=== PATIENT | female | born 1965 ===

== ENCOUNTER → 2020-08-29 13:42 | Outpatient (BNVA) | payer OTHER, SELFPAY | PROVIDERS: PCP Nurse Practitioner Family; Visit Provider Nurse Practitioner Family | DX: Z76.89 Persons encountering health services in other specified circumstances (principal) ==

== ENCOUNTER 2020-09-19 12:41 | Outpatient (REF) | payer OTHER, SELFPAY ==
--- NOTE | 2020-09-19 12:42 | XR_ITS ---
EXAMINATION: KNEE X-RAY CLINICAL INFORMATION: Right knee pain COMPARISON: Previous x-ray from 2010 TECHNIQUE: Standing AP view of both knees and lateral and sunrise view of the right knee FINDINGS: Right knee: Bone alignment is normal. No fracture or dislocation is seen. Joint spaces are normal. There is no joint effusion. Standing AP view of the left knee is unremarkable. XR/XR knee standing BI IMPRESSION: Unremarkable exam.
--- NOTE | 2020-09-19 12:42 | XR_ITS ---
EXAMINATION: KNEE X-RAY CLINICAL INFORMATION: Right knee pain COMPARISON: Previous x-ray from 2010 TECHNIQUE: Standing AP view of both knees and lateral and sunrise view of the right knee FINDINGS: Right knee: Bone alignment is normal. No fracture or dislocation is seen. Joint spaces are normal. There is no joint effusion. Standing AP view of the left knee is unremarkable. XR/XR knee RT 2V IMPRESSION: Unremarkable exam.
== END 2020-09-19 12:42 | disposition home or self-care (01) ==
LOC: HO.HOSX 12:41
PROVIDERS: Visit Provider Physician Assistant
DX: M25.561 Pain in right knee (principal); M70.51 Other bursitis of knee, right knee
CPT/HCPCS: 73560; 73565

== ENCOUNTER 2020-10-11 09:16 | Outpatient (REF) | payer OTHER, SELFPAY ==
[2020-10-11 11:37] LABS: Alanine Aminotransferase 56 U/L (0-31); Albumin Level 4.4 g/dL (3.5-5.0); Alkaline Phosphatase 139 U/L (39-117); Aspartate Amino Transferase 42 U/L (5-31); Bilirubin Direct 0.2 mg/dL (0.0-0.5); Bilirubin Total 0.5 mg/dL (0.0-1.0); Total Protein 7.5 g/dL (6.5-8.0)
[2020-10-11 11:45] LABS: Anion Gap 15 (12-20); Blood Urea Nitrogen 16 mg/dL (9-16); Calcium 9.5 mg/dL (8.4-10.2); Carbon Dioxide 27 mmol/L (22-29); Chloride 102 mmol/L (96-108); Cholesterol 260 mg/dL; Estimated Glomerular Filt Rate > 60; Glucose Fasting 100 mg/dL (60-99); HDL Cholesterol 71 mg/dL; LDL Cholesterol Calculated 148 mg/dl; Potassium 4.7 mmol/l (3.3-5.1); Sodium 139 mmol/L (135-145); Triglycerides 209 mg/dL
[2020-10-11 11:55] LABS: Vitamin D 25-OH Total 17.8 ng/mL (>30)
== END 2020-10-11 09:17 | disposition home or self-care (01) ==
LOC: HO.HMGCLDS 09:16
PROVIDERS: PCP Nurse Practitioner Family; Visit Provider Nurse Practitioner Family
DX: Z00.00 Encounter for general adult medical examination without abnormal findings (principal); E55.9 Vitamin D deficiency, unspecified
CPT/HCPCS: 80048; 80061; 80076; 82306; 84443

== ENCOUNTER 2020-11-10 07:27 | Day surgery (SDC) | payer OTHER, SELFPAY ==
[2020-11-04 10:49] VITALS: BMI 42.3
--- NOTE | 2020-11-09 08:22 | HO.ANESPROP2 ---
Documented by User: Carmen Tinsley 11/09/20 08:24 HPI - Anesthesia Eval Consult details Narrative: 55yo F for Colonoscopy PMFSH Past Medical History Medical History (Updated 11/10/20 @ 07:49 by Malena Bass) Chronic otitis externa Depression Dyslipidemia Elevated LFTs Hemicrania HTN (hypertension) Impaired fasting glucose Increased BMI Insomnia Menopausal disorder Tenosynovitis of both wrists Family History Family History Father Hx of cirrhosis Mother Hx of diabetes insipidus HX: breast cancer Hx of renal failure Son No problems noted. Daughter No problems noted. 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 Meds Allergies Allergy/AdvReac Type Severity Reaction Status Date / Time No Known Allergies Allergy Verified 10/18/20 08:49 Home Medications Medication Instructions Recorded Confirmed Type acetic acid 2 % ear solution ml OTIC (EARS) 08/09/20 10/18/20 History ciclopirox 0.77 % topical cream 1 applic TOPICAL BID 08/09/20 10/18/20 History clobetasol 0.05 % topical ointment g TOPICAL BID 08/09/20 10/18/20 History escitalopram oxalate 10 mg tablet 10 mg PO DAILY 08/09/20 10/18/20 History estradiol 0.05 mg/24 hr semiweekly 1 patch TOPICAL 2XW 08/09/20 10/18/20 History transdermal patch flu vac qs 2019(4 yr up)CD(PF) ml IM 08/09/20 10/18/20 History lorazepam 0.5 mg tablet 0.5 mg PO DAILY PRN 08/09/20 11/04/20 History propranolol 120 mg capsule,24 120 mg PO DAILY 08/09/20 11/04/20 History hr,extended release varicella-zoster glycoE [id number] IM 08/09/20 10/18/20 History adj(PF) 50 mcg/0.5 mL IM susp, kit Exam Exam Date and Time: November 09, 2020 0822 Height,Weight and Vital Signs: Height 5 ft 6 in Weight 118.841 kg Pertinent Lab Results Pertinent Lab Results: Laboratory Tests 10/11/20 09:22 Sodium 139 Potassium 4.7 Chloride 102 Carbon Dioxide 27 BUN 16 Creatinine 0.73 Assessment and Plan Assessment Anesthesia Assessment: Chart Reviewed Documented by User: Malena Bass 11/10/20 08:46 [facility] Past Medical History Medical History (Updated 11/10/20 @ 07:49 by Malena Bass) Chronic otitis externa Depression Dyslipidemia Elevated LFTs Hemicrania HTN (hypertension) Impaired fasting glucose Increased BMI Insomnia Menopausal disorder Tenosynovitis of both wrists Family History Family History Father Hx of cirrhosis Mother Hx of diabetes insipidus HX: breast cancer Hx of renal failure Son No problems noted. Daughter No problems noted. Family history of problems with anesthesia: No Surgical History Surgical History History of colonoscopy History of hysterectomy History of laparoscopic cholecystectomy History of mammogram History of Problems with Anesthesia: No (Could hear people talking toward end of last colonoscopy. 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 Allergies Allergy/AdvReac Type Severity Reaction Status Date / Time No Known Allergies Allergy Verified 10/18/20 08:49 Home Medications Medication Instructions Recorded Confirmed Type acetic acid 2 % ear solution ml OTIC (EARS) 08/09/20 10/18/20 History ciclopirox 0.77 % topical cream 1 applic TOPICAL BID 08/09/20 10/18/20 History clobetasol 0.05 % topical ointment g TOPICAL BID 08/09/20 10/18/20 History escitalopram oxalate 10 mg tablet 10 mg PO DAILY 08/09/20 10/18/20 History estradiol 0.05 mg/24 hr semiweekly 1 patch TOPICAL 2XW 08/09/20 10/18/20 History transdermal patch flu vac qs 2020(4 yr up)CD(PF) ml IM 08/09/20 10/18/20 History lorazepam 0.5 mg tablet 0.5 mg PO DAILY PRN 08/09/20 11/04/20 History propranolol 120 mg capsule,24 120 mg PO DAILY 08/09/20 11/04/20 History hr,extended release varicella-zoster glycoE [id number] IM 08/09/20 10/18/20 History adj(PF) 50 mcg/0.5 mL IM susp, kit Exam Height,Weight and Vital Signs: Vital Signs Temp Pulse Resp BP Pulse Ox 11/10/20 08:07 96.8 F 87 16 142/88 H 94 Airway Mallampati Class: III TM Dist: >3cm Neck ROM: Full Heart: RRR Lungs: CTAB Assessment and Plan Assessment Anesthesia Assessment: Anesthesia Plan Discussed and Chart Reviewed Final Anesthetic Review NPO: Yes ASA Class: III Final Preanesthetic Review: No Changes in Pt Med Stat, Meds/Allgs Chart Reviewed, Consent Obtained/Reviewed and Anes Risks/Benef Reviewed Patient Risk: Intermediate Procedure Risk: Low Assessment/Block/Sedation in SS: Assess/Block/Sedation-SS Anesthetic Plan Anesthetic Plan: MAC: Disposition: Standard PACU
[2020-11-10 08:07] VITALS: BP 142/88; PULSE 87; RESP 16; TEMP 36; O2SAT 94
[2020-11-10] MEDS: Lactated Ringers 1,000 ML 100 ML IVCONT (08:14)
--- NOTE | 2020-11-10 08:53 | MHC.SHP ---
Pre-Procedural Eval Section B Chief Complaint: screening Details of Present Illness: COLON CANCER SCREENING, HX OF ASTHMA--ALLERGY INDUCED PERSONAL HX OF POLYPS, MOTHER WITH POLYPS NO CLINICAL CHANGES SINCE AUGUST. Relevant Family History (Specify if Yes): Yes Relevant Social History: None Present Medications: see Short Stay Collaborative assessment Medical History: Significant History (ASTHMA, HYPERTENSION, MORBID OBESITY) History of Previous Operations: Relevant previous surgery/procedure and date(s) (HYSTERECTOMY, CHOLECYSTECTOMY) Allergies: Allergies Allergy/AdvReac Type Severity Reaction Status Date / Time No Known Allergies Allergy Verified 10/18/20 08:49 Review of Systems Sugical H&P ROS: Yes, Specify: Constitution (OBESE), Cardiovascular (HTN), Respiratory (ASTHMA), Neurological, Gastrointestinal and Musculoskeletal Exam Surgical H&P Exam: Normal: HEENT, Normal: Heart, Normal: Lungs and Normal: Extremities and Significant Findings: Abdomen (CENTRAL OBESITY) Plan Diagnosis/Plan: Unchanged I have reviewed the history and physical and performed a pertinent physical examination on my patient. No changes have occurred unless specified.YES
--- NOTE | 2020-11-10 09:29 | PM.PROC ---
Brief Operative Note Date of procedure: 11/10/20 Pre-op diagnosis: COLON C ANCER SCREENING, HX OF TUBULAR ADENOMAS Post-op diagnosis: other (COLON POLYPS, DIVERTICULOSIS) Procedure: COLONOSCOPY WITH EXCISIONAL POLYPECTOMY X2 Anesthesia: MAC (DEANGELO BAILEY) Surgeon: Dahlia Rice Estimated blood loss (mL): 5 Pathology: other (ASC. COLON, HEPATIC FLEXURE) Condition: stable Disposition: PACU
[2020-11-10 09:31] VITALS: BP 122/80; PULSE 82; RESP 16; TEMP 37.1; O2SAT 96
[2020-11-10 09:46] VITALS: BP 139/94; PULSE 90; RESP 20; TEMP 36.7; O2SAT 96
--- NOTE | 2020-11-10 10:32 | OP_ITS ---
SURGEON: Dahila Rice MD PREOPERATIVE DIAGNOSIS: positive family history of colonic polyps. POSTOPERATIVE DIAGNOSIS: PROCEDURE PERFORMED: Colonoscopy with excisional polypectomy x2 using the cold biopsy forceps technique. ESTIMATED BLOOD LOSS: Less than 5 mL. COMPLICATIONS: No complications. ANESTHESIA: Monitored. ANESTHESIOLOGIST: Samm Garza CRNA. ASSISTANTS: No assistant librarian. SPECIMENS: Specimens removed; ascending colon, hepatic flexure, 1 diminutive ascending colon, hepatic flexure, 1 to 2 mm polyp. POSTOPERATIVE DIAGNOSES: Colonic polyps, diverticulosis. CONTROL SUPERVISOR: Dr. Rice. CONDITION: Postop, stable. FINDINGS: Digital rectal exam revealed slightly decreased sphincter tone. Video colonoscope was introduced without difficulty. It was navigated into the rectosigmoid and sigmoid. There was some mild residual fecal material, which was easily flushed and suctioned. Scope slowly moved through redundant area with multiple diverticula, opening up in the descending colon with extrinsic abdominal pressure. Once reached the transverse colon, we were able to proceed through hepatic flexure down into the cecum. Appendiceal orifice was seen. Ileocecal valve was well seen. No mucosal abnormalities were appreciated. As we pulled through the ascending colon, was a diminutive polyp, removed excisionally and in the distal portion of the hepatic flexure, there was a 1 to 2 mm polyp that was removed excisionally as well. No additional lesions were seen as we removed the scope. Anorectal verge was clear. PLAN AND CURRENT RECOMMENDATIONS: Repeat asymptomatic screening in this patient will continue to be 5 years. The patient was spoken to postprocedure and informed of this. GRAFT OR IMPLANTS: No grafts or implants. Dahlia Rice MD MEN/MODL / [id number] MTDD
== END 2020-11-10 10:19 | disposition home or self-care (01) ==
PROVIDERS: PCP Nurse Practitioner Family; Visit Provider Internal Medicine Gastroenterology
PROC: 0DJD8ZZ Inspection of Lower Intestinal Tract, Via Natural or Artificial Opening Endoscopic (ICD-10-PCS; CPT 45378; principal; 2020-11-10 08:30)
DX: Z12.11 Encounter for screening for malignant neoplasm of colon (principal); Z83.71 Family history of colonic polyps; D12.2 Benign neoplasm of ascending colon; D12.3 Benign neoplasm of transverse colon; K57.30 Diverticulosis of large intestine without perforation or abscess without bleeding; I10 Essential (primary) hypertension; F32.9 Major depressive disorder, single episode, unspecified; R73.01 Impaired fasting glucose; Z90.49 Acquired absence of other specified parts of digestive tract; Z79.899 Other long term (current) drug therapy
CPT/HCPCS: 45380; 88305; J3010

== ENCOUNTER 2020-11-14 14:47 | Outpatient (REF) | payer OTHER, SELFPAY | END 2020-11-14 14:48 | disposition home or self-care (01) | LOC: HO.LAB 14:47 | PROVIDERS: Visit Provider Nurse Practitioner Family | DX: K13.70 Unspecified lesions of oral mucosa (principal) | CPT/HCPCS: 87255 ==

== ENCOUNTER 2020-11-30 15:27 | Outpatient (REF) | payer OTHER, SELFPAY ==
[2020-11-30 16:00] LABS: MANUAL DIFF FLAG NO
[2020-11-30 16:03] LABS: Basophils Percent Auto 0.4 % (0-2); Eosinophils Absolute Auto 0.2 X10*3/uL (0.0-0.4); Hematocrit 39.7 % (37-47); Hemoglobin 12.6 g/dl (12.0-16.0); Imm Gran Abs Auto 0.04 X10*3/uL (0.00-0.03); Imm Gran Pct Auto 0.4 % (0.0-0.4); Mean Corpuscular HGB Conc 31.7 g/dl (31.0-35.0); Mean Corpuscular Hemoglobin 28.6 pg (27.0-33.0); Mean Platelet Volume 9.3 fL (9.4-12.3); Monocytes Absolute Auto 0.6 X10*3/uL (0.1-1.2); Monocytes Percent Auto 5.7 % (2-11); Neutrophils Absolute Auto 6.9 X10*3/uL (2.0-8.3); Neutrophils Percent Auto 70.5 % (45-73); Platelet Count 325 X10*3/uL (160-400); Red Blood Count 4.41 X10*6/uL (4.20-5.50); Red Cell Distribution Width 12.5 % (11.0-16.0); White Blood Count 9.7 X10*3/uL (4.8-10.8)
[2020-11-30 16:28] LABS: Rheumatoid Factor < 15.0 IU/mL (<15.0)
[2020-11-30 16:32] LABS: C Reactive Protein 0.75 mg/dL (< or = 0.50); Gamma Glutamyl Transpeptidase 124 U/L (7-33); Lactate Dehydrogenase 238 U/L (122-220)
[2020-11-30 16:52] LABS: Ferritin 359 ng/mL (10-250)
[2020-11-30 17:32] LABS: Erythrocyte Sedimentation Rate 25 MM/HR (0-20)
[2020-12-01 08:10] LABS: HBsAGNum1 0.24 S/CO (0.00-0.99); Hepatitis B Surface Antigen Negative (Negative); ~HepC Num1 0.21 S/CO (0.00-0.79); ~Hepatitis C Antibody Nonreactive (Nonreactive)
[2020-12-01 08:58] LABS: HBS Num1 23.13 mIU/mL (0-7.99); HBc Num1 11.11 S/CO (0.00-0.79); ~Hepatitis B Surface Antibody REACTIVE (Nonreactive)
[2020-12-01 10:50] LABS: HBc Num2 10.74 S/CO; HBc Num3 10.54 S/CO; Hepatitis B Core Antibody Reactive (Nonreactive)
[2020-12-01 13:42] LABS: Anti Nuclear Antibody Screen NEGATIVE (NEGATIVE)
[2020-12-02 08:14] LABS: Hepatitis A Antibody IgM 0.36 Index (0-0.79); ~Hepatitis A Antibody IgM Nonreactive (Nonreactive)
[2020-12-02 10:37] LABS: Hepatitis B Core Antibody IgM NON-REACTIVE (NON-REACTIVE)
[2020-12-02 12:36] LABS: Mitochondrial Antibodies NEGATIVE (NEGATIVE)
[2020-12-02 12:57] LABS: Cyclic Citrullinated Peptide <16 UNITS
[2020-12-03 12:42] LABS: Smooth Muscle Antibody <20 U (<20)
== END 2020-11-30 15:28 | disposition home or self-care (01) ==
LOC: HO.LAB 15:27
PROVIDERS: Absent Provider Podiatrist; PCP Nurse Practitioner Family; Visit Provider Nurse Practitioner Family
DX: R79.89 Other specified abnormal findings of blood chemistry (principal); M25.50 Pain in unspecified joint
CPT/HCPCS: 36415; 82550; 82728; 82977; 83615; 85025; 85652; 86038; 86039; 86140; 86200; 86255; 86256; 86431; 86704; 86705; 86706; 86709; 86803; 87340

== ENCOUNTER → 2020-12-08 13:50 | Outpatient (BNVA) | payer OTHER, SELFPAY | PROVIDERS: PCP Nurse Practitioner Family; Visit Provider Nurse Practitioner Family ==

== ENCOUNTER 2020-12-15 07:53 | Outpatient (REF) | payer OTHER, SELFPAY ==
--- NOTE | ~2020-12-15 | US_ITS ---
EXAMINATION: US COMPLETE ABDOMEN WITH LIVER ELASTOGRAPHY CLINICAL INFORMATION: R79.89 - Other specified abnormal findings of blood chemistry COMPARISON: Ultrasound abdomen 01/30/2016, MR abdomen without and with gadolinium contrast 07/13/2011. TECHNIQUE: Real-time imaging of the abdominal viscera. Noninvasive ultrasound liver fibrosis assessment is performed using Marsha ElastPQ point quantification shear wave elastography (pSWE) with a C5-2 MHz transducer. Multiple elastography samples are obtained. FINDINGS: PANCREAS: The visualized pancreas is normal in size and contour and echogenicity. There is no pancreatic ductal distention or retroperitoneal effusion. Portions of the distal body and tail are obscured by bowel gas and not completely imaged. ABDOMINAL AORTA: The proximal, middle, and distal aortic segments are normal in caliber. INFERIOR VENA CAVA: Visualized portions are normal. LIVER: The liver is smooth in contour and within normal size. The parenchyma shows increased echogenicity consistent with hepatic steatosis. There is no intrahepatic ductal dilatation. No focal hepatic parenchymal lesion demonstrated on current exam. Previously, a small subcapsular lesion under 1.5 cm right lobe believed to represent FNH is not visualized. The right lobe measures 18.0 cm in length. The left lobe measures 14.1 cm in length. Portal flow is towards the liver (hepatopetal). Shear wave liver elastography median stiffness is 1.37 m/s (reference: normal median stiffness is 1.3 m/s or less). IQR/median stiffness to assess sampling precision is 0.15 (reference: good quality data set is IQR/median stiffness of 0.15 or less). GALLBLADDER: Prior cholecystectomy. COMMON BILE DUCT: Normal in caliber for postcholecystectomy patient, measuring 0.9 cm. No choledocholithiasis. RIGHT KIDNEY: Normal. No hydronephrosis. No renal calculi or focal parenchymal lesions. The kidney measures 13.2 cm in maximum dimension. LEFT KIDNEY: Normal. No hydronephrosis. No renal calculi or focal parenchymal lesions. The kidney measures 12.0 cm in maximum dimension. SPLEEN: Normal. The spleen measures 12.4 cm in maximum dimension. FREE FLUID: None. US/US abdomen comp w elastography IMPRESSION: 1. Hepatic steatosis. Liver within limits of normal size. Portal flow towards the liver. Small focal nodular hyperplasia right hepatic lobe under 1.5 cm noted on prior imaging, not visualized. 2. Liver elastography: In the absence of other known clinical signs, measurements rule out compensated advanced chronic liver disease. If there are known clinical signs, further testing may be needed for confirmation. 3. Prior cholecystectomy. No ductal dilatation. REFERENCE: Society of Radiologists in Ultrasound Liver Stiffness Thresholds (2020): LIVER STIFFNESS THRESHOLDS: *Liver Stiffness equal or less than 1.3 m/s: High probability of being normal. *Liver Stiffness less than 1.7 m/s: In the absence of other known clinical signs, rules out compensated advanced chronic liver disease. *Liver Stiffness 1.7-2.1 m/s: Suggestive of compensated advanced chronic liver disease but need further test for confirmation. *Liver Stiffness over 2.1 m/s: Rules in compensated advanced chronic liver disease. *Liver Stiffness over 2.4 m/s: Suggestive of clinically significant portal hypertension. QUALITY OF DATA SET: *IQR/Median value equal or less than 0.15 implies a quality data set. *IQR/Median value over 0.15 implies a poor quality data set. SIGNIFICANT CHANGE FROM PRIOR EXAM: Significant change if liver stiffness measurement is 10% or greater from prior exam. OTHER CONSIDERATIONS: The stage of liver fibrosis may be overestimated in the setting of acute hepatitis, liver inflammation, elevated liver function tests, hepatic vascular congestion, obstructive cholestasis, non-fasting state, and infiltrative diseases such as amyloidosis and lymphoma. In some patients with NAFLD, the liver stiffness thresholds for compensated advanced chronic liver disease may be lower. In causes other than viral hepatitis and NAFLD, liver stiffness thresholds are not well established.
== END 2020-12-15 07:54 | disposition home or self-care (01) ==
LOC: HO.US 07:53
PROVIDERS: PCP Nurse Practitioner Family; Visit Provider Internal Medicine Gastroenterology
DX: R79.89 Other specified abnormal findings of blood chemistry (principal)
CPT/HCPCS: 76705; 76981

== ENCOUNTER → 2020-12-28 15:29 | Outpatient (BNVA) | payer OTHER, SELFPAY | PROVIDERS: PCP Nurse Practitioner Family; Visit Provider Nurse Practitioner Family ==

== ENCOUNTER 2021-02-23 10:49 | Outpatient (REF) | payer OTHER, SELFPAY | END 2021-02-23 10:50 | disposition home or self-care (01) | LOC: HO.LNP 10:49 | PROVIDERS: Visit Provider Nurse Practitioner Family | DX: K21.9 Gastro-esophageal reflux disease without esophagitis (principal) | CPT/HCPCS: 87338 ==

== ENCOUNTER 2021-03-10 09:47 | Outpatient (REF) | payer OTHER, SELFPAY ==
--- NOTE | ~2021-03-10 | XR_ITS ---
EXAMINATION: XR KNEE, LEFT CLINICAL INFORMATION: Pain COMPARISON: Prior x-ray September 2020 TECHNIQUE: Lateral and patella sunrise view of the left knee. FINDINGS: Bones and soft tissues are normal. No fracture or joint effusion. Alignment is anatomic. Joint spaces are well maintained. No abnormal soft tissue calcification. XR/XR knee LT 2V IMPRESSION: No significant osseous changes of the left knee.
== END 2021-03-10 09:48 | disposition home or self-care (01) ==
LOC: HO.HOSX 09:47
PROVIDERS: PCP Nurse Practitioner Family; Visit Provider Physician Assistant
DX: M17.0 Bilateral primary osteoarthritis of knee (principal)
CPT/HCPCS: 20610; 73560; J1040

== ENCOUNTER → 2021-03-20 08:32 | Outpatient (BNVA) | payer OTHER, SELFPAY | PROVIDERS: PCP Nurse Practitioner Family; Visit Provider Nurse Practitioner Family ==

== ENCOUNTER → 2021-04-21 09:52 | Outpatient (BNVA) | payer OTHER, SELFPAY | PROVIDERS: Visit Provider Nurse Practitioner Family ==

== ENCOUNTER → 2021-05-26 12:28 | Outpatient (BNVA) | payer OTHER, SELFPAY | PROVIDERS: Visit Provider Nurse Practitioner Family ==

== ENCOUNTER 2021-05-30 14:23 | Outpatient (REF) | payer OTHER, SELFPAY | END 2021-05-30 14:24 | disposition home or self-care (01) | LOC: HO.LNP 14:23 | PROVIDERS: Visit Provider Internal Medicine | DX: J06.9 Acute upper respiratory infection, unspecified (principal); Z20.822 Contact with and (suspected) exposure to COVID-19 | CPT/HCPCS: U0003; U0005 ==

== ENCOUNTER → 2021-07-21 10:56 | Outpatient (BNVA) | payer OTHER, SELFPAY | PROVIDERS: PCP Nurse Practitioner Family; Visit Provider Physician Assistant ==

== ENCOUNTER 2021-10-18 08:32 | Outpatient (REF) | payer OTHER, SELFPAY ==
--- NOTE | ~2021-10-18 | XR_ITS ---
EXAMINATION: XR HAND, LEFT CLINICAL INFORMATION: Left hand pain. COMPARISON: None TECHNIQUE: PA, lateral, and oblique views of the left hand. FINDINGS: There is no evidence of acute fracture or dislocation of the left hand. No destructive bony lesions appreciated. There is mild degenerative spurring about the 1st carpometacarpal joint. There is some mild spurring without significant joint space narrowing involving the 2nd and 5th distal interphalangeal joints. There appears to be a lunate cyst present. XR/XR hand LT min 3V IMPRESSION: Mild degenerative change of the left hand as described.
== END 2021-10-18 08:33 | disposition home or self-care (01) ==
LOC: HO.HOSX 08:32
PROVIDERS: Visit Provider Orthopaedic Surgery
DX: M79.641 Pain in right hand (principal); M79.642 Pain in left hand
CPT/HCPCS: 73130

== ENCOUNTER → 2021-12-07 15:11 | Outpatient (BNVA) | payer OTHER, SELFPAY | PROVIDERS: PCP Nurse Practitioner Family; Visit Provider Physician Assistant ==

== ENCOUNTER 2021-12-13 08:32 | Day surgery (SDC) | payer OTHER, SELFPAY ==
[2021-12-06 13:52] VITALS: BMI 39.9
--- NOTE | 2021-12-12 12:01 | HO.ANESPROP2 ---
Documented by User: Carmen Tinsley NP 12/12/21 12:02 HPI - Anesthesia Eval Consult details Narrative: 56yo F for Left Knee Arthroscopy PCP eval 12/12/21 for new murmur and atypical cp. EKG wnl, Murmur faint. No need to postpone surgery per PCP workload. [facility] Active Problems Active Problems: All Active Problems (Updated 12/12/21 @ 08:56 by HO Singh) Chest discomfort (Acute) Systolic murmur (Acute) Physical exam (Acute) Bilateral hand pain (Acute) Tear of medial meniscus of left knee (Acute) Internal derangement of left knee (Acute) Upper respiratory infection (Acute) Osteoarthritis of knees, bilateral (Acute) Diarrhea (Acute) GERD (gastroesophageal reflux disease) (Acute) Elevated liver enzymes (Acute) Tubular adenoma (Acute) Anxiety (Acute) HTN (hypertension) (Acute) Low O2 saturation (Acute) Allergic rhinitis (Acute) Lesion of mouth (Acute) Increased BMI (Acute) Impaired fasting glucose (Acute) Dyslipidemia (Acute) Tenosynovitis of both wrists (Acute) Elevated LFTs (Acute) Other bursitis of knee, right knee (Acute) Right knee pain (Acute) Screening for colon cancer (Acute) Vitamin D deficiency (Acute) Past Medical History Medical History Chronic otitis externa Depression Diarrhea Dyslipidemia Elevated LFTs Elevated liver enzymes GERD (gastroesophageal reflux disease) Hemicrania HTN (hypertension) Impaired fasting glucose Increased BMI Insomnia Menopausal disorder Tenosynovitis of both wrists Tubular adenoma Family History Family History Father Hx of cirrhosis Mother Hx of diabetes insipidus HX: breast cancer Hx of renal failure Son No problems noted. Daughter No problems noted. Family history of problems with anesthesia: No Surgical History Surgical History History of colonoscopy History of hysterectomy History of laparoscopic cholecystectomy History of mammogram History of Problems with Anesthesia: No (Could hear people talking toward end of last colonoscopy. 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 Allergies Allergy/AdvReac Type Severity Reaction Status Date / Time No Known Allergies Allergy Verified 12/12/21 08:34 Home Medications Medication Instructions Recorded Confirmed Last Taken Type ciclopirox 0.77 % topical cream 1 applic TOPICAL BID 08/09/20 12/12/21 Unknown History clobetasol 0.05 % topical ointment g TOPICAL BID 08/09/20 12/12/21 Unknown History estradiol 0.05 mg/24 hr semiweekly 1 patch TOPICAL 2XW 08/09/20 12/12/21 Unknown History transdermal patch lorazepam 0.5 mg tablet 0.5 mg PO DAILY PRN 08/09/20 12/12/21 Unknown History fluocinolone acetonide oil 0.01 % 4 - 5 drp OTIC (EARS) DAILY 03/10/21 12/12/21 Unknown History ear drops Exam Exam Date and Time: December 12, 2021 1201 Height,Weight and Vital Signs: Height 5 ft 6 in Weight 112.037 kg Assessment and Plan Assessment Anesthesia Assessment: Chart Reviewed Final Anesthetic Review Family History of Problems with Anesthesia: No History of Problems with Anesthesia: No (Could hear people talking toward end of last colonoscopy. Explained that this may happen with MAC anesthesia and not cause for worry) Documented by User: Gabriele Kay MD 12/13/21 18:06 HPI - Anesthesia Eval Consult details Narrative: 56yo F for Left Knee Arthroscopy PCP eval 12/12/21 for new murmur and atypical cp. EKG wnl, Murmur faint. No need to postpone surgery per PCP workload. the atypical chest pain started few years ago , was hospitalised at that time , workup negative [facility] Past Medical History Medical History Chronic otitis externa Depression Diarrhea Dyslipidemia Elevated LFTs Elevated liver enzymes GERD (gastroesophageal reflux disease) Hemicrania HTN (hypertension) Impaired fasting glucose Increased BMI Insomnia Menopausal disorder Tenosynovitis of both wrists Tubular adenoma Family History Family History Father Hx of cirrhosis Mother Hx of diabetes insipidus HX: breast cancer Hx of renal failure Son No problems noted. Daughter No problems noted. 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 Allergies Allergy/AdvReac Type Severity Reaction Status Date / Time No Known Allergies Allergy Verified 12/12/21 08:34 Home Medications Medication Instructions Recorded Confirmed Last Taken Type ciclopirox 0.77 % topical cream 1 applic TOPICAL BID 08/09/20 12/12/21 Unknown History clobetasol 0.05 % topical ointment g TOPICAL BID 08/09/20 12/12/21 Unknown History estradiol 0.05 mg/24 hr semiweekly 1 patch TOPICAL 2XW 08/09/20 12/12/21 Unknown History transdermal patch lorazepam 0.5 mg tablet 0.5 mg PO DAILY PRN 08/09/20 12/12/21 Unknown History fluocinolone acetonide oil 0.01 % 4 - 5 drp OTIC (EARS) DAILY 03/10/21 12/12/21 Unknown History ear drops Exam Airway Mallampati Class: II TM Dist: >3cm Neck ROM: Full Loose/Missing/Broken Teeth: Yes (Caps ) Heart: rrr Lungs: bl breath sounds Assessment and Plan Assessment Anesthesia Assessment: Anesthesia Plan Discussed Final Anesthetic Review NPO: Yes ASA Class: III Final Preanesthetic Review: Meds/Allgs Chart Reviewed, Consent Obtained/Reviewed and Anes Risks/Benef Reviewed Patient Risk: Intermediate Procedure Risk: Intermediate Anesthetic Plan Anesthetic Plan: GA Disposition: Standard PACU
[2021-12-13] VITALS (14 sets, daily range): BP systolic 134–160; BP diastolic 73–102; PULSE 60–73; RESP 16–18; TEMP 36.2–36.4; O2SAT 94–99
--- NOTE | 2021-12-13 08:10 | MHC.SHP ---
Pre-Procedural Eval Section A Date of Service: 12/13/21 The patient is an INPATIENT: No Changes since office visit: Yes Patient answered all questions; No Cold of Flu in the past 2 weeks, No New Medical Problems and No Changes in Medication The History & Physical has been completed within 30 days and I have reviewed it.: Yes Section B Chief Complaint: Medial Meniscus Tear Allergies: Allergies Allergy/AdvReac Type Severity Reaction Status Date / Time No Known Allergies Allergy Verified 12/12/21 08:34 Plan I have reviewed the history and physical and performed a pertinent physical examination on my patient. No changes have occurred unless specified.
[2021-12-13] MEDS: Lactated Ringers 1,000 ML 100 ML IVCONT (08:53)
--- NOTE | 2021-12-13 10:32 | P.OP_ITS ---
Operative Note Operative Note Date of Service: 12/13/21 Narrative: Pre-op diagnosis: left knee mmt Post-op diagnosis: same Procedure: left knee partial medial meniscectomy Surgeon: Ajay Pitts MD Anesthesia: GETA and local Was an Double Ending Machine Operator used for this Procedure?: No Estimated blood loss (mL): 5 Tourniquet time (min): 26 IV fluids (mL): 1,000 Pathology: none sent Condition: stable Disposition: PACU Procedure in detail: Patient was brought to the operating room placed supine on the arthroscopic table and prepped and draped in standard sterile fashion. A time-out was called to identify proper site proper procedure proper surgeon and IV antibiotics per weight were administered. I began by exsanguinating the limb and insufflating tourniquet to 300 mm Hg. Then made a standard anterolateral stab incision. knee was insufflated with water and 30 degree arthroscope was placed. There were no cartilage changesi n the anterior compartment. The suprapatellar pouch the gutters were clean. I descended into the medial compartment where I made my medial portal under direct visualization. There was obvious of complex tear of the body and posterior horn of the medial meniscus. Root was intact and there was grade 1 changes with some scattered grade 2 changes throughout the medial tibial plateau only.. I used a combination of biter shaver and cautery to remove unstable portions of the meniscus. Approximately 40% meniscal volume was removed. Once I was happy with this the ACL was examined and found to be intact and the lateral compartment also was without the need for intervention. I then removed all instrumentation and closed the portals with skin glue. 25 mL of 2% Marcaine with epinephrine was injected into the joint and the surrounding soft tissues. Patient was then placed in sterile dressing extubated brought recovery room stable condition. There were no known complications.
--- NOTE | 2021-12-13 10:32 | PM.OP ---
Brief Operative Note Date of Service: 12/13/21 Pre-op diagnosis: left knee mmt Post-op diagnosis: same Procedure: left knee partial medial meniscectomy Surgeon: Ajay Pitts MD Anesthesia: GETA and local Was an Financial Manager used for this Procedure?: No Estimated blood loss (mL): 5 Tourniquet time (min): 26 IV fluids (mL): 1,000 Pathology: none sent Condition: stable Disposition: PACU
[2021-12-13] MEDS: Acetaminophen 325 MG TABLET 650 MG PO (10:52)
[2021-12-13] MEDS: oxyCODONE HCl Immed Release 5 MG TABLET PO (10:52)
[2021-12-13] MEDS: fentaNYL citrate/PF 100 MCG/2 ML VIAL 25 MCG IVPUSH ×2 (11:22→11:27)
== END 2021-12-13 13:23 | disposition home or self-care (01) ==
LOC: HO.SSS 08:32
PROVIDERS: PCP Nurse Practitioner Family; Visit Provider Orthopaedic Surgery
PROC: (CPT 29870; principal; 2021-12-13 09:40)
DX: S83.232A Complex tear of medial meniscus, current injury, left knee, initial encounter (principal); X58.XXXA Exposure to other specified factors, initial encounter; Y93.9 Activity, unspecified; Y92.9 Unspecified place or not applicable; Y99.8 Other external cause status; R01.1 Cardiac murmur, unspecified; I10 Essential (primary) hypertension; E78.5 Hyperlipidemia, unspecified; R73.01 Impaired fasting glucose; K21.9 Gastro-esophageal reflux disease without esophagitis; F32.9 Major depressive disorder, single episode, unspecified; Z79.899 Other long term (current) drug therapy; Z90.49 Acquired absence of other specified parts of digestive tract
CPT/HCPCS: 29881; J0171; J0690; J1100; J2405; J3010

== ENCOUNTER → 2021-12-28 15:41 | Outpatient (BNVA) | payer OTHER, SELFPAY | PROVIDERS: PCP Nurse Practitioner Family; Visit Provider Physician Assistant | DX: Z13.89 Encounter for screening for other disorder (principal) ==

== ENCOUNTER → 2022-02-06 09:29 | Outpatient (REF) | payer OTHER, SELFPAY ==
--- NOTE | 2022-02-06 09:32 | CA_ITS ---
Transthoracic Echocardiogram Patient (Last, First, Middle): Kinza Lynch L Gender: Female Date of : 1965 Age: 57 Procedure Date: 02/06/2022 Procedure Type: Transthoracic Echocardiogram Location: OP Height: 167.64 cm Weight: 112.04 kg BSA: 2.19 m2 Heart Rate: bpm BP: 130 / 90 mmHg Ram Car Operator: CP/TO Referring MD: Wilfred Castle [facility] Symptoms: R01.1 - Cardiac murmur, unspecified Study Quality: Fair ECG Rhythm: Sinus Conclusions: - The left ventricular systolic function is normal. The calculated ejection fraction is 68% by biplane method. - No obvious valvular pathology seen on this study. Findings Left Ventricle Normal left ventricular cavity size. There is mildly increased left ventricular wall thickness. The left ventricular systolic function is normal. The calculated ejection fraction is 68% by biplane method. There is no evidence of regional wall motion abnormalities. Diastolic function is normal for age. Right Ventricle Normal right ventricular cavity size and systolic function. Atria Both atria are normal in size. Aortic Valve The aortic valve was not well visualized. There is no aortic valve stenosis. There is no aortic valve regurgitation. Mitral Valve The mitral valve appears normal. There is trace mitral valve regurgitation. There is no mitral valve stenosis. Pulmonic Valve The pulmonic valve was not well visualized. Tricuspid Valve Normal tricuspid valve structure. There is no tricuspid valve regurgitation. Tricuspid regurgitation envelope is inadequate for calculation of right ventricular systolic pressure. Great Vessels The aortic annulus, sinuses of valsalva, and asc aorta are normal in size. Venous The inferior vena cava is normal in size and collapses greater than 50% with inspiration. Pericardium/Pleural There is no evidence of pericardial effusion. Prior Study Comparison No significant change compared to prior study dated: 11/24/2013. Recommendations, Care & Conclusions No obvious valvular pathology seen on this study. Measurements 2D Linear Measurements IVSd: 1.10 0.6-0.9/0.6-1.0 cm LVIDd: 5.16 3.9-5.3/4.2-5.9 cm LVIDd Index: 2.36 2.4-3.2/2.2-3.1 cm/m2 LVIDs: 3.23 2.0-3.6 cm LVPWd: 1.04 0.7-1.1 cm LA Diam: 3.80 2.7-3.8/3.0-4.0 cm LAIDs Index: 1.74 1.5-2.3 cm/m2 LV Mass: 261.69 67-162/88-224 g LV Mass Index: 119.50 43-95/49-115 g/m2 LVOT Diam: 2.20 3.0+(-)1.3 cm 2D Systolic Function EF 4C: 66.20 >55% EF 2C: 68.00 >55% EF BiP: 67.80 >55% Mitral Valve MV Pk E: 1.11 MV PK A: 0.99 MV Decel Time: 169.00 E/A: 1.10 E'Lateral: 7.51 E'Medial: 8.38 E/E' Med: 13.20 E/E' Lat: 14.80 PHT: 50.00 MVA PHT: 4.40 Decel Fleming: 6.57 Aortic Valve AoV Pk Thierry: 1.24 AoV Mn Thierry: 0.88 AoV VTI: 0.33 AoV Pk Grad: 6.00 Aov Mn Grad: 3.00 DANIEL Cont.VTI: 2.94 LVOT LVOT Pk Thierry: 0.95 LVOT Mn Thierry: 0.67 LVOT VTI: 0.26 LVOT Pk Grad: 4.00 LVOT Mn Grad: 2.00 LVOT Diam: 2.20 LVOT Area: 3.80 Diastolic Function MV Pk E: 1.11 MV Pk A: 0.99 E/A: 1.10 E'Medial: 8.38 E/E' Med: 13.20 E' Laterial: 7.51 E/E' Lat: 14.80 Right Ventricle TAPSE (mm): 21.90 TVS' Thierry: 14.40 Tricuspid Valve RA Press: 3.00 Great Vessels Aorta Sinus of Valsalva: 3.31 2.0-3.[address] Ridge: 2.93 1.7-3.4 cm Ao Asc: 3.50 2.1-3.4 cm Ao Arch: 3.10 Updated in Other Vendor System with Status of Final Shantanu Hurt MD electronically signed on 02/06/2022 4:26:49 PM with status of Final
== END ==
LOC: HO.CARD 09:29
PROVIDERS: PCP Nurse Practitioner Family; Visit Provider Nurse Practitioner Family
DX: R01.1 Cardiac murmur, unspecified (principal)
CPT/HCPCS: 93306

== ENCOUNTER 2022-02-22 10:43 | Outpatient (REF) | payer OTHER, SELFPAY ==
--- NOTE | ~2022-02-22 | XR_ITS ---
EXAMINATION: XR KNEE STANDING, BILATERAL XR KNEE, LEFT CLINICAL INFORMATION: Left knee pain. COMPARISON: Lateral and patellar views of the left knee of 03/10/2021 and standing AP view of bilateral knees of 09/19/2020. TECHNIQUE: Standing AP view of the bilateral knees. Lateral and patellar views of the left knee. FINDINGS: Ernw-ha-fduhtuta narrowing of the medial and lateral patellar joint spaces is noted bilaterally, without significant subarticular sclerosis or cystic changes. Minimal medial subluxation of medial femoral condyle is over the medial tibial plateau is similar to that seen on the previous x-rays of 09/19/2020 with mild valgus angulation. Osseous mineralization is normal. Mild narrowing of the knee lateral patellofemoral joint space is noted. No evidence of left suprapatellar joint effusion. No acute osseous abnormality. No soft tissue calcifications. XR/XR knee LT 2V IMPRESSION: No significant interval change is noted in the appearance of the bilateral knees compared to previous x-rays of 2020 and 2019. No acute osseous abnormality. Mild degenerative changes in the knees.
--- NOTE | ~2022-02-22 | XR_ITS ---
EXAMINATION: XR KNEE STANDING, BILATERAL XR KNEE, LEFT CLINICAL INFORMATION: Left knee pain. COMPARISON: Lateral and patellar views of the left knee of 03/10/2021 and standing AP view of bilateral knees of 09/19/2020. TECHNIQUE: Standing AP view of the bilateral knees. Lateral and patellar views of the left knee. FINDINGS: Mejx-gu-cldpwdvu narrowing of the medial and lateral patellar joint spaces is noted bilaterally, without significant subarticular sclerosis or cystic changes. Minimal medial subluxation of medial femoral condyle is over the medial tibial plateau is similar to that seen on the previous x-rays of 09/19/2020 with mild valgus angulation. Osseous mineralization is normal. Mild narrowing of the knee lateral patellofemoral joint space is noted. No evidence of left suprapatellar joint effusion. No acute osseous abnormality. No soft tissue calcifications. XR/XR knee standing BI IMPRESSION: No significant interval change is noted in the appearance of the bilateral knees compared to previous x-rays of 2020 and 2019. No acute osseous abnormality. Mild degenerative changes in the knees.
== END 2022-02-22 10:44 | disposition home or self-care (01) ==
LOC: HO.HOSX 10:43
PROVIDERS: Visit Provider Physician Assistant
DX: S83.242D Other tear of medial meniscus, current injury, left knee, subsequent encounter (principal)
CPT/HCPCS: 73560; 73565

== ENCOUNTER 2022-03-05 07:23 | Outpatient (REF) | payer OTHER, SELFPAY ==
--- NOTE | ~2022-03-05 | MR_ITS ---
EXAMINATION: MR KNEE WITHOUT CONTRAST, RIGHT CLINICAL INFORMATION: Anterior and medial right knee pain. Intermittent swelling. Osteoarthritis. COMPARISON: Right knee radiographs dated 02/22/2022 and 09/19/2020. TECHNIQUE: MRI of the knee without contrast was performed using routine sequences on a high-field scanner. FINDINGS: MENISCI: Medial Meniscus: Oblique tibial articular surface tear through the middle third of the meniscal body extending into the medial aspect of the posterior horn. Tiny, inferomedially displaced meniscal flap. Degenerative intrasubstance signal within the posterior horn. Lateral Meniscus: Intact. LIGAMENTS: Cruciate: Intact. Collateral: Intact. EXTENSOR MECHANISM: Intact. ARTICULAR CARTILAGE/BONE: Patellofemoral Compartment: Normal. Medial Compartment: Mild articular cartilage thinning and signal heterogeneity with tiny marginal osteophytes. Lateral Compartment: Normal. JOINT FLUID AND BURSAE: Small joint effusion. MR/MR knee RT wo con IMPRESSION: 1. Oblique tibial articular surface tear through the medial meniscal body extending to the medial aspect of the posterior horn. Tiny inferior meniscal flap. 2. Minimal medial compartment arthrosis. Small joint effusion.
== END 2022-03-05 07:24 | disposition home or self-care (01) ==
LOC: HO.MRI 07:23
PROVIDERS: Visit Provider Physician Assistant
DX: M17.11 Unilateral primary osteoarthritis, right knee (principal)
CPT/HCPCS: 73721

== ENCOUNTER → 2022-03-15 14:22 | Outpatient (BNVA) | payer OTHER, SELFPAY | PROVIDERS: Visit Provider Orthopaedic Surgery | DX: Z13.89 Encounter for screening for other disorder (principal) ==

== ENCOUNTER 2022-04-05 07:48 | Outpatient (RCR) | payer OTHER, SELFPAY ==
--- NOTE | 2022-04-11 13:16 | MHC.PT.EP ---
[facility] [place] Office [place] Office [place] Office [address] Shahida Cárdenas [address] [phone] F: [phone] F: [phone] F: [phone] F: [phone] Physical Therapy Plan of Care Date of Evaluation: Date of Surgery: 12/15/21 Diagnosis: L knee medial meniscus, R knee bursitis. Assessment: Pt is a 57 y/o female referred to PT for L knee medial meniscus and R knee bursitis resulting in decreased tolerance and ability to perform ambulatory and standing tasks for duration as well as negotiating stairs and curbs as well as performing HH chores secondary to decreased B hip and B knee strength, decreased L knee ROM as well as decreased LE posture, TTP of L medial knee and pain. Pt is deemed an appropriate candidate to receive skilled PT in order to address her physical limitations to improve her functional ability. Frequency and Duration: The patient will be seen 1 x / wk x 5 wks. Pt request HEP focused program. Short Term Goals: Initiate HEP Helper Maintenance Cleaning Goals: I with HEP. Improve B knee extension MMT by at least 1/2 MMT grade. Pt will report able to walk 2 blocks with at least moderate difficulty; initial: extreme difficulty or unable. Pt will be able to tolerate standing > 1 hour with at most moderate difficulty; initial: extreme difficulty or unable.. Treatment Plan: Modalities to reduce pain, spasms and effusion. Manual therapy to restore motion and function. Therapeutic exercise to improve strength and flexibility. Neuromuscular re-education for posture and balance. Therapeutic activities to return to functional activities of daily living. Electronically signed by: Armando Chao PT. Please sign and return to therapist. Thank you for your referral.
--- NOTE | 2022-05-04 16:05 | MHC.PT.DC ---
[facility] [place] Office [place] Office [place] Office [address] Shahida Cárdenas 140 [facility] [phone] F: [phone] F: [phone] F: [phone] F: [phone] Physical Therapy Discharge Report Diagnosis: L knee medial meniscus, R knee bursitis. Date of Surgery: 12/15/21 Date of Evaluation: 04/05/22 Date of Discharge: 05/04/22 Treatments to Date: 1 Cancellations to Date: No Shows to Date: Discharge Status: Patient Elected to Stop Discharge Summary: Pt did not f/u with therapy after initial evaluation. Electronically signed by: Armando Chao PT. Please sign and return to therapist. Thank you for your referral.
== END 2022-05-04 16:06 | disposition home or self-care (01) ==
LOC: HO.PTCHIC 07:48
PROVIDERS: PCP Nurse Practitioner Family; Visit Provider Orthopaedic Surgery
DX: M23.92 Unspecified internal derangement of left knee (principal); M70.51 Other bursitis of knee, right knee; S83.242A Other tear of medial meniscus, current injury, left knee, initial encounter; Z98.890 Other specified postprocedural states
CPT/HCPCS: 97110; 97161

== ENCOUNTER 2022-10-02 13:07 | Outpatient (REF) | payer OTHER, SELFPAY ==
[2022-10-02 16:34] LABS: Blood Urea Nitrogen 12 mg/dL (9-16); Estimated Glomerular Filt Rate > 60; Lipase 34 U/L (8-78); TSH reflex Free T4 1.15 uIU/mL (0.32-4.0)
[2022-10-02 17:07] LABS: Folate 7.3 ng/mL (> or = 4.0); Vitamin B12 1822 pg/mL (200-900)
[2022-10-08 14:59] LABS: Vitamin D 25-OH, D2 <4 ng/mL; Vitamin D 25-OH, D3 21 ng/mL; Vitamin D 25-OH, Total 21 ng/mL (30-100)
== END 2022-10-02 13:08 | disposition home or self-care (01) ==
LOC: HO.LAB 13:07
PROVIDERS: PCP Nurse Practitioner Family; Visit Provider Nurse Practitioner Family
DX: R10.11 Right upper quadrant pain (principal); R10.32 Left lower quadrant pain; K59.00 Constipation, unspecified; R19.7 Diarrhea, unspecified; E55.9 Vitamin D deficiency, unspecified
CPT/HCPCS: 36415; 82306; 82565; 82607; 82746; 83690; 84443; 84520

== ENCOUNTER 2022-10-03 11:12 | Outpatient (REF) | payer OTHER, SELFPAY ==
[2022-10-12 17:37] LABS: Pancreatic Elastase-1 >500 mcg/g
== END 2022-10-03 11:13 | disposition home or self-care (01) ==
LOC: HO.LNP 11:12
PROVIDERS: Visit Provider Nurse Practitioner Family
DX: R10.9 Unspecified abdominal pain (principal); K21.9 Gastro-esophageal reflux disease without esophagitis
CPT/HCPCS: 82656; 87338

== ENCOUNTER 2022-10-03 13:08 | Outpatient (REF) | payer OTHER, SELFPAY ==
--- NOTE | ~2022-10-03 | CT_ITS ---
EXAMINATION: CT ABDOMEN AND PELVIS WITH CONTRAST CLINICAL INFORMATION: Unspecified abdominal pain. COMPARISON: None TECHNIQUE: Multidetector volumetric images were obtained from the superior aspect of the liver through the pubic symphysis following administration 85 mL of Omnipaque 350 intravenous contrast. Sagittal and coronal reformatted images were obtained on the technologist's workstation. Oral contrast: No This CT examination was performed using dose optimization techniques as appropriate, variously including the following: *Automated exposure control *Adjustment of mA and/or kV according to patient size (this includes techniques or standardized protocols for targeted exams where dose is matched to indication/reason for exam; i.e. extremities or head) *Use of iterative reconstruction technique DLP: 756 mGy-cm FINDINGS: LUNG BASES: Minimal atelectatic changes seen in lingula and in bilateral lung bases. Heart size is normal. There is a small hiatal hernia.. LIVER, GALLBLADDER, AND BILIARY TREE: The liver is normal in size, shape, and attenuation. No focal hepatic lesion or biliary ductal dilatation is present. The gallbladder has been surgically removed. PANCREAS: Unremarkable. SPLEEN: Unremarkable. ADRENAL GLANDS: Unremarkable. KIDNEYS AND URETERS: The kidneys are normal in size, shape, and attenuation. No hydronephrosis, hydroureter, or calculi seen. No perinephric stranding. BLADDER: Unremarkable. GASTROINTESTINAL TRACT: There is scattered oral contrast, diverticuli and stool seen throughout the colon and small bowel loops without any bowel distention. Diverticula most prominent in the sigmoid region with mild fat stranding suggestive of early diverticulitis. There is no perforation, free air or free fluid. Appendix is normal caliber. No inflammatory process, free air or free fluid seen. ABDOMINAL WALL: No significant hernia is appreciated. LYMPH NODES: Normal. VASCULAR: Unremarkable. PELVIC VISCERA: Unremarkable. OSSEOUS STRUCTURES: There is degenerative disc changes with vacuum disc phenomena and endplate sclerosis L3-L4 disc levels. There is mild spondylosis L2-L3, L3-L4 and L4-L5 disc level. No aggressive lytic or sclerotic process seen. Mild degenerative disc changes L5-S1 disc level with mild left facet joint arthropathy noted. CT/CT abdomen pelvis w IV con IMPRESSION: 1. Colonic diverticulosis with sigmoid diverticulitis. No perforation, free air or free fluid seen. 2. Mild constipation. Fleischner guidelines were followed.
[2022-10-03] MEDS: Barium Sulfate Oral (Vanilla) 450 ML ORAL.SUSP 900 ML PO (15:44)
[2022-10-03] MEDS: iohexoL 350 MG/ML 100 ML INFUS..BTL IV (15:45)
== END 2022-10-03 13:09 | disposition home or self-care (01) ==
LOC: HO.CT 13:08
PROVIDERS: PCP Nurse Practitioner Family; Visit Provider Nurse Practitioner Family
DX: R10.32 Left lower quadrant pain (principal)
CPT/HCPCS: 74177; Q9967

== ENCOUNTER 2023-01-30 09:46 | Outpatient (REF) | payer OTHER, SELFPAY ==
--- NOTE | ~2023-01-30 | XR_ITS ---
EXAMINATION: XR WRIST, LEFT XR HAND, LEFT CLINICAL INFORMATION: Other enthesopathies, not elsewhere classified COMPARISON: Previous x-ray October 2021 TECHNIQUE: 3 views of the left hand and wrist FINDINGS: No fracture or dislocation. There is osteopenia. There is a stable-appearing cyst in the lunate. There is arthritis at the first SNF joint with joint space narrowing and osteophyte formation. There is mild joint space narrowing and osteophyte formation at the DIP joints. Soft tissues are unremarkable. XR/XR hand wrist LT IMPRESSION: Osteoarthritis at the first SNF joint and DIP joints. Cyst in the lunate. Osteopenia.
== END 2023-01-30 09:47 | disposition home or self-care (01) ==
LOC: HO.HMGCX 09:46
PROVIDERS: PCP Nurse Practitioner Family; Visit Provider Physician Assistant
DX: M77.8 Other enthesopathies, not elsewhere classified (principal)
CPT/HCPCS: 73110; 73130

== ENCOUNTER 2023-02-05 06:41 | Outpatient (REF) | payer OTHER, SELFPAY ==
[2023-02-05 06:51] LABS: MANUAL DIFF FLAG NO
[2023-02-05 07:41] LABS: Basophils Absolute Auto 0.1 X10*3/uL (0.0-0.2); Basophils Percent Auto 0.6 % (0-2); Eosinophils Absolute Auto 0.4 X10*3/uL (0.0-0.4); Eosinophils Percent Auto 4.7 % (0-4); Hematocrit 38.7 % (37.0-47.0); Hemoglobin 12.5 g/dl (12.0-16.0); Imm Gran Abs Auto 0.03 X10*3/uL (0.00-0.03); Imm Gran Pct Auto 0.4 % (0.0-0.4); Lymphocytes Absolute Auto 2.3 X10*3/uL (1.2-4.9); Lymphocytes Percent Auto 29.1 % (20-40); Mean Corpuscular HGB Conc 32.3 g/dl (31.0-35.0); Mean Corpuscular Hemoglobin 28.7 pg (27.0-33.0); Mean Platelet Volume 9.9 fL (9.4-12.3); Monocytes Absolute Auto 0.6 X10*3/uL (0.1-1.2); Monocytes Percent Auto 7.3 % (2-11); Neutrophils Absolute Auto 4.5 x10*3/uL (2.0-8.3); Neutrophils Percent Auto 57.9 % (45-73); Platelet Count 293 X10*3/uL (160-400); Red Blood Count 4.35 X10*6/uL (4.20-5.50); Red Cell Distribution Width 12.7 % (11.0-16.0); White Blood Count 7.8 X10*3/uL (4.8-10.8)
[2023-02-05 08:08] LABS: Alanine Aminotransferase 23 U/L (0-31); Albumin Level 4.2 g/dL (3.5-5.0); Alkaline Phosphatase 172 U/L (39-117); Anion Gap 15 (12-20); Aspartate Amino Transferase 20 U/L (5-31); Bilirubin Total 0.4 mg/dL (0.0-1.0); Blood Urea Nitrogen 15 mg/dL (9-16); Calcium 9.4 mg/dL (8.4-10.2); Carbon Dioxide 28 mmol/L (22-29); Chloride 104 mmol/L (96-108); Cholesterol 225 mg/dL; Estimated Glomerular Filt Rate > 60; Glucose Fasting 104 mg/dL (60-99); HDL Cholesterol 77 mg/dL; LDL Cholesterol Calculated 115 mg/dl; Potassium 4.8 mmol/L (3.3-5.1); Sodium 142 mmol/L (135-145); Total Protein 7.1 g/dL (6.5-8.0); Triglycerides 167 mg/dL
[2023-02-05 08:27] LABS: TSH reflex Free T4 4.48 uIU/mL (0.32-4.0); Vitamin D 25-OH Total 24.3 ng/mL (>30)
[2023-02-05 08:34] LABS: Appearance Urine Clear; Color Urine Yellow; Glucose Urine UA Negative (Negative); Leukocyte Esterase Urine Negative (Negative); Nitrite Urine Negative (Negative); PH 5.5 (5.0-9.0); Urine Blood Negative (Negative); Urine Ketones Negative (Negative); Urine Protein Negative (Neg-Trace)
[2023-02-05 09:41] LABS: Free T4 (Free Thyroxine) 0.81 ng/dL (0.71-1.85)
== END 2023-02-05 06:42 | disposition home or self-care (01) ==
LOC: HO.LAB 06:41
PROVIDERS: PCP Nurse Practitioner Family; Visit Provider Nurse Practitioner Family
DX: Z00.00 Encounter for general adult medical examination without abnormal findings (principal); Z78.0 Asymptomatic menopausal state; R53.83 Other fatigue; E55.9 Vitamin D deficiency, unspecified; E78.5 Hyperlipidemia, unspecified; R94.6 Abnormal results of thyroid function studies; I10 Essential (primary) hypertension
CPT/HCPCS: 36415; 80053; 80061; 81003; 82306; 84439; 84443; 85025

== ENCOUNTER → 2023-02-12 16:26 | Outpatient (BNVA) | payer OTHER, SELFPAY | PROVIDERS: PCP Nurse Practitioner Family; Visit Provider Nurse Practitioner Family | DX: Z13.89 Encounter for screening for other disorder (principal) ==

== ENCOUNTER → 2023-02-13 14:40 | Outpatient (BNVA) | payer OTHER, SELFPAY | PROVIDERS: PCP Nurse Practitioner Family; Visit Provider Orthopaedic Surgery | DX: M18.12 Unilateral primary osteoarthritis of first carpometacarpal joint, left hand (principal); M65.4 Radial styloid tenosynovitis [de Quervain] | CPT/HCPCS: 20600; J1100 ==

== ENCOUNTER → 2023-04-02 12:36 | Outpatient (BNVA) | payer OTHER, SELFPAY | PROVIDERS: PCP Nurse Practitioner Family; Visit Provider Orthopaedic Surgery ==

== ENCOUNTER 2023-05-01 14:44 | Outpatient (AMB) | payer OTHER, SELFPAY ==
[2023-05-01 14:48] VITALS: BMI 42.4
--- NOTE | 2023-05-01 14:48 | A.OFFVIS_ITS ---
Intake Vital Signs 05/01/23 14:48 Height 5 ft 6 in Weight 263 lb BMI 42.4 Intake Visit Reasons: Pre L Dequervains Release 05/06/23 AR Intake Note: Kinza 58 yr old female presents today for her pre op visit for her left Dequervain release surgery schedule for 05/06/23. Allergies No Known Allergies Allergy (Verified 05/01/23 14:57) HPI Pre L Dequervains Release 05/06/23 AR HPI Details Kinza is a 58 year old right hand dominant woman who returns to discuss her left De Quervain's. She complains of left radial wrist pain with pain extending from her thumb to the radial aspect of her wrist. The pain is worse with pinching and gripping activities She feels like the pain involves use of the thumb and the index finger. She also complains of her hand feeling inflamed when weeding in the garden, and when she is working on her computer.? PFS Medical History Chronic otitis externa Depression Diarrhea Dyslipidemia Elevated LFTs Elevated liver enzymes GERD (gastroesophageal reflux disease) Hemicrania HTN (hypertension) Impaired fasting glucose Increased BMI Insomnia Menopausal disorder Tenosynovitis of both wrists Tubular adenoma Surgical History History of colonoscopy History of hysterectomy History of laparoscopic cholecystectomy History of mammogram Family History Father Hx of cirrhosis Mental health disorder Mother Hx of diabetes insipidus HX: breast cancer Hx of renal failure Mental health disorder Son No problems noted. Daughter No problems noted. 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 Most tender over the 1st dorsal compartment Positive Onofre test on the left Pain with resisted index finger extension Mild tenderness over the extensor tendon to the index finger as it passes over the dorsal aspect of the wrist. She notes pain extending from her index finger dorsally into her forearm No pain with resisted extension of the middle ring or small fingers. No tenderness over the A1 timothy No locking or catching Not particularly tender over the basal joint of the thumb. Negative CMC grind. Psych Appearance: grossly normal Affect: normal affect Attitude: cooperative Assessment & Plan Assessment & Plan (1) De Quervain's tenosynovitis, left: Code(s): M65.4 - Radial styloid tenosynovitis [de Quervain] (2) Arthritis of carpometacarpal (CMC) joint of left thumb: Code(s): M18.12 - Unilateral primary osteoarthritis of first carpometacarpal joint, left hand Plan Assessment & Plan: 1. Left De Quervain's tenosynovitis, S/P injection Date of Injection: 02/13/23 Positive Onofre test I educated her about this condition She may also have some more mild tendinitis involving the index finger, but this appears to be quite a bit less symptomatic than the tendinitis involving use of the thumb. I discussed treatment options I recommend surgery, and she is in agreement The risks and benefits of operative treatment were discussed with the patient and the patient wishes to proceed with surgery. These risks include, but are not limited to risk of damage to blood vessels, nerves, tendons, infection, recurrence, incomplete relief of preoperative symptoms, persistent pain, possible need for further surgery and the risks associated with regional blocks and anesthesia. The plan is to take the patient to the operating room sometime on 05/06/23 for the following procedures: 1. Left 1st dorsal compartment release, under general She does not want to have this performed under local All of the preoperative paperwork including the consent was filled out today. All the patient's questions were answered. She denies Diabetes, blood thinners, asthma, heart, lung, kidney issues 2. Left basal joint osteoarthritis Seen on radiographs but currently asymptomatic Scribed for Antonieta Cano MD by Ramon Triplett, medical laboratory technicians, on 05/01/23 at 2:55 PM, EST. Coding Level of Care Code Est Pt Level 4 (41147) Diagnoses De Quervain's tenosynovitis, left M65.4 Arthritis of carpometacarpal (CMC) joint of left thumb M18.12
== END 2023-05-01 15:36 | disposition home or self-care (01) ==
PROVIDERS: PCP Nurse Practitioner Family; Visit Provider Orthopaedic Surgery
DX: M65.4 Radial styloid tenosynovitis [de Quervain] (principal); M18.12 Unilateral primary osteoarthritis of first carpometacarpal joint, left hand
CPT/HCPCS: 99214

== ENCOUNTER → 2023-05-01 14:44 | Outpatient (BNVA) | payer OTHER, SELFPAY | PROVIDERS: PCP Nurse Practitioner Family; Visit Provider Orthopaedic Surgery ==

== ENCOUNTER → 2023-05-06 06:10 | Day surgery (SDC) | payer OTHER, SELFPAY ==
[2023-05-02 10:47] VITALS: BMI 42.4
--- NOTE | 2023-05-03 10:47 | HO.ANESPROP2 ---
HPI - Anesthesia Eval Consult details Narrative: 58yo F for 1st Dorsal Compartment Release PMFSH Active Problems Active Problems: All Active Problems (Updated 02/13/23 @ 15:16 by Ramon Triplett) Arthritis of carpometacarpal (CMC) joint of left thumb (Acute) De Quervain's tenosynovitis, left (Acute) Morbid obesity (Acute) Right hand pain (Acute) Elevated TSH (Acute) Elevated alkaline phosphatase level (Acute) Tendonitis of wrist, left (Acute) Insomnia (Acute) Physical exam (Acute) Status post left knee surgery (Acute) Pes anserinus bursitis of right knee (Acute) Osteoarthritis of left knee (Acute) Postmenopausal (Acute) Chest discomfort (Acute) Systolic murmur (Acute) Physical exam (Acute) Bilateral hand pain (Acute) Tear of medial meniscus of left knee (Acute) Internal derangement of left knee (Acute) Upper respiratory infection (Acute) Osteoarthritis of knees, bilateral (Acute) Diarrhea (Acute) GERD (gastroesophageal reflux disease) (Acute) Elevated liver enzymes (Acute) Tubular adenoma (Acute) Anxiety (Acute) HTN (hypertension) (Acute) Low O2 saturation (Acute) Allergic rhinitis (Acute) Lesion of mouth (Acute) Increased BMI (Acute) Impaired fasting glucose (Acute) Dyslipidemia (Acute) Tenosynovitis of both wrists (Acute) Elevated LFTs (Acute) Other bursitis of knee, right knee (Acute) Right knee pain (Acute) Screening for colon cancer (Acute) Vitamin D deficiency (Acute) Past Medical History Medical History Chronic otitis externa Depression Diarrhea Dyslipidemia Elevated LFTs Elevated liver enzymes GERD (gastroesophageal reflux disease) Hemicrania HTN (hypertension) Impaired fasting glucose Increased BMI Insomnia Menopausal disorder Tenosynovitis of both wrists Tubular adenoma Family History Family History Father Hx of cirrhosis Mental health disorder Mother Hx of diabetes insipidus HX: breast cancer Hx of renal failure Mental health disorder Son No problems noted. Daughter No problems noted. Sister Substance use disorder Mental health disorder Family history of problems with anesthesia: No Surgical History Surgical History History of colonoscopy History of hysterectomy History of laparoscopic cholecystectomy History of mammogram History of Problems with Anesthesia: No (Could hear people talking toward end of last colonoscopy. Explained that this may happen with MAC anesthesia and not cause for worry) Social History Social History Household Members: Spouse Housing: House Are you a primary healthcare specialist to a significant other at home: No Do you presently have visiting nurse or other home services: No Alcohol intake: current Alcohol intake frequency: a few times a week Alcohol type: wine Patient Tobacco Use Status: Never used Tobacco Use of substances other than those prescribed or required for medical reasons: No Are you DNR?: No Advance Directives: No Advance Directives Information Provided: Yes Advance Directives on File: No Current occupational status: employed 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/[employer] Meds Allergies Allergy/AdvReac Type Severity Reaction Status Date / Time No Known Allergies Allergy Verified 05/01/23 14:57 Home Medications Medication Instructions Recorded Confirmed Last Taken Type ciclopirox 0.77 % topical cream 1 applic topical BID 08/09/20 05/06/23 Unknown History clobetasol 0.05 % topical ointment g topical BID 08/09/20 02/06/23 Unknown History estradiol 0.05 mg/24 hr semiweekly 1 patch topical 2XW 08/09/20 05/06/23 Unknown History transdermal patch fexofenadine-pseudoephedrine ER 1 tab PO DAILY 02/12/23 05/06/23 Unknown History 180 mg-240 mg tablet,ext.release 24 hr (Diamond-D 24 Hour) sodium chloride 0.65 % nasal spray 1 spray intranasal congestion 02/12/23 Unknown History aerosol (Deep Sea Nasal) Exam Exam Date and Time: May 03, 2023 1047 Height,Weight and Vital Signs: Height 5 ft 6 in Weight 119.295 kg Pertinent Lab Results Pertinent Lab Results: Laboratory Tests 02/05/23 02/05/23 06:48 06:48 WBC 7.8 Hgb 12.5 Hct 38.7 Plt Count 293 Sodium 142 Potassium 4.8 Chloride 104 Carbon Dioxide 28 BUN 15 Creatinine 0.74 Narrative Narrative: ECHO 2021 Conclusions: - The left ventricular systolic function is normal.? The ? calculated ejection fraction is 68% by biplane method. ? - No obvious valvular pathology seen on this study.? ?? Assessment and Plan Assessment Anesthesia Assessment: Chart Reviewed Final Anesthetic Review Family History of Problems with Anesthesia: No History of Problems with Anesthesia: No (Could hear people talking toward end of last colonoscopy. Explained that this may happen with MAC anesthesia and not cause for worry)
[2023-05-06] VITALS (12 sets, daily range): BP systolic 123–153; BP diastolic 80–93; PULSE 65–78; RESP 16; TEMP 36.1–36.4; O2SAT 91–100
[2023-05-06] MEDS: Lactated Ringers 1,000 ML 100 ML IVCONT (06:50)
--- NOTE | 2023-05-06 07:35 | HO.ANESPROP2 ---
FORMERLY [facility], [facility] Active Problems Active Problems: All Active Problems (Updated 02/13/23 @ 15:16 by Ramon Triplett) Arthritis of carpometacarpal (CMC) joint of left thumb (Acute) De Quervain's tenosynovitis, left (Acute) Morbid obesity (Acute) Right hand pain (Acute) Elevated TSH (Acute) Elevated alkaline phosphatase level (Acute) Tendonitis of wrist, left (Acute) Insomnia (Acute) Physical exam (Acute) Status post left knee surgery (Acute) Pes anserinus bursitis of right knee (Acute) Osteoarthritis of left knee (Acute) Postmenopausal (Acute) Chest discomfort (Acute) Systolic murmur (Acute) Physical exam (Acute) Bilateral hand pain (Acute) Tear of medial meniscus of left knee (Acute) Internal derangement of left knee (Acute) Upper respiratory infection (Acute) Osteoarthritis of knees, bilateral (Acute) Diarrhea (Acute) GERD (gastroesophageal reflux disease) (Acute) Elevated liver enzymes (Acute) Tubular adenoma (Acute) Anxiety (Acute) HTN (hypertension) (Acute) Low O2 saturation (Acute) Allergic rhinitis (Acute) Lesion of mouth (Acute) Increased BMI (Acute) Impaired fasting glucose (Acute) Dyslipidemia (Acute) Tenosynovitis of both wrists (Acute) Elevated LFTs (Acute) Other bursitis of knee, right knee (Acute) Right knee pain (Acute) Screening for colon cancer (Acute) Vitamin D deficiency (Acute) Past Medical History Medical History Chronic otitis externa Depression Diarrhea Dyslipidemia Elevated LFTs Elevated liver enzymes GERD (gastroesophageal reflux disease) Hemicrania HTN (hypertension) Impaired fasting glucose Increased BMI Insomnia Menopausal disorder Tenosynovitis of both wrists Tubular adenoma Functional capacity: independent ambulation Family History Family History Father Hx of cirrhosis Mental health disorder Mother Hx of diabetes insipidus HX: breast cancer Hx of renal failure Mental health disorder Son No problems noted. Daughter No problems noted. Sister Substance use disorder Mental health disorder Family history of problems with anesthesia: No Surgical History Surgical History History of colonoscopy History of hysterectomy History of laparoscopic cholecystectomy History of mammogram History of Problems with Anesthesia: No (Could hear people talking toward end of last colonoscopy. Explained that this may happen with MAC anesthesia and not cause for worry) Social History Social History Household Members: Spouse Housing: House Are you a primary behavioral health care coordinator to a significant other at home: No Do you presently have visiting nurse or other home services: No Alcohol intake: current Alcohol intake frequency: a few times a week Alcohol type: wine Patient Tobacco Use Status: Never used Tobacco Use of substances other than those prescribed or required for medical reasons: No Are you DNR?: No Advance Directives: No Advance Directives Information Provided: Yes Advance Directives on File: No Current occupational status: employed 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 Allergies Allergy/AdvReac Type Severity Reaction Status Date / Time No Known Allergies Allergy Verified 05/01/23 14:57 Active Medications: Current Medications Lactated Ringer's (Lr) 1,000 mls @ 100 mls/hr IVCONT .Q10H ARTUR Last Admin: 05/06/23 06:50 Dose: 100 mls/hr Home Medications Medication Instructions Recorded Confirmed Last Taken Type ciclopirox 0.77 % topical cream 1 applic topical BID 08/09/20 05/06/23 Unknown History clobetasol 0.05 % topical ointment g topical BID 08/09/20 02/06/23 Unknown History estradiol 0.05 mg/24 hr semiweekly 1 patch topical 2XW 08/09/20 05/06/23 Unknown History transdermal patch fexofenadine-pseudoephedrine ER 1 tab PO DAILY 02/12/23 05/06/23 Unknown History 180 mg-240 mg tablet,ext.release 24 hr (Diamond-D 24 Hour) sodium chloride 0.65 % nasal spray 1 spray intranasal congestion 02/12/23 Unknown History aerosol (Deep Sea Nasal) Exam Exam Date and Time: May 06, 2023 0735 Height,Weight and Vital Signs: Height 5 ft 6 in Weight 119.295 kg Last Vital Signs Temp 97.6 F 05/06/23 06:49 Pulse 73 05/06/23 06:49 Resp 16 05/06/23 06:49 BP 123/80 05/06/23 06:49 Pulse Ox 97 05/06/23 06:49 O2 Del Method Room Air 05/06/23 06:49 Airway Mallampati Class: III TM Dist: >3cm Neck ROM: Full Heart: RRR Lungs: CTA Assessment and Plan Assessment Anesthesia Assessment: Anesthesia Plan Discussed Final Anesthetic Review Family History of Problems with Anesthesia: No History of Problems with Anesthesia: No (Could hear people talking toward end of last colonoscopy. Explained that this may happen with MAC anesthesia and not cause for worry) NPO: Yes ASA Class: III Final Preanesthetic Review: Meds/Allgs Chart Reviewed, Consent Obtained/Reviewed and Anes Risks/Benef Reviewed Patient Risk: Intermediate Procedure Risk: Low Anesthetic Plan Anesthetic Plan: GA Disposition: Standard PACU
--- NOTE | 2023-05-06 07:55 | MHC.SHP ---
Pre-Procedural Eval Section A Date of Service: 05/06/23 The patient is an INPATIENT: No Changes since office visit: No Cold of Flu in the past 2 weeks, No New Medical Problems, No Changes in Medication and No Patient answered all questions The History & Physical has been completed within 30 days and I have reviewed it.: Yes Section B Chief Complaint: left de Quervain tenosynovitis Allergies: Allergies Allergy/AdvReac Type Severity Reaction Status Date / Time No Known Allergies Allergy Verified 05/01/23 14:57 Plan I have reviewed the history and physical and performed a pertinent physical examination on my patient. No changes have occurred unless specified. Time Spent With Patient Time: Total time managing care of this patient today ____ minutes.
--- NOTE | 2023-05-06 07:56 | W.PM.OPN ---
Operative Note Operative Note Date of Service: 05/06/23 Narrative: Operative Note Narrative: Preop diagnosis: 1. Left de Quervain tenosynovitis Postop diagnosis: Same Procedure: 1. Left 1st dorsal compartment release 2. Left APB tenosynovectomy Surgeon: Antonieta Cano MD Anesthesia: General Anesthesia Findings: thickened 1st dorsal compartment, hypertrophic tenosynovium about the APL tendon, EPB and a separate compartment Implants: none Tourniquet time: 15 minutes EBL: 5.0 ml Specimen: left APB tenosynovium for histopathology Drains: None Complications: None Disposition: Brought to the recovery room in stable condition Plan: Follow-up in 10-14 days for wound check, suture removal and check pathology Indications: The patient is a a 58 year old woman with left de Quervain tenosynovitis that has been unresponsive to non operative management . The risks and benefits of operative treatment, including but not limited to risk of damage to blood vessels, nerves, tendons, infection, recurrence, persistent pain or numbness, incomplete resolution of preoperative symptoms, or need for further surgery were discussed with the patient and they wished to proceed with surgery. Procedure: Once consent was obtained patient was brought back to the operating suite and placed in the operating table in a supine position. . Perioperative antibiotics and anesthesia was administered by the anesthesia team. A tourniquet was applied to the proximal aspect of the left upper extremity and the limb was prepped and draped in a standard surgical fashion. The limb was elevated exsanguinated with Esmarch bandage and the tourniquet inflated to 250 mm of mercury for a total tourniquet time of 15 minutes. A 1.5 cm longitudinal incision was made centered over the 1st dorsal compartment as it passed over the radial styloid of the left wrist.? The incision was made through the skin to the subcutaneous tissues using a #15 blade.? Careful dissection was made down to the level of the 1st dorsal compartment using tenotomy scissors, with care being taken to protect the nearby branches of the superficial radial nerve.? Once the 1st dorsal compartment was exposed, A longitudinal incision was made in the 1st dorsal compartment 1st using a #15 blade, then using tenotomy scissors under direct visualization.? The 1st dorsal compartment was noted to be thickened.? she was also found to have abundant hypertrophic tenosynovium about the AP L tendon. I then performed a tenosynovectomy excising the hypertrophic tenosynovium from about the APL tendon using tenotomy scissors under direct visualization. This was then removed from the patient and placed on the back table to be sent for histopathology. The tendon itself appeared to be in good condition. The EPB tendon was then noted to be in its own compartment. I then released the EPB tendon longitudinally using tenotomy scissors. Following our release, we saw smooth gliding abductor pollicis longus and extensor pollicis brevis tendons.? ? At this point the tourniquet was deflated and hemostasis obtained with a brief period of local pressure. The wound was copiously irrigated with normal saline. The subcutaneous layer was closed with 4-0 Vicryl suture, and the skin edges were reapproximated with 5-0 nylon suture. The wound was infiltrated with some 1% lidocaine with epinephrine for postop pain control and a sterile dressing was applied. The patient appears to have tolerated the procedure well and with no complications. All digits were well vascularized conclusion of the case.
[2023-05-06] MEDS: ondansetron HCL 4 MG/2 ML VIAL IVPUSH (09:42)
[2023-05-06] MEDS: Acetaminophen 1,000 MG/100 ML PIGGYBACK 400 MG IV (10:05)
--- NOTE | 2023-05-06 11:12 | HO.POSTANES ---
Post Anesthesia Evaluation Post Anesthesia Evaluation Date of Service: 05/06/23 Vital Signs: Vital Signs Temp Pulse Resp BP Pulse Ox O2 Del Method 05/06/23 10:45 97.2 F 05/06/23 10:42 75 16 136/85 100 05/06/23 10:27 65 16 132/80 97 Room Air 05/06/23 10:02 68 16 153/93 H 98 Room Air 05/06/23 09:47 71 16 139/87 98 Room Air 05/06/23 09:32 67 16 139/91 H 97 Room Air 05/06/23 09:17 74 16 139/91 H 92 Room Air 05/06/23 09:02 71 16 131/83 94 Room Air 05/06/23 08:57 70 16 145/85 H 94 05/06/23 08:52 71 16 151/92 H 93 Room Air 05/06/23 08:47 97 F 78 16 144/84 H 91 L Room Air 05/06/23 06:49 97.6 F 73 16 123/80 97 Room Air Anesthesia: General LMA Mental Status: Awake Pain Control: Satisfactory Nausea/Vomiting: None Hydration: Adequate Anesthesia-Related Issues: No Anes. Related Issues
== END | disposition home or self-care (01) ==
PROVIDERS: PCP Nurse Practitioner Family; Visit Provider Orthopaedic Surgery
PROC: (CPT 25116; principal; 2023-05-06 07:30)
DX: M65.4 Radial styloid tenosynovitis [de Quervain] (principal); M67.28 Synovial hypertrophy, not elsewhere classified, other site; M18.12 Unilateral primary osteoarthritis of first carpometacarpal joint, left hand; I10 Essential (primary) hypertension
CPT/HCPCS: 25116; 25000; 88304; J0131; J1100; J1885; J2250; J2405; J2550; J3010

== ENCOUNTER → 2023-05-06 06:10 | Outpatient (BNV) | payer OTHER, SELFPAY | PROVIDERS: PCP Nurse Practitioner Family; Visit Provider Orthopaedic Surgery | DX: M65.4 Radial styloid tenosynovitis [de Quervain] (principal) | CPT/HCPCS: 25000 ==

== ENCOUNTER 2023-05-20 09:23 | Outpatient (AMB) | payer OTHER, SELFPAY ==
--- NOTE | 2023-05-20 09:27 | MHC.OFFVIS ---
Intake Intake Visit Reasons: PO L Dequervains Release 05/06/23 AR Intake Note: Kinza 58 yr old female presents today for her P/O visit for her Left dequervain rlease from 05/06/[address] Cano. States she has throbbing and swelling by her incision. States she accidentally put force on her hand a week ago, felt pain but it has improved since. Denies numbness or tingling. Allergies No Known Allergies Allergy (Verified 05/20/23 09:32) HPI PO L Dequervains Release 05/06/23 AR HPI Details 58-year-old female who returns to the office today for post-op left Dequervains release, 05/06/[address] Cano. She states she has throbbing pain and swelling at her incision area. She also reports of accidentally putting force on her hand about a week ago and experienced pain which is currently improved. She denies any numbness or tingling. She has no other concerns today and is doing well overall. [facility] Medical History Chronic otitis externa Depression Diarrhea Dyslipidemia Elevated LFTs Elevated liver enzymes GERD (gastroesophageal reflux disease) Hemicrania HTN (hypertension) Impaired fasting glucose Increased BMI Insomnia Menopausal disorder Tenosynovitis of both wrists Tubular adenoma Surgical History History of colonoscopy History of hysterectomy History of laparoscopic cholecystectomy History of mammogram Family History Father Hx of cirrhosis Mental health disorder Mother Hx of diabetes insipidus HX: breast cancer Hx of renal failure Mental health disorder Son No problems noted. Daughter No problems noted. 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 No erythema or drainage. Mild swelling. NVI. Results Reviewed Results Reviewed: Pathology: Left hand, tenosynovium, excision:? Tenosynovium with fibrosis, neovascularization, synovial hyperplasia, focal minimal chronic inflammation, and fibrin deposition, compatible with tendinopathy. Assessment & Plan Assessment & Plan (1) De Quervain's tenosynovitis, left: Code(s): M65.4 - Radial styloid tenosynovitis [de Quervain] (2) Arthritis of carpometacarpal (CMC) joint of left thumb: Code(s): M18.12 - Unilateral primary osteoarthritis of first carpometacarpal joint, left hand Plan Sutures removed today, steri strips applied. She will grad increase activities as tolerated. I did explain that over the next 4 weeks, I would expect potentially full resolutions of her symptoms and she should avoid any type of submerging underwater of the incision for the next week. She can return to work on June 06 without restrictions and contact the office if symptoms arise. Patient Instructions: Scribed for Agustín Carl PA-C, by Tanner Saldaña medical biller, on 05/20/2023 at 9:30 AM EST. I, Agustín Carl PA-C, have personally reviewed and agree with the information entered by the scribe. Coding Level of Care Code Global (37638) Diagnoses De Quervain's tenosynovitis, left M65.4 Arthritis of carpometacarpal (CMC) joint of left thumb M18.12
== END 2023-05-20 09:44 | disposition home or self-care (01) ==
PROVIDERS: PCP Nurse Practitioner Family; Visit Provider Physician Assistant
DX: M65.4 Radial styloid tenosynovitis [de Quervain] (principal); M18.12 Unilateral primary osteoarthritis of first carpometacarpal joint, left hand
CPT/HCPCS: 99024

== ENCOUNTER → 2023-05-20 09:23 | Outpatient (BNVA) | payer OTHER, SELFPAY | PROVIDERS: PCP Nurse Practitioner Family; Visit Provider Physician Assistant ==

== ENCOUNTER 2023-06-14 11:04 | Outpatient (REF) | payer OTHER, SELFPAY ==
[2023-06-14 12:30] LABS: Erythrocyte Sedimentation Rate 25 MM/HR (0-20)
[2023-06-14 12:31] LABS: C Reactive Protein 0.31 mg/dL (< or = 0.50)
[2023-06-14 12:47] LABS: TSH reflex Free T4 1.33 uIU/mL (0.32-4.0)
[2023-06-14 12:49] LABS: Gamma Glutamyl Transpeptidase 80 U/L (7-33)
[2023-06-19 02:14] LABS: Thyroid Peroxidase Antibodies 1 IU/mL (<9)
[2023-06-23 06:12] LABS: Alk.Phos Iso. Macrohepatic 0 % (<=0); Alk.Phos Isoenzymes Bone 33 % (28-66); Alk.Phos Isoenzymes Intest 21 % (1-24); Alk.Phos Isoenzymes Liver 46 % (25-69); Alk.Phos Isoenzymes Placental 0 % (<=0); Alk.Phos Isoenzymes Total 116 U/L (37-153)
== END 2023-06-14 11:05 | disposition home or self-care (01) ==
LOC: HO.LAB 11:04
PROVIDERS: Nurse Practitioner Family; PCP Nurse Practitioner Family; Visit Provider Nurse Practitioner Family
DX: R74.8 Abnormal levels of other serum enzymes (principal); R79.89 Other specified abnormal findings of blood chemistry; K21.9 Gastro-esophageal reflux disease without esophagitis; R19.7 Diarrhea, unspecified; K58.9 Irritable bowel syndrome, unspecified
CPT/HCPCS: 36415; 82977; 84080; 84443; 85652; 86140; 86376

== ENCOUNTER 2023-06-19 07:58 | Outpatient (AMB) | payer OTHER, SELFPAY ==
[2023-06-19 08:03] VITALS: BP 122/87; PULSE 80; BMI 39.4
--- NOTE | 2023-06-19 08:03 | MHC.OFFVIS ---
Intake Vital Signs 06/19/23 08:03 Height 5 ft 6 in Weight 244 lb 4.355 oz BMI 39.4 BP 122/87 Blood Pressure Location Lt brachial Position Sitting Pulse 80 Intake Visit Reasons: Follow up 4 months Intake Note: Kinza presents in office as a est.patient for a 4month f/u for GERD/Diarrhea. 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 Also patient does not have a gallbladder her symptoms started after her surgery. Continue dicyclomine. Patient was made aware that she should be careful taking it as this can back her up. CT scan showed that she has some mild constipation. Patient can continue MiraLax and also Colace to help her move her bowels. GERD (gastroesophageal reflux disease) Continue omeprazole. Discussed with patient avoiding dietary triggers and late night snacking. Staying upright for minimum 3 hours after meals discussed with patient. Plan Will order CRP and ESR. Patient will be sent for medical weight management. Her symptoms of diarrhea and abdominal bloating could get worst with semaglutide, discussed with patient Lifestyle changes, healthier diet, avoiding carbs eating more protein and vegetables. If CRP and ESR elevated patient can be sent to rheumatology to be further evaluated. Patient had colonoscopy on likely IBD, however if CRP is elevated we will send her for IBD study. Patient diagnosed with osteopenia could benefit from treatment, however due to some of the side effects like GI symptoms patient should most likely looking to getting an injection. Orders Orders C Reactive Protein Today K58.9 Erythrocyte Sedimentation Rate Today K21.9, R19.7 Referrals Medical Weight Management Referral R63.8 TODAY'S VISIT Patient is here today for follow-up. Patient has seen weight management and was started on Ozempic and now is on Wegovy. Patient states that she lost 26 lb. Patient continues to have occasional postprandial loose stools depending on what she eats. Patient states that she is not eating as much as she used to. Feels like she does not empties her bowels lately. Patient denies dyspepsia, dysphagia or odynophagia. Denies melena, hematochezia, unintentional weight loss or ribbon like stools. Patient reports that she has been walking and trying to exercise, however due to her foot pain patient was unable to do much exercise. [facility] Medical History Chronic otitis externa Depression Diarrhea Dyslipidemia Elevated LFTs Elevated liver enzymes GERD (gastroesophageal reflux disease) Hemicrania HTN (hypertension) Impaired fasting glucose Increased BMI Insomnia Menopausal disorder Tenosynovitis of both wrists Tubular adenoma Surgical History History of colonoscopy History of hysterectomy History of laparoscopic cholecystectomy History of mammogram Family History Father Hx of cirrhosis Mental health disorder Mother Hx of diabetes insipidus HX: breast cancer Hx of renal failure Mental health disorder Son No problems noted. Daughter No problems noted. Sister Substance use disorder Mental health disorder Social History Household Members: Spouse Housing: House Are you a primary clinical care leader to a significant other at home: No Do you presently have visiting nurse or other home services: No Alcohol intake: current Alcohol intake frequency: a few times a week Alcohol type: wine Patient Tobacco Use Status: Never used Tobacco Current occupational status: employed 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/[employer] Review of Systems Const Denies weight gain and Denies weight loss ENT Reports no additional complaints, Denies dysphagia and Denies odynophagia Card Reports no additional complaints Resp Reports no additional complaints GI Denies abdominal pain, Denies belching, Denies melena, Reports bloating, Reports constipation, Denies dysphagia, Denies excessive flatus, Denies dyspepsia, Reports heartburn (Occasional), Denies diarrhea, Reports loose stools (Occasional), Denies nausea, Denies odynophagia and Denies vomiting Reports no additional complaints Musc Reports no additional complaints Neuro Reports no additional complaints Psych Reports no additional complaints Endo Reports no additional complaints Physical Exam Vital Signs: Last Vital Signs Pulse 80 06/19/23 08:03 BP 122/87 06/19/23 08:03 BMI result Body Mass Index 39.4 Const General: healthy appearing, no acute distress and well developed Nutritional Appearance: obese Orientation/consciousness: patient oriented x3 HEENT Head: Yes normal to inspection, Yes normocephalic and Yes atraumatic Face and sinus: Yes normal facial exam Mouth: Normal oral and palatal mucosa present Throat: Yes posterior oropharynx normal, Yes tonsils normal and Yes uvula midline Eyes General: appearance normal, both eyes and all related structures Neck Neck: Yes normal visual inspection, Yes full ROM and Yes trachea midline Thyroid: Thyroid normal Resp Effort & Inspection: normal respiratory effort, able to speak in complete sentences, no tracheal deviation and symmetric chest movement Auscultation: clear to auscultation bilaterally Cardio Rate: regular rate Heart sounds: S1 normal heart sound present and S2 normal heart sound present GI Inspection: Yes normal to inspection, No distended and Yes obesity Palpation (GI): Soft to palpation, not firm, nontender and No hepatosplenomegaly present Auscultation: normal bowel sounds General: Yes no CVA tenderness Back/Spine/Pelvis Back: no CVA tenderness Skin General skin exam: elasticity normal, turgor normal and dry skin Neuro General: patient oriented x3 Psych Appearance: grossly normal Mental Status: mental status grossly normal Speech and movement: Normal speech and movement present Assessment & Plan Assessment & Plan (1) GERD (gastroesophageal reflux disease): Code(s): K21.9 - Gastro-esophageal reflux disease without esophagitis Qualifiers: Esophagitis presence: without esophagitis Qualified Code(s): K21.9 - Gastro-esophageal reflux disease without esophagitis Plan: Continue omeprazole. Patient was encouraged to avoid dietary triggers and late night snacking. Staying upright for minimum 3 hours after meals discussed with patient. (2) Elevated LFTs: Code(s): R79.89 - Other specified abnormal findings of blood chemistry Plan: Will repeat liver enzymes today. Patient will continue to lose weight and exercise (3) IBS (irritable bowel syndrome): Code(s): K58.9 - Irritable bowel syndrome without diarrhea Qualifiers: Irritable bowel syndrome type: with both diarrhea and constipation Qualified Code(s): K58.2 - Mixed irritable bowel syndrome Plan: Continue avoiding dietary triggers. Low FODMAP diet encouraged. Patient reports that she is more constipated now will start her Senokot. I will see her in 6 months to re-evaluate. Patient is agreeable to this plan and verbalizes understanding of instructions. She was given the opportunity to ask questions and all questions answered. Thank you for allowing me to participate in her care Orders: Orders Lipase Today R10.9 - Unspecified abdominal pain Liver Panel Today R10.9 - Unspecified abdominal pain Medications: New sennosides (Natural Senna Laxative) 17.2 mg (2 x 8.6 mg) PO BEDTIME 60 tabs 3RF constipation K59.00 - Constipation, unspecified Coding Level of Care Code Est Pt Level 4 (95796) Diagnoses GERD (gastroesophageal reflux disease) K21.9 Esophagitis presence: without esophagitis Elevated LFTs R79.89 IBS (irritable bowel syndrome) K58.2 Irritable bowel syndrome type: with both diarrhea and constipation Time Spent (min) 35 Comment 20 minutes spent with patient and additional 15 minutes spent reviewing her records
== END 2023-06-19 08:33 | disposition home or self-care (01) ==
PROVIDERS: PCP Nurse Practitioner Family; Visit Provider Nurse Practitioner Family
DX: K21.9 Gastro-esophageal reflux disease without esophagitis (principal); R79.89 Other specified abnormal findings of blood chemistry; K58.2 Mixed irritable bowel syndrome
CPT/HCPCS: 99214

== ENCOUNTER → 2023-06-19 07:58 | Outpatient (BNVA) | payer OTHER, SELFPAY | PROVIDERS: PCP Nurse Practitioner Family; Visit Provider Nurse Practitioner Family ==

== ENCOUNTER 2023-07-29 17:01 | Outpatient (REF) | payer OTHER, SELFPAY ==
[2023-07-29 18:13] LABS: C Reactive Protein 0.48 mg/dL (< or = 0.50); Rheumatoid Factor < 13.0 IU/mL (<15.0)
[2023-07-29 18:22] LABS: Erythrocyte Sedimentation Rate 21 MM/HR (0-20)
[2023-07-31 22:24] LABS: Lyme Abs Screen <0.90 index
[2023-08-01 14:44] LABS: Anti Nuclear Antibody Screen NEGATIVE (NEGATIVE)
== END 2023-07-29 17:02 | disposition home or self-care (01) ==
LOC: HO.LAB 17:01
PROVIDERS: PCP Nurse Practitioner Family; Visit Provider Podiatrist
DX: M25.571 Pain in right ankle and joints of right foot (principal)
CPT/HCPCS: 36415; 85652; 86038; 86140; 86431; 86617; 86618

== ENCOUNTER 2023-10-08 12:22 | Outpatient (AMB) | payer OTHER, SELFPAY ==
[2023-10-08 14:46] VITALS: BP 126/76; PULSE 78; TEMP 36.4; O2SAT 97
--- NOTE | 2023-10-08 14:46 | AM.OFFWIN_ITS ---
Intake Vital Signs 10/08/23 14:46 Height 5 ft 6 in BP 126/76 Blood Pressure Location Rt brachial Position Sitting Pulse 78 Pulse Source Pulse Oximeter Temp 97.6 F Temp Source Temporal Artery Scan Pulse Oximetry (%) 97 Oxygen Delivery Method Room Air Intake Visit Reasons: EP dry cough tight chest sinus [id number] Intake Note: pt is here for c.o dry cough, headache 4x weeks Patient Tobacco Use Status: Never used Tobacco Allergies No Known Allergies Allergy (Verified 10/08/23 15:16) Medication List - Last Reconciled 10/08/23 by Kleber Espitia MD albuterol sulfate 90 mcg/actuation 1 - 2 puffs inhalation Q4-6H PRN 30 days cholecalciferol (vitamin D3) 50 mcg PO DAILY 90 days ciclopirox 0.77% 1 appl topical BID clobetasol 0.05% grams topical BID dicyclomine 10 mg PO QID docusate sodium 200 mg (2 x 100 mg) PO BEDTIME escitalopram oxalate 10 mg PO DAILY 90 days fexofenadine-pseudoephedrine 180-240 mg ER (Diamond-D 24 Hour) 1 tab PO DAILY ibuprofen 800 mg PO Q8H PRN lorazepam 0.5 mg PO DAILY PRN losartan 25 mg PO DAILY 30 days omeprazole 20 mg PO BID polyethylene glycol 3350 (Miralax) 17 grams PO DAILY propranolol ER 120 mg PO DAILY 90 days rosuvastatin 20 mg PO DAILY 90 days semaglutide (weight loss) (Wegovy) 0.25 mg (0.5 mL) subcut QWEEK 30 days sennosides (Natural Senna Laxative) 17.2 mg (2 x 8.6 mg) PO BEDTIME sodium chloride 0.65% (Deep Sea Nasal) 1 spray intranasal zolpidem 5 mg PO BEDTIME PRN 30 days Do you need a note to return to daycare/school/sports/work: Yes HPI EP dry cough tight chest sinus [id number] HPI Details 58-year-old female presents to the [facility] for a sick visit. Patient is complaining of cough, productive sputum and wheezing for the past 2 weeks. Last week she was put on antibiotics and prednisone. Continues to have wheezing and a productive cough. She in a started noticing some blood in the sputum. No loss of weight. No fevers or chills. No nausea or vomiting. PFSH Medical History Chronic otitis externa Depression Diarrhea Dyslipidemia Elevated LFTs Elevated liver enzymes GERD (gastroesophageal reflux disease) Hemicrania HTN (hypertension) Impaired fasting glucose Increased BMI Insomnia Menopausal disorder Tenosynovitis of both wrists Tubular adenoma Surgical History History of colonoscopy History of hysterectomy History of laparoscopic cholecystectomy History of mammogram Family History Father Hx of cirrhosis Mental health disorder Mother Hx of diabetes insipidus HX: breast cancer Hx of renal failure Mental health disorder Son No problems noted. Daughter No problems noted. 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 Exam Vital Signs: Last Vital Signs Temp 97.6 F 10/08/23 14:46 Pulse 78 10/08/23 14:46 BP 126/76 10/08/23 14:46 Pulse Ox 97 10/08/23 14:46 Oxygen Delivery Method Room Air 10/08/23 14:46 Const General: cooperative and healthy appearing Nutritional Appearance: well nourished Orientation/consciousness: patient oriented x3 Limitations: no limitations HEENT Head: Yes normal to inspection Eyes General: appearance normal, both eyes and all related structures Neck Neck: Yes normal visual inspection Chest Chest palpation & inspection: normal palpation of entire chest wall Resp Effort & Inspection: normal respiratory effort Neuro General: patient oriented x3 Assessment & Plan Assessment & Plan (1) Acute bronchitis: Code(s): J20.9 - Acute bronchitis, unspecified Plan Antibiotic called in. Prednisone and albuterol called in. Chest x-ray reviewed by me. Possibility of an infiltrate on the right side. Orders: Orders XR chest 2V Today R05.9 - Cough, unspecified Medications: New olopatadine 0.2% (Pataday Once Daily Relief) 1 drp ophthalmic (eye) BEDTIME 2.5 mL 0RF fluocinolone acetonide oil 0.01% 5 drps otic (ear) left BID 7 days 20 mL 0RF azithromycin take 500 mg today (day 1), then 250 mg for 4 days (days 2-5) PO 6 tabs 0RF Coding Level of Care Code Est Pt Level 4 (41285) Diagnoses Acute bronchitis J20.9
== END 2023-10-08 15:46 | disposition home or self-care (01) ==
PROVIDERS: PCP Nurse Practitioner Family; Visit Provider Internal Medicine
DX: J20.9 Acute bronchitis, unspecified (principal)
CPT/HCPCS: 99214

== ENCOUNTER 2023-10-08 15:15 | Outpatient (REF) | payer OTHER, SELFPAY ==
--- NOTE | ~2023-10-08 | XR_ITS ---
EXAMINATION: XR CHEST CLINICAL INFORMATION: Cough. COMPARISON: Chest 10/10/2013 TECHNIQUE: 2 views of the chest were obtained. FINDINGS: The lungs are well-expanded with platelike atelectasis right midlung and left lower lobe. Rest of the lungs are clear. The heart size and pulmonary vascularity is normal. No gross bony abnormality seen. XR/XR chest 2V IMPRESSION: Platelike atelectasis right midlung and left lower lobe.
== END 2023-10-08 15:16 | disposition home or self-care (01) ==
LOC: HO.HMGCX 15:15
PROVIDERS: PCP Nurse Practitioner Family; Visit Provider Internal Medicine
DX: R05.9 Cough, unspecified (principal)
CPT/HCPCS: 71046

== ENCOUNTER 2023-10-17 20:02 | Emergency (ER) | payer OTHER, SELFPAY ==
[2023-10-17 20:17] VITALS: BP 148/87; PULSE 84; RESP 18; TEMP 36.2; O2SAT 96; BMI 37.0
--- NOTE | 2023-10-17 20:21 | ED.GENADULT ---
HPI - General Adult General Chief complaint: Upper Respiratory Symptoms Stated complaint: Cough/palpatations and SOB/dx w/pneumonia History of Present Illness HPI narrative: LEft without complete of treatment. Related Data Home Medications Medication Instructions Recorded Confirmed ciclopirox 0.77 % topical cream 1 applic topical BID 08/09/20 05/06/23 clobetasol 0.05 % topical ointment g topical BID 08/09/20 02/06/23 fexofenadine-pseudoephedrine ER 1 tab PO DAILY 02/12/23 05/06/23 180 mg-240 mg tablet,ext.release 24 hr (Diamond-D 24 Hour) sodium chloride 0.65 % nasal spray 1 spray intranasal congestion 02/12/23 aerosol (Deep Sea Nasal) Previous Rx's Medication Instructions Recorded albuterol sulfate 90 mcg/actuation 1 - 2 puff inhalation Q4-6H PRN 08/09/20 aerosol inhaler dyspnea 30 days #8.5 grams losartan 25 mg tablet 25 mg PO DAILY 30 days #30 tabs 12/12/21 dicyclomine 10 mg capsule 10 mg PO QID #120 caps 10/02/22 polyethylene glycol 3350 17 17 g PO DAILY #510 grams 10/02/22 gram/dose oral powder (Miralax) docusate sodium 100 mg capsule 200 mg (2 x 100 mg) PO BEDTIME 10/03/22 #180 caps escitalopram oxalate 10 mg tablet 10 mg PO DAILY 90 days #90 tabs 11/18/22 semaglutide (weight loss) 0.25 0.25 mg (0.5 mL) subcut QWEEK 30 12/19/22 mg/0.5 mL subcutaneous pen days #2.5 mL injector (Wegovy) ibuprofen 800 mg tablet 800 mg PO Q8H PRN for pain #90 tabs 01/09/23 lorazepam 0.5 mg tablet 0.5 mg PO DAILY PRN anxiety #30 01/26/23 tabs cholecalciferol (vitamin D3) 50 50 mcg PO DAILY 90 days #90 caps 02/06/23 mcg (2,000 unit) capsule omeprazole 20 mg capsule,delayed 20 mg PO BID #60 caps 04/17/23 release rosuvastatin 20 mg tablet 20 mg PO DAILY 90 days #90 tabs 06/19/23 sennosides 8.6 mg tablet (Natural 17.2 mg (2 x 8.6 mg) PO BEDTIME 06/19/23 Senna Laxative) constipation #60 tabs propranolol 120 mg capsule,24 120 mg PO DAILY 90 days #90 caps 09/28/23 hr,extended release azithromycin 250 mg tablet See Rx Instructions PO .COMPLEX #6 10/08/23 tabs fluocinolone acetonide oil 0.01 % 5 drp otic (ear) left BID 7 days 10/08/23 ear drops #20 mL olopatadine 0.2 % eye drops 1 drp ophthalmic (eye) BEDTIME 10/08/23 (Pataday Once Daily Relief) #2.5 mL prednisone 20 mg tablet 60 mg (3 x 20 mg) PO DAILY #9 tabs 10/08/23 zolpidem 5 mg tablet 5 mg PO BEDTIME PRN sleep 30 days 10/09/23 #30 tabs Allergies Allergy/AdvReac Type Severity Reaction Status Date / Time No Known Allergies Allergy Verified 10/08/23 15:16 [facility] Past Medical History Onset Date is defined in the Problem List Problems that require an onset date and time if occurred within 24 hrs of arrival to the ED Aortic Dissection and Rupture; Neurologic impairment; Cardiopulmonary Arrest; Endotracheal Intubation; Insertion or Replacement of Mechanical Circulatory Assist Device Medical History Chronic otitis externa Depression Diarrhea Dyslipidemia Elevated LFTs Elevated liver enzymes GERD (gastroesophageal reflux disease) Hemicrania HTN (hypertension) Impaired fasting glucose Increased BMI Insomnia Menopausal disorder Tenosynovitis of both wrists Tubular adenoma Surgical History History of colonoscopy History of hysterectomy History of laparoscopic cholecystectomy History of mammogram Family History Family History Father Hx of cirrhosis Mental health disorder Mother Hx of diabetes insipidus HX: breast cancer Hx of renal failure Mental health disorder Son No problems noted. Daughter No problems noted. 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 Patient states was given antibiotics for diagnosis pneumonia and finished antibiotic course but still has coughing with chest pain. Repeat EKG and labs ordered. Repeat x-ray ordered. SARs ordered Medical Decision Making Lab Data 10/17/23 20:42 10/17/23 20:42 Labs: Lab Results 10/17/23 Range/Units 20:42 WBC 8.8 (4.8-10.8) X10*3/uL RBC 4.38 (4.20-5.50) X10*6/uL Hgb 12.7 (12.0-16.0) g/dl Hct 38.0 (37.0-47.0) % MCV 86.8 (80.0-98.0) fL MCH 29.0 (27.0-33.0) pg MCHC 33.4 (31.0-35.0) g/dl RDW 12.3 (11.0-16.0) % Plt Count 325 (160-400) X10*3/uL MPV 9.3 L (9.4-12.3) fL Immature Gran % (Auto) 0.3 (0.0-0.4) % Neut % (Auto) 62.7 (45-73) % Lymph % (Auto) 26.4 (20-40) % [place] % (Auto) 6.7 (2-11) % Eos % (Auto) 3.2 (0-4) % Baso % (Auto) 0.7 (0-2) % Lymph # (Auto) 2.3 (1.2-4.9) X10*3/uL [place] # (Auto) 0.6 (0.1-1.2) X10*3/uL Eos # (Auto) 0.3 (0.0-0.4) X10*3/uL Baso # (Auto) 0.1 (0.0-0.2) X10*3/uL Abs Immat Gran (auto) 0.03 (0.00-0.03) X10*3/uL Absolute Neuts (auto) 5.5 (2.0-8.3) x10*3/uL Absolute Nucleated RBC 0.000 (0.0-0.012) X10*3/uL Nucleated RBC % (auto) 0.0 (0.0-0.2) /100WBC PT 9.7 L (11.1-13.3) SEC INR 0.8 L (0.9-1.1) APTT 29.9 (26.0-36.4) SEC Sodium 141 (135-145) mmol/L Potassium 3.4 D (3.3-5.1) mmol/L Chloride 104 (96-108) mmol/L Carbon Dioxide 27 (22-29) mmol/L Anion Gap 13 (12-20) BUN 11 (9-16) mg/dL Creatinine 0.68 (0.5-1.4) mg/dL Estim Creat Clear Calc 107.1 Estimated GFR > 60 Random Glucose 98 (60-115) mg/dL Calcium 9.6 (8.4-10.2) mg/dL Total Bilirubin 0.5 (0.0-1.0) mg/dL AST 21 (5-31) U/L ALT 25 (0-31) U/L Alkaline Phosphatase 129 H (39-117) U/L Troponin I High Sens < 2.7 (<3.5-17.0) ng/L B-Natriuretic Peptide < 10 (<100) pg/mL Total Protein 7.2 (6.5-8.0) g/dL Albumin 4.1 (3.5-5.0) g/dL Influenza Type A (PCR) NEGATIVE (Negative) Influenza Type B (PCR) NEGATIVE (Negative) RSV RNA Qual (PCR) NEGATIVE (Negative) SARS-CoV-2 RNA (RT-PCR) NEGATIVE (Negative) Discharge Plan Discharge Clinical Impression: Upper respiratory infection Patient Disposition: Left W/O Completing Treatment Prescriptions: No Action escitalopram oxalate 10 mg tablet 10 mg PO DAILY 90 Days Qty: 90 1RF ibuprofen 800 mg tablet 800 mg PO Q8H PRN (Reason: for pain) Qty: 90 3RF lorazepam 0.5 mg tablet 0.5 mg PO DAILY PRN (Reason: anxiety) Qty: 30 0RF omeprazole 20 mg capsule,delayed release(DR/EC) 20 mg PO BID Qty: 60 6RF rosuvastatin 20 mg tablet 20 mg PO DAILY 90 Days Qty: 90 1RF propranolol 120 mg capsule,extended release 24 hr 120 mg PO DAILY 90 Days Qty: 90 1RF zolpidem 5 mg tablet 5 mg PO BEDTIME PRN (Reason: sleep) 30 Days Qty: 30 1RF ciclopirox 0.77 % cream 1 applic topical BID clobetasol 0.05 % ointment topical BID albuterol sulfate 90 mcg/actuation HFA aerosol inhaler 1 - 2 puff inhalation Q4-6H PRN (Reason: dyspnea) 30 Days Qty: 8.5 2RF losartan 25 mg tablet 25 mg PO DAILY 30 Days Qty: 30 3RF Wegovy 0.25 mg/0.5 mL pen injector 0.25 mg subcut QWEEK 30 Days Qty: 2.5 0RF Rx Instructions: administer weeks 1 through 4 of therapy cholecalciferol (vitamin D3) 50 mcg (2,000 unit) capsule 50 mcg PO DAILY 90 Days Qty: 90 0RF olopatadine [Pataday Once Daily Relief] 0.2 % drops 1 drp ophthalmic (eye) BEDTIME Qty: 2.5 0RF fluocinolone acetonide oil 0.01 % drops 5 drp otic (ear) left BID 7 Days Qty: 20 0RF azithromycin 250 mg tablet See Rx Instructions PO .COMPLEX Qty: 6 0RF Rx Instructions: take 500 mg today (day 1), then 250 mg for 4 days (days 2-5) PO prednisone 20 mg tablet 60 mg PO DAILY Qty: 9 0RF polyethylene glycol 3350 [Miralax] 17 gram/dose powder 17 g PO DAILY Qty: 510 2RF dicyclomine 10 mg capsule 10 mg PO QID Qty: 120 3RF docusate sodium 100 mg capsule 200 mg PO BEDTIME Qty: 180 3RF Deep Sea Nasal 0.65 % aerosol,spray 1 spray intranasal fexofenadine-pseudoephedrine [Diamond-D 24 Hour] 180-240 mg tablet extended release 24 hr 1 tab PO DAILY sennosides [Natural Senna Laxative] 8.6 mg tablet 17.2 mg PO BEDTIME Qty: 60 3RF Discharge Date/Time: 10/18/23 02:56
--- NOTE | 2023-10-17 20:42 | MHC.EDTECH ---
EKG taken per order and signed by provider,labs and Sars/Flu/Rsv obtained and sent to lab.
[2023-10-17 21:04] LABS: Alanine Aminotransferase 25 U/L (0-31); Albumin Level 4.1 g/dL (3.5-5.0); Alkaline Phosphatase 129 U/L (39-117); Anion Gap 13 (12-20); Aspartate Amino Transferase 21 U/L (5-31); Bilirubin Total 0.5 mg/dL (0.0-1.0); Blood Urea Nitrogen 11 mg/dL (9-16); Calcium 9.6 mg/dL (8.4-10.2); Carbon Dioxide 27 mmol/L (22-29); Chloride 104 mmol/L (96-108); Creatinine Clr Calc Pharmacy 107.1; Estimated Glomerular Filt Rate > 60; Glucose Random 98 mg/dL (60-115); Potassium 3.4 mmol/L (3.3-5.1); Sodium 141 mmol/L (135-145); Total Protein 7.2 g/dL (6.5-8.0)
== END 2023-10-18 02:56 | disposition left against medical advice (07) ==
PROVIDERS: Physician Assistant; Emergency Provider Emergency Medicine; PCP Nurse Practitioner Family
DX: J06.9 Acute upper respiratory infection, unspecified (principal); R07.9 Chest pain, unspecified; Z20.822 Contact with and (suspected) exposure to COVID-19; Z20.828 Contact with and (suspected) exposure to other viral communicable diseases; I10 Essential (primary) hypertension; E78.5 Hyperlipidemia, unspecified; Z79.899 Other long term (current) drug therapy; Z79.02 Long term (current) use of antithrombotics/antiplatelets
CPT/HCPCS: 0241U; 36415; 71046; 80053; 83880; 84484; 85025; 85610; 85730; 93005; 99283

== ENCOUNTER → 2023-10-17 20:20 | Outpatient (BNV) | payer OTHER, SELFPAY | PROVIDERS: Emergency Provider Emergency Medicine; PCP Nurse Practitioner Family; Visit Provider Internal Medicine Cardiovascular Disease | DX: R00.2 Palpitations (principal) | CPT/HCPCS: 93010 ==

== ENCOUNTER 2023-10-30 16:24 | Outpatient (REF) | payer OTHER, SELFPAY ==
--- NOTE | ~2023-10-30 | XR_ITS ---
EXAMINATION: XR CHEST CLINICAL INFORMATION: Pneumonia, unspecified organism COMPARISON: Chest 10/17/2023, 10/08/2023 TECHNIQUE: 2 views of the chest were obtained. FINDINGS: The lungs are well expanded. Again noted is platelike atelectasis in the right midlung field. Curvilinear streaky opacity in the left lung base are again noted, consistent with atelectasis. No focal consolidation or pneumothorax. Trachea is midline. The cardiomediastinal silhouette is within normal limits. There are no pleural effusions. There are mild degenerative changes in the thoracic spine. Surgical clips in the right upper quadrant are consistent with prior cholecystectomy. XR/XR chest 2V IMPRESSION: No acute cardiopulmonary disease.
== END 2023-10-30 16:25 | disposition home or self-care (01) ==
LOC: HO.LAB 16:24
PROVIDERS: Absent Provider Internal Medicine; PCP Nurse Practitioner Family; Visit Provider Nurse Practitioner Family
DX: J18.9 Pneumonia, unspecified organism (principal)
CPT/HCPCS: 71046

== ENCOUNTER 2023-12-16 07:24 | Outpatient (REF) | payer OTHER, SELFPAY ==
[2023-12-16 07:44] LABS: MANUAL DIFF FLAG NO
[2023-12-16 08:08] LABS: Basophils Percent Auto 0.7 % (0-2); Eosinophils Absolute Auto 0.2 X10*3/uL (0.0-0.4); Eosinophils Percent Auto 2.6 % (0-4); Hematocrit 37.6 % (37.0-47.0); Hemoglobin 12.5 g/dl (12.0-16.0); Imm Gran Abs Auto 0.01 X10*3/uL (0.00-0.03); Imm Gran Pct Auto 0.2 % (0.0-0.4); Lymphocytes Absolute Auto 1.8 X10*3/uL (1.2-4.9); Mean Corpuscular HGB Conc 33.2 g/dl (31.0-35.0); Mean Corpuscular Hemoglobin 29.3 pg (27.0-33.0); Mean Corpuscular Volume 88.1 fL (80.0-98.0); Mean Platelet Volume 9.2 fL (9.4-12.3); Monocytes Absolute Auto 0.5 X10*3/uL (0.1-1.2); Monocytes Percent Auto 8.6 % (2-11); Neutrophils Absolute Auto 3.6 x10*3/uL (2.0-8.3); Neutrophils Percent Auto 58.9 % (45-73); Platelet Count 321 X10*3/uL (160-400); Red Blood Count 4.27 X10*6/uL (4.20-5.50); Red Cell Distribution Width 12.6 % (11.0-16.0); White Blood Count 6.1 X10*3/uL (4.8-10.8)
[2023-12-16 08:48] LABS: Alanine Aminotransferase 23 U/L (0-31); Albumin Level 4.1 g/dL (3.5-5.0); Alkaline Phosphatase 164 U/L (39-117); Anion Gap 11 (12-20); Aspartate Amino Transferase 17 U/L (5-31); Bilirubin Total 0.4 mg/dL (0.0-1.0); Blood Urea Nitrogen 21 mg/dL (9-16); Calcium 9.3 mg/dL (8.4-10.2); Carbon Dioxide 29 mmol/L (22-29); Chloride 106 mmol/L (96-108); Cholesterol 173 mg/dL (<200); Estimated Glomerular Filt Rate > 60; Glucose Fasting 104 mg/dL (60-99); HDL Cholesterol 60 mg/dL (>40); LDL Cholesterol Calculated 83 mg/dL (<100); Potassium 3.5 mmol/L (3.3-5.1); Sodium 142 mmol/L (135-145); Total Protein 7.1 g/dL (6.5-8.0); Triglycerides 152 mg/dL (<150)
[2023-12-16 09:02] LABS: TSH reflex Free T4 1.85 uIU/mL (0.32-4.0); Vitamin D 25-OH Total 44.7 ng/mL (>30)
[2023-12-16 09:35] LABS: Appearance Urine Cloudy; Color Urine Dark Yellow; Glucose Urine UA Negative (Negative); Leukocyte Esterase Urine Negative (Negative); Nitrite Urine Negative (Negative); PH 5.5 (5.0-9.0); Specific Gravity - Urine >= 1.030 (1.005-1.025); Urine Blood Negative (Negative); Urine Ketones Trace mg/dL (Negative); Urine Protein Trace mg/dL (Neg-Trace)
[2023-12-17 17:23] LABS: Thyroid Peroxidase Antibodies 1 IU/mL (<9)
== END 2023-12-16 07:25 | disposition home or self-care (01) ==
LOC: HO.LAB 07:24
PROVIDERS: Absent Provider Internal Medicine; PCP Nurse Practitioner Family; Visit Provider Nurse Practitioner Family
DX: Z00.00 Encounter for general adult medical examination without abnormal findings (principal); E78.5 Hyperlipidemia, unspecified; R79.89 Other specified abnormal findings of blood chemistry; Z78.0 Asymptomatic menopausal state
CPT/HCPCS: 36415; 80053; 80061; 81003; 82306; 84443; 85025; 86376

== ENCOUNTER 2023-12-18 07:57 | Outpatient (AMB) | payer OTHER, SELFPAY ==
--- NOTE | 2023-12-18 08:10 | A.OFFVIS_ITS ---
Intake Vital Signs 12/18/23 08:12 Height 5 ft 6 in Weight 233 lb 11.04 oz BMI 37.7 BP 137/95 H Blood Pressure Location Lt brachial Position Sitting Pulse 75 Intake Visit Reasons: 6 month follow up Intake Note: Kinza presents in the office as a 6 month follow up. CC: She states that she is not having any concerns today just here for results to her blood work. [employer] Required: No Allergies No Known Allergies Allergy (Verified 12/18/23 08:12) HPI 6 month follow up HPI Details LAST VISIT: GERD (gastroesophageal reflux disease) Continue omeprazole. Patient was encouraged to avoid dietary triggers and late night snacking. Staying upright for minimum 3 hours after meals discussed with patient. Elevated LFTs Will repeat liver enzymes today. Patient will continue to lose weight and exercise IBS (irritable bowel syndrome) Continue avoiding dietary triggers. Low FODMAP diet encouraged. Patient reports that she is more constipated now will start her Senokot. I will see her in 6 months to re-evaluate. Patient is agreeable to this plan and verbalizes understanding of instructions. She was given the opportunity to ask questions and all questions answered. ? Thank you for allowing me to participate in her care Plan Orders Orders Lipase Today R10.9 - Unspecified abdominal pain Liver Panel Today R10.9 - Unspecified abdominal pain Medications New sennosides (Natural Senna Laxative) 17.2 mg (2 x 8.6 mg) PO BEDTIME 60 tabs 3RF constipation K59.00 - Constipation, unspecified TODAY'S VISIT Patient is here today for follow-up and to discuss lab results. Patient's liver enzymes were. Mildly elevated triglycerides. Patient reports that she has been doing well she continues to lose weight. Patient denies any dyspepsia, dysphagia or odynophagia. Patient denies any melena, hematochezia, unintentional weight loss or ribbon like stools. Patient reports that she has been doing well. She continues to feel well. [facility] Medical History Diarrhea GERD (gastroesophageal reflux disease) Elevated liver enzymes Tubular adenoma Increased BMI Impaired fasting glucose Tenosynovitis of both wrists Elevated LFTs Insomnia Depression Chronic otitis externa Menopausal disorder Dyslipidemia HTN (hypertension) Hemicrania Surgical History History of mammogram History of colonoscopy History of hysterectomy History of laparoscopic cholecystectomy Family History Father Hx of cirrhosis Mental health disorder Mother Hx of diabetes insipidus HX: breast cancer Hx of renal failure Mental health disorder Son No problems noted. Daughter No problems noted. 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 Review of Systems Const Denies weight gain and Denies weight loss ENT Reports no additional complaints, Denies dysphagia and Denies odynophagia Card Reports no additional complaints Resp Reports no additional complaints GI Denies abdominal pain, Denies belching, Denies melena, Denies bloating, Denies change in bowel habits, Denies dysphagia, Denies excessive flatus, Denies dyspepsia, Denies heartburn, Denies diarrhea, Denies loose stools, Denies nausea, Denies odynophagia and Denies vomiting Musc Reports no additional complaints Neuro Reports no additional complaints Psych Reports no additional complaints Endo Reports no additional complaints Physical Exam Vital Signs: Last Vital Signs Pulse 75 12/18/23 08:12 BP 137/95 H 12/18/23 08:12 BMI result Body Mass Index 37.7 Const General: healthy appearing, no acute distress and well developed Nutritional Appearance: obese Orientation/consciousness: patient oriented x3 Resp Effort & Inspection: normal respiratory effort, able to speak in complete sentences, no tracheal deviation and symmetric chest movement Auscultation: clear to auscultation bilaterally Cardio Rate: regular rate GI Inspection: Yes normal to inspection, No distended and Yes obesity Palpation (GI): Soft to palpation, not firm, nontender and No hepatosplenomegaly present Auscultation: normal bowel sounds General: Yes no CVA tenderness Back/Spine/Pelvis Back: no CVA tenderness Skin General skin exam: elasticity normal, turgor normal and dry skin Neuro General: patient oriented x3 Psych Appearance: grossly normal Mental Status: mental status grossly normal Assessment & Plan Assessment & Plan (1) GERD (gastroesophageal reflux disease): Code(s): K21.9 - Gastro-esophageal reflux disease without esophagitis Qualifiers: Esophagitis presence: without esophagitis Qualified Code(s): K21.9 - Gastro-esophageal reflux disease without esophagitis (2) Elevated liver enzymes: Code(s): R74.8 - Abnormal levels of other serum enzymes (3) IBS (irritable bowel syndrome): Code(s): K58.9 - Irritable bowel syndrome without diarrhea Qualifiers: Irritable bowel syndrome type: without diarrhea Qualified Code(s): K58.9 - Irritable bowel syndrome without diarrhea Plan Patient will go for abdominal ultrasound of the liver with liver elastography. Will repeat liver enzymes. Continue omeprazole. Patient was encouraged to avoid dietary triggers in late night snacking. Staying upright for minimum 3 hours after meals discussed with patient. Continue low FODMAP diet. Patient will return to the office in 6 months, sooner on as needed basis patient is agreeable to this plan and verbalizes understanding of instructions. She was given the opportunity to ask questions and all questions answered. Thank you for allowing me to participate in her care Orders: Orders US abdomen ortiz w elastography Today R74.01 - Elevation of levels of liver transaminase levels Liver Panel 4 Months R74.01 - Elevation of levels of liver transaminase levels Coding Level of Care Code Est Pt Level 3 (08438) Diagnoses Gastroesophageal reflux disease without esophagitis K21.9 Esophagitis presence: without esophagitis Elevated liver enzymes R74.8 Irritable bowel syndrome without diarrhea K58.9 Irritable bowel syndrome type: without diarrhea Time Spent (min) 25 Comment 15 minutes spent with patient and additional 10 minutes spent reviewing her records
[2023-12-18 08:12] VITALS: BP 137/95; PULSE 75; BMI 37.7
== END 2023-12-18 08:34 | disposition home or self-care (01) ==
PROVIDERS: PCP Nurse Practitioner Family; Visit Provider Nurse Practitioner Family
DX: K21.9 Gastro-esophageal reflux disease without esophagitis (principal); R74.8 Abnormal levels of other serum enzymes; K58.9 Irritable bowel syndrome, unspecified
CPT/HCPCS: 99213

== ENCOUNTER → 2023-12-18 07:57 | Outpatient (BNVA) | payer OTHER, SELFPAY | PROVIDERS: PCP Nurse Practitioner Family; Visit Provider Nurse Practitioner Family ==

== ENCOUNTER 2023-12-25 16:16 | Outpatient (AMB) | payer OTHER, SELFPAY ==
--- NOTE | 2023-12-25 16:26 | A.OFFPC_ITS ---
Vital Signs 12/25/23 16:27 Height 5 ft 6 in Weight 228 lb 6 oz BMI 36.9 BP 138/82 Blood Pressure Location Lt brachial Position Sitting Intake Visit Reasons: Annual Allergies No Known Allergies Allergy (Verified 12/25/23 16:27) Medication List - Last Reconciled 12/25/23 by Wilfred Castle [facility]- albuterol sulfate 90 mcg/actuation 1 - 2 puffs inhalation Q4-6H PRN 30 days ascorbate calcium (vitamin C) 1 g PO Q6H cholecalciferol (vitamin D3) 50 mcg PO DAILY 90 days ciclopirox 0.77% 1 appl topical BID clobetasol 0.05% grams topical BID docusate sodium 200 mg (2 x 100 mg) PO BEDTIME escitalopram oxalate 10 mg PO DAILY fexofenadine-pseudoephedrine 180-240 mg ER (Diamond-D 24 Hour) 1 tab PO DAILY fluocinolone acetonide oil 0.01% 5 drps otic (ear) left BID 7 days ibuprofen 800 mg PO Q8H PRN lorazepam 0.5 mg PO DAILY PRN losartan 25 mg PO DAILY mecobalamin (vitamin B12) 1,000 mcg PO DAILY meloxicam 7.5 mg PO BID olopatadine 0.2% (Pataday Once Daily Relief) 1 drp ophthalmic (eye) BEDTIME omeprazole 20 mg PO BID ondansetron 4 mg PO DAILY polyethylene glycol 3350 (Miralax) 17 grams PO DAILY propranolol ER 120 mg PO DAILY 90 days rosuvastatin 20 mg PO DAILY 90 days semaglutide (weight loss) (Wegovy) mg subcut sennosides (Natural Senna Laxative) 17.2 mg (2 x 8.6 mg) PO BEDTIME sodium chloride 0.65% (Deep Sea Nasal) 1 spray intranasal ubidecarenone-omega 3-vit E 25-150-200 mg-mg-unit (Co G-85-Boapqgb E-Fish Oil) 1 cap PO DAILY zolpidem 5 mg PO BEDTIME PRN 30 days Tobacco use date assessed: 12/25/23 HPI Annual HPI Details pt is here for a PE. 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 bone density ordered. labs performed recently, alk phos up. Pt is already seeing GI and a alk phos break down has been ordered. [facility] Medical History Diarrhea GERD (gastroesophageal reflux disease) Elevated liver enzymes Tubular adenoma Increased BMI Impaired fasting glucose Tenosynovitis of both wrists Elevated LFTs Insomnia Depression Chronic otitis externa Menopausal disorder Dyslipidemia HTN (hypertension) Hemicrania Surgical History History of mammogram History of colonoscopy History of hysterectomy History of laparoscopic cholecystectomy Family History Father Hx of cirrhosis Mental health disorder Mother Hx of diabetes insipidus HX: breast cancer Hx of renal failure Mental health disorder Son No problems noted. Daughter No problems noted. 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 1. Little interest or pleasure in doing things: several days 2. Feeling down, depressed, or hopeless: more than half the days 3. Trouble falling or staying asleep, or sleeping too much: nearly every day 4. Feeling tired or having little energy: more than half the days 5. Poor appetite or overeating: nearly every day 6. Feeling bad about yourself - or that you are a failure or have let yourself or your family down: nearly every day 7. Trouble concentrating on things, such as reading the newspaper or watching television: more than half the days 8. Moving or speaking so slowly that other people could have noticed. Or the opposite - being so fidgety or restless that you have been moving around a lot more than usual: more than half the days 9. Thoughts that you would be better off or of hurting yourself in some way: not at all Total score: 18 Depression Screening Interpretation: Positive (medication, will have our team contact the pt, escitalopram started, pt denies any si or hi) Depression Screening Follow-up: Existing condition Depression Screening Done: Yes 18237 - PHQ-9 Billing: Yes Source: Developed by Drs. Panda Fuller, Tessa Bowman, Mu Fairbanks and colleagues, with an educational unruly from [employer]. Thrive Questionnaire Date Thrive assessed: 12/25/23 I am a: Patient What is your living situation today?: I have a steady place to live Within the past 12 months, did the food you bought not last and you didn't have the money to get more?: Never true Within the past 12 months, did you worry whether your food would run out before you got money to buy more?: Never true Do you have trouble paying for medicines?: No Do you have trouble getting transportation to medical appointments?: No Do you have trouble paying your heating and electricity bill?: No Do you have trouble taking care of your child, family member or friend?: No Do you have trouble with day-to-day activities such as bathing, preparing meals, shopping, managing finances, etc.?: No Are you currently unemployed and looking for a job?: No Are you interested in more education?: No Please select the resources that you would like help with: None Currently or been in a relationship where the following occur: no concerns reported THRIVE Score: 0 AUDIT C Alcohol Use Questionnaire (AUDIT-C) 1. How often do you have a drink containing alcohol?: 2-3 times a week 2. How many drinks containing alcohol do you have on a typical day when you are drinking?: 1 or 2 3. How often do you have six or more drinks on one occasion?: Never Total Score: 3 Score Reviewed/Action Taken: Yes CONNOR-7 AMB Questionnaire CONNOR-7 Date CONNOR - 7 assessed: 12/25/23 Feeling nervous, anxious, or on edge: 2 = More than half the days Not being able to stop or control worryin = Nearly every day Worrying too much about different things: 3 = Nearly every day Trouble relaxin = Nearly every day Being so restless that it is hard to sit still: 1 = Several days Becoming easily annoyed or irritable: 3 = Nearly every day Feeling afraid as if something awful might happen: 3 = Nearly every day Total CONNOR-7 score (0-4 normal; 5-9 mild; 10-14 moderate; 15-21 severe): 18 Source: Developed by Drs. Panda Fuller, Tessa Bowman, Mu Fairbanks and colleagues, with an educational unruly from [employer]. CONNOR-7 Assessment Billing CONNOR-7 Assessment Tool: CONNOR-7 Assessment 95556 Review of Systems Const Denies chills and Denies fever(s) Eyes Denies blurry vision ENT Denies vertigo, Denies dizziness and Denies sore throat Card Denies chest pain at rest, Denies chest pain with activity, Denies diaphoresis, Denies dyspnea and Denies dyspnea on exertion Resp Denies cough, Denies dyspnea, Denies dyspnea on exertion and Denies wheezing GI Denies abdominal pain, Denies melena, Denies hematochezia, Denies constipation, Denies diarrhea and Denies loose stools Denies hematuria Musc Denies numbness and Denies tingling Skin/Breast Denies lesions Neuro Denies vertigo, Denies dizziness, Denies numbness and Denies tingling Psych Denies anxiety, Denies depression, Denies homicidal ideation, Denies suicidal ideation and Denies other (substance abuse) Aller/Immun Denies wheezing Physical exam (Primary Care) Vital Signs: Last Vital Signs BP 138/82 12/25/23 16:27 BMI result Body Mass Index 36.9 Tobacco/Smoking Status: Tobacco use Status Tobacco use date assessed 12/25/23 12/25/23 16:32 Patient Tobacco Use Status Never used Tobacco 12/25/23 16:32 PHQ-9: PHQ-9 Score PHQ-9: Total score 18 12/25/23 17:00 Depression Screening Interpretation: Positive (medication, will have our BH team contact the pt, escitalopram started, pt denies any si or hi) Depression Screening Follow-up: Existing condition Thrive Assessment: Date of Thrive Assessment Date Thrive assessed 12/25/23 12/25/23 16:38 Currently or been in a relationship where the following occur: no concerns reported Const General: cooperative Nutritional Appearance: well nourished and obese Orientation/consciousness: patient oriented x3 HENMT Head: Yes normal to inspection, Yes normocephalic and Yes atraumatic Ears: TM normal on the right and TM normal on the left Eyes General: appearance normal, both eyes and all related structures Alignment and Position: alignment normal and position normal Neck Neck: Yes normal visual inspection and Yes no lymphadenopathy Resp Effort & Inspection: normal respiratory effort Auscultation: clear to auscultation bilaterally Cardio Rate: regular rate Rhythm: regular rhythm Heart sounds: S1 normal heart sound present, S2 normal heart sound present and no murmurs GI Palpation (GI): Soft to palpation and nontender Auscultation: normal bowel sounds Skin Rashes: no rashes Neuro General: patient oriented x3, moves all extremities, no focal motor deficits and deep tendon reflexes 2+ bilaterally Romberg Test: Negative Extrem Right lower extremity: no edema Left lower extremity: no edema Psych Affect: normal affect Attitude: cooperative Thought process: Normal thought process present Assessment and Plan Assessment & Plan (1) Vitamin D deficiency: Code(s): E55.9 - Vitamin D deficiency, unspecified Plan: WNL, bone density ordered (2) Postmenopausal: Code(s): Z78.0 - Asymptomatic menopausal state Plan: bone density ordered (3) Physical exam: Code(s): Z00.00 - Encounter for general adult medical examination without abnormal findings Orders: Orders XR DEXA axial skeleton Today E55.9 - Vitamin D deficiency, unspecified, Z78.0 - Asymptomatic menopausal state Medications: New escitalopram oxalate 10 mg PO DAILY 90 tabs 1RF prednisone 50 mg PO DAILY 6 tabs 0RF 6 days azithromycin For 250 mg dose pack: take 500 mg today (day 1), then 250 mg for 4 days (days 2-5) PO 6 tabs 0RF Coding Level of Care Code Est Pt Prev Care 40-64y(91427) Diagnoses Vitamin D deficiency E55.9 Postmenopausal Z78.0 Physical exam Z00.00 Additional Codes CONNOR-7 Assessment Billing - CONNOR-7 Assessment Tool: CONNOR-7 Assessment [id number] ([id number])
[2023-12-25 16:27] VITALS: BP 138/82; BMI 36.9
== END 2023-12-25 17:19 | disposition home or self-care (01) ==
PROVIDERS: Visit Provider Nurse Practitioner Family
DX: E55.9 Vitamin D deficiency, unspecified (principal); Z78.0 Asymptomatic menopausal state; Z00.00 Encounter for general adult medical examination without abnormal findings
CPT/HCPCS: 99396

== ENCOUNTER 2024-01-10 10:08 | Outpatient (AMB) | payer OTHER, SELFPAY ==
--- NOTE | 2024-01-10 10:12 | A.OFFVIS_ITS ---
Intake Vital Signs 01/10/24 10:15 Height 5 ft 6 in Weight 223 lb BMI 36.0 BP 113/74 Blood Pressure Location Lt brachial Position Sitting Pulse 81 Intake Visit Reasons: has a white spot on her belly Intake Note: Patient follow up for white spot on her belly. Patient cc: hard white spot on her belly, acid reflex with burning sensation, and between diarrhea and constipation. Die Trouble Shooter Required: No Accompanied by: Self / Same As Patient Allergies No Known Allergies Allergy (Verified 01/10/24 10:12) HPI has a white spot on her belly HPI Details LAST VISIT GERD (gastroesophageal reflux disease) Elevated liver enzymes IBS (irritable bowel syndrome) Plan Patient will go for abdominal ultrasound of the liver with liver elastography. Will repeat liver enzymes. Continue omeprazole. Patient was encouraged to avoid dietary triggers in late night snacking. Staying upright for minimum 3 hours after meals discussed with patient. Continue low FODMAP diet. Patient will return to the office in 6 months, sooner on as needed basis patient is agreeable to this plan and verbalizes understanding of instructions. She was given the opportunity to ask questions and all questions answered. ? Thank you for allowing me to participate in her care Orders Orders US abdomen ortiz w elastography Today R74.01 Liver Panel 4 Months R74.01 TODAY'S VISIT: Patient is here today for requested visit. Patient reports that she has white random spots on her abdomen that she noticed few weeks ago. Patient states that she went to see her PCP and was given steroid cream. Patient reports that she has similar however larger spot on her right breast that has white skin hard, glossy with no pain, itch. Patient does report that she has been going through menopause and frequently sweats in this area. Patient denies any abdominal pain or discomfort. Denies any other issues. States that she started going to the gym and is starting to lose weight. Patient states that she is also feeling better and is trying to eat healthier. [facility] Medical History Diarrhea GERD (gastroesophageal reflux disease) Elevated liver enzymes Tubular adenoma Increased BMI Impaired fasting glucose Tenosynovitis of both wrists Elevated LFTs Insomnia Depression Chronic otitis externa Menopausal disorder Dyslipidemia HTN (hypertension) Hemicrania Surgical History History of mammogram History of colonoscopy History of hysterectomy History of laparoscopic cholecystectomy Family History Father Hx of cirrhosis Mental health disorder Mother Hx of diabetes insipidus HX: breast cancer Hx of renal failure Mental health disorder Son No problems noted. Daughter No problems noted. 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 Review of Systems Const Details: White patchy skin Denies weight gain and Denies weight loss ENT Reports no additional complaints, Denies dysphagia and Denies odynophagia Card Reports no additional complaints Resp Reports no additional complaints GI Denies abdominal pain, Denies belching, Denies melena, Denies bloating, Denies change in bowel habits, Denies dysphagia, Denies excessive flatus, Denies dyspepsia, Denies heartburn, Denies diarrhea, Denies loose stools, Denies nausea, Denies odynophagia and Denies vomiting Reports no additional complaints Musc Reports no additional complaints Neuro Reports no additional complaints Psych Reports no additional complaints Endo Reports no additional complaints Physical Exam Vital Signs: Last Vital Signs Pulse 81 01/10/24 10:15 BP 113/74 01/10/24 10:15 BMI result Body Mass Index 36.0 Const General: healthy appearing and no acute distress Nutritional Appearance: obese Orientation/consciousness: patient oriented x3 Chest Other: Large hyperpigmentation to right breast Resp Effort & Inspection: normal respiratory effort, able to speak in complete sentences, no tracheal deviation and symmetric chest movement Auscultation: clear to auscultation bilaterally Cardio Rate: regular rate GI Inspection: Yes normal to inspection, No distended and Yes obesity Palpation (GI): Soft to palpation, not firm, nontender and No hepatosplenomegaly present Auscultation: normal bowel sounds General: Yes no CVA tenderness Back/Spine/Pelvis Back: no CVA tenderness Skin Other: White, patchy, glossy area of skin right breast and across her abdomen below umbilicus General skin exam: elasticity normal and turgor normal Neuro General: patient oriented x3 Psych Appearance: grossly normal Mental Status: mental status grossly normal Assessment & Plan Assessment & Plan (1) GERD (gastroesophageal reflux disease): Code(s): K21.9 - Gastro-esophageal reflux disease without esophagitis Qualifiers: Esophagitis presence: without esophagitis Qualified Code(s): K21.9 - Gastro-esophageal reflux disease without esophagitis (2) Elevated liver enzymes: Code(s): R74.8 - Abnormal levels of other serum enzymes (3) Skin disorder: Code(s): L98.9 - Disorder of the skin and subcutaneous tissue, unspecified Plan Patient is asking for dermatology referral. Patient does report to be sweating frequently at night time. Cortisone has not helped her we will try nystatin cream to see if this will make a difference. Patient denies any GI concerning symptoms. Reports that she has been eating better and exercising more. Patient has appointment with me set up already. She will call the office if she will have any GI concerning symptoms. She is agreeable to this plan and verbalizes understanding of instructions. She was given the opportunity to ask questions and all questions answered. Thank you for allowing me to participate in her care Orders: Referrals Dermatology Referral L80 - Vitiligo Medications: New nystatin 1 appl topical BID 15 grams 0RF Refilled docusate sodium 200 mg (2 x 100 mg) PO BEDTIME 180 caps 3RF K59.00 - Constipation, unspecified Coding Level of Care Code Est Pt Level 3 (73317) Diagnoses Gastroesophageal reflux disease without esophagitis K21.9 Esophagitis presence: without esophagitis Elevated liver enzymes R74.8 Skin disorder L98.9 Time Spent (min) 25 Comment 15 minutes spent with patient and additional 10 minutes spent reviewing her records
[2024-01-10 10:15] VITALS: BP 113/74; PULSE 81; BMI 36.0
== END 2024-01-10 11:26 | disposition home or self-care (01) ==
PROVIDERS: PCP Nurse Practitioner Family; Visit Provider Nurse Practitioner Family
DX: K21.9 Gastro-esophageal reflux disease without esophagitis (principal); R74.8 Abnormal levels of other serum enzymes; L98.9 Disorder of the skin and subcutaneous tissue, unspecified
CPT/HCPCS: 99213

== ENCOUNTER → 2024-01-10 10:08 | Outpatient (BNVA) | payer OTHER, SELFPAY | PROVIDERS: PCP Nurse Practitioner Family; Visit Provider Nurse Practitioner Family ==

== ENCOUNTER 2024-01-14 07:41 | Outpatient (REF) | payer OTHER, SELFPAY ==
--- NOTE | ~2024-01-14 | MM_ITS ---
EXAMINATION: BONE DENSITOMETRY CLINICAL INDICATION: Vitamin D deficiency. COMPARISON: Baseline BD dated 03/10/2013. TECHNIQUE: Using a W[employer]ango DXA System (software version: 13.1) manufactured by [employer], dual-energy x-ray absorptiometry was performed of the lumbar spine and left hip. The images are of good technical quality. Summary results are attached. FINDINGS: LEFT FEMUR, NECK: Current: BMD 1.093 g/cm2, Z-score 0.9, T-score 0.4, normal. Baseline: BMD 1.223 g/cm2. LEFT FEMUR, TOTAL: Current: BMD 1.228 g/cm2, Z-score 1.9, T-score 1.7, normal, 4.6% decrease from baseline (<5% change is not significant). Baseline: BMD 1.287 g/cm2. AP SPINE L1-L2 (excluding L3 and L4): The data of L1-L4 has been changed to exclude the L3 and L4 vertebral bodies, because degenerative sclerosis at these levels may cause overestimation of lumbar spine density. Current: BMD 1.388 g/cm2, Z-score 2.0, T-score 1.9, normal, 2.5% decrease from baseline (<5% change is not significant). Baseline: BMD 1.423 g/cm2. IDENTIFIED RISK FACTORS: Early menopause, hysterectomy, left oophorectomy, secondary osteoporosis. HISTORY OF FRACTURE: None listed. MEDICATIONS: Calcium, vitamin D. MM/XR DEXA axial skeleton IMPRESSION: 1. DIAGNOSIS: Normal bone density based on the lowest T-score value of 0.4 in the femoral neck applying World Health Organization criteria. 2. 10-YEAR FRACTURE RISK PREDICTION, FRAX: According to the guidelines, FRAX calculation should only be performed on patients in the osteopenia bone density category. Therefore, FRAX was not performed on this patient. 3. Treatment Recommendations: NOF guidelines recommend consideration for treatment in postmenopausal women and men age 50 and older presenting with the following: -A hip or vertebral (clinical or morphometric) fracture. -T-score less than or equal to -2.5 at the femoral neck or spine after appropriate evaluation to exclude secondary causes. -Low bone mass at the hip or spine and a 10-year fracture probability by FRAX of greater than or equal to 3% for hip fracture or greater than or equal to 20% for major osteoporotic fracture based on the [place] adapted WHO algorithm. 4. Other Recommendations: All treatment decisions require clinical judgment and consideration of individual patient factors, including patient preferences, comorbidities, previous drug use, risk factors not captured in the FRAX model (e.g. frailty, falls, vitamin D deficiency, increased bone turnover, interval significant decline in bone density) and possible under or overestimation of fracture risk by FRAX. FUTURE SCAN RECOMMENDATION: People with diagnosed cases of osteoporosis or at high risk for fracture should have regular bone mineral density tests. For patients eligible for Medicare, routine testing is allowed once every 2 years. The testing frequency can be increased to one year for patients who have rapidly progressing disease, those who are receiving or discontinuing medical therapy to restore bone mass, or have additional risk factors.
--- NOTE | ~2024-01-14 | US_ITS ---
EXAMINATION: US ABDOMEN LIMITED WITH LIVER ELASTOGRAPHY CLINICAL INFORMATION: Elevated liver transaminase levels. COMPARISON: CT abdomen and pelvis dated 10/03/2022; abdominal ultrasound dated 12/15/2020. TECHNIQUE: Real-time imaging of the abdominal viscera. Noninvasive ultrasound liver fibrosis assessment is performed using Marsha ElastPQ point quantification shear wave elastography (2D-SWE) with a C5-2 MHz transducer. Multiple elastography samples are obtained. FINDINGS: PANCREAS: Normal. The visualized pancreatic head and body are normal in appearance. The remainder of the pancreas is obscured from visualization by the overlying bowel gas. LIVER: The liver demonstrates normal size, contour and increased echogenicity. No focal lesion or intrahepatic biliary duct dilatation. The right lobe measures 16.1 cm in length. The left lobe measures 11.6 cm in length. Portal flow is towards the liver (hepatopetal). Shear wave liver elastography median stiffness is 1.42 m/s (reference: normal median stiffness is 1.3 m/s or less). IQR/median stiffness to assess sampling precision is 0.15 (reference: good quality data set is IQR/median stiffness of 0.15 or less). GALLBLADDER: Surgically absent. COMMON BILE DUCT: Normal in caliber measuring 0.6 cm in diameter. RIGHT KIDNEY: Normal. No hydronephrosis. No renal calculi or focal parenchymal lesions. The kidney measures 12.2 cm in maximum dimension. FREE FLUID: None. US/US abdomen ortiz w elastography IMPRESSION: 1. There is generalized increase in hepatic echotexture, consistent with fatty infiltration or hepatocellular disease. Please correlate clinically. No focal hepatic mass or intrahepatic biliary dilatation is seen. 2. Liver elastography: In the absence of other known clinical signs, measurements rule out compensated advanced chronic liver disease. If there are known clinical signs, further testing may be needed for confirmation. 3. The gallbladder is surgically absent. REFERENCE: Society of Radiologists in Ultrasound Liver Stiffness Thresholds (2020): LIVER STIFFNESS THRESHOLDS: *Liver Stiffness equal or less than 1.3 m/s: High probability of being normal. *Liver Stiffness less than 1.7 m/s: In the absence of other known clinical signs, rules out compensated advanced chronic liver disease. *Liver Stiffness 1.7-2.1 m/s: Suggestive of compensated advanced chronic liver disease but need further test for confirmation. *Liver Stiffness over 2.1 m/s: Rules in compensated advanced chronic liver disease. *Liver Stiffness over 2.4 m/s: Suggestive of clinically significant portal hypertension. QUALITY OF DATA SET: *IQR/Median value equal or less than 0.15 implies a quality data set. *IQR/Median value over 0.15 implies a poor quality data set. SIGNIFICANT CHANGE FROM PRIOR EXAM: Significant change if liver stiffness measurement is 10% or greater from prior exam. OTHER CONSIDERATIONS: The stage of liver fibrosis may be overestimated in the setting of acute hepatitis, liver inflammation, elevated liver function tests, hepatic vascular congestion, obstructive cholestasis, non-fasting state, and infiltrative diseases such as amyloidosis and lymphoma. In some patients with NAFLD, the liver stiffness thresholds for compensated advanced chronic liver disease may be lower. In causes other than viral hepatitis and NAFLD, liver stiffness thresholds are not well established.
[2024-01-14 09:47] LABS: Alanine Aminotransferase 24 U/L (0-31); Albumin Level 4.1 g/dL (3.5-5.0); Alkaline Phosphatase 144 U/L (39-117); Aspartate Amino Transferase 21 U/L (5-31); Bilirubin Direct 0.2 mg/dL (0.0-0.5); Bilirubin Total 0.4 mg/dL (0.0-1.0); Lipase 47 U/L (8-78); Total Protein 7.1 g/dL (6.5-8.0)
[2024-01-14 11:42] LABS: Gamma Glutamyl Transpeptidase 52 U/L (7-33)
[2024-01-18 05:53] LABS: Alk.Phos Iso. Macrohepatic 0 % (<=0); Alk.Phos Isoenzymes Bone 34 % (28-66); Alk.Phos Isoenzymes Intest 35 % (1-24); Alk.Phos Isoenzymes Liver 31 % (25-69); Alk.Phos Isoenzymes Placental 0 % (<=0); Alk.Phos Isoenzymes Total 125 U/L (37-153)
== END 2024-01-14 07:42 | disposition home or self-care (01) ==
LOC: HO.US 07:41
PROVIDERS: Absent Provider Nurse Practitioner Family; PCP Nurse Practitioner Family; Visit Provider Nurse Practitioner Family
DX: Z13.820 Encounter for screening for osteoporosis (principal); R10.9 Unspecified abdominal pain; R74.01 Elevation of levels of liver transaminase levels; R74.8 Abnormal levels of other serum enzymes; E55.9 Vitamin D deficiency, unspecified; Z78.0 Asymptomatic menopausal state
CPT/HCPCS: 36415; 76705; 76981; 77080; 80076; 82977; 83690; 84080

== ENCOUNTER 2024-02-05 13:09 | Outpatient (AMB) | payer OTHER, SELFPAY ==
--- NOTE | 2024-02-05 13:16 | A.OFFVIS_ITS ---
Vital Signs 02/05/24 13:18 Height 5 ft 6 in Weight 227 lb 15.327 oz BMI 36.8 BP 116/79 Blood Pressure Location Lt brachial Position Sitting Pulse 84 Intake Visit Reasons: Abdominal bloating Intake Note: Patient here to discuss abd US results. Patient c/o: reports nystatin cr for rash between breasts did not help but had derm appt in May. ABD US: 01-14-2024. Estimator Project Manager Required: No Accompanied by: Self / Same As Patient Allergies No Known Allergies Allergy (Verified 02/05/24 13:22) HPI HPI Abdominal bloating: Details: LAST VISIT: GERD (gastroesophageal reflux disease) Elevated liver enzymes Skin disorder Plan Patient is asking for dermatology referral. Patient does report to be sweating frequently at night time. Cortisone has not helped her we will try nystatin cream to see if this will make a difference. Patient denies any GI concerning symptoms. Reports that she has been eating better and exercising more. Patient has appointment with me set up already. She will call the office if she will have any GI concerning symptoms. She is agreeable to this plan and verbalizes understanding of instructions. She was given the opportunity to ask questions and all questions answered. ? Thank you for allowing me to participate in her care Orders Referrals Dermatology Referral L80 Medications New nystatin 1 appl topical BID 15 grams 0RF Refilled docusate sodium 200 mg (2 x 100 mg) PO BEDTIME 180 caps 3RF K59.00 TODAY'S VISIT Patient is here today for follow-up and to discuss ultrasound results. Patient reports that she has been feeling well. She continues to exercise and is eating better and she no longer has abdominal pain or bloating. She is moving her bowels better now. Continues to take Colace at bedtime. Increase echogenicity of her liver. Patient has improvement in liver function, however continues to have increased alk phosphate. Intestinal alk phosphate increased otherwise normal. [facility] Medical History Diarrhea GERD (gastroesophageal reflux disease) Elevated liver enzymes Tubular adenoma Increased BMI Impaired fasting glucose Tenosynovitis of both wrists Elevated LFTs Insomnia Depression Chronic otitis externa Menopausal disorder Dyslipidemia HTN (hypertension) Hemicrania Surgical History History of mammogram History of colonoscopy History of hysterectomy History of laparoscopic cholecystectomy Family History Father Hx of cirrhosis Mental health disorder Mother Hx of diabetes insipidus HX: breast cancer Hx of renal failure Mental health disorder Son No problems noted. Daughter No problems noted. 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 Review of Systems Const Denies weight gain and Denies weight loss ENT Reports no additional complaints, Denies dysphagia and Denies odynophagia Card Reports no additional complaints Resp Reports no additional complaints GI Denies abdominal pain, Denies belching, Denies melena, Denies bloating, Denies change in bowel habits, Denies dysphagia, Denies excessive flatus, Denies dyspepsia, Denies heartburn, Denies diarrhea, Denies loose stools, Denies nausea, Denies odynophagia and Denies vomiting Musc Reports no additional complaints Neuro Reports no additional complaints Psych Reports no additional complaints Endo Reports no additional complaints Physical Exam Vital Signs: Last Vital Signs Pulse 84 02/05/24 13:18 BP 116/79 02/05/24 13:18 BMI result Body Mass Index 36.8 Const General: healthy appearing and no acute distress Nutritional Appearance: obese Orientation/consciousness: patient oriented x3 Chest Other: Large hyperpigmentation to right breast Resp Effort & Inspection: normal respiratory effort, able to speak in complete sentences, no tracheal deviation and symmetric chest movement Auscultation: clear to auscultation bilaterally Cardio Rate: regular rate GI Inspection: Yes normal to inspection, No distended and Yes obesity Palpation (GI): Soft to palpation, not firm, nontender and No hepatosplenomegaly present Auscultation: normal bowel sounds General: Yes no CVA tenderness Back/Spine/Pelvis Back: no CVA tenderness Skin Other: White, patchy, glossy area of skin right breast and across her abdomen below umbilicus General skin exam: elasticity normal and turgor normal Neuro General: patient oriented x3 Psych Appearance: grossly normal Mental Status: mental status grossly normal Results Reviewed Results Reviewed: ULTRASOUND WITH LIVER ELASTOGRAPHY FINDINGS: PANCREAS: Normal. The visualized pancreatic head and body are normal in appearance. The remainder of the pancreas is obscured from visualization by the overlying bowel gas. LIVER: The liver demonstrates normal size, contour and increased echogenicity. No focal lesion or intrahepatic biliary duct dilatation. The right lobe measures 16.1 cm in length. The left lobe measures 11.6 cm in length. Portal flow is towards the liver (hepatopetal). Shear wave liver elastography median stiffness is 1.42 m/s (reference: normal median stiffness is 1.3 m/s or less). IQR/median stiffness to assess sampling precision is 0.15 (reference: good quality data set is IQR/median stiffness of 0.15 or less). GALLBLADDER: Surgically absent. COMMON BILE DUCT: Normal in caliber measuring 0.6 cm in diameter. RIGHT KIDNEY: Normal. No hydronephrosis. No renal calculi or focal parenchymal lesions. The kidney measures 12.2 cm in maximum dimension. FREE FLUID: None. US/US abdomen ortiz w elastography IMPRESSION: 1. There is generalized increase in hepatic echotexture, consistent with fatty infiltration or hepatocellular disease. Please correlate clinically. No focal hepatic mass or intrahepatic biliary dilatation is seen. 2. Liver elastography: In the absence of other known clinical signs, measurements rule out compensated advanced chronic liver disease. If there are known clinical signs, further testing may be needed for confirmation. 3. The gallbladder is surgically absent. Assessment & Plan Assessment & Plan (1) GERD (gastroesophageal reflux disease): Code(s): K21.9 - Gastro-esophageal reflux disease without esophagitis Category: Medical Qualifiers: Esophagitis presence: without esophagitis Qualified Code(s): K21.9 - Gastro-esophageal reflux disease without esophagitis (2) Elevated liver enzymes: Code(s): R74.8 - Abnormal levels of other serum enzymes Category: Medical (3) Skin disorder: Code(s): L98.9 - Disorder of the skin and subcutaneous tissue, unspecified Plan Continue weight loss. Continue with exercise. May take omeprazole twice a day, however if patient does not need to take it in the afternoon she can stop it. Intestinal alk phosphate elevated, patient is asymptomatic. Reports to be feeling well. Elevation could be elevated after eating fatty meal, gastrointestinal or and irritability, low vitamin-D levels. As patient will change her diet were hoping for the level to go down We will see patient in 6 months, sooner on as needed basis. She is agreeable to this plan and verbalizes understanding of instructions. She was given the opportunity to ask questions and all questions answered. Thank you for allowing me to participate in her care Medications: Refilled omeprazole 20 mg PO BID 180 caps 2RF K21.9 - Gastro-esophageal reflux disease without esophagitis Coding Level of Care Code Est Pt Level 3 (11434) Diagnoses Gastroesophageal reflux disease without esophagitis K21.9 Esophagitis presence: without esophagitis Elevated liver enzymes R74.8 Skin disorder L98.9 Time Spent (min) 25 Comment 15 minutes spent with patient and additional 10 minutes spent reviewing her records
[2024-02-05 13:18] VITALS: BP 116/79; PULSE 84; BMI 36.8
== END 2024-02-05 13:48 | disposition home or self-care (01) ==
PROVIDERS: PCP Nurse Practitioner Family; Visit Provider Nurse Practitioner Family
DX: K21.9 Gastro-esophageal reflux disease without esophagitis (principal); R74.8 Abnormal levels of other serum enzymes; L98.9 Disorder of the skin and subcutaneous tissue, unspecified
CPT/HCPCS: 99213

== ENCOUNTER → 2024-02-05 13:09 | Outpatient (BNVA) | payer OTHER, SELFPAY | PROVIDERS: PCP Nurse Practitioner Family; Visit Provider Nurse Practitioner Family ==

== ENCOUNTER 2024-03-17 08:51 | Outpatient (AMB) | payer OTHER, SELFPAY ==
--- NOTE | 2024-03-17 08:54 | MHC.OFFVIS ---
Vital Signs 03/17/24 09:13 Height 5 ft 6 in Weight 227 lb BMI 36.6 Intake Visit Reasons: New problem Right thumb and wrist pain Intake Note: Kinza 59 yr old female presents today for a new problem visit for her right thumb and wrist pain. States pain is located at her CMC that radiates into the radial aspect of wrist and started about 3 months ago. States pain worsens with lifting items. She has tried resting, ibuprofen, and icing in the past with some relief. Denies numbness or tingling. Denies injury. States her symptoms are similar to her left hand prior to her dequervain release. Hx of L Dequervains Release 05/06/23 [place] Allergies No Known Allergies Allergy (Verified 03/17/24 09:13) HPI HPI New problem Right thumb and wrist pain: Details: Kinza is a 59 year old right hand dominant woman who returns with a new complaint of right thumb & wrist pain. She complains of right radial-sided wrist pain & thumb pain, worse with pinching & gripping activities. This has been present for ~3 months now. She has a Hx of a left 1st dorsal compartment release & APB tenosynovectomy, DOS: 05/06/23, and left basal joint OA. She says she has been more active with weight training at the gym, ad she is worried this has triggered her pain. She denies any numbness or tingling. She says she has been working with a personal service workers, and has lost ~55lbs in the last year. [facility] Medical History Diarrhea GERD (gastroesophageal reflux disease) Elevated liver enzymes Tubular adenoma Increased BMI Impaired fasting glucose Tenosynovitis of both wrists Elevated LFTs Insomnia Depression Chronic otitis externa Menopausal disorder Dyslipidemia HTN (hypertension) Hemicrania Surgical History History of mammogram History of colonoscopy History of hysterectomy History of laparoscopic cholecystectomy Family History Father Hx of cirrhosis Mental health disorder Mother Hx of diabetes insipidus HX: breast cancer Hx of renal failure Mental health disorder Son No problems noted. Daughter No problems noted. 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 Review of Systems Const All systems reviewed & are unremarkable except as noted in HPI and below Physical Exam Vital Signs: BMI result Body Mass Index 36.6 Const General: no acute distress and alert Orientation/consciousness: patient oriented x3 Neuro General: patient oriented x3 Extrem Other: Evaluation of Right Upper Extremity: The patient is alert, oriented, and in no acute distress Neuro: Median, Ulnar, Radial nerves motor and sensory intact and sensation is normal to the tips of all digits Vascular: Cap refill brisk ROM: She can make a fist and extend all her digits No locking or catching No tenderness over the a1 timothy No MCP or DIP joint tenderness Most Tender over the basal joint + Shoulder sign + CMC grind Mild tenderness over the 1st dorsal compartment Negative Onofre test on the right Negative Onofre test on the left Radiographs: 3 views of the right hand were taken and viewed by me today in clinic. They show no fractures or dislocations. There is some basal joint arthritis with joint space narrowing, subchondral sclerosis and osteophyte formation.. Psych Appearance: grossly normal Affect: normal affect Attitude: cooperative Assessment & Plan Assessment & Plan (1) Osteoarthritis of carpometacarpal joint of right thumb: Code(s): M18.11 - Unilateral primary osteoarthritis of first carpometacarpal joint, right hand Category: Medical (2) Arthritis of carpometacarpal (CMC) joint of left thumb: Code(s): M18.12 - Unilateral primary osteoarthritis of first carpometacarpal joint, left hand Category: Medical Plan Assessment & Plan: 1 Right Basal joint osteoarthritis This is her primary complaint today I educated her about this condition This was likely exacerbated by her work with her personal service workers I discussed operative and non-operative treatment options The patient declined an injection today, as she has a big presentation tomorrow. I discussed activity modification, they should limit or avoid any heavy or repetitive pinching or gripping activities She was fitted for a comfort cool brace to wear with daily activity She will follow up in 3-4 weeks to see hw she is doing, we may consider an injection at that appointment. 2. Left De Quervain's tenosynovitis, S/P release & APB tenosynovectomy DOS: 05/06/23 Resolved 3. Left basal joint osteoarthritis Seen on radiographs but currently asymptomatic Scribed for Antonieta Cano MD by Ramon Triplett, manager medical, on 03/17/24 at 9:30 AM, EST. Orders: Orders XR hand RT min 3V Today M79.641 - Pain in right hand Scribe Plan - Not visible on output: Scribed for Antonieta Cano MD by Ramon Triplett, manager medical, on [ ] at [ ], EST. Coding Level of Care Code Est Pt Level 3 (98059) Diagnoses Osteoarthritis of carpometacarpal joint of right thumb M18.11 Arthritis of carpometacarpal (CMC) joint of left thumb M18.12
[2024-03-17 09:13] VITALS: BMI 36.6
== END 2024-03-17 10:32 | disposition home or self-care (01) ==
PROVIDERS: PCP Nurse Practitioner Family; Visit Provider Orthopaedic Surgery
DX: M18.0 Bilateral primary osteoarthritis of first carpometacarpal joints (principal)
CPT/HCPCS: 99213

== ENCOUNTER 2024-03-17 10:09 | Outpatient (REF) | payer OTHER, SELFPAY ==
--- NOTE | ~2024-03-17 | XR_ITS ---
EXAMINATION: XR HAND, RIGHT CLINICAL INFORMATION: Pain in right hand, attention thumb. COMPARISON: None available. TECHNIQUE: PA, lateral, and oblique views of the right hand. FINDINGS: Radiopaque marker placed by technologist to indicate the area of concern as indicated by the patient along the shafts of the first metacarpal. Moderate degenerative changes in the first carpometacarpal and metacarpophalangeal joints. Amorphous soft tissue calcification along the dorsal aspect of the wrist. Degenerative changes in multiple IP joints most advanced in the third and fourth DIP joints with hypertrophic change and joint space narrowing. XR/XR hand RT min 3V IMPRESSION: 1. Moderate degenerative changes in the first carpometacarpal and metacarpophalangeal joints. 2. Amorphous soft tissue calcification along the dorsal aspect of the wrist. 3. Degenerative changes and multiple IP joints most advanced in the third and fourth DIP joints with hypertrophic change and joint space. 4. Recommend follow-up imaging in 10-14 days if fracture is suspected.
== END 2024-03-17 10:10 | disposition home or self-care (01) ==
LOC: HO.HOSX 10:09
PROVIDERS: Visit Provider Orthopaedic Surgery
DX: M18.11 Unilateral primary osteoarthritis of first carpometacarpal joint, right hand (principal); M18.12 Unilateral primary osteoarthritis of first carpometacarpal joint, left hand
CPT/HCPCS: 73130

== ENCOUNTER 2024-06-22 06:20 | Outpatient (REF) | payer OTHER, SELFPAY ==
[2024-06-22 06:34] LABS: MANUAL DIFF FLAG NO
[2024-06-22 07:51] LABS: Basophils Percent Auto 0.4 % (0-2); Eosinophils Absolute Auto 0.2 X10*3/uL (0.0-0.4); Hematocrit 38.6 % (37.0-47.0); Hemoglobin 12.7 g/dl (12.0-16.0); Imm Gran Abs Auto 0.01 X10*3/uL (0.00-0.03); Imm Gran Pct Auto 0.1 % (0.0-0.4); Lymphocytes Absolute Auto 1.9 X10*3/uL (1.2-4.9); Lymphocytes Percent Auto 25.3 % (20-40); Mean Corpuscular HGB Conc 32.9 g/dl (31.0-35.0); Mean Corpuscular Volume 88.1 fL (80.0-98.0); Mean Platelet Volume 9.6 fL (9.4-12.3); Monocytes Absolute Auto 0.5 X10*3/uL (0.1-1.2); Monocytes Percent Auto 6.5 % (2-11); Neutrophils Absolute Auto 4.9 x10*3/uL (2.0-8.3); Neutrophils Percent Auto 65.7 % (45-73); Platelet Count 336 X10*3/uL (160-400); Red Blood Count 4.38 X10*6/uL (4.20-5.50); Red Cell Distribution Width 12.2 % (11.0-16.0); White Blood Count 7.4 X10*3/uL (4.8-10.8)
[2024-06-22 08:22] LABS: Alanine Aminotransferase 32 U/L (0-31); Albumin Level 4.3 g/dL (3.5-5.0); Alkaline Phosphatase 148 U/L (39-117); Aspartate Amino Transferase 27 U/L (5-31); Bilirubin Direct 0.2 mg/dL (0.0-0.5); Bilirubin Total 0.6 mg/dL (0.0-1.0); Total Protein 7.4 g/dL (6.5-8.0)
[2024-06-22 08:28] LABS: Alanine Aminotransferase 33 U/L (0-31); Aspartate Amino Transferase 27 U/L (5-31); C Reactive Protein < 0.10 mg/dL (< or = 0.50); Estimated Glomerular Filt Rate > 60
[2024-06-22 08:38] LABS: Erythrocyte Sedimentation Rate 9 MM/HR (0-20)
[2024-06-22 08:44] LABS: Uric Acid 3.8 mg/dL (2.4-5.7)
[2024-06-23 14:28] LABS: Complement C3 146 mg/dL (83-193)
== END 2024-06-22 06:21 | disposition home or self-care (01) ==
LOC: HO.LAB 06:20
PROVIDERS: Internal Medicine Rheumatology; Absent Provider Nurse Practitioner Family; PCP Nurse Practitioner Family; Visit Provider Nurse Practitioner Family
DX: R74.01 Elevation of levels of liver transaminase levels (principal); M19.90 Unspecified osteoarthritis, unspecified site; M72.2 Plantar fascial fibromatosis; M79.673 Pain in unspecified foot
CPT/HCPCS: 36415; 80076; 82550; 82565; 84450; 84460; 84550; 85025; 85652; 86140; 86160

== ENCOUNTER 2024-06-23 08:24 | Outpatient (AMB) | payer OTHER, SELFPAY ==
[2024-06-23 08:31] VITALS: BP 120/74; PULSE 60; O2SAT 95; BMI 35.0
--- NOTE | 2024-06-23 08:31 | A.OFFPC_ITS ---
Vital Signs 06/23/24 08:31 Height 5 ft 6 in Weight 217 lb BMI 35.0 BP 120/74 Blood Pressure Location Rt brachial Position Sitting Pulse 60 Pulse Source Pulse Oximeter Pulse Oximetry (%) 95 Intake Visit Reasons: 6 month follow up Intake Note: pt is here for 6 month follow up Organic Preparation Analyst Required: No Allergies No Known Allergies Allergy (Verified 06/23/24 09:04) Medication List - Last Reconciled 06/23/24 by Wilfred Castle, PUMPER HEAD- albuterol sulfate 90 mcg/actuation 1 - 2 puffs inhalation Q4-6H PRN 30 days ascorbate calcium (vitamin C) 1 g PO Q6H azithromycin For 250 mg dose pack: take 500 mg today (day 1), then 250 mg for 4 days (days 2-5) PO cholecalciferol (vitamin D3) 50 mcg PO DAILY 90 days ciclopirox 0.77% 1 appl topical BID clobetasol 0.05% grams topical BID docusate sodium 200 mg (2 x 100 mg) PO BEDTIME fexofenadine-pseudoephedrine 180-240 mg ER (Diamond-D 24 Hour) 1 tab PO DAILY fluocinolone acetonide oil 0.01% 5 drps otic (ear) left BID 7 days ibuprofen (IBU) 800 mg PO Q8H PRN lorazepam 0.5 mg PO DAILY PRN losartan 25 mg PO DAILY mecobalamin (vitamin B12) 1,000 mcg PO DAILY meloxicam 7.5 mg PO BID naltrexone-bupropion 8-90 mg (Contrave) 2 tabs PO BID nystatin 1 appl topical BID olopatadine 0.2% (Pataday Once Daily Relief) 1 drp ophthalmic (eye) BEDTIME omeprazole 20 mg PO BID polyethylene glycol 3350 (Miralax) 17 grams PO DAILY prednisone 40 mg (2 x 20 mg) PO DAILY 5 days propranolol ER 120 mg PO DAILY 90 days rosuvastatin 20 mg PO DAILY 90 days semaglutide (weight loss) (Wegovy) mg subcut sennosides (Natural Senna Laxative) 17.2 mg (2 x 8.6 mg) PO BEDTIME sodium chloride 0.65% (Deep Sea Nasal) 1 spray intranasal DAILY ubidecarenone-omega 3-vit E 25-150-200 mg-mg-unit (Co [id number] E-Fish Oil) 1 cap PO DAILY zolpidem 5 mg PO BEDTIME PRN 30 days Tobacco use date assessed: 12/25/23 Dental Screening Dental Screen Date: 06/23/24 Did you have a dental visit in the last 12 months?: Yes Did you have a dental problem in the last 6 months where you did not have access to dental care?: No Was dental information given to patient?: Patient has dentist HPI 6 month follow up HPI Details Pt is complaining of full ears . The cetirizine 20mg bid does help. Pt is also requesting prednisone for a airplane flight in the near future, will send. Will also send zpak. Denies fever, chills, and dizziness. [facility] Medical History Diarrhea GERD (gastroesophageal reflux disease) Elevated liver enzymes Tubular adenoma Increased BMI Impaired fasting glucose Tenosynovitis of both wrists Elevated LFTs Insomnia Depression Chronic otitis externa Menopausal disorder Dyslipidemia HTN (hypertension) Hemicrania Surgical History History of mammogram History of colonoscopy History of hysterectomy History of laparoscopic cholecystectomy Family History Father Hx of cirrhosis Mental health disorder Mother Hx of diabetes insipidus HX: breast cancer Hx of renal failure Mental health disorder Son No problems noted. Daughter No problems noted. 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 Cognitive needs: No Hearing needs: No Vision needs: No Questionnaire Thrive Questionnaire Date Thrive assessed: 06/23/24 I am a: Patient What is your living situation today?: I choose not to answer this question Within the past 12 months, did the food you bought not last and you didn't have the money to get more?: I choose not to answer this question Within the past 12 months, did you worry whether your food would run out before you got money to buy more?: I choose not to answer this question Do you have trouble paying for medicines?: I choose not to answer this question Do you have trouble getting transportation to medical appointments?: I choose not to answer this question Do you have trouble paying your heating and electricity bill?: I choose not to answer this question Do you have trouble taking care of your child, family member or friend?: I choose not to answer this question Do you have trouble with day-to-day activities such as bathing, preparing meals, shopping, managing finances, etc.?: I choose not to answer this question Are you currently unemployed and looking for a job?: I choose not to answer this question Are you interested in more education?: I choose not to answer this question Please select the resources that you would like help with: None Currently or been in a relationship where the following occur: I choose not to answer THRIVE Score: 0 AUDIT C Alcohol Use Questionnaire (AUDIT-C) 1. How often do you have a drink containing alcohol?: 2-4 times a month 2. How many drinks containing alcohol do you have on a typical day when you are drinking?: 1 or 2 3. How often do you have six or more drinks on one occasion?: Never Total Score: 2 Score Reviewed/Action Taken: Yes CONNOR-7 AMB Questionnaire CONNOR-7 Date CONNOR - 7 assessed: 06/23/24 Feeling nervous, anxious, or on edge: 0 = Not at all Not being able to stop or control worryin = Several days Worrying too much about different things: 0 = Not at all Trouble relaxin = Several days Being so restless that it is hard to sit still: 0 = Not at all Becoming easily annoyed or irritable: 0 = Not at all Feeling afraid as if something awful might happen: 0 = Not at all Total CONNOR-7 score (0-4 normal; 5-9 mild; 10-14 moderate; 15-21 severe): 2 Source: Developed by Drs. Panda Fuller, Tessa Bowman, Mu Fairbanks and colleagues, with an educational unruly from [employer]. CONNOR-7 Assessment Billing CONNOR-7 Assessment Tool: CONNOR-7 Assessment 91026 Review of Systems Const Reports as per HPI Physical exam (Primary Care) Vital Signs: Last Vital Signs Pulse 60 06/23/24 08:31 BP 120/74 06/23/24 08:31 Pulse Ox 95 06/23/24 08:31 BMI result Body Mass Index 35.0 Tobacco/Smoking Status: Tobacco use Status Tobacco use date assessed 12/25/23 06/23/24 08:32 Patient Tobacco Use Status Never used Tobacco 06/23/24 08:32 Thrive Assessment: Date of Thrive Assessment Date Thrive assessed 06/23/24 06/23/24 08:37 Currently or been in a relationship where the following occur: I choose not to answer Const General: cooperative Nutritional Appearance: obese Orientation/consciousness: patient oriented x3 HENMT Ears: TM's normal bilaterally Neck Neck: Yes no lymphadenopathy Resp Effort & Inspection: normal respiratory effort Auscultation: clear to auscultation bilaterally Cardio Rate: regular rate Rhythm: regular rhythm Heart sounds: S1 normal heart sound present and S2 normal heart sound present Neuro General: patient oriented x3 Psych Appearance: grossly normal Mental Status: mental status grossly normal Speech and movement: Normal speech and movement present Affect: normal affect Attitude: cooperative Thought process: Normal thought process present Thought content: Normal thought content present Insight: Good insight present (Psych) Judgement: Good judgement present (Psych) Assessment and Plan Assessment & Plan (1) Vitamin D deficiency: Code(s): E55.9 - Vitamin D deficiency, unspecified (2) Allergies: Code(s): T78.40XA - Allergy, unspecified, initial encounter Plan: cont meds, prednisone sent to help unblock Eustachian tubes (3) Ear fullness: Code(s): H93.8X9 - Other specified disorders of ear, unspecified ear Plan The patient agreed to the use of a certified medical asst for this encounter. Scribed for HO Saleh by Milvia Willson certified medical asst, on 06/23/2024 at 08:55 EST. Orders: Orders Comprehensive [place]. Panel Fast Today Z00.00 - Encounter for general adult medical examination without abnormal findings UA CC w/rflx Micro + Cult Today Z00.00 - Encounter for general adult medical examination without abnormal findings Lipid Panel Today Z00.00 - Encounter for general adult medical examination without abnormal findings Vitamin D 25-OH Total Today E55.9 - Vitamin D deficiency, unspecified Complete Blood Count Auto Diff Today Z00.00 - Encounter for general adult medical examination without abnormal findings TSH reflex Free T4 Today Z00.00 - Encounter for general adult medical examination without abnormal findings Medications: New prednisone 40 mg (2 x 20 mg) PO DAILY 5 days 10 tabs 0RF azithromycin For 250 mg dose pack: take 500 mg today (day 1), then 250 mg for 4 days (days 2-5) PO 6 tabs 0RF Changed From sodium chloride 0.65% (Deep Sea Nasal) 1 spray intranasal congestion To sodium chloride 0.65% (Deep Sea Nasal) 1 spray intranasal DAILY 44 mL 0RF congestion Refilled olopatadine 0.2% (Pataday Once Daily Relief) 1 drp ophthalmic (eye) BEDTIME 2.5 mL 0RF Discontinued escitalopram oxalate Discontinued Reason: Doctor's Order 10 mg PO DAILY 90 tabs 1RF Coding Level of Care Code Est Pt Level 3 (96179) Diagnoses Vitamin D deficiency E55.9 Allergies T78.40XA Ear fullness H93.8X9 Additional Codes CONNOR-7 Assessment Billing - CONNOR-7 Assessment Tool: CONNOR-7 Assessment 50440 ([id number])
== END 2024-06-23 10:52 | disposition home or self-care (01) ==
PROVIDERS: PCP Nurse Practitioner Family; Visit Provider Nurse Practitioner Family
DX: E55.9 Vitamin D deficiency, unspecified (principal); T78.40XA Allergy, unspecified, initial encounter; H93.8X3 Other specified disorders of ear, bilateral
CPT/HCPCS: 99213

== ENCOUNTER 2024-08-05 13:57 | Outpatient (AMB) | payer OTHER, SELFPAY ==
[2024-08-05 14:02] VITALS: BP 114/76; PULSE 76; O2SAT 96; BMI 34.2
--- NOTE | 2024-08-05 14:02 | MHC.OFFVIS ---
Vital Signs 08/05/24 14:02 Height 5 ft 6 in Weight 212 lb 1.355 oz BMI 34.2 BP 114/76 Blood Pressure Location Rt brachial Position Sitting Pulse 76 Pulse Source Pulse Oximeter Pulse Oximetry (%) 96 Oxygen Delivery Method Room Air Intake Visit Reasons: 6 month follow up Intake Note: Relevant Flags or Indicators ? Requires Administrator Social Welfare? N Kinza presents in office today for a scheduled 6 mos FUV. CC; Since last visit; labs ordered ? done. Rx ordered ? yes, omeprazole. Diagnostics/images ordered ? none. Relevant GI Sx as reported per pt? Abdominal Pain o?? Lower B/L No other sx reported at this time. ? Hx of any recent surgeries; None Administrator Social Welfare Required: No Allergies No Known Allergies Allergy (Verified 08/05/24 14:02) HPI HPI 6 month follow up: Details: LAST VISIT: GERD (gastroesophageal reflux disease) Elevated liver enzymes Skin disorder Plan Continue weight loss. Continue with exercise. May take omeprazole twice a day, however if patient does not need to take it in the afternoon she can stop it. Intestinal alk phosphate elevated, patient is asymptomatic. Reports to be feeling well. Elevation could be elevated after eating fatty meals, gastrointestinal irritability. As patient will change her diet were hoping for the level to go down We will see patient in 6 months, sooner on as needed basis. She is agreeable to this plan and verbalizes understanding of instructions. She was given the opportunity to ask questions and all questions answered. ? Thank you for allowing me to participate in her care Medications Refilled omeprazole 20 mg PO BID 180 caps 2RF K21.9 TODAY'S VISIT: Patient is here today for follow-up. Patient reports that she has been doing well since last visit. Patient lost another 12 lb. She is going through regimen where she is exercising and dieting. She continues to take omeprazole twice a day and her symptoms of acid reflux are suppressed for the most part. Patient is trying to avoid eating late at night. Patient has new concern is feet burning after standing or walking for prolonged period of time. Patient currently is not taking any medications. Was tried in the past with some medications that help that nerve pain go away. Patient denies melena, hematochezia, unintentional weight loss or ribbon like stools. Denies dyspepsia, dysphagia or odynophagia. Patient denies any nausea or vomiting. Reports to have good appetite. Denies any abdominal pain or discomfort. Patient was going under a lot of stress, family friend was killed and crash accident couple months ago and patient was going through a tough time. [facility] Medical History Osteoarthritis Diarrhea GERD (gastroesophageal reflux disease) Elevated liver enzymes Tubular adenoma Increased BMI Impaired fasting glucose Tenosynovitis of both wrists Elevated LFTs Insomnia Depression Chronic otitis externa Menopausal disorder Dyslipidemia HTN (hypertension) Hemicrania Surgical History History of mammogram History of colonoscopy History of hysterectomy History of laparoscopic cholecystectomy Family History Father Hx of cirrhosis Mental health disorder Mother Hx of diabetes insipidus HX: breast cancer Hx of renal failure Mental health disorder Son No problems noted. Daughter No problems noted. 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/[employer] Cognitive needs: No Hearing needs: No Vision needs: No Physical Exam Vital Signs: Last Vital Signs Pulse 76 08/05/24 14:02 BP 114/76 08/05/24 14:02 Pulse Ox 96 08/05/24 14:02 Oxygen Delivery Method Room Air 08/05/24 14:02 BMI result Body Mass Index 34.2 Assessment & Plan Assessment & Plan (1) GERD (gastroesophageal reflux disease): Code(s): K21.9 - Gastro-esophageal reflux disease without esophagitis Category: Medical Qualifiers: Esophagitis presence: without esophagitis Qualified Code(s): K21.9 - Gastro-esophageal reflux disease without esophagitis (2) Elevated liver enzymes: Code(s): R74.8 - Abnormal levels of other serum enzymes Category: Medical (3) Skin disorder: Code(s): L98.9 - Disorder of the skin and subcutaneous tissue, unspecified Plan Continue omeprazole, avoid dietary triggers and late night snacking. Staying upright for minimum 3 hours after meals discussed with patient. Continue current bowel regimen. Increase fluid intake and activity to promote better bowel motility. Continue with exercise. Patient will follow-up in the office in 1 year, sooner on as needed basis. Patient will be due for colonoscopy in 2025. Patient will call our office if she will have any GI concerning symptoms. She is agreeable to this plan and verbalizes understanding of instructions. She was given the opportunity to ask questions and all questions answered. Thank you for allowing me to participate in her care Medications: Discontinued sennosides Discontinued Reason: Patient no longer taking 17.2 mg (2 x 8.6 mg) PO BEDTIME 60 tabs 3RF constipation K59.00 - Constipation, unspecified Coding Level of Care Code Est Pt Level 3 (65301) Diagnoses Gastroesophageal reflux disease without esophagitis K21.9 Esophagitis presence: without esophagitis Elevated liver enzymes R74.8 Skin disorder L98.9 Time Spent (min) 25 Comment 15 minutes spent with patient and additional 10 minutes spent reviewing her records
== END 2024-08-05 14:56 | disposition home or self-care (01) ==
PROVIDERS: PCP Nurse Practitioner Family; Visit Provider Nurse Practitioner Family
DX: K21.9 Gastro-esophageal reflux disease without esophagitis (principal); R74.8 Abnormal levels of other serum enzymes; L98.9 Disorder of the skin and subcutaneous tissue, unspecified
CPT/HCPCS: 99213

== ENCOUNTER → 2024-08-05 13:57 | Outpatient (BNVA) | payer OTHER, SELFPAY | PROVIDERS: PCP Nurse Practitioner Family; Visit Provider Nurse Practitioner Family ==

== ENCOUNTER 2025-01-20 10:43 | Outpatient (AMB) | payer OTHER, SELFPAY ==
[2025-01-20 10:45] VITALS: BP 118/76; PULSE 74; O2SAT 98; BMI 36.8
--- NOTE | 2025-01-20 10:45 | A.OFFPC_ITS ---
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 Required: No Allergies No Known Allergies Allergy (Verified 01/20/25 11:08) Medication List - Last Reconciled 01/20/25 by Wilfred Castle, BUG TRIMMER- albuterol sulfate 90 mcg/actuation 1 - 2 puffs inhalation Q4-6H PRN 30 days ascorbate calcium (vitamin C) 1 g PO Q6H cholecalciferol (vitamin D3) 50 mcg PO DAILY 90 days ciclopirox 0.77% 1 appl topical BID clobetasol 0.05% grams topical BID docusate sodium 200 mg (2 x 100 mg) PO BEDTIME fexofenadine-pseudoephedrine 180-240 mg ER (Diamond-D 24 Hour) 1 tab PO DAILY fluocinolone acetonide oil 0.01% 5 drps otic (ear) left BID 7 days gabapentin 300 mg PO TID ibuprofen (IBU) 800 mg PO Q8H PRN lorazepam 0.5 mg PO DAILY PRN mecobalamin (vitamin B12) 1,000 mcg PO DAILY multivitamin 1 tab PO DAILY naltrexone-bupropion 8-90 mg (Contrave) 2 tabs PO BID nystatin 1 appl topical BID olopatadine 0.2% (Pataday Once Daily Relief) 1 drp ophthalmic (eye) BEDTIME omeprazole 20 mg PO BID propranolol ER 120 mg PO DAILY 90 days rosuvastatin 20 mg PO DAILY 90 days semaglutide (weight loss) (Wegovy) mg subcut sodium chloride 0.65% (Deep Sea Nasal) 1 spray intranasal DAILY ubidecarenone-omega 3-vit E 25-150-200 mg-mg-unit (Co A-54-Xsajljv E-Fish Oil) 1 cap PO DAILY zolpidem 5 mg PO BEDTIME PRN 30 days Tobacco use date assessed: 01/20/25 Dental Screening Dental Screen Date: 01/20/25 Did you have a dental visit in the last 12 months?: Yes Did you have a dental problem in the last 6 months where you did not have access to dental care?: No Was dental information given to patient?: Patient has dentist HPI PE HPI Details History of Present Illness The patient is a 59-year-old female presenting for a physical examination and reports intermittent chest tightness. She attributes the episodes of chest tightness to stress from her occupation, noting it does not radiate to the jaw or upper extremities. The onset and duration beyond intermittent were not specified. Notably, the patient denies experiencing shortness of breath, abdominal pain, blood in stool, changes in bowel movements, or urinary symptoms. Health Maintenance - Colon screening is up to date. - Patient has a regular ramp manager an d grinding mill operator for ongoing care. - REINFORCER appointment scheduled for the [facility] er. -mammogram is up to date Social History - The patient has a high-stress job. Review of Systems - Cardiac: Reports chest tightness. - Respiratory: Denies shortness of breat h. - Gastrointestinal: Denies abdominal pepe n, blood in stool, constipation, and diarrhea. - Urinary: Denies urinary symptoms. - Psychological: Denies suicidal ideatio n and homicidal ideation. Physical Exam General: Cooperative, healthy appearing, comfortable, no acute distress and well developed, obese Orientation: Patient oriented x3 Limitations: No limitations Head: Normal to inspection Ears: Hearing grossly normal bilaterally Nose: Normal external nose present Face and sinus: Normal facial exam Eyes: Appearance normal, both eyes and all related structures Neck: Normal visual inspection and Yes full ROM Respiratory: Normal respiratory effort and able to speak in complete sentences. Clear to auscultation bilaterally Cardiovascular: Regular rate and rhythm. Normal S1 and S2 GI: Normal to inspection. Soft to palpation and nontender Skin: scattered macular/papular lesions to face. no changing pigmentation/irregular borders Neuro: Patient oriented x3 Extremities: Normal to inspection Results Plan I will perform an electrocardiogram EKG) and a stress test to assess the patient's cardiac health, given reported intermittent chest tightness potentially linked with stress. Laboratory evaluations are ordered to provide comprehensive insight into her health status. I have advised the patient on stress management strategies which may aid in alleviating symptoms. A follow-up will be arranged to monitor progress and adjust the management plan based on diagnostic outcomes. Discussion Notes I discussed with the patient the possibility of her chest tightness being related to stress, but recommended an EKG and stress test to exclude any cardiovascular causes. I explained the benefits of identifying any underlying cardiac condition early and the role of lifestyle modifications in managing stress. The patient agreed to the proposed diagnostic tests and understands the importance of the follow-up for reviewing results and potential adjustments in the management plan. Patient Instructions - Undergo the scheduled EKG and stress t est. - Attend the follow-up appointment for manas willis of test results. - Consider implementing stress-reduction techniques to help manage symptoms. - Contact the clinic if symptoms worsen or new symptoms arise. [facility] Medical History Osteoarthritis Diarrhea GERD (gastroesophageal reflux disease) Elevated liver enzymes Tubular adenoma Increased BMI Impaired fasting glucose Tenosynovitis of both wrists Elevated LFTs Insomnia Depression Chronic otitis externa Menopausal disorder Dyslipidemia HTN (hypertension) Hemicrania Surgical History History of mammogram History of colonoscopy History of hysterectomy History of laparoscopic cholecystectomy Family History Father Hx of cirrhosis Mental health disorder Mother Hx of diabetes insipidus HX: breast cancer Hx of renal failure Mental health disorder Son No problems noted. Daughter No problems noted. 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 1. Little interest or pleasure in doing things: not at all 2. Feeling down, depressed, or hopeless: not at all 3. Trouble falling or staying asleep, or sleeping too much: nearly every day 4. Feeling tired or having little energy: several days 5. Poor appetite or overeating: not at all 6. Feeling bad about yourself - or that you are a failure or have let yourself or your family down: not at all 7. Trouble concentrating on things, such as reading the newspaper or watching television: not at all 8. Moving or speaking so slowly that other people could have noticed. Or the opposite - being so fidgety or restless that you have been moving around a lot more than usual: not at all 9. Thoughts that you would be better off or of hurting yourself in some way: not at all Total score: 4 Depression Screening Interpretation: Negative Depression Screening Done: Yes 88004 - PHQ-9 Billing: Yes Source: Developed by Drs. Panda Fuller, Tessa Bowman, Mu Fairbanks and colleagues, with an educational unruly from [employer]. Thrive Questionnaire Date Thrive assessed: 01/20/25 I am a: Patient What is your living situation today?: I choose not to answer this question Within the past 12 months, did the food you bought not last and you didn't have the money to get more?: I choose not to answer this question Within the past 12 months, did you worry whether your food would run out before you got money to buy more?: I choose not to answer this question Do you have trouble paying for medicines?: I choose not to answer this question Do you have trouble getting transportation to medical appointments?: I choose not to answer this question Do you have trouble paying your heating and electricity bill?: I choose not to answer this question Do you have trouble taking care of your child, family member or friend?: I choose not to answer this question Do you have trouble with day-to-day activities such as bathing, preparing meals, shopping, managing finances, etc.?: I choose not to answer this question Are you currently unemployed and looking for a job?: I choose not to answer this question Are you interested in more education?: I choose not to answer this question Please select the resources that you would like help with: None Currently or been in a relationship where the following occur: I choose not to answer THRIVE Score: 0 AUDIT C Alcohol Use Questionnaire (AUDIT-C) 1. How often do you have a drink containing alcohol?: 2-4 times a month 2. How many drinks containing alcohol do you have on a typical day when you are drinking?: 1 or 2 3. How often do you have six or more drinks on one occasion?: Never Total Score: 2 Score Reviewed/Action Taken: Yes CONNOR-7 AMB Questionnaire CONNOR-7 Date CONNOR - 7 assessed: 01/20/25 Feeling nervous, anxious, or on edge: 1 = Several days Not being able to stop or control worryin = Several days Worrying too much about different things: 1 = Several days Trouble relaxin = Several days Being so restless that it is hard to sit still: 0 = Not at all Becoming easily annoyed or irritable: 0 = Not at all Feeling afraid as if something awful might happen: 0 = Not at all Total CONNOR-7 score (0-4 normal; 5-9 mild; 10-14 moderate; 15-21 severe): 4 Source: Developed by Drs. Panda Fuller, Tessa Bowman, Mu Fairbanks and colleagues, with an educational unruly from [employer]. CONNOR-7 Assessment Billing CONNOR-7 Assessment Tool: CONNOR-7 Assessment 99510 Physical exam (Primary Care) Vital Signs: Last Vital Signs Pulse 74 01/20/25 10:45 BP 118/76 01/20/25 10:45 Pulse Ox 98 01/20/25 10:45 BMI result Body Mass Index 36.8 Tobacco/Smoking Status: Tobacco use Status Tobacco use date assessed 01/20/25 01/20/25 10:51 Patient Tobacco Use Status Never used Tobacco 01/20/25 10:51 PHQ-9: PHQ-9 Score PHQ-9: Total score 4 01/20/25 10:51 Depression Screening Interpretation: Negative Thrive Assessment: Date of Thrive Assessment Date Thrive assessed 01/20/25 01/20/25 10:51 Currently or been in a relationship where the following occur: I choose not to answer Coding Level of Care Code Est Pt Prev Care 40-64y(14950) Diagnoses Chest tightness R07.89 Physical exam Z00.00 Vitamin D deficiency E55.9 B12 deficiency E53.8 Additional Codes CONNOR-7 Assessment Billing - CONNOR-7 Assessment Tool: CONNOR-7 Assessment 85120 ([id number]) PHQ-9 - 36189 - PHQ-9 Billing: Yes ([id number]) Assessment & Plan Assessment & Plan (1) Chest tightness: Code(s): R07.89 - Other chest pain Category: Medical (2) Physical exam: Code(s): Z00.00 - Encounter for general adult medical examination without abnormal findings Category: Medical (3) Vitamin D deficiency: Code(s): E55.9 - Vitamin D deficiency, unspecified Category: Medical (4) B12 deficiency: Code(s): E53.8 - Deficiency of other specified B group vitamins Category: Medical Plan . Orders: Orders CA stress test Today R07.89 - Other chest pain NM cardiolite stress test Today R07.89 - Other chest pain Complete Blood Count Auto Diff Today Z00.00 - Encounter for general adult medical examination without abnormal findings UA CC w/rflx Micro + Cult Today Z00.00 - Encounter for general adult medical examination without abnormal findings Vitamin B12 and Folate Today E53.8 - Deficiency of other specified B group vitamins Comprehensive [place]. Panel Fast Today Z00.00 - Encounter for general adult medical examination without abnormal findings TSH reflex Free T4 Today Z00.00 - Encounter for general adult medical examination without abnormal findings Lipid Panel Today Z00.00 - Encounter for general adult medical examination without abnormal findings Vitamin D 25-OH Total Today E55.9 - Vitamin D deficiency, unspecified AMB EKG-In Office Today R07.89 - Other chest pain
--- OUTSIDE RECORDS SUMMARY | 2025-01-20 12:24 | XMS_ITS | Patient Health Record ---
Author Organization [facility] Address [address] [place] [address] Care Team Providers Care Tool And Die Technician Name Role Phone IGNACIOLIZABETH SPENCER Unavailable [phone] DUONGDIONICIO SOTELO Unavailable [phone] ALLERGIES No Known Allergies REASON FOR REFERRAL Reason Dr pham- AT HOME sleep study Diagnosis 1 Snoring (R06.83) Diagnosis 2 Daytime somnolence ( R40.0) Referral Organization [facility] Referring Provider First Name LIZABETH Referring Provider Last Name PALLAVI Referring Provider Speciality Internal M edicine Referred Provider Young Pham Referred Provider Specialty Sleep Medici ne General Notes PATRICKZAIRE 0 12/18/2024 11:18:59 AM >Information sent to dr pham , [address] [place] [address], [address] [address], 6 mi from Patient's Address, [phone], [phone] Referral Priority Routine MEDICATIONS Medication SIG (Take, Route, Frequency, Duration) Notes Start Date End Date Status Losartan Potassium 25 MG 1 tablet Orally Once a day for 30 day(s) 03/20/2023 Active Zepbound 2.5 MG/0.5ML 2.5 mg weekly Subc utaneous Weekly for 30 days Active Albuterol Sulfate HFA 108 (90 Base) MCG/ACT 1 puff as needed Inhalation every 4 hrs 03/20/2023 Active Docusate Sodium 100 MG 1 capsule as need ed Orally Once a day for 30 day(s) 03/20/2023 Active Contrave 8-90 MG Week 1, take 1 table t in the morning Week 2 take 1 tablet in the morning, 1 tablet in the evening Week 3 take 2 tablets in the morning, 1 tablet in the evening Week 4 onward 2 tablets in the morning, 2 tablets in the evening Orally twice a day for 30 days Active LORazepam 0.5 MG Oral for 30 A ctive Dicyclomine HCl 10 MG TAKE ONE CAPSULE B Y MOUTH FOUR TIMES A DAY Oral for 30 Active Contrave 8-90 MG Take 1 tablet by luz th daily for 7 days then 1 twice a day for 7 days, then 2 in the am and 1 in the pm for 7 days then take 2 twice daily thereafter. Active Escitalopram Oxalate 10 MG TAKE ONE TABL ET BY MOUTH ONCE DAILY Oral for 90 Active Rosuvastatin Calcium 20 MG TAKE ONE TABL ET BY MOUTH EVERY DAY Oral for 90 Active D3 Super Strength 50 MCG (1999) TAKE ONE CAPSULE BY MOUTH EVERY DAY Oral for 90 Active Wegovy 2.4 MG/0.75ML 2.4mg Subcutaneous weekly for 28 days Active Ondansetron 4 MG 1 tablet on the tong ue and allow to dissolve prn nausea Orally Once a day for 30 days Active Ciclopirox 0.77 % 1 application Website Programmer ally Once a day 03/20/2023 Active Zolpidem Tartrate 5 MG Oral for 30 Active Propranolol HCl ER 120 MG TAKE 1 CAPSULE BY MOUTH DAILY. Oral for 90 Active SOCIAL HISTORY Tobacco Use: Social History Observation Description Date Details (start date - stop date) Never Smoker NA - NA Sex Assigned At : Social History Observation Description Sex Assigned At Unknown Tobacco Use/Smoking Question Answer Notes Are you a nonsmoker Alcohol Screen (Audit-C) Question Answer Notes Did you have a drink contain ing alcohol in the past year? Yes How often did you have a dri nk containing alcohol in the past year? 2 to 3 times a week (3 points) Points 3 Interpretation Positive PROBLEMS Problem Type ICD Code Onset Dates Problem Status W/U Status Risk SNOMED Code Notes Problem Other obesity due to excess calories (E66.09) Active confirmed 113969964 Problem Primary insomnia (F51.01) Active confirmed 2609435 Problem Essential (primary) hypertension (I10) Active confirmed 17818791 Problem Encounter for genera l adult medical examination without abnormal findings (Z00.00) Active confirmed 724810909 Problem Acquired hyperlipoproteinemia (E78.5) Active confirmed 3754400 Problem BMI 40.0-44.9, adult (Z68.41) Active confirmed 158147108 Problem Body mass index [BMI ] 38.0-38.9, adult (Z68.38) Active confirmed 861272717 Problem Body mass index [BMI ] 39.0-39.9, adult (Z68.39) Active confirmed 150212115 Problem BMI 35.0-35.9,adult (Z68.35) Active confirmed 185261410 Problem BMI 36.0-36.9,adult (Z68.36) Active confirmed 670512782 Problem Morbid obesity due t o excess calories (E66.01) Active confirmed 119170896 Problem Daytime somnolence (R40.0) Active confirmed 348383781691 Problem Depression with anxi ety (F41.8) Active confirmed 536619433 VITAL SIGNS Heart Rate 74 /min 12/18/2024 Blood pressure diastolic 84 mm Hg 12/18/2024 Oximetry 99 % 12/18/2024 Height 65 in 12/18/2024 Blood pressure systolic 120 mm Hg 12/18/2024 Weight 219 lbs 12/18/2024 BMI 36.44 kg/m2 12/18/2024 Encounters Encounter Location Date Provider Diagnosis [place] [address] [address] 08/06/2024 LIZABETH OLIVO BMI 36.0-36.9,adult Z68.36 ; Other obesity due to excess calories E66.09 ; Dietary counseling and surveillance Z71.3 ; Acquired hyperlipoproteinemia E78.5 ; Depression with anxiety F41.8 ; Primary insomnia F51.01 and Essential (primary) hypertension I10 [place] [address] 11/16/2024 LIZABETH OLIVO BMI 35.0-35.9,adult Z68.35 ; Other obesity due to excess calories E66.09 ; Dietary counseling and surveillance Z71.3 ; Acquired hyperlipoproteinemia E78.5 ; Depression with anxiety F41.8 ; Primary insomnia F51.01 and Essential (primary) hypertension I10 [place] [address] [address] 03/30/2024 LIZABETH OLIVO Body mass index [BMI ] 38.0-38.9, adult Z68.38 ; Other obesity due to excess calories E66.09 ; Dietary counseling and surveillance Z71.3 ; Acquired hyperlipoproteinemia E78.5 ; Depression with anxiety F41.8 ; Primary insomnia F51.01 and Essential (primary) hypertension I10 [facility] [address] [address] 06/08/2024 LIZABETH BUCIOT BMI 36.0-36.9,adult Z68.36 ; Other obesity due to excess calories E66.09 ; Dietary counseling and surveillance Z71.3 ; Acquired hyperlipoproteinemia E78.5 ; Depression with anxiety F41.8 ; Primary insomnia F51.01 and Essential (primary) hypertension I10 [facility] [address] [address] 09/14/2024 LIZABETH PIERREHOT BMI 35.0-35.9,adult Z68.35 ; Other obesity due to excess calories E66.09 ; Dietary counseling and surveillance Z71.3 ; Acquired hyperlipoproteinemia E78.5 ; Depression with anxiety F41.8 ; Primary insomnia F51.01 and Essential (primary) hypertension I10 [facility] [address] [address] 12/18/2024 LIZABETH PIERREHOT BMI 36.0-36.9,adult Z68.36 ; Other obesity due to excess calories E66.09 ; Dietary counseling and surveillance Z71.3 ; Acquired hyperlipoproteinemia E78.5 ; Depression with anxiety F41.8 ; Primary insomnia F51.01 ; Essential (primary) hypertension I10 ; Snoring R06.83 and Daytime somnolence R40.0 [facility] [address] [address] 02/17/2024 [facility] [address] 04/08/2024 [facility] [address] [place] [address] 06/11/2024 [facility] [address] [place] [address] 06/11/2024 [facility] [address] [address] 06/12/2024 LIZABETH OLIVO [facility] 234 299 [facility] [address] [place] [address] 09/14/2024 DIONICIO DUONG [facility] [address] [facility] [address] [place] [address] 09/21/2024 LIZABETH OLIVO [facility] 299 [facility] [address] [place] [address] 10/26/2024 LIZABETH OLIVO [facility] 299 [facility] 119 [place] [address] 10/28/2024 LIZABETH OLIVO ASSESSMENTS Encounter Date Diagnosis Assessment Notes Treatment Notes Treatment Clinical Notes Section Notes 03/30/2024 Other obesity due to excess calories (ICD-10 - E66.09) Werght MGt 03/30/2024 cont wegovy 2.4mg max dosing add on contrave Total time spent today was 30 minutes of which greater than 50% was spent on coordinating and counseling Patient has been found to be obese with a BMI of (38). Patient has class (1) obesity. We are a board certified obesity and weight management practice Patient has trialed behavioral modification, dietary restrictions and exercise for a minimum of 6 months The most recent [place] [employer] of clinical endocrinologists and [place] [employer]in[employer] guidelines recommend patients who [...] mentioned above and not solely appetite suppression. We have discussed the mechanism of GLP-1's/GIP, dual incretins, appetitite suppressants I think this would be fantastic option for her given her metabolic workup and body composition We have discussed the risks and benefits and side effects including/and not limited to Sarcopenia, intestinal obstruction, constipation, nausea, lethargy, headache Discussed importance of protein consumption for muscle maintenance as well as strength and resistance training ,probiotics, B12 complex biotin , iron and other nutrients, To help avoid telogen effluvium We have discussed the lifelong requirement of nutritional supplementation And adherence to an exercise regimen as well as importance of follow-up We did discuss the neurohormonal changes that are occurring with these medications and Need for long-term Continued usage The patient understands and agrees There is no history of medullary thyroid cancer or multiple endocrine neoplasia There is also no history of cardiovascular disease, hypertension, palpitations, or arrhythmias In the setting of potential stimulant/amphetam ine use such as phentermine We have also discussed risks and benefits, and the use of compounded medications to help offset the national shortages as well as financial implications vs trade name drugs Patient was reassured and welcomed to the practice. We discussed that we stress a hollistic medical approach with emphasis on lifestyle modification. Patient was informed that a healthy lifestyle with exercise and good eating habits can help reduce his risk of medical complications. He is explained that obesity increases his risk of diabetes, cardiovascular disease, or organ damage. We spent a lot of time discussing the relationship between food, exercise, sleep, mental health and obesity. Patient was counseled on the importance EATING local, organic food when possible. Patient was educated on clean 15 and dirty dozen. I provided information about reading books called The Food Rules by Walter Parkinson and Eat Fat Get Lean by Dr Fab Shipley. Self education is important in the journey for weight management. Patient was offered diagnostic testing. We want to measure visceral adiposity, advanced body composition, adverse lipids, fatty acid balance, risk for heart disease and atherosclerosis, markers of inflammation and genetic susceptibility. Patient was counseled on weight management and was advised to lose weight using A. Meal Replacement Products We discussed the lifelong requirement of nutritional supplementation and adherence to an exercise regimen as well as importance of dietary follow-up Patient was educated on the replacement products called optifast. This is a good way of taking fixed amount of calories. It has been shown in studies to be ineffective weight management tool. We also recommend maintaining adequate protein intake and muscle composition, 1.5mg/kg This however has to be coupled with lifestyle intervention as well as laboratory data and EKG monitoring. It is impossible to know how a person will tolerate complete meal replacement. The side effects of meal replacement and weight loss could include syncopal attacks, dizziness, gallstones, potential cholecystectomy, possible heart attack and even . The benefits of meal replacement would be potential weight loss but no guarantees can be made. Meal replacement products are not covered by insurance. Once the patient has bought these products we cannot return them B. Lifestyle management which includes several strategies as below 1. Eat a low carbohydrate good fat good protein diet. Eliminate refined carbohydrates from the diet. Continue blood sugar and sugared beverages. Eat local organic when possible. Cook your own meals. Read food labels. None about healthy snacks. Portion control and food with low glycemic index 2. Exercise regularly. Try to get at least 6000 steps a day. Use a predominant to track activity level. Consider using apps like tu.nr, [employer], lose it, stick as needed for self-monitoring and weight management. Consider group exercises. Consider hiring a personal chef. Regular exercise is manjarrez to sustainable health and prevents as a buffer against weight regain 3. Sleep is most important for healing. Tried to sleep at least 8 hours a night. A good quality sleep needs a sleep ritual with ideal room temperature of around 68. It might help to take a shower and have no electronics in the room and sleep in a very dark room without artificial light. Start her sleep routine and get up early in the morning and go to bed on time 4. Make a social connection. Surround yourself with positive people with positive energy. Connect with friends and family. 5. Get into the habit of meditating and mindfulness while doing everything. 6. Go outside and connect with nature. C. Prescription medications Patient was educated on the use of prescription medications for medical weight loss. This is a growing list and includes phentermine, Topamax,Qsymia, contrave, belviq and saxenda. All prescription medications could have side effects including but not limited to kidney stones, seizure disorder cardiac arrhythmias heart attack pancreatitis etc. etc.. Patient was encouraged to read the prescription insert and have coaching with their pharmacist and make an informed decision about taking medication and know that these medications are being prescribed with good intentions and we do not know how a patient would react to her medication. Sudden medications are FDA approved for weight loss and there is also off label use depending on patient's inability to afford medications in an attempt to lose weight D. Behavioral counseling was done to establish a relationship between food and an mood. Patient was provided information about local counseling and psychiatry and Dr Marin at [facility]. We would like to cover regular topics and build on low glycemic eating exercise mindful eating, using yoga and meditation along with deep breathing and connecting with friends and family. E. MASS PAT reviewed, Patient's current medications were reviewed and opinion was given on medication that can cause weight gain and can be substituted F. Patient was assessed for risk with obesity including and not limiting to atherosclerosis heart disease stroke kidney disease, restrictive lung disease, irritable bowel syndrome and overall mortality. Risk of developing prediabetes diabetes and metabolic syndrome was discussed G. Therapeutic plan: We have decided to make therapeutic plan which would include choosing wisely on calories restricting portion getting active, tracking weight, getting good quality sleep and working on time management H. Patient will follow up in (4) weeks for weight management Of note, some information is being carried forward from prior records for informational purposes only and is being cited so that efficiency, safety and quality of the patient's care is not compromised This note was prepared using voice recognition software and direct typing Please excuse inadvertent communication center coordinator or typing errors, or uncorrected word substitutions Although every attempt has been made by the provider to proofread this document, occasional misspellings and typographical errors may still be present Due to the previous pandemic, and the use of personal protective equipment (PPE) This may decrease voice recognition accuracy Inadvertent communication center coordinator errors may occur 03/30/2024 Body mass index [BMI ] 38.0-38.9, adult (ICD-10 - Z68.38) Werght MGt 03/30/2024 cont wegovy 2.4mg max dosing add on contrave Total time spent today was 30 minutes of which greater than 50% was spent on coordinating and counseling Patient has been found to be obese with a BMI of (38). Patient has class (1) obesity. We are a board certified obesity and weight management practice Patient has trialed behavioral modification, dietary restrictions and exercise for a minimum of 6 months The most recent [place] [employer] of clinical endocrinologists and [place] [employer]in[employer] guidelines recommend patients who [...] mentioned above and not solely appetite suppression. We have discussed the mechanism of GLP-1's/GIP, dual incretins, appetitite suppressants I think this would be fantastic option for her given her metabolic workup and body composition We have discussed the risks and benefits and side effects including/and not limited to Sarcopenia, intestinal obstruction, constipation, nausea, lethargy, headache Discussed importance of protein consumption for muscle maintenance as well as strength and resistance training ,probiotics, B12 complex biotin , iron and other nutrients, To help avoid telogen effluvium We have discussed the lifelong requirement of nutritional supplementation And adherence to an exercise regimen as well as importance of follow-up We did discuss the neurohormonal changes that are occurring with these medications and Need for long-term Continued usage The patient understands and agrees There is no history of medullary thyroid cancer or multiple endocrine neoplasia There is also no history of cardiovascular disease, hypertension, palpitations, or arrhythmias In the setting of potential stimulant/amphetam ine use such as phentermine We have also discussed risks and benefits, and the use of compounded medications to help offset the national shortages as well as financial implications vs trade name drugs Patient was reassured and welcomed to the practice. We discussed that we stress a hollistic medical approach with emphasis on lifestyle modification. Patient was informed that a healthy lifestyle with exercise and good eating habits can help reduce his risk of medical complications. He is explained that obesity increases his risk of diabetes, cardiovascular disease, or organ damage. We spent a lot of time discussing the relationship between food, exercise, sleep, mental health and obesity. Patient was counseled on the importance EATING local, organic food when possible. Patient was educated on clean 15 and dirty dozen. I provided information about reading books called The Food Rules by Walter Parkinson and Eat Fat Get Lean by Dr Fab Shipley. Self education is important in the journey for weight management. Patient was offered diagnostic testing. We want to measure visceral adiposity, advanced body composition, adverse lipids, fatty acid balance, risk for heart disease and atherosclerosis, markers of inflammation and genetic susceptibility. Patient was counseled on weight management and was advised to lose weight using A. Meal Replacement Products We discussed the lifelong requirement of nutritional supplementation and adherence to an exercise regimen as well as importance of dietary follow-up Patient was educated on the replacement products called optifast. This is a good way of taking fixed amount of calories. It has been shown in studies to be ineffective weight management tool. We also recommend maintaining adequate protein intake and muscle composition, 1.5mg/kg This however has to be coupled with lifestyle intervention as well as laboratory data and EKG monitoring. It is impossible to know how a person will tolerate complete meal replacement. The side effects of meal replacement and weight loss could include syncopal attacks, dizziness, gallstones, potential cholecystectomy, possible heart attack and even . The benefits of meal replacement would be potential weight loss but no guarantees can be made. Meal replacement products are not covered by insurance. Once the patient has bought these products we cannot return them B. Lifestyle management which includes several strategies as below 1. Eat a low carbohydrate good fat good protein diet. Eliminate refined carbohydrates from the diet. Continue blood sugar and sugared beverages. Eat local organic when possible. Cook your own meals. Read food labels. None about healthy snacks. Portion control and food with low glycemic index 2. Exercise regularly. Try to get at least 6000 steps a day. Use a predominant to track activity level. Consider using apps like tu[employer]nr, [employer], lose it, stick as needed for self-monitoring and weight management. Consider group exercises. Consider hiring a personal chef. Regular exercise is manjarrez to sustainable health and prevents as a buffer against weight regain 3. Sleep is most important for healing. Tried to sleep at least 8 hours a night. A good quality sleep needs a sleep ritual with ideal room temperature of around 68. It might help to take a shower and have no electronics in the room and sleep in a very dark room without artificial light. Start her sleep routine and get up early in the morning and go to bed on time 4. Make a social connection. Surround yourself with positive people with positive energy. Connect with friends and family. 5. Get into the habit of meditating and mindfulness while doing everything. 6. Go outside and connect with nature. C. Prescription medications Patient was educated on the use of prescription medications for medical weight loss. This is a growing list and includes phentermine, Topamax,Qsymia, contrave, belviq and saxenda. All prescription medications could have side effects including but not limited to kidney stones, seizure disorder cardiac arrhythmias heart attack pancreatitis etc. etc.. Patient was encouraged to read the prescription insert and have coaching with their pharmacist and make an informed decision about taking medication and know that these medications are being prescribed with good intentions and we do not know how a patient would react to her medication. Sudden medications are FDA approved for weight loss and there is also off label use depending on patient's inability to afford medications in an attempt to lose weight D. Behavioral counseling was done to establish a relationship between food and an mood. Patient was provided information about local counseling and psychiatry and Dr Marin at [facility]. We would like to cover regular topics and build on low glycemic eating exercise mindful eating, using yoga and meditation along with deep breathing and connecting with friends and family. E. MASS PAT reviewed, Patient's current medications were reviewed and opinion was given on medication that can cause weight gain and can be substituted F. Patient was assessed for risk with obesity including and not limiting to atherosclerosis heart disease stroke kidney disease, restrictive lung disease, irritable bowel syndrome and overall mortality. Risk of developing prediabetes diabetes and metabolic syndrome was discussed G. Therapeutic plan: We have decided to make therapeutic plan which would include choosing wisely on calories restricting portion getting active, tracking weight, getting good quality sleep and working on time management H. Patient will follow up in (4) weeks for weight management Of note, some information is being carried forward from prior records for informational purposes only and is being cited so that efficiency, safety and quality of the patient's care is not compromised This note was prepared using voice recognition software and direct typing Please excuse inadvertent communication center coordinator or typing errors, or uncorrected word substitutions Although every attempt has been made by the provider to proofread this document, occasional misspellings and typographical errors may still be present Due to the previous pandemic, and the use of personal protective equipment (PPE) This may decrease voice recognition accuracy Inadvertent communication center coordinator errors may occur 06/08/2024 BMI 36.0-36.9,adult (ICD-10 - Z68.36) #Weight Management 06/08/2024 Otherwise well and thriving cont wegovy 2.4mg max dosing cont contrave Follow-up on labs from [place] Total time spent today was 30 minutes of which greater than 50% was spent on coordinating and counseling Patient has been found to be obese with a BMI of (36). Patient has class (2) obesity. We are a board certified obesity and weight management practice Patient has trialed behavioral modification, dietary restrictions and exercise for a minimum of 6 months The most recent [place] [employer]ocrin[employer] and [place] [employer] guidelines recommend patients who [...] mentioned above and not solely appetite suppression. We have discussed the mechanism of GLP-1's/GIP, dual incretins, appetitite suppressants I think this would be fantastic option for her given her metabolic workup and body composition We have discussed the risks and benefits and side effects including/and not limited to Sarcopenia, intestinal obstruction, constipation, nausea, lethargy, headache Discussed importance of protein consumption for muscle maintenance as well as strength and resistance training ,probiotics, B12 complex biotin , iron and other nutrients, To help avoid telogen effluvium We have discussed the lifelong requirement of nutritional supplementation And adherence to an exercise regimen as well as importance of follow-up We did discuss the neurohormonal changes that are occurring with these medications and Need for long-term Continued usage The patient understands and agrees There is no history of medullary thyroid cancer or multiple endocrine neoplasia There is also no history of cardiovascular disease, hypertension, palpitations, or arrhythmias In the setting of potential stimulant/amphetam ine use such as phentermine We have also discussed risks and benefits, and the use of compounded medications to help offset the national shortages as well as financial implications vs trade name drugs Patient was reassured and welcomed to the practice. We discussed that we stress a hollistic medical approach with emphasis on lifestyle modification. Patient was informed that a healthy lifestyle with exercise and good eating habits can help reduce his risk of medical complications. He is explained that obesity increases his risk of diabetes, cardiovascular disease, or organ damage. We spent a lot of time discussing the relationship between food, exercise, sleep, mental health and obesity. Patient was counseled on the importance EATING local, organic food when possible. Patient was educated on clean 15 and dirty dozen. I provided information about reading books called The Food Rules by Walter Parkinson and Eat Fat Get Lean by Dr Fab Shipley. Self education is important in the journey for weight management. Patient was offered diagnostic testing. We want to measure visceral adiposity, advanced body composition, adverse lipids, fatty acid balance, risk for heart disease and atherosclerosis, markers of inflammation and genetic susceptibility. Patient was counseled on weight management and was advised to lose weight using A. Meal Replacement Products We discussed the lifelong requirement of nutritional supplementation and adherence to an exercise regimen as well as importance of dietary follow-up Patient was educated on the replacement products called optifast. This is a good way of taking fixed amount of calories. It has been shown in studies to be ineffective weight management tool. We also recommend maintaining adequate protein intake and muscle composition, 1.5mg/kg This however has to be coupled with lifestyle intervention as well as laboratory data and EKG monitoring. It is impossible to know how a person will tolerate complete meal replacement. The side effects of meal replacement and weight loss could include syncopal attacks, dizziness, gallstones, potential cholecystectomy, possible heart attack and even . The benefits of meal replacement would be potential weight loss but no guarantees can be made. Meal replacement products are not covered by insurance. Once the patient has bought these products we cannot return them B. Lifestyle management which includes several strategies as below 1. Eat a low carbohydrate good fat good protein diet. Eliminate refined carbohydrates from the diet. Continue blood sugar and sugared beverages. Eat local organic when possible. Cook your own meals. Read food labels. None about healthy snacks. Portion control and food with low glycemic index 2. Exercise regularly. Try to get at least 6000 steps a day. Use a predominant to track activity level. Consider using apps like [employer], myfitnesspal, lose it, stick as needed for self-monitoring and weight management. Consider group exercises. Consider hiring a personal chef. Regular exercise is manjarrez to sustainable health and prevents as a buffer against weight regain 3. Sleep is most important for healing. Tried to sleep at least 8 hours a night. A good quality sleep needs a sleep ritual with ideal room temperature of around 68. It might help to take a shower and have no electronics in the room and sleep in a very dark room without artificial light. Start her sleep routine and get up early in the morning and go to bed on time 4. Make a social connection. Surround yourself with positive people with positive energy. Connect with friends and family. 5. Get into the habit of meditating and mindfulness while doing everything. 6. Go outside and connect with nature. C. Prescription medications Patient was educated on the use of prescription medications for medical weight loss. This is a growing list and includes phentermine, Topamax,Qsymia, contrave, belviq and saxenda. All prescription medications could have side effects including but not limited to kidney stones, seizure disorder cardiac arrhythmias heart attack pancreatitis etc. etc.. Patient was encouraged to read the prescription insert and have coaching with their pharmacist and make an informed decision about taking medication and know that these medications are being prescribed with good intentions and we do not know how a patient would react to her medication. Sudden medications are FDA approved for weight loss and there is also off label use depending on patient's inability to afford medications in an attempt to lose weight D. Behavioral counseling was done to establish a relationship between food and an mood. Patient was provided information about local counseling and psychiatry and Dr Marin at [facility]. We would like to cover regular topics and build on low glycemic eating exercise mindful eating, using yoga and meditation along with deep breathing and connecting with friends and family. E. MASS PAT reviewed, Patient's current medications were reviewed and opinion was given on medication that can cause weight gain and can be substituted F. Patient was assessed for risk with obesity including and not limiting to atherosclerosis heart disease stroke kidney disease, restrictive lung disease, irritable bowel syndrome and overall mortality. Risk of developing prediabetes diabetes and metabolic syndrome was discussed G. Therapeutic plan: We have decided to make therapeutic plan which would include choosing wisely on calories restricting portion getting active, tracking weight, getting good quality sleep and working on time management H. Patient will follow up in (4) weeks for weight management Of note, some information is being carried forward from prior records for informational purposes only and is being cited so that efficiency, safety and quality of the patient's care is not compromised This note was prepared using voice recognition software and direct typing Please excuse inadvertent communication center coordinator or typing errors, or uncorrected word substitutions Although every attempt has been made by the provider to proofread this document, occasional misspellings and typographical errors may still be present Due to the previous pandemic, and the use of personal protective equipment (PPE) This may decrease voice recognition accuracy Inadvertent communication center coordinator errors may occur 08/06/2024 BMI 36.0-36.9,adult (ICD-10 - Z68.36) #Weight Management 08/06/2024 Otherwise well and thriving cont wegovy 2.4mg max dosing cont contrave Follow-up on labs from [place] Total time spent today was 30 minutes of which greater than 50% was spent on coordinating and counseling Patient has been found to be obese with a BMI of (36). Patient has class (2) obesity. We are a board certified obesity and weight management practice Patient has trialed behavioral modification, dietary restrictions and exercise for a minimum of 6 months The most recent [place] [employer]ocrinologists and [place] [employer] guidelines recommend patients who [...] software and direct typing Please excuse inadvertent communication center coordinator or typing errors, or uncorrected word substitutions Although every attempt has been made by the provider to proofread this document, occasional misspellings and typographical errors may still be present Due to the previous pandemic, and the use of personal protective equipment (PPE) This may decrease voice recognition accuracy Inadvertent communication center coordinator errors may occur 09/14/2024 BMI 35.0-35.9,adult (ICD-10 - Z68.35) #Weight Management 09/14/2024 Patient expresses interest in transitioning to Zepbound We will facilitate this Labs reviewed Total time spent today was 30 minutes of which greater than 50% was spent on coordinating and counseling Patient has been found to be obese with a BMI of (35). Patient has class (2) obesity. We are a board certified obesity and weight management practice Patient has trialed behavioral modification, dietary restrictions and exercise for a minimum of 6 months The most recent [place] [employer]in[employer] and [place] [employer] guidelines recommend patients who [...] software and direct typing Please excuse inadvertent communication center coordinator or typing errors, or uncorrected word substitutions Although every attempt has been made by the provider to proofread this document, occasional misspellings and typographical errors may still be present Due to the previous pandemic, and the use of personal protective equipment (PPE) This may decrease voice recognition accuracy Inadvertent communication center coordinator errors may occur 11/16/2024 BMI 35.0-35.9,adult (ICD-10 - Z68.35) #Weight [...] software and direct typing Please excuse inadvertent communication center coordinator or typing errors, or uncorrected word substitutions Although every attempt has been made by the provider to proofread this document, occasional misspellings and typographical errors may still be present Due to the previous pandemic, and the use of personal protective equipment (PPE) This may decrease voice recognition accuracy Inadvertent communication center coordinator errors may occur 12/18/2024 BMI 36.0-36.9,adult (ICD-10 - Z68.36) #Weight Management 12/18/2024 Patient expresses interest in transitioning to Zepbound sleep study cont wegovy 2.4mg Total time spent today was 30 minutes of which greater than 50% was spent on coordinating and counseling Patient has been found to be obese with a BMI of (36). Patient has class (2) obesity. Of note, some information is being carried forward from prior records for informational purposes only and is being cited so that efficiency, safety and quality of the patient's care is not compromised This note was prepared using voice recognition software and direct typing Please excuse inadvertent communication center coordinator or typing errors, or uncorrected word substitutions Although every attempt has been made by the provider to proofread this document, occasional misspellings and typographical errors may still be present Due to the previous pandemic, and the use of personal protective equipment (PPE) This may decrease voice recognition accuracy Inadvertent communication center coordinator errors may occur 12/18/2024 Dietary counseling a nd surveillance (ICD-10 - Z71.3) #Weight Management 12/18/2024 Patient expresses interest in transitioning to Zepbound sleep study cont wegovy 2.4mg Total time spent today was 30 minutes of which greater than 50% was spent on coordinating and counseling Patient has been found to be obese with a BMI of (36). Patient has class (2) obesity. Of note, some information is being carried forward from prior records for informational purposes only and is being cited so that efficiency, safety and quality of the patient's care is not compromised This note was prepared using voice recognition software and direct typing Please excuse inadvertent communication center coordinator or typing errors, or uncorrected word substitutions Although every attempt has been made by the provider to proofread this document, occasional misspellings and typographical errors may still be present Due to the previous pandemic, and the use of personal protective equipment (PPE) This may decrease voice recognition accuracy Inadvertent communication center coordinator errors may occur 09/14/2024 Dietary counseling a nd surveillance (ICD-10 - Z71.3) #Weight Management 09/14/2024 Patient expresses interest in transitioning to Zepbound We will facilitate this Labs reviewed Total time spent today was 30 minutes of which greater than 50% was spent on coordinating and counseling Patient has been found to be obese with a BMI of (35). Patient has class (2) obesity. We are a board certified obesity and weight management practice Patient has trialed behavioral modification, dietary restrictions and exercise for a minimum of 6 months The most recent [place] [employer]ocrin[employer] and [place] [employer] guidelines recommend patients who [...] software and direct typing Please excuse inadvertent communication center coordinator or typing errors, or uncorrected word substitutions Although every attempt has been made by the provider to proofread this document, occasional misspellings and typographical errors may still be present Due to the previous pandemic, and the use of personal protective equipment (PPE) This may decrease voice recognition accuracy Inadvertent communication center coordinator errors may occur 09/14/2024 Other obesity due to excess calories (ICD-10 - E66.09) #Weight Management 09/14/2024 Patient expresses interest in transitioning to Zepbound We will facilitate this Labs reviewed Total time spent today was 30 minutes of which greater than 50% was spent on coordinating and counseling Patient has been found to be obese with a BMI of (35). Patient has class (2) obesity. We are a board certified obesity and weight management practice Patient has trialed behavioral modification, dietary restrictions and exercise for a minimum of 6 months The most recent [place] [employer]ocrinologists and [place] [employer] guidelines recommend patients who [...] software and direct typing Please excuse inadvertent communication center coordinator or typing errors, or uncorrected word substitutions Although every attempt has been made by the provider to proofread this document, occasional misspellings and typographical errors may still be present Due to the previous pandemic, and the use of personal protective equipment (PPE) This may decrease voice recognition accuracy Inadvertent communication center coordinator errors may occur 11/16/2024 Other obesity due [...] software and direct typing Please excuse inadvertent communication center coordinator or typing errors, or uncorrected word substitutions Although every attempt has been made by the provider to proofread this document, occasional misspellings and typographical errors may still be present Due to the previous pandemic, and the use of personal protective equipment (PPE) This may decrease voice recognition accuracy Inadvertent communication center coordinator errors may occur 12/18/2024 Other obesity due to excess calories (ICD-10 - E66.09) #Weight Management 12/18/2024 Patient expresses interest in transitioning to Zepbound sleep study cont wegovy 2.4mg Total time spent today was 30 minutes of which greater than 50% was spent on coordinating and counseling Patient has been found to be obese with a BMI of (36). Patient has class (2) obesity. Of note, some information is being carried forward from prior records for informational purposes only and is being cited so that efficiency, safety and quality of the patient's care is not compromised This note was prepared using voice recognition software and direct typing Please excuse inadvertent communication center coordinator or typing errors, or uncorrected word substitutions Although every attempt has been made by the provider to proofread this document, occasional misspellings and typographical errors may still be present Due to the previous pandemic, and the use of personal protective equipment (PPE) This may decrease voice recognition accuracy Inadvertent communication center coordinator errors may occur 06/08/2024 Dietary counseling a nd surveillance (ICD-10 - Z71.3) #Weight Management 06/08/2024 Otherwise well and thriving cont wegovy 2.4mg max dosing cont contrave Follow-up on labs from [place] Total time spent today was 30 minutes of which greater than 50% was spent on coordinating and counseling Patient has been found to be obese with a BMI of (36). Patient has class (2) obesity. We are a board certified obesity and weight management practice Patient has trialed behavioral modification, dietary restrictions and exercise for a minimum of 6 months The most recent [place] [employer]ocrinologists and [place] [employer] guidelines recommend patients who [...] mentioned above and not solely appetite suppression. We have discussed the mechanism of GLP-1's/GIP, dual incretins, appetitite suppressants I think this would be fantastic option for her given her metabolic workup and body composition We have discussed the risks and benefits and side effects including/and not limited to Sarcopenia, intestinal obstruction, constipation, nausea, lethargy, headache Discussed importance of protein consumption for muscle maintenance as well as strength and resistance training ,probiotics, B12 complex biotin , iron and other nutrients, To help avoid telogen effluvium We have discussed the lifelong requirement of nutritional supplementation And adherence to an exercise regimen as well as importance of follow-up We did discuss the neurohormonal changes that are occurring with these medications and Need for long-term Continued usage The patient understands and agrees There is no history of medullary thyroid cancer or multiple endocrine neoplasia There is also no history of cardiovascular disease, hypertension, palpitations, or arrhythmias In the setting of potential stimulant/amphetam ine use such as phentermine We have also discussed risks and benefits, and the use of compounded medications to help offset the national shortages as well as financial implications vs trade name drugs Patient was reassured and welcomed to the practice. We discussed that we stress a hollistic medical approach with emphasis on lifestyle modification. Patient was informed that a healthy lifestyle with exercise and good eating habits can help reduce his risk of medical complications. He is explained that obesity increases his risk of diabetes, cardiovascular disease, or organ damage. We spent a lot of time discussing the relationship between food, exercise, sleep, mental health and obesity. Patient was counseled on the importance EATING local, organic food when possible. Patient was educated on clean 15 and dirty dozen. I provided information about reading books called The Food Rules by Walter Parkinson and Eat Fat Get Lean by Dr Fab Shipley. Self education is important in the journey for weight management. Patient was offered diagnostic testing. We want to measure visceral adiposity, advanced body composition, adverse lipids, fatty acid balance, risk for heart disease and atherosclerosis, markers of inflammation and genetic susceptibility. Patient was counseled on weight management and was advised to lose weight using A. Meal Replacement Products We discussed the lifelong requirement of nutritional supplementation and adherence to an exercise regimen as well as importance of dietary follow-up Patient was educated on the replacement products called optifast. This is a good way of taking fixed amount of calories. It has been shown in studies to be ineffective weight management tool. We also recommend maintaining adequate protein intake and muscle composition, 1.5mg/kg This however has to be coupled with lifestyle intervention as well as laboratory data and EKG monitoring. It is impossible to know how a person will tolerate complete meal replacement. The side effects of meal replacement and weight loss could include syncopal attacks, dizziness, gallstones, potential cholecystectomy, possible heart attack and even . The benefits of meal replacement would be potential weight loss but no guarantees can be made. Meal replacement products are not covered by insurance. Once the patient has bought these products we cannot return them B. Lifestyle management which includes several strategies as below 1. Eat a low carbohydrate good fat good protein diet. Eliminate refined carbohydrates from the diet. Continue blood sugar and sugared beverages. Eat local organic when possible. Cook your own meals. Read food labels. None about healthy snacks. Portion control and food with low glycemic index 2. Exercise regularly. Try to get at least 6000 steps a day. Use a predominant to track activity level. Consider using apps like tu[employer]nr, myfitKnodapal, lose it, stick as needed for self-monitoring and weight management. Consider group exercises. Consider hiring a personal chef. Regular exercise is manjarrez to sustainable health and prevents as a buffer against weight regain 3. Sleep is most important for healing. Tried to sleep at least 8 hours a night. A good quality sleep needs a sleep ritual with ideal room temperature of around 68. It might help to take a shower and have no electronics in the room and sleep in a very dark room without artificial light. Start her sleep routine and get up early in the morning and go to bed on time 4. Make a social connection. Surround yourself with positive people with positive energy. Connect with friends and family. 5. Get into the habit of meditating and mindfulness while doing everything. 6. Go outside and connect with nature. C. Prescription medications Patient was educated on the use of prescription medications for medical weight loss. This is a growing list and includes phentermine, Topamax,Qsymia, contrave, belviq and saxenda. All prescription medications could have side effects including but not limited to kidney stones, seizure disorder cardiac arrhythmias heart attack pancreatitis etc. etc.. Patient was encouraged to read the prescription insert and have coaching with their pharmacist and make an informed decision about taking medication and know that these medications are being prescribed with good intentions and we do not know how a patient would react to her medication. Sudden medications are FDA approved for weight loss and there is also off label use depending on patient's inability to afford medications in an attempt to lose weight D. Behavioral counseling was done to establish a relationship between food and an mood. Patient was provided information about local counseling and psychiatry and Dr Marin at [facility]. We would like to cover regular topics and build on low glycemic eating exercise mindful eating, using yoga and meditation along with deep breathing and connecting with friends and family. E. MASS PAT reviewed, Patient's current medications were reviewed and opinion was given on medication that can cause weight gain and can be substituted F. Patient was assessed for risk with obesity including and not limiting to atherosclerosis heart disease stroke kidney disease, restrictive lung disease, irritable bowel syndrome and overall mortality. Risk of developing prediabetes diabetes and metabolic syndrome was discussed G. Therapeutic plan: We have decided to make therapeutic plan which would include choosing wisely on calories restricting portion getting active, tracking weight, getting good quality sleep and working on time management H. Patient will follow up in (4) weeks for weight management Of note, some information is being carried forward from prior records for informational purposes only and is being cited so that efficiency, safety and quality of the patient's care is not compromised This note was prepared using voice recognition software and direct typing Please excuse inadvertent communication center coordinator or typing errors, or uncorrected word substitutions Although every attempt has been made by the provider to proofread this document, occasional misspellings and typographical errors may still be present Due to the previous pandemic, and the use of personal protective equipment (PPE) This may decrease voice recognition accuracy Inadvertent communication center coordinator errors may occur 08/06/2024 Other obesity due to excess calories (ICD-10 - E66.09) #Weight Management 08/06/2024 Otherwise well and thriving cont wegovy 2.4mg max dosing cont contrave Follow-up on labs from [place] Total time spent today was 30 minutes of which greater than 50% was spent on coordinating and counseling Patient has been found to be obese with a BMI of (36). Patient has class (2) obesity. We are a board certified obesity and weight management practice Patient has trialed behavioral modification, dietary restrictions and exercise for a minimum of 6 months The most recent [place] [employer]ocrin[employer] and [place] [employer] guidelines recommend patients who [...] software and direct typing Please excuse inadvertent communication center coordinator or typing errors, or uncorrected word substitutions Although every attempt has been made by the provider to proofread this document, occasional misspellings and typographical errors may still be present Due to the previous pandemic, and the use of personal protective equipment (PPE) This may decrease voice recognition accuracy Inadvertent communication center coordinator errors may occur 06/08/2024 Other obesity due to excess calories (ICD-10 - E66.09) #Weight Management 06/08/2024 Otherwise well and thriving cont wegovy 2.4mg max dosing cont contrave Follow-up on labs from [place] Total time spent today was 30 minutes of which greater than 50% was spent on coordinating and counseling Patient has been found to be obese with a BMI of (36). Patient has class (2) obesity. We are a board certified obesity and weight management practice Patient has trialed behavioral modification, dietary restrictions and exercise for a minimum of 6 months The most recent [place] [employer]ocrin[employer] and [place] [employer] guidelines recommend patients who [...] mentioned above and not solely appetite suppression. We have discussed the mechanism of GLP-1's/GIP, dual incretins, appetitite suppressants I think this would be fantastic option for her given her metabolic workup and body composition We have discussed the risks and benefits and side effects including/and not limited to Sarcopenia, intestinal obstruction, constipation, nausea, lethargy, headache Discussed importance of protein consumption for muscle maintenance as well as strength and resistance training ,probiotics, B12 complex biotin , iron and other nutrients, To help avoid telogen effluvium We have discussed the lifelong requirement of nutritional supplementation And adherence to an exercise regimen as well as importance of follow-up We did discuss the neurohormonal changes that are occurring with these medications and Need for long-term Continued usage The patient understands and agrees There is no history of medullary thyroid cancer or multiple endocrine neoplasia There is also no history of cardiovascular disease, hypertension, palpitations, or arrhythmias In the setting of potential stimulant/amphetam ine use such as phentermine We have also discussed risks and benefits, and the use of compounded medications to help offset the national shortages as well as financial implications vs trade name drugs Patient was reassured and welcomed to the practice. We discussed that we stress a hollistic medical approach with emphasis on lifestyle modification. Patient was informed that a healthy lifestyle with exercise and good eating habits can help reduce his risk of medical complications. He is explained that obesity increases his risk of diabetes, cardiovascular disease, or organ damage. We spent a lot of time discussing the relationship between food, exercise, sleep, mental health and obesity. Patient was counseled on the importance EATING local, organic food when possible. Patient was educated on clean 15 and dirty dozen. I provided information about reading books called The Food Rules by Walter Parkinson and Eat Fat Get Lean by Dr Fab Shipley. Self education is important in the journey for weight management. Patient was offered diagnostic testing. We want to measure visceral adiposity, advanced body composition, adverse lipids, fatty acid balance, risk for heart disease and atherosclerosis, markers of inflammation and genetic susceptibility. Patient was counseled on weight management and was advised to lose weight using A. Meal Replacement Products We discussed the lifelong requirement of nutritional supplementation and adherence to an exercise regimen as well as importance of dietary follow-up Patient was educated on the replacement products called optifast. This is a good way of taking fixed amount of calories. It has been shown in studies to be ineffective weight management tool. We also recommend maintaining adequate protein intake and muscle composition, 1.5mg/kg This however has to be coupled with lifestyle intervention as well as laboratory data and EKG monitoring. It is impossible to know how a person will tolerate complete meal replacement. The side effects of meal replacement and weight loss could include syncopal attacks, dizziness, gallstones, potential cholecystectomy, possible heart attack and even . The benefits of meal replacement would be potential weight loss but no guarantees can be made. Meal replacement products are not covered by insurance. Once the patient has bought these products we cannot return them B. Lifestyle management which includes several strategies as below 1. Eat a low carbohydrate good fat good protein diet. Eliminate refined carbohydrates from the diet. Continue blood sugar and sugared beverages. Eat local organic when possible. Cook your own meals. Read food labels. None about healthy snacks. Portion control and food with low glycemic index 2. Exercise regularly. Try to get at least 6000 steps a day. Use a predominant to track activity level. Consider using apps like tu.nr, myfitKnodapal, lose it, stick as needed for self-monitoring and weight management. Consider group exercises. Consider hiring a personal chef. Regular exercise is manjarrez to sustainable health and prevents as a buffer against weight regain 3. Sleep is most important for healing. Tried to sleep at least 8 hours a night. A good quality sleep needs a sleep ritual with ideal room temperature of around 68. It might help to take a shower and have no electronics in the room and sleep in a very dark room without artificial light. Start her sleep routine and get up early in the morning and go to bed on time 4. Make a social connection. Surround yourself with positive people with positive energy. Connect with friends and family. 5. Get into the habit of meditating and mindfulness while doing everything. 6. Go outside and connect with nature. C. Prescription medications Patient was educated on the use of prescription medications for medical weight loss. This is a growing list and includes phentermine, Topamax,Qsymia, contrave, belviq and saxenda. All prescription medications could have side effects including but not limited to kidney stones, seizure disorder cardiac arrhythmias heart attack pancreatitis etc. etc.. Patient was encouraged to read the prescription insert and have coaching with their pharmacist and make an informed decision about taking medication and know that these medications are being prescribed with good intentions and we do not know how a patient would react to her medication. Sudden medications are FDA approved for weight loss and there is also off label use depending on patient's inability to afford medications in an attempt to lose weight D. Behavioral counseling was done to establish a relationship between food and an mood. Patient was provided information about local counseling and psychiatry and Dr Marin at [facility]. We would like to cover regular topics and build on low glycemic eating exercise mindful eating, using yoga and meditation along with deep breathing and connecting with friends and family. E. MASS PAT reviewed, Patient's current medications were reviewed and opinion was given on medication that can cause weight gain and can be substituted F. Patient was assessed for risk with obesity including and not limiting to atherosclerosis heart disease stroke kidney disease, restrictive lung disease, irritable bowel syndrome and overall mortality. Risk of developing prediabetes diabetes and metabolic syndrome was discussed G. Therapeutic plan: We have decided to make therapeutic plan which would include choosing wisely on calories restricting portion getting active, tracking weight, getting good quality sleep and working on time management H. Patient will follow up in (4) weeks for weight management Of note, some information is being carried forward from prior records for informational purposes only and is being cited so that efficiency, safety and quality of the patient's care is not compromised This note was prepared using voice recognition software and direct typing Please excuse inadvertent communication center coordinator or typing errors, or uncorrected word substitutions Although every attempt has been made by the provider to proofread this document, occasional misspellings and typographical errors may still be present Due to the previous pandemic, and the use of personal protective equipment (PPE) This may decrease voice recognition accuracy Inadvertent communication center coordinator errors may occur 03/30/2024 Dietary counseling a nd surveillance (ICD-10 - Z71.3) Rejit MGt 03/30/2024 cont wegovy 2.4mg max dosing add on contrave Total time spent today was 30 minutes of which greater than 50% was spent on coordinating and counseling Patient has been found to be obese with a BMI of (38). Patient has class (1) obesity. We are a board certified obesity and weight management practice Patient has trialed behavioral modification, dietary restrictions and exercise for a minimum of 6 months The most recent [place] [employer] endocrinologists and [place] [employer] guidelines recommend patients who [...] mentioned above and not solely appetite suppression. We have discussed the mechanism of GLP-1's/GIP, dual incretins, appetitite suppressants I think this would be fantastic option for her given her metabolic workup and body composition We have discussed the risks and benefits and side effects including/and not limited to Sarcopenia, intestinal obstruction, constipation, nausea, lethargy, headache Discussed importance of protein consumption for muscle maintenance as well as strength and resistance training ,probiotics, B12 complex biotin , iron and other nutrients, To help avoid telogen effluvium We have discussed the lifelong requirement of nutritional supplementation And adherence to an exercise regimen as well as importance of follow-up We did discuss the neurohormonal changes that are occurring with these medications and Need for long-term Continued usage The patient understands and agrees There is no history of medullary thyroid cancer or multiple endocrine neoplasia There is also no history of cardiovascular disease, hypertension, palpitations, or arrhythmias In the setting of potential stimulant/amphetam ine use such as phentermine We have also discussed risks and benefits, and the use of compounded medications to help offset the national shortages as well as financial implications vs trade name drugs Patient was reassured and welcomed to the practice. We discussed that we stress a hollistic medical approach with emphasis on lifestyle modification. Patient was informed that a healthy lifestyle with exercise and good eating habits can help reduce his risk of medical complications. He is explained that obesity increases his risk of diabetes, cardiovascular disease, or organ damage. We spent a lot of time discussing the relationship between food, exercise, sleep, mental health and obesity. Patient was counseled on the importance EATING local, organic food when possible. Patient was educated on clean 15 and dirty dozen. I provided information about reading books called The Food Rules by Walter Parkinson and Eat Fat Get Lean by Dr Fab Shipley. Self education is important in the journey for weight management. Patient was offered diagnostic testing. We want to measure visceral adiposity, advanced body composition, adverse lipids, fatty acid balance, risk for heart disease and atherosclerosis, markers of inflammation and genetic susceptibility. Patient was counseled on weight management and was advised to lose weight using A. Meal Replacement Products We discussed the lifelong requirement of nutritional supplementation and adherence to an exercise regimen as well as importance of dietary follow-up Patient was educated on the replacement products called optifast. This is a good way of taking fixed amount of calories. It has been shown in studies to be ineffective weight management tool. We also recommend maintaining adequate protein intake and muscle composition, 1.5mg/kg This however has to be coupled with lifestyle intervention as well as laboratory data and EKG monitoring. It is impossible to know how a person will tolerate complete meal replacement. The side effects of meal replacement and weight loss could include syncopal attacks, dizziness, gallstones, potential cholecystectomy, possible heart attack and even . The benefits of meal replacement would be potential weight loss but no guarantees can be made. Meal replacement products are not covered by insurance. Once the patient has bought these products we cannot return them B. Lifestyle management which includes several strategies as below 1. Eat a low carbohydrate good fat good protein diet. Eliminate refined carbohydrates from the diet. Continue blood sugar and sugared beverages. Eat local organic when possible. Cook your own meals. Read food labels. None about healthy snacks. Portion control and food with low glycemic index 2. Exercise regularly. Try to get at least 6000 steps a day. Use a predominant to track activity level. Consider using apps like tu.nr, [employer], lose it, stick as needed for self-monitoring and weight management. Consider group exercises. Consider hiring a personal chef. Regular exercise is manjarrez to sustainable health and prevents as a buffer against weight regain 3. Sleep is most important for healing. Tried to sleep at least 8 hours a night. A good quality sleep needs a sleep ritual with ideal room temperature of around 68. It might help to take a shower and have no electronics in the room and sleep in a very dark room without artificial light. Start her sleep routine and get up early in the morning and go to bed on time 4. Make a social connection. Surround yourself with positive people with positive energy. Connect with friends and family. 5. Get into the habit of meditating and mindfulness while doing everything. 6. Go outside and connect with nature. C. Prescription medications Patient was educated on the use of prescription medications for medical weight loss. This is a growing list and includes phentermine, Topamax,Qsymia, contrave, belviq and saxenda. All prescription medications could have side effects including but not limited to kidney stones, seizure disorder cardiac arrhythmias heart attack pancreatitis etc. etc.. Patient was encouraged to read the prescription insert and have coaching with their pharmacist and make an informed decision about taking medication and know that these medications are being prescribed with good intentions and we do not know how a patient would react to her medication. Sudden medications are FDA approved for weight loss and there is also off label use depending on patient's inability to afford medications in an attempt to lose weight D. Behavioral counseling was done to establish a relationship between food and an mood. Patient was provided information about local counseling and psychiatry and Dr Marin at [facility]. We would like to cover regular topics and build on low glycemic eating exercise mindful eating, using yoga and meditation along with deep breathing and connecting with friends and family. E. MASS PAT reviewed, Patient's current medications were reviewed and opinion was given on medication that can cause weight gain and can be substituted F. Patient was assessed for risk with obesity including and not limiting to atherosclerosis heart disease stroke kidney disease, restrictive lung disease, irritable bowel syndrome and overall mortality. Risk of developing prediabetes diabetes and metabolic syndrome was discussed G. Therapeutic plan: We have decided to make therapeutic plan which would include choosing wisely on calories restricting portion getting active, tracking weight, getting good quality sleep and working on time management H. Patient will follow up in (4) weeks for weight management Of note, some information is being carried forward from prior records for informational purposes only and is being cited so that efficiency, safety and quality of the patient's care is not compromised This note was prepared using voice recognition software and direct typing Please excuse inadvertent communication center coordinator or typing errors, or uncorrected word substitutions Although every attempt has been made by the provider to proofread this document, occasional misspellings and typographical errors may still be present Due to the previous pandemic, and the use of personal protective equipment (PPE) This may decrease voice recognition accuracy Inadvertent communication center coordinator errors may occur 03/30/2024 Acquired hyperlipoproteinemia (ICD-10 - E78.5) Werght MGt 03/30/2024 cont christelvy 2.4mg max dosing add on contrave Total time spent today was 30 minutes of which greater than 50% was spent on coordinating and counseling Patient has been found to be obese with a BMI of (38). Patient has class (1) obesity. We are a board certified obesity and weight management practice Patient has trialed behavioral modification, dietary restrictions and exercise for a minimum of 6 months The most recent [place] [employer] endocrinologists and [place] [employer] guidelines recommend patients who [...] mentioned above and not solely appetite suppression. We have discussed the mechanism of GLP-1's/GIP, dual incretins, appetitite suppressants I think this would be fantastic option for her given her metabolic workup and body composition We have discussed the risks and benefits and side effects including/and not limited to Sarcopenia, intestinal obstruction, constipation, nausea, lethargy, headache Discussed importance of protein consumption for muscle maintenance as well as strength and resistance training ,probiotics, B12 complex biotin , iron and other nutrients, To help avoid telogen effluvium We have discussed the lifelong requirement of nutritional supplementation And adherence to an exercise regimen as well as importance of follow-up We did discuss the neurohormonal changes that are occurring with these medications and Need for long-term Continued usage The patient understands and agrees There is no history of medullary thyroid cancer or multiple endocrine neoplasia There is also no history of cardiovascular disease, hypertension, palpitations, or arrhythmias In the setting of potential stimulant/amphetam ine use such as phentermine We have also discussed risks and benefits, and the use of compounded medications to help offset the national shortages as well as financial implications vs trade name drugs Patient was reassured and welcomed to the practice. We discussed that we stress a hollistic medical approach with emphasis on lifestyle modification. Patient was informed that a healthy lifestyle with exercise and good eating habits can help reduce his risk of medical complications. He is explained that obesity increases his risk of diabetes, cardiovascular disease, or organ damage. We spent a lot of time discussing the relationship between food, exercise, sleep, mental health and obesity. Patient was counseled on the importance EATING local, organic food when possible. Patient was educated on clean 15 and dirty dozen. I provided information about reading books called The Food Rules by Walter Parkinson and Eat Fat Get Lean by Dr Fab Shipley. Self education is important in the journey for weight management. Patient was offered diagnostic testing. We want to measure visceral adiposity, advanced body composition, adverse lipids, fatty acid balance, risk for heart disease and atherosclerosis, markers of inflammation and genetic susceptibility. Patient was counseled on weight management and was advised to lose weight using A. Meal Replacement Products We discussed the lifelong requirement of nutritional supplementation and adherence to an exercise regimen as well as importance of dietary follow-up Patient was educated on the replacement products called optifast. This is a good way of taking fixed amount of calories. It has been shown in studies to be ineffective weight management tool. We also recommend maintaining adequate protein intake and muscle composition, 1.5mg/kg This however has to be coupled with lifestyle intervention as well as laboratory data and EKG monitoring. It is impossible to know how a person will tolerate complete meal replacement. The side effects of meal replacement and weight loss could include syncopal attacks, dizziness, gallstones, potential cholecystectomy, possible heart attack and even . The benefits of meal replacement would be potential weight loss but no guarantees can be made. Meal replacement products are not covered by insurance. Once the patient has bought these products we cannot return them B. Lifestyle management which includes several strategies as below 1. Eat a low carbohydrate good fat good protein diet. Eliminate refined carbohydrates from the diet. Continue blood sugar and sugared beverages. Eat local organic when possible. Cook your own meals. Read food labels. None about healthy snacks. Portion control and food with low glycemic index 2. Exercise regularly. Try to get at least 6000 steps a day. Use a predominant to track activity level. Consider using apps like [employer] m[employer] exceVeveoise, [employer] E-commercepal, lose it, stick as needed for self-monitoring and weight management. Consider group exercises. Consider hiring a personal chef. Regular exercise is manjarrez to sustainable health and prevents as a buffer against weight regain 3. Sleep is most important for healing. Tried to sleep at least 8 hours a night. A good quality sleep needs a sleep ritual with ideal room temperature of around 68. It might help to take a shower and have no electronics in the room and sleep in a very dark room without artificial light. Start her sleep routine and get up early in the morning and go to bed on time 4. Make a social connection. Surround yourself with positive people with positive energy. Connect with friends and family. 5. Get into the habit of meditating and mindfulness while doing everything. 6. Go outside and connect with nature. C. Prescription medications Patient was educated on the use of prescription medications for medical weight loss. This is a growing list and includes phentermine, Topamax,Qsymia, contrave, belviq and saxenda. All prescription medications could have side effects including but not limited to kidney stones, seizure disorder cardiac arrhythmias heart attack pancreatitis etc. etc.. Patient was encouraged to read the prescription insert and have coaching with their pharmacist and make an informed decision about taking medication and know that these medications are being prescribed with good intentions and we do not know how a patient would react to her medication. Sudden medications are FDA approved for weight loss and there is also off label use depending on patient's inability to afford medications in an attempt to lose weight D. Behavioral counseling was done to establish a relationship between food and an mood. Patient was provided information about local counseling and psychiatry and Dr Marin at [facility]. We would like to cover regular topics and build on low glycemic eating exercise mindful eating, using yoga and meditation along with deep breathing and connecting with friends and family. E. MASS PAT reviewed, Patient's current medications were reviewed and opinion was given on medication that can cause weight gain and can be substituted F. Patient was assessed for risk with obesity including and not limiting to atherosclerosis heart disease stroke kidney disease, restrictive lung disease, irritable bowel syndrome and overall mortality. Risk of developing prediabetes diabetes and metabolic syndrome was discussed G. Therapeutic plan: We have decided to make therapeutic plan which would include choosing wisely on calories restricting portion getting active, tracking weight, getting good quality sleep and working on time management H. Patient will follow up in (4) weeks for weight management Of note, some information is being carried forward from prior records for informational purposes only and is being cited so that efficiency, safety and quality of the patient's care is not compromised This note was prepared using voice recognition software and direct typing Please excuse inadvertent communication center coordinator or typing errors, or uncorrected word substitutions Although every attempt has been made by the provider to proofread this document, occasional misspellings and typographical errors may still be present Due to the previous pandemic, and the use of personal protective equipment (PPE) This may decrease voice recognition accuracy Inadvertent communication center coordinator errors may occur 08/06/2024 Dietary counseling a nd surveillance (ICD-10 - Z71.3) #Weight Management 08/06/2024 Otherwise well and thriving cont wegovy 2.4mg max dosing cont contrave Follow-up on labs from [place] Total time spent today was 30 minutes of which greater than 50% was spent on coordinating and counseling Patient has been found to be obese with a BMI of (36). Patient has class (2) obesity. We are a board certified obesity and weight management practice Patient has trialed behavioral modification, dietary restrictions and exercise for a minimum of 6 months The most recent [place] [employer]ocrin[employer] and [place] [employer] guidelines recommend patients who [...] software and direct typing Please excuse inadvertent communication center coordinator or typing errors, or uncorrected word substitutions Although every attempt has been made by the provider to proofread this document, occasional misspellings and typographical errors may still be present Due to the previous pandemic, and the use of personal protective equipment (PPE) This may decrease voice recognition accuracy Inadvertent communication center coordinator errors may occur 06/08/2024 Acquired hyperlipoproteinemia (ICD-10 - E78.5) #Weight Management 06/08/2024 Otherwise well and thriving cont wegovy 2.4mg max dosing cont contrave Follow-up on labs from [place] Total time spent today was 30 minutes of which greater than 50% was spent on coordinating and counseling Patient has been found to be obese with a BMI of (36). Patient has class (2) obesity. We are a board certified obesity and weight management practice Patient has trialed behavioral modification, dietary restrictions and exercise for a minimum of 6 months The most recent [place] [employer]ocrin[employer] and [place] [employer] guidelines recommend patients who [...] mentioned above and not solely appetite suppression. We have discussed the mechanism of GLP-1's/GIP, dual incretins, appetitite suppressants I think this would be fantastic option for her given her metabolic workup and body composition We have discussed the risks and benefits and side effects including/and not limited to Sarcopenia, intestinal obstruction, constipation, nausea, lethargy, headache Discussed importance of protein consumption for muscle maintenance as well as strength and resistance training ,probiotics, B12 complex biotin , iron and other nutrients, To help avoid telogen effluvium We have discussed the lifelong requirement of nutritional supplementation And adherence to an exercise regimen as well as importance of follow-up We did discuss the neurohormonal changes that are occurring with these medications and Need for long-term Continued usage The patient understands and agrees There is no history of medullary thyroid cancer or multiple endocrine neoplasia There is also no history of cardiovascular disease, hypertension, palpitations, or arrhythmias In the setting of potential stimulant/amphetam ine use such as phentermine We have also discussed risks and benefits, and the use of compounded medications to help offset the national shortages as well as financial implications vs trade name drugs Patient was reassured and welcomed to the practice. We discussed that we stress a hollistic medical approach with emphasis on lifestyle modification. Patient was informed that a healthy lifestyle with exercise and good eating habits can help reduce his risk of medical complications. He is explained that obesity increases his risk of diabetes, cardiovascular disease, or organ damage. We spent a lot of time discussing the relationship between food, exercise, sleep, mental health and obesity. Patient was counseled on the importance EATING local, organic food when possible. Patient was educated on clean 15 and dirty dozen. I provided information about reading books called The Food Rules by Walter Parkinson and Eat Fat Get Lean by Dr Fab Shipley. Self education is important in the journey for weight management. Patient was offered diagnostic testing. We want to measure visceral adiposity, advanced body composition, adverse lipids, fatty acid balance, risk for heart disease and atherosclerosis, markers of inflammation and genetic susceptibility. Patient was counseled on weight management and was advised to lose weight using A. Meal Replacement Products We discussed the lifelong requirement of nutritional supplementation and adherence to an exercise regimen as well as importance of dietary follow-up Patient was educated on the replacement products called optifast. This is a good way of taking fixed amount of calories. It has been shown in studies to be ineffective weight management tool. We also recommend maintaining adequate protein intake and muscle composition, 1.5mg/kg This however has to be coupled with lifestyle intervention as well as laboratory data and EKG monitoring. It is impossible to know how a person will tolerate complete meal replacement. The side effects of meal replacement and weight loss could include syncopal attacks, dizziness, gallstones, potential cholecystectomy, possible heart attack and even . The benefits of meal replacement would be potential weight loss but no guarantees can be made. Meal replacement products are not covered by insurance. Once the patient has bought these products we cannot return them B. Lifestyle management which includes several strategies as below 1. Eat a low carbohydrate good fat good protein diet. Eliminate refined carbohydrates from the diet. Continue blood sugar and sugared beverages. Eat local organic when possible. Cook your own meals. Read food labels. None about healthy snacks. Portion control and food with low glycemic index 2. Exercise regularly. Try to get at least 6000 steps a day. Use a predominant to track activity level. Consider using apps like tu.nr, myfitnesspal, lose it, stick as needed for self-monitoring and weight management. Consider group exercises. Consider hiring a personal chef. Regular exercise is manjarrez to sustainable health and prevents as a buffer against weight regain 3. Sleep is most important for healing. Tried to sleep at least 8 hours a night. A good quality sleep needs a sleep ritual with ideal room temperature of around 68. It might help to take a shower and have no electronics in the room and sleep in a very dark room without artificial light. Start her sleep routine and get up early in the morning and go to bed on time 4. Make a social connection. Surround yourself with positive people with positive energy. Connect with friends and family. 5. Get into the habit of meditating and mindfulness while doing everything. 6. Go outside and connect with nature. C. Prescription medications Patient was educated on the use of prescription medications for medical weight loss. This is a growing list and includes phentermine, Topamax,Qsymia, contrave, belviq and saxenda. All prescription medications could have side effects including but not limited to kidney stones, seizure disorder cardiac arrhythmias heart attack pancreatitis etc. etc.. Patient was encouraged to read the prescription insert and have coaching with their pharmacist and make an informed decision about taking medication and know that these medications are being prescribed with good intentions and we do not know how a patient would react to her medication. Sudden medications are FDA approved for weight loss and there is also off label use depending on patient's inability to afford medications in an attempt to lose weight D. Behavioral counseling was done to establish a relationship between food and an mood. Patient was provided information about local counseling and psychiatry and Dr Marin at [facility]. We would like to cover regular topics and build on low glycemic eating exercise mindful eating, using yoga and meditation along with deep breathing and connecting with friends and family. E. MASS PAT reviewed, Patient's current medications were reviewed and opinion was given on medication that can cause weight gain and can be substituted F. Patient was assessed for risk with obesity including and not limiting to atherosclerosis heart disease stroke kidney disease, restrictive lung disease, irritable bowel syndrome and overall mortality. Risk of developing prediabetes diabetes and metabolic syndrome was discussed G. Therapeutic plan: We have decided to make therapeutic plan which would include choosing wisely on calories restricting portion getting active, tracking weight, getting good quality sleep and working on time management H. Patient will follow up in (4) weeks for weight management Of note, some information is being carried forward from prior records for informational purposes only and is being cited so that efficiency, safety and quality of the patient's care is not compromised This note was prepared using voice recognition software and direct typing Please excuse inadvertent communication center coordinator or typing errors, or uncorrected word substitutions Although every attempt has been made by the provider to proofread this document, occasional misspellings and typographical errors may still be present Due to the previous pandemic, and the use of personal protective equipment (PPE) This may decrease voice recognition accuracy Inadvertent communication center coordinator errors may occur 11/16/2024 Dietary counseling a [...] software and direct typing Please excuse inadvertent communication center coordinator or typing errors, or uncorrected word substitutions Although every attempt has been made by the provider to proofread this document, occasional misspellings and typographical errors may still be present Due to the previous pandemic, and the use of personal protective equipment (PPE) This may decrease voice recognition accuracy Inadvertent communication center coordinator errors may occur 09/14/2024 Acquired hyperlipoproteinemia (ICD-10 - E78.5) #Weight Management 09/14/2024 Patient expresses interest in transitioning to Zepbound We will facilitate this Labs reviewed Total time spent today was 30 minutes of which greater than 50% was spent on coordinating and counseling Patient has been found to be obese with a BMI of (35). Patient has class (2) obesity. We are a board certified obesity and weight management practice Patient has trialed behavioral modification, dietary restrictions and exercise for a minimum of 6 months The most recent [place] [employer]ocrinologists and [place] [employer] guidelines recommend patients who [...] software and direct typing Please excuse inadvertent communication center coordinator or typing errors, or uncorrected word substitutions Although every attempt has been made by the provider to proofread this document, occasional misspellings and typographical errors may still be present Due to the previous pandemic, and the use of personal protective equipment (PPE) This may decrease voice recognition accuracy Inadvertent communication center coordinator errors may occur 12/18/2024 Acquired hyperlipoproteinemia (ICD-10 - E78.5) #Weight Management 12/18/2024 Patient expresses interest in transitioning to Zepbound sleep study cont wegovy 2.4mg Total time spent today was 30 minutes of which greater than 50% was spent on coordinating and counseling Patient has been found to be obese with a BMI of (36). Patient has class (2) obesity. Of note, some information is being carried forward from prior records for informational purposes only and is being cited so that efficiency, safety and quality of the patient's care is not compromised This note was prepared using voice recognition software and direct typing Please excuse inadvertent communication center coordinator or typing errors, or uncorrected word substitutions Although every attempt has been made by the provider to proofread this document, occasional misspellings and typographical errors may still be present Due to the previous pandemic, and the use of personal protective equipment (PPE) This may decrease voice recognition accuracy Inadvertent communication center coordinator errors may occur 12/18/2024 Depression with anxiety (ICD-10 - F41.8) #Weight Management 12/18/2024 Patient expresses interest in transitioning to Zepbound sleep study cont wegovy 2.4mg Total time spent today was 30 minutes of which greater than 50% was spent on coordinating and counseling Patient has been found to be obese with a BMI of (36). Patient has class (2) obesity. Of note, some information is being carried forward from prior records for informational purposes only and is being cited so that efficiency, safety and quality of the patient's care is not compromised This note was prepared using voice recognition software and direct typing Please excuse inadvertent communication center coordinator or typing errors, or uncorrected word substitutions Although every attempt has been made by the provider to proofread this document, occasional misspellings and typographical errors may still be present Due to the previous pandemic, and the use of personal protective equipment (PPE) This may decrease voice recognition accuracy Inadvertent communication center coordinator errors may occur 09/14/2024 Depression with anxiety (ICD-10 - F41.8) #Weight Management 09/14/2024 Patient expresses interest in transitioning to Zepbound We will facilitate this Labs reviewed Total time spent today was 30 minutes of which greater than 50% was spent on coordinating and counseling Patient has been found to be obese with a BMI of (35). Patient has class (2) obesity. We are a board certified obesity and weight management practice Patient has trialed behavioral modification, dietary restrictions and exercise for a minimum of 6 months The most recent [place] [employer]ocrinologists and [place] [employer] guidelines recommend patients who [...] software and direct typing Please excuse inadvertent communication center coordinator or typing errors, or uncorrected word substitutions Although every attempt has been made by the provider to proofread this document, occasional misspellings and typographical errors may still be present Due to the previous pandemic, and the use of personal protective equipment (PPE) This may decrease voice recognition accuracy Inadvertent communication center coordinator errors may occur 11/16/2024 Acquired hyperlipoproteinemia (ICD-10 [...] software and direct typing Please excuse inadvertent communication center coordinator or typing errors, or uncorrected word substitutions Although every attempt has been made by the provider to proofread this document, occasional misspellings and typographical errors may still be present Due to the previous pandemic, and the use of personal protective equipment (PPE) This may decrease voice recognition accuracy Inadvertent communication center coordinator errors may occur 06/08/2024 Depression with anxiety (ICD-10 - F41.8) #Weight Management 06/08/2024 Otherwise well and thriving cont wegovy 2.4mg max dosing cont contrave Follow-up on labs from [place] Total time spent today was 30 minutes of which greater than 50% was spent on coordinating and counseling Patient has been found to be obese with a BMI of (36). Patient has class (2) obesity. We are a board certified obesity and weight management practice Patient has trialed behavioral modification, dietary restrictions and exercise for a minimum of 6 months The most recent [place] [employer]ocrinologists and [place] [employer] guidelines recommend patients who [...] mentioned above and not solely appetite suppression. We have discussed the mechanism of GLP-1's/GIP, dual incretins, appetitite suppressants I think this would be fantastic option for her given her metabolic workup and body composition We have discussed the risks and benefits and side effects including/and not limited to Sarcopenia, intestinal obstruction, constipation, nausea, lethargy, headache Discussed importance of protein consumption for muscle maintenance as well as strength and resistance training ,probiotics, B12 complex biotin , iron and other nutrients, To help avoid telogen effluvium We have discussed the lifelong requirement of nutritional supplementation And adherence to an exercise regimen as well as importance of follow-up We did discuss the neurohormonal changes that are occurring with these medications and Need for long-term Continued usage The patient understands and agrees There is no history of medullary thyroid cancer or multiple endocrine neoplasia There is also no history of cardiovascular disease, hypertension, palpitations, or arrhythmias In the setting of potential stimulant/amphetam ine use such as phentermine We have also discussed risks and benefits, and the use of compounded medications to help offset the national shortages as well as financial implications vs trade name drugs Patient was reassured and welcomed to the practice. We discussed that we stress a hollistic medical approach with emphasis on lifestyle modification. Patient was informed that a healthy lifestyle with exercise and good eating habits can help reduce his risk of medical complications. He is explained that obesity increases his risk of diabetes, cardiovascular disease, or organ damage. We spent a lot of time discussing the relationship between food, exercise, sleep, mental health and obesity. Patient was counseled on the importance EATING local, organic food when possible. Patient was educated on clean 15 and dirty dozen. I provided information about reading books called The Food Rules by Walter Parkinson and Eat Fat Get Lean by Dr Fab Shipley. Self education is important in the journey for weight management. Patient was offered diagnostic testing. We want to measure visceral adiposity, advanced body composition, adverse lipids, fatty acid balance, risk for heart disease and atherosclerosis, markers of inflammation and genetic susceptibility. Patient was counseled on weight management and was advised to lose weight using A. Meal Replacement Products We discussed the lifelong requirement of nutritional supplementation and adherence to an exercise regimen as well as importance of dietary follow-up Patient was educated on the replacement products called optifast. This is a good way of taking fixed amount of calories. It has been shown in studies to be ineffective weight management tool. We also recommend maintaining adequate protein intake and muscle composition, 1.5mg/kg This however has to be coupled with lifestyle intervention as well as laboratory data and EKG monitoring. It is impossible to know how a person will tolerate complete meal replacement. The side effects of meal replacement and weight loss could include syncopal attacks, dizziness, gallstones, potential cholecystectomy, possible heart attack and even . The benefits of meal replacement would be potential weight loss but no guarantees can be made. Meal replacement products are not covered by insurance. Once the patient has bought these products we cannot return them B. Lifestyle management which includes several strategies as below 1. Eat a low carbohydrate good fat good protein diet. Eliminate refined carbohydrates from the diet. Continue blood sugar and sugared beverages. Eat local organic when possible. Cook your own meals. Read food labels. None about healthy snacks. Portion control and food with low glycemic index 2. Exercise regularly. Try to get at least 6000 steps a day. Use a predominant to track activity level. Consider using apps like tu.nr, myfitnesspal, lose it, stick as needed for self-monitoring and weight management. Consider group exercises. Consider hiring a personal chef. Regular exercise is manjarrez to sustainable health and prevents as a buffer against weight regain 3. Sleep is most important for healing. Tried to sleep at least 8 hours a night. A good quality sleep needs a sleep ritual with ideal room temperature of around 68. It might help to take a shower and have no electronics in the room and sleep in a very dark room without artificial light. Start her sleep routine and get up early in the morning and go to bed on time 4. Make a social connection. Surround yourself with positive people with positive energy. Connect with friends and family. 5. Get into the habit of meditating and mindfulness while doing everything. 6. Go outside and connect with nature. C. Prescription medications Patient was educated on the use of prescription medications for medical weight loss. This is a growing list and includes phentermine, Topamax,Qsymia, contrave, belviq and saxenda. All prescription medications could have side effects including but not limited to kidney stones, seizure disorder cardiac arrhythmias heart attack pancreatitis etc. etc.. Patient was encouraged to read the prescription insert and have coaching with their pharmacist and make an informed decision about taking medication and know that these medications are being prescribed with good intentions and we do not know how a patient would react to her medication. Sudden medications are FDA approved for weight loss and there is also off label use depending on patient's inability to afford medications in an attempt to lose weight D. Behavioral counseling was done to establish a relationship between food and an mood. Patient was provided information about local counseling and psychiatry and Dr Marin at [facility]. We would like to cover regular topics and build on low glycemic eating exercise mindful eating, using yoga and meditation along with deep breathing and connecting with friends and family. E. MASS PAT reviewed, Patient's current medications were reviewed and opinion was given on medication that can cause weight gain and can be substituted F. Patient was assessed for risk with obesity including and not limiting to atherosclerosis heart disease stroke kidney disease, restrictive lung disease, irritable bowel syndrome and overall mortality. Risk of developing prediabetes diabetes and metabolic syndrome was discussed G. Therapeutic plan: We have decided to make therapeutic plan which would include choosing wisely on calories restricting portion getting active, tracking weight, getting good quality sleep and working on time management H. Patient will follow up in (4) weeks for weight management Of note, some information is being carried forward from prior records for informational purposes only and is being cited so that efficiency, safety and quality of the patient's care is not compromised This note was prepared using voice recognition software and direct typing Please excuse inadvertent communication center coordinator or typing errors, or uncorrected word substitutions Although every attempt has been made by the provider to proofread this document, occasional misspellings and typographical errors may still be present Due to the previous pandemic, and the use of personal protective equipment (PPE) This may decrease voice recognition accuracy Inadvertent communication center coordinator errors may occur 08/06/2024 Acquired hyperlipoproteinemia (ICD-10 - E78.5) #Weight Management 08/06/2024 Otherwise well and thriving cont wegovy 2.4mg max dosing cont contrave Follow-up on labs from [place] Total time spent today was 30 minutes of which greater than 50% was spent on coordinating and counseling Patient has been found to be obese with a BMI of (36). Patient has class (2) obesity. We are a board certified obesity and weight management practice Patient has trialed behavioral modification, dietary restrictions and exercise for a minimum of 6 months The most recent [place] [employer]in[employer] and [place] [employer] guidelines recommend patients who [...] software and direct typing Please excuse inadvertent communication center coordinator or typing errors, or uncorrected word substitutions Although every attempt has been made by the provider to proofread this document, occasional misspellings and typographical errors may still be present Due to the previous pandemic, and the use of personal protective equipment (PPE) This may decrease voice recognition accuracy Inadvertent communication center coordinator errors may occur 03/30/2024 Depression with anxiety (ICD-10 - F41.8) Balbir MGt 03/30/2024 cont wejamarvy 2.4mg max dosing add on contrave Total time spent today was 30 minutes of which greater than 50% was spent on coordinating and counseling Patient has been found to be obese with a BMI of (38). Patient has class (1) obesity. We are a board certified obesity and weight management practice Patient has trialed behavioral modification, dietary restrictions and exercise for a minimum of 6 months The most recent [place] [employer]in[employer] and [place] [employer] guidelines recommend patients who [...] mentioned above and not solely appetite suppression. We have discussed the mechanism of GLP-1's/GIP, dual incretins, appetitite suppressants I think this would be fantastic option for her given her metabolic workup and body composition We have discussed the risks and benefits and side effects including/and not limited to Sarcopenia, intestinal obstruction, constipation, nausea, lethargy, headache Discussed importance of protein consumption for muscle maintenance as well as strength and resistance training ,probiotics, B12 complex biotin , iron and other nutrients, To help avoid telogen effluvium We have discussed the lifelong requirement of nutritional supplementation And adherence to an exercise regimen as well as importance of follow-up We did discuss the neurohormonal changes that are occurring with these medications and Need for long-term Continued usage The patient understands and agrees There is no history of medullary thyroid cancer or multiple endocrine neoplasia There is also no history of cardiovascular disease, hypertension, palpitations, or arrhythmias In the setting of potential stimulant/amphetam ine use such as phentermine We have also discussed risks and benefits, and the use of compounded medications to help offset the national shortages as well as financial implications vs trade name drugs Patient was reassured and welcomed to the practice. We discussed that we stress a hollistic medical approach with emphasis on lifestyle modification. Patient was informed that a healthy lifestyle with exercise and good eating habits can help reduce his risk of medical complications. He is explained that obesity increases his risk of diabetes, cardiovascular disease, or organ damage. We spent a lot of time discussing the relationship between food, exercise, sleep, mental health and obesity. Patient was counseled on the importance EATING local, organic food when possible. Patient was educated on clean 15 and dirty dozen. I provided information about reading books called The Food Rules by Walter Parkinson and Eat Fat Get Lean by Dr Fab Shipley. Self education is important in the journey for weight management. Patient was offered diagnostic testing. We want to measure visceral adiposity, advanced body composition, adverse lipids, fatty acid balance, risk for heart disease and atherosclerosis, markers of inflammation and genetic susceptibility. Patient was counseled on weight management and was advised to lose weight using A. Meal Replacement Products We discussed the lifelong requirement of nutritional supplementation and adherence to an exercise regimen as well as importance of dietary follow-up Patient was educated on the replacement products called optifast. This is a good way of taking fixed amount of calories. It has been shown in studies to be ineffective weight management tool. We also recommend maintaining adequate protein intake and muscle composition, 1.5mg/kg This however has to be coupled with lifestyle intervention as well as laboratory data and EKG monitoring. It is impossible to know how a person will tolerate complete meal replacement. The side effects of meal replacement and weight loss could include syncopal attacks, dizziness, gallstones, potential cholecystectomy, possible heart attack and even . The benefits of meal replacement would be potential weight loss but no guarantees can be made. Meal replacement products are not covered by insurance. Once the patient has bought these products we cannot return them B. Lifestyle management which includes several strategies as below 1. Eat a low carbohydrate good fat good protein diet. Eliminate refined carbohydrates from the diet. Continue blood sugar and sugared beverages. Eat local organic when possible. Cook your own meals. Read food labels. None about healthy snacks. Portion control and food with low glycemic index 2. Exercise regularly. Try to get at least 6000 steps a day. Use a predominant to track activity level. Consider using apps like tu.nr, [employer], lose it, stick as needed for self-monitoring and weight management. Consider group exercises. Consider hiring a personal chef. Regular exercise is manjarrez to sustainable health and prevents as a buffer against weight regain 3. Sleep is most important for healing. Tried to sleep at least 8 hours a night. A good quality sleep needs a sleep ritual with ideal room temperature of around 68. It might help to take a shower and have no electronics in the room and sleep in a very dark room without artificial light. Start her sleep routine and get up early in the morning and go to bed on time 4. Make a social connection. Surround yourself with positive people with positive energy. Connect with friends and family. 5. Get into the habit of meditating and mindfulness while doing everything. 6. Go outside and connect with nature. C. Prescription medications Patient was educated on the use of prescription medications for medical weight loss. This is a growing list and includes phentermine, Topamax,Qsymia, contrave, belviq and saxenda. All prescription medications could have side effects including but not limited to kidney stones, seizure disorder cardiac arrhythmias heart attack pancreatitis etc. etc.. Patient was encouraged to read the prescription insert and have coaching with their pharmacist and make an informed decision about taking medication and know that these medications are being prescribed with good intentions and we do not know how a patient would react to her medication. Sudden medications are FDA approved for weight loss and there is also off label use depending on patient's inability to afford medications in an attempt to lose weight D. Behavioral counseling was done to establish a relationship between food and an mood. Patient was provided information about local counseling and psychiatry and Dr Marin at [facility]. We would like to cover regular topics and build on low glycemic eating exercise mindful eating, using yoga and meditation along with deep breathing and connecting with friends and family. E. MASS PAT reviewed, Patient's current medications were reviewed and opinion was given on medication that can cause weight gain and can be substituted F. Patient was assessed for risk with obesity including and not limiting to atherosclerosis heart disease stroke kidney disease, restrictive lung disease, irritable bowel syndrome and overall mortality. Risk of developing prediabetes diabetes and metabolic syndrome was discussed G. Therapeutic plan: We have decided to make therapeutic plan which would include choosing wisely on calories restricting portion getting active, tracking weight, getting good quality sleep and working on time management H. Patient will follow up in (4) weeks for weight management Of note, some information is being carried forward from prior records for informational purposes only and is being cited so that efficiency, safety and quality of the patient's care is not compromised This note was prepared using voice recognition software and direct typing Please excuse inadvertent communication center coordinator or typing errors, or uncorrected word substitutions Although every attempt has been made by the provider to proofread this document, occasional misspellings and typographical errors may still be present Due to the previous pandemic, and the use of personal protective equipment (PPE) This may decrease voice recognition accuracy Inadvertent communication center coordinator errors may occur 06/08/2024 Primary insomnia (ICD-10 - F51.01) #Weight Management 06/08/2024 Otherwise well and thriving cont wegovy 2.4mg max dosing cont contrave Follow-up on labs from [place] Total time spent today was 30 minutes of which greater than 50% was spent on coordinating and counseling Patient has been found to be obese with a BMI of (36). Patient has class (2) obesity. We are a board certified obesity and weight management practice Patient has trialed behavioral modification, dietary restrictions and exercise for a minimum of 6 months The most recent [place] [employer] endocrinologists and [place] [employer] guidelines recommend patients who [...] mentioned above and not solely appetite suppression. We have discussed the mechanism of GLP-1's/GIP, dual incretins, appetitite suppressants I think this would be fantastic option for her given her metabolic workup and body composition We have discussed the risks and benefits and side effects including/and not limited to Sarcopenia, intestinal obstruction, constipation, nausea, lethargy, headache Discussed importance of protein consumption for muscle maintenance as well as strength and resistance training ,probiotics, B12 complex biotin , iron and other nutrients, To help avoid telogen effluvium We have discussed the lifelong requirement of nutritional supplementation And adherence to an exercise regimen as well as importance of follow-up We did discuss the neurohormonal changes that are occurring with these medications and Need for long-term Continued usage The patient understands and agrees There is no history of medullary thyroid cancer or multiple endocrine neoplasia There is also no history of cardiovascular disease, hypertension, palpitations, or arrhythmias In the setting of potential stimulant/amphetam ine use such as phentermine We have also discussed risks and benefits, and the use of compounded medications to help offset the national shortages as well as financial implications vs trade name drugs Patient was reassured and welcomed to the practice. We discussed that we stress a hollistic medical approach with emphasis on lifestyle modification. Patient was informed that a healthy lifestyle with exercise and good eating habits can help reduce his risk of medical complications. He is explained that obesity increases his risk of diabetes, cardiovascular disease, or organ damage. We spent a lot of time discussing the relationship between food, exercise, sleep, mental health and obesity. Patient was counseled on the importance EATING local, organic food when possible. Patient was educated on clean 15 and dirty dozen. I provided information about reading books called The Food Rules by Walter Parkinson and Eat Fat Get Lean by Dr Fab Shipley. Self education is important in the journey for weight management. Patient was offered diagnostic testing. We want to measure visceral adiposity, advanced body composition, adverse lipids, fatty acid balance, risk for heart disease and atherosclerosis, markers of inflammation and genetic susceptibility. Patient was counseled on weight management and was advised to lose weight using A. Meal Replacement Products We discussed the lifelong requirement of nutritional supplementation and adherence to an exercise regimen as well as importance of dietary follow-up Patient was educated on the replacement products called optifast. This is a good way of taking fixed amount of calories. It has been shown in studies to be ineffective weight management tool. We also recommend maintaining adequate protein intake and muscle composition, 1.5mg/kg This however has to be coupled with lifestyle intervention as well as laboratory data and EKG monitoring. It is impossible to know how a person will tolerate complete meal replacement. The side effects of meal replacement and weight loss could include syncopal attacks, dizziness, gallstones, potential cholecystectomy, possible heart attack and even . The benefits of meal replacement would be potential weight loss but no guarantees can be made. Meal replacement products are not covered by insurance. Once the patient has bought these products we cannot return them B. Lifestyle management which includes several strategies as below 1. Eat a low carbohydrate good fat good protein diet. Eliminate refined carbohydrates from the diet. Continue blood sugar and sugared beverages. Eat local organic when possible. Cook your own meals. Read food labels. None about healthy snacks. Portion control and food with low glycemic index 2. Exercise regularly. Try to get at least 6000 steps a day. Use a predominant to track activity level. Consider using apps like tu.nr, myfitnesspal, lose it, stick as needed for self-monitoring and weight management. Consider group exercises. Consider hiring a personal chef. Regular exercise is manjarrez to sustainable health and prevents as a buffer against weight regain 3. Sleep is most important for healing. Tried to sleep at least 8 hours a night. A good quality sleep needs a sleep ritual with ideal room temperature of around 68. It might help to take a shower and have no electronics in the room and sleep in a very dark room without artificial light. Start her sleep routine and get up early in the morning and go to bed on time 4. Make a social connection. Surround yourself with positive people with positive energy. Connect with friends and family. 5. Get into the habit of meditating and mindfulness while doing everything. 6. Go outside and connect with nature. C. Prescription medications Patient was educated on the use of prescription medications for medical weight loss. This is a growing list and includes phentermine, Topamax,Qsymia, contrave, belviq and saxenda. All prescription medications could have side effects including but not limited to kidney stones, seizure disorder cardiac arrhythmias heart attack pancreatitis etc. etc.. Patient was encouraged to read the prescription insert and have coaching with their pharmacist and make an informed decision about taking medication and know that these medications are being prescribed with good intentions and we do not know how a patient would react to her medication. Sudden medications are FDA approved for weight loss and there is also off label use depending on patient's inability to afford medications in an attempt to lose weight D. Behavioral counseling was done to establish a relationship between food and an mood. Patient was provided information about local counseling and psychiatry and Dr Marin at [facility]. We would like to cover regular topics and build on low glycemic eating exercise mindful eating, using yoga and meditation along with deep breathing and connecting with friends and family. E. MASS PAT reviewed, Patient's current medications were reviewed and opinion was given on medication that can cause weight gain and can be substituted F. Patient was assessed for risk with obesity including and not limiting to atherosclerosis heart disease stroke kidney disease, restrictive lung disease, irritable bowel syndrome and overall mortality. Risk of developing prediabetes diabetes and metabolic syndrome was discussed G. Therapeutic plan: We have decided to make therapeutic plan which would include choosing wisely on calories restricting portion getting active, tracking weight, getting good quality sleep and working on time management H. Patient will follow up in (4) weeks for weight management Of note, some information is being carried forward from prior records for informational purposes only and is being cited so that efficiency, safety and quality of the patient's care is not compromised This note was prepared using voice recognition software and direct typing Please excuse inadvertent communication center coordinator or typing errors, or uncorrected word substitutions Although every attempt has been made by the provider to proofread this document, occasional misspellings and typographical errors may still be present Due to the previous pandemic, and the use of personal protective equipment (PPE) This may decrease voice recognition accuracy Inadvertent communication center coordinator errors may occur 03/30/2024 Primary insomnia (ICD-10 - F51.01) Werght MGt 03/30/2024 cont wegovy 2.4mg max dosing add on contrave Total time spent today was 30 minutes of which greater than 50% was spent on coordinating and counseling Patient has been found to be obese with a BMI of (38). Patient has class (1) obesity. We are a board certified obesity and weight management practice Patient has trialed behavioral modification, dietary restrictions and exercise for a minimum of 6 months The most recent [place] [employer]ocrinologists and [place] [employer] guidelines recommend patients who [...] mentioned above and not solely appetite suppression. We have discussed the mechanism of GLP-1's/GIP, dual incretins, appetitite suppressants I think this would be fantastic option for her given her metabolic workup and body composition We have discussed the risks and benefits and side effects including/and not limited to Sarcopenia, intestinal obstruction, constipation, nausea, lethargy, headache Discussed importance of protein consumption for muscle maintenance as well as strength and resistance training ,probiotics, B12 complex biotin , iron and other nutrients, To help avoid telogen effluvium We have discussed the lifelong requirement of nutritional supplementation And adherence to an exercise regimen as well as importance of follow-up We did discuss the neurohormonal changes that are occurring with these medications and Need for long-term Continued usage The patient understands and agrees There is no history of medullary thyroid cancer or multiple endocrine neoplasia There is also no history of cardiovascular disease, hypertension, palpitations, or arrhythmias In the setting of potential stimulant/amphetam ine use such as phentermine We have also discussed risks and benefits, and the use of compounded medications to help offset the national shortages as well as financial implications vs trade name drugs Patient was reassured and welcomed to the practice. We discussed that we stress a hollistic medical approach with emphasis on lifestyle modification. Patient was informed that a healthy lifestyle with exercise and good eating habits can help reduce his risk of medical complications. He is explained that obesity increases his risk of diabetes, cardiovascular disease, or organ damage. We spent a lot of time discussing the relationship between food, exercise, sleep, mental health and obesity. Patient was counseled on the importance EATING local, organic food when possible. Patient was educated on clean 15 and dirty dozen. I provided information about reading books called The Food Rules by Walter Parkinson and Eat Fat Get Lean by Dr Fab Shipley. Self education is important in the journey for weight management. Patient was offered diagnostic testing. We want to measure visceral adiposity, advanced body composition, adverse lipids, fatty acid balance, risk for heart disease and atherosclerosis, markers of inflammation and genetic susceptibility. Patient was counseled on weight management and was advised to lose weight using A. Meal Replacement Products We discussed the lifelong requirement of nutritional supplementation and adherence to an exercise regimen as well as importance of dietary follow-up Patient was educated on the replacement products called optifast. This is a good way of taking fixed amount of calories. It has been shown in studies to be ineffective weight management tool. We also recommend maintaining adequate protein intake and muscle composition, 1.5mg/kg This however has to be coupled with lifestyle intervention as well as laboratory data and EKG monitoring. It is impossible to know how a person will tolerate complete meal replacement. The side effects of meal replacement and weight loss could include syncopal attacks, dizziness, gallstones, potential cholecystectomy, possible heart attack and even . The benefits of meal replacement would be potential weight loss but no guarantees can be made. Meal replacement products are not covered by insurance. Once the patient has bought these products we cannot return them B. Lifestyle management which includes several strategies as below 1. Eat a low carbohydrate good fat good protein diet. Eliminate refined carbohydrates from the diet. Continue blood sugar and sugared beverages. Eat local organic when possible. Cook your own meals. Read food labels. None about healthy snacks. Portion control and food with low glycemic index 2. Exercise regularly. Try to get at least 6000 steps a day. Use a predominant to track activity level. Consider using apps like tu[employer]nr, [employer], lose it, stick as needed for self-monitoring and weight management. Consider group exercises. Consider hiring a personal chef. Regular exercise is manjarrez to sustainable health and prevents as a buffer against weight regain 3. Sleep is most important for healing. Tried to sleep at least 8 hours a night. A good quality sleep needs a sleep ritual with ideal room temperature of around 68. It might help to take a shower and have no electronics in the room and sleep in a very dark room without artificial light. Start her sleep routine and get up early in the morning and go to bed on time 4. Make a social connection. Surround yourself with positive people with positive energy. Connect with friends and family. 5. Get into the habit of meditating and mindfulness while doing everything. 6. Go outside and connect with nature. C. Prescription medications Patient was educated on the use of prescription medications for medical weight loss. This is a growing list and includes phentermine, Topamax,Qsymia, contrave, belviq and saxenda. All prescription medications could have side effects including but not limited to kidney stones, seizure disorder cardiac arrhythmias heart attack pancreatitis etc. etc.. Patient was encouraged to read the prescription insert and have coaching with their pharmacist and make an informed decision about taking medication and know that these medications are being prescribed with good intentions and we do not know how a patient would react to her medication. Sudden medications are FDA approved for weight loss and there is also off label use depending on patient's inability to afford medications in an attempt to lose weight D. Behavioral counseling was done to establish a relationship between food and an mood. Patient was provided information about local counseling and psychiatry and Dr Marin at [facility]. We would like to cover regular topics and build on low glycemic eating exercise mindful eating, using yoga and meditation along with deep breathing and connecting with friends and family. E. MASS PAT reviewed, Patient's current medications were reviewed and opinion was given on medication that can cause weight gain and can be substituted F. Patient was assessed for risk with obesity including and not limiting to atherosclerosis heart disease stroke kidney disease, restrictive lung disease, irritable bowel syndrome and overall mortality. Risk of developing prediabetes diabetes and metabolic syndrome was discussed G. Therapeutic plan: We have decided to make therapeutic plan which would include choosing wisely on calories restricting portion getting active, tracking weight, getting good quality sleep and working on time management H. Patient will follow up in (4) weeks for weight management Of note, some information is being carried forward from prior records for informational purposes only and is being cited so that efficiency, safety and quality of the patient's care is not compromised This note was prepared using voice recognition software and direct typing Please excuse inadvertent communication center coordinator or typing errors, or uncorrected word substitutions Although every attempt has been made by the provider to proofread this document, occasional misspellings and typographical errors may still be present Due to the previous pandemic, and the use of personal protective equipment (PPE) This may decrease voice recognition accuracy Inadvertent communication center coordinator errors may occur 12/18/2024 Primary insomnia (ICD-10 - F51.01) #Weight Management 12/18/2024 Patient expresses interest in transitioning to Zepbound sleep study cont wegovy 2.4mg Total time spent today was 30 minutes of which greater than 50% was spent on coordinating and counseling Patient has been found to be obese with a BMI of (36). Patient has class (2) obesity. Of note, some information is being carried forward from prior records for informational purposes only and is being cited so that efficiency, safety and quality of the patient's care is not compromised This note was prepared using voice recognition software and direct typing Please excuse inadvertent communication center coordinator or typing errors, or uncorrected word substitutions Although every attempt has been made by the provider to proofread this document, occasional misspellings and typographical errors may still be present Due to the previous pandemic, and the use of personal protective equipment (PPE) This may decrease voice recognition accuracy Inadvertent communication center coordinator errors may occur 09/14/2024 Primary insomnia (ICD-10 - F51.01) #Weight Management 09/14/2024 Patient expresses interest in transitioning to Zepbound We will facilitate this Labs reviewed Total time spent today was 30 minutes of which greater than 50% was spent on coordinating and counseling Patient has been found to be obese with a BMI of (35). Patient has class (2) obesity. We are a board certified obesity and weight management practice Patient has trialed behavioral modification, dietary restrictions and exercise for a minimum of 6 months The most recent [place] [employer]in[employer] and [place] [employer] guidelines recommend patients who [...] software and direct typing Please excuse inadvertent communication center coordinator or typing errors, or uncorrected word substitutions Although every attempt has been made by the provider to proofread this document, occasional misspellings and typographical errors may still be present Due to the previous pandemic, and the use of personal protective equipment (PPE) This may decrease voice recognition accuracy Inadvertent communication center coordinator errors may occur 08/06/2024 Depression with anxiety (ICD-10 - F41.8) #Weight Management 08/06/2024 Otherwise well and thriving cont wegovy 2.4mg max dosing cont contrave Follow-up on labs from [place] Total time spent today was 30 minutes of which greater than 50% was spent on coordinating and counseling Patient has been found to be obese with a BMI of (36). Patient has class (2) obesity. We are a board certified obesity and weight management practice Patient has trialed behavioral modification, dietary restrictions and exercise for a minimum of 6 months The most recent [place] [employer] and [place] [employer] guidelines recommend patients who [...] software and direct typing Please excuse inadvertent communication center coordinator or typing errors, or uncorrected word substitutions Although every attempt has been made by the provider to proofread this document, occasional misspellings and typographical errors may still be present Due to the previous pandemic, and the use of personal protective equipment (PPE) This may decrease voice recognition accuracy Inadvertent communication center coordinator errors may occur 11/16/2024 Depression with anxiety (ICD-10 - F41.8) #Weight Management 11/16/2024 Patient [...] software and direct typing Please excuse inadvertent communication center coordinator or typing errors, or uncorrected word substitutions Although every attempt has been made by the provider to proofread this document, occasional misspellings and typographical errors may still be present Due to the previous pandemic, and the use of personal protective equipment (PPE) This may decrease voice recognition accuracy Inadvertent communication center coordinator errors may occur 09/14/2024 Essential (primary) hypertension (ICD-10 - I10) #Weight Management 09/14/2024 Patient expresses interest in transitioning to Zepbound We will facilitate this Labs reviewed Total time spent today was 30 minutes of which greater than 50% was spent on coordinating and counseling Patient has been found to be obese with a BMI of (35). Patient has class (2) obesity. We are a board certified obesity and weight management practice Patient has trialed behavioral modification, dietary restrictions and exercise for a minimum of 6 months The most recent [place] [employer]in[employer] and [place] [employer] guidelines recommend patients who [...] software and direct typing Please excuse inadvertent communication center coordinator or typing errors, or uncorrected word substitutions Although every attempt has been made by the provider to proofread this document, occasional misspellings and typographical errors may still be present Due to the previous pandemic, and the use of personal protective equipment (PPE) This may decrease voice recognition accuracy Inadvertent communication center coordinator errors may occur 12/18/2024 Essential (primary) hypertension (ICD-10 - I10) #Weight Management 12/18/2024 Patient expresses interest in transitioning to Zepbound sleep study cont wegovy 2.4mg Total time spent today was 30 minutes of which greater than 50% was spent on coordinating and counseling Patient has been found to be obese with a BMI of (36). Patient has class (2) obesity. Of note, some information is being carried forward from prior records for informational purposes only and is being cited so that efficiency, safety and quality of the patient's care is not compromised This note was prepared using voice recognition software and direct typing Please excuse inadvertent communication center coordinator or typing errors, or uncorrected word substitutions Although every attempt has been made by the provider to proofread this document, occasional misspellings and typographical errors may still be present Due to the previous pandemic, and the use of personal protective equipment (PPE) This may decrease voice recognition accuracy Inadvertent communication center coordinator errors may occur 11/16/2024 Primary insomnia (ICD-10 [...] software and direct typing Please excuse inadvertent communication center coordinator or typing errors, or uncorrected word substitutions Although every attempt has been made by the provider to proofread this document, occasional misspellings and typographical errors may still be present Due to the previous pandemic, and the use of personal protective equipment (PPE) This may decrease voice recognition accuracy Inadvertent communication center coordinator errors may occur 03/30/2024 Essential (primary) hypertension (ICD-10 - I10) Werght MGt 03/30/2024 cont wegovy 2.4mg max dosing add on contrave Total time spent today was 30 minutes of which greater than 50% was spent on coordinating and counseling Patient has been found to be obese with a BMI of (38). Patient has class (1) obesity. We are a board certified obesity and weight management practice Patient has trialed behavioral modification, dietary restrictions and exercise for a minimum of 6 months The most recent [place] [employer]ocrin[employer] and [place] [employer] guidelines recommend patients who [...] mentioned above and not solely appetite suppression. We have discussed the mechanism of GLP-1's/GIP, dual incretins, appetitite suppressants I think this would be fantastic option for her given her metabolic workup and body composition We have discussed the risks and benefits and side effects including/and not limited to Sarcopenia, intestinal obstruction, constipation, nausea, lethargy, headache Discussed importance of protein consumption for muscle maintenance as well as strength and resistance training ,probiotics, B12 complex biotin , iron and other nutrients, To help avoid telogen effluvium We have discussed the lifelong requirement of nutritional supplementation And adherence to an exercise regimen as well as importance of follow-up We did discuss the neurohormonal changes that are occurring with these medications and Need for long-term Continued usage The patient understands and agrees There is no history of medullary thyroid cancer or multiple endocrine neoplasia There is also no history of cardiovascular disease, hypertension, palpitations, or arrhythmias In the setting of potential stimulant/amphetam ine use such as phentermine We have also discussed risks and benefits, and the use of compounded medications to help offset the national shortages as well as financial implications vs trade name drugs Patient was reassured and welcomed to the practice. We discussed that we stress a hollistic medical approach with emphasis on lifestyle modification. Patient was informed that a healthy lifestyle with exercise and good eating habits can help reduce his risk of medical complications. He is explained that obesity increases his risk of diabetes, cardiovascular disease, or organ damage. We spent a lot of time discussing the relationship between food, exercise, sleep, mental health and obesity. Patient was counseled on the importance EATING local, organic food when possible. Patient was educated on clean 15 and dirty dozen. I provided information about reading books called The Food Rules by Walter Parkinson and Eat Fat Get Lean by Dr Fab Shipley. Self education is important in the journey for weight management. Patient was offered diagnostic testing. We want to measure visceral adiposity, advanced body composition, adverse lipids, fatty acid balance, risk for heart disease and atherosclerosis, markers of inflammation and genetic susceptibility. Patient was counseled on weight management and was advised to lose weight using A. Meal Replacement Products We discussed the lifelong requirement of nutritional supplementation and adherence to an exercise regimen as well as importance of dietary follow-up Patient was educated on the replacement products called optifast. This is a good way of taking fixed amount of calories. It has been shown in studies to be ineffective weight management tool. We also recommend maintaining adequate protein intake and muscle composition, 1.5mg/kg This however has to be coupled with lifestyle intervention as well as laboratory data and EKG monitoring. It is impossible to know how a person will tolerate complete meal replacement. The side effects of meal replacement and weight loss could include syncopal attacks, dizziness, gallstones, potential cholecystectomy, possible heart attack and even . The benefits of meal replacement would be potential weight loss but no guarantees can be made. Meal replacement products are not covered by insurance. Once the patient has bought these products we cannot return them B. Lifestyle management which includes several strategies as below 1. Eat a low carbohydrate good fat good protein diet. Eliminate refined carbohydrates from the diet. Continue blood sugar and sugared beverages. Eat local organic when possible. Cook your own meals. Read food labels. None about healthy snacks. Portion control and food with low glycemic index 2. Exercise regularly. Try to get at least 6000 steps a day. Use a predominant to track activity level. Consider using apps like [employer]nr, [employer], lose it, stick as needed for self-monitoring and weight management. Consider group exercises. Consider hiring a personal chef. Regular exercise is manjarrez to sustainable health and prevents as a buffer against weight regain 3. Sleep is most important for healing. Tried to sleep at least 8 hours a night. A good quality sleep needs a sleep ritual with ideal room temperature of around 68. It might help to take a shower and have no electronics in the room and sleep in a very dark room without artificial light. Start her sleep routine and get up early in the morning and go to bed on time 4. Make a social connection. Surround yourself with positive people with positive energy. Connect with friends and family. 5. Get into the habit of meditating and mindfulness while doing everything. 6. Go outside and connect with nature. C. Prescription medications Patient was educated on the use of prescription medications for medical weight loss. This is a growing list and includes phentermine, Topamax,Qsymia, contrave, belviq and saxenda. All prescription medications could have side effects including but not limited to kidney stones, seizure disorder cardiac arrhythmias heart attack pancreatitis etc. etc.. Patient was encouraged to read the prescription insert and have coaching with their pharmacist and make an informed decision about taking medication and know that these medications are being prescribed with good intentions and we do not know how a patient would react to her medication. Sudden medications are FDA approved for weight loss and there is also off label use depending on patient's inability to afford medications in an attempt to lose weight D. Behavioral counseling was done to establish a relationship between food and an mood. Patient was provided information about local counseling and psychiatry and Dr Marin at [facility]. We would like to cover regular topics and build on low glycemic eating exercise mindful eating, using yoga and meditation along with deep breathing and connecting with friends and family. E. MASS PAT reviewed, Patient's current medications were reviewed and opinion was given on medication that can cause weight gain and can be substituted F. Patient was assessed for risk with obesity including and not limiting to atherosclerosis heart disease stroke kidney disease, restrictive lung disease, irritable bowel syndrome and overall mortality. Risk of developing prediabetes diabetes and metabolic syndrome was discussed G. Therapeutic plan: We have decided to make therapeutic plan which would include choosing wisely on calories restricting portion getting active, tracking weight, getting good quality sleep and working on time management H. Patient will follow up in (4) weeks for weight management Of note, some information is being carried forward from prior records for informational purposes only and is being cited so that efficiency, safety and quality of the patient's care is not compromised This note was prepared using voice recognition software and direct typing Please excuse inadvertent communication center coordinator or typing errors, or uncorrected word substitutions Although every attempt has been made by the provider to proofread this document, occasional misspellings and typographical errors may still be present Due to the previous pandemic, and the use of personal protective equipment (PPE) This may decrease voice recognition accuracy Inadvertent communication center coordinator errors may occur 06/08/2024 Essential (primary) hypertension (ICD-10 - I10) #Weight Management 06/08/2024 Otherwise well and thriving cont wegovy 2.4mg max dosing cont contrave Follow-up on labs from [place] Total time spent today was 30 minutes of which greater than 50% was spent on coordinating and counseling Patient has been found to be obese with a BMI of (36). Patient has class (2) obesity. We are a board certified obesity and weight management practice Patient has trialed behavioral modification, dietary restrictions and exercise for a minimum of 6 months The most recent [place] [employer]ocrinologists and [place] [employer] guidelines recommend patients who [...] mentioned above and not solely appetite suppression. We have discussed the mechanism of GLP-1's/GIP, dual incretins, appetitite suppressants I think this would be fantastic option for her given her metabolic workup and body composition We have discussed the risks and benefits and side effects including/and not limited to Sarcopenia, intestinal obstruction, constipation, nausea, lethargy, headache Discussed importance of protein consumption for muscle maintenance as well as strength and resistance training ,probiotics, B12 complex biotin , iron and other nutrients, To help avoid telogen effluvium We have discussed the lifelong requirement of nutritional supplementation And adherence to an exercise regimen as well as importance of follow-up We did discuss the neurohormonal changes that are occurring with these medications and Need for long-term Continued usage The patient understands and agrees There is no history of medullary thyroid cancer or multiple endocrine neoplasia There is also no history of cardiovascular disease, hypertension, palpitations, or arrhythmias In the setting of potential stimulant/amphetam ine use such as phentermine We have also discussed risks and benefits, and the use of compounded medications to help offset the national shortages as well as financial implications vs trade name drugs Patient was reassured and welcomed to the practice. We discussed that we stress a hollistic medical approach with emphasis on lifestyle modification. Patient was informed that a healthy lifestyle with exercise and good eating habits can help reduce his risk of medical complications. He is explained that obesity increases his risk of diabetes, cardiovascular disease, or organ damage. We spent a lot of time discussing the relationship between food, exercise, sleep, mental health and obesity. Patient was counseled on the importance EATING local, organic food when possible. Patient was educated on clean 15 and dirty dozen. I provided information about reading books called The Food Rules by Walter Parkinson and Eat Fat Get Lean by Dr Fab Shipley. Self education is important in the journey for weight management. Patient was offered diagnostic testing. We want to measure visceral adiposity, advanced body composition, adverse lipids, fatty acid balance, risk for heart disease and atherosclerosis, markers of inflammation and genetic susceptibility. Patient was counseled on weight management and was advised to lose weight using A. Meal Replacement Products We discussed the lifelong requirement of nutritional supplementation and adherence to an exercise regimen as well as importance of dietary follow-up Patient was educated on the replacement products called optifast. This is a good way of taking fixed amount of calories. It has been shown in studies to be ineffective weight management tool. We also recommend maintaining adequate protein intake and muscle composition, 1.5mg/kg This however has to be coupled with lifestyle intervention as well as laboratory data and EKG monitoring. It is impossible to know how a person will tolerate complete meal replacement. The side effects of meal replacement and weight loss could include syncopal attacks, dizziness, gallstones, potential cholecystectomy, possible heart attack and even . The benefits of meal replacement would be potential weight loss but no guarantees can be made. Meal replacement products are not covered by insurance. Once the patient has bought these products we cannot return them B. Lifestyle management which includes several strategies as below 1. Eat a low carbohydrate good fat good protein diet. Eliminate refined carbohydrates from the diet. Continue blood sugar and sugared beverages. Eat local organic when possible. Cook your own meals. Read food labels. None about healthy snacks. Portion control and food with low glycemic index 2. Exercise regularly. Try to get at least 6000 steps a day. Use a predominant to track activity level. Consider using apps like tu[employer]nr, [employer], lose it, stick as needed for self-monitoring and weight management. Consider group exercises. Consider hiring a personal chef. Regular exercise is manjarrez to sustainable health and prevents as a buffer against weight regain 3. Sleep is most important for healing. Tried to sleep at least 8 hours a night. A good quality sleep needs a sleep ritual with ideal room temperature of around 68. It might help to take a shower and have no electronics in the room and sleep in a very dark room without artificial light. Start her sleep routine and get up early in the morning and go to bed on time 4. Make a social connection. Surround yourself with positive people with positive energy. Connect with friends and family. 5. Get into the habit of meditating and mindfulness while doing everything. 6. Go outside and connect with nature. C. Prescription medications Patient was educated on the use of prescription medications for medical weight loss. This is a growing list and includes phentermine, Topamax,Qsymia, contrave, belviq and saxenda. All prescription medications could have side effects including but not limited to kidney stones, seizure disorder cardiac arrhythmias heart attack pancreatitis etc. etc.. Patient was encouraged to read the prescription insert and have coaching with their pharmacist and make an informed decision about taking medication and know that these medications are being prescribed with good intentions and we do not know how a patient would react to her medication. Sudden medications are FDA approved for weight loss and there is also off label use depending on patient's inability to afford medications in an attempt to lose weight D. Behavioral counseling was done to establish a relationship between food and an mood. Patient was provided information about local counseling and psychiatry and Dr Marin at [facility]. We would like to cover regular topics and build on low glycemic eating exercise mindful eating, using yoga and meditation along with deep breathing and connecting with friends and family. E. MASS PAT reviewed, Patient's current medications were reviewed and opinion was given on medication that can cause weight gain and can be substituted F. Patient was assessed for risk with obesity including and not limiting to atherosclerosis heart disease stroke kidney disease, restrictive lung disease, irritable bowel syndrome and overall mortality. Risk of developing prediabetes diabetes and metabolic syndrome was discussed G. Therapeutic plan: We have decided to make therapeutic plan which would include choosing wisely on calories restricting portion getting active, tracking weight, getting good quality sleep and working on time management H. Patient will follow up in (4) weeks for weight management Of note, some information is being carried forward from prior records for informational purposes only and is being cited so that efficiency, safety and quality of the patient's care is not compromised This note was prepared using voice recognition software and direct typing Please excuse inadvertent communication center coordinator or typing errors, or uncorrected word substitutions Although every attempt has been made by the provider to proofread this document, occasional misspellings and typographical errors may still be present Due to the previous pandemic, and the use of personal protective equipment (PPE) This may decrease voice recognition accuracy Inadvertent communication center coordinator errors may occur 08/06/2024 Primary insomnia (ICD-10 - F51.01) #Weight Management 08/06/2024 Otherwise well and thriving cont wegovy 2.4mg max dosing cont contrave Follow-up on labs from [place] Total time spent today was 30 minutes of which greater than 50% was spent on coordinating and counseling Patient has been found to be obese with a BMI of (36). Patient has class (2) obesity. We are a board certified obesity and weight management practice Patient has trialed behavioral modification, dietary restrictions and exercise for a minimum of 6 months The most recent [place] [employer] of clinical endocrinologists and [place] [employer] guidelines recommend patients who [...] software and direct typing Please excuse inadvertent communication center coordinator or typing errors, or uncorrected word substitutions Although every attempt has been made by the provider to proofread this document, occasional misspellings and typographical errors may still be present Due to the previous pandemic, and the use of personal protective equipment (PPE) This may decrease voice recognition accuracy Inadvertent communication center coordinator errors may occur 08/06/2024 Essential (primary) hypertension (ICD-10 - I10) #Weight Management 08/06/2024 Otherwise well and thriving cont wegovy 2.4mg max dosing cont contrave Follow-up on labs from [place] Total time spent today was 30 minutes of which greater than 50% was spent on coordinating and counseling Patient has been found to be obese with a BMI of (36). Patient has class (2) obesity. We are a board certified obesity and weight management practice Patient has trialed behavioral modification, dietary restrictions and exercise for a minimum of 6 months The most recent [place] [employer] endocrinologists and [place] [employer] guidelines recommend patients who [...] software and direct typing Please excuse inadvertent communication center coordinator or typing errors, or uncorrected word substitutions Although every attempt has been made by the provider to proofread this document, occasional misspellings and typographical errors may still be present Due to the previous pandemic, and the use of personal protective equipment (PPE) This may decrease voice recognition accuracy Inadvertent communication center coordinator errors may occur 11/16/2024 Essential (primary) hypertension [...] software and direct typing Please excuse inadvertent communication center coordinator or typing errors, or uncorrected word substitutions Although every attempt has been made by the provider to proofread this document, occasional misspellings and typographical errors may still be present Due to the previous pandemic, and the use of personal protective equipment (PPE) This may decrease voice recognition accuracy Inadvertent communication center coordinator errors may occur 12/18/2024 Snoring (ICD-10 - R06.83) #Weight Management 12/18/2024 Patient expresses interest in transitioning to Zepbound sleep study cont wegovy 2.4mg Total time spent today was 30 minutes of which greater than 50% was spent on coordinating and counseling Patient has been found to be obese with a BMI of (36). Patient has class (2) obesity. Of note, some information is being carried forward from prior records for informational purposes only and is being cited so that efficiency, safety and quality of the patient's care is not compromised This note was prepared using voice recognition software and direct typing Please excuse inadvertent communication center coordinator or typing errors, or uncorrected word substitutions Although every attempt has been made by the provider to proofread this document, occasional misspellings and typographical errors may still be present Due to the previous pandemic, and the use of personal protective equipment (PPE) This may decrease voice recognition accuracy Inadvertent communication center coordinator errors may occur 12/18/2024 Daytime somnolence (ICD-10 - R40.0) #Weight Management 12/18/2024 Patient expresses interest in transitioning to Zepbound sleep study cont wegovy 2.4mg Total time spent today was 30 minutes of which greater than 50% was spent on coordinating and counseling Patient has been found to be obese with a BMI of (36). Patient has class (2) obesity. Of note, some information is being carried forward from prior records for informational purposes only and is being cited so that efficiency, safety and quality of the patient's care is not compromised This note was prepared using voice recognition software and direct typing Please excuse inadvertent communication center coordinator or typing errors, or uncorrected word substitutions Although every attempt has been made by the provider to proofread this document, occasional misspellings and typographical errors may still be present Due to the previous pandemic, and the use of personal protective equipment (PPE) This may decrease voice recognition accuracy Inadvertent communication center coordinator errors may occur PLAN OF TREATMENT Pending Test Test Name Order Date LIPID PANEL, STANDARD 10/22/2023 COMPREHENSIVE METABOLIC PANEL 10/22/2023 CBC (INCLUDES DIFF/PLT) 10/22/2023 URINALYSIS, COMPLETE 10/22/2023 Next Appt Details Provider Name:LIZABETH OLIVO, 02/08/2025 08:30:00 AM, [address] [facility], [facility], [place], [address], Insurance Providers Payer Name Payer Address Payer Phone Subscriber Number Group Number Insured Name Patient Relationship to Insured Coverage Start Date Coverage End Date [address] [place] [address] [phone] [id number] Kizna Lynch Self - patient is the insured 3 MEDICAL (GENERAL) HISTORY Medical History History ICD Code hypertension hypercholesterolemia depression weight gain
--- OUTSIDE RECORDS SUMMARY | 2025-01-20 12:24 | XMS_ITS | Patient Health Record ---
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 Name Role Phone Wilfred Kimbrough Primary Care Provider Unav ailable Black, Arianna Unavailable [phone] Allergies No Known Allergies Reason For Referral No Information Medications Medication SIG (Take, Route, Frequency, Duration) Notes Start Date End Date Status Ammonium Lactate 12 % 1 application Exte rnally Twice a day for 30 days Not-Taki ng Losartan Potassium 25 MG 1 tablet Orally Once a day Active Gabapentin 100 MG 1 capsule at bedtime Orally Once a day Active Multivitamin Active Vitamin B12 Active Diclofenac Sodium 50 MG 1 tablet as need ed Orally Twice a day for 20 days 06/16/2024 Not-Taking Gabapentin 300 MG 1 capsule Orally thr ee times a day for 30 days Active Naltrexone-buPROPion HCl ER 8-90 MG 1 tablet in the morning Orally Once a day Active Celecoxib 200 MG Oral for 30 Days Not-Taking Night Splint AFO - L1930 1 wear at rest for 30 days Not-Taking Dicyclomine HCl 10 MG 2 capsules Orally Three times a day Not-Taking ZyrTEC Not-Taking Rosuvastatin Calcium 20 MG 1 tablet Orally Once a day Active LORazepam 0.5 MG (Schedule IV Drug) O ral for 30 PRN Active Zolpidem Tartrate 5 MG 1 tablet at bedti me as needed Orally Once a day PRN Active Wegovy 2.4 MG/0.75ML 0.5 mL Subcutaneous Active Docusate Sodium 100 MG 1 capsule as need ed Orally Once a day PRN Active Ciclopirox Olamine 0.77 % 1 application Externally Twice a day for 30 days Active Vitamin C 500 MG as directed Orally Active Clobetasol Propionate 0.05 % 1 application Externally Twice a day Active Vitamin D3 Active Fluocinolone Acetonide 0.01 % 5 drops into affected ear Otic Twice a day Active Fexofenadine-Pseudoephed rine Active Prednisone Not-Takin g Ciclopirox Olamine 0.77% external Apply to effected areas twice a day for 30 days 03/04/2018 Not-Taking Escitalopram Oxalate 10 MG 1 tablet Orally Once a day Not-Taking Estradiol 1 MG Oral for 90 Not -Taking Meloxicam 7.5 MG 1 tablet Orally twic e a day for 30 days Not-Taking Albuterol Sulfate No t-Taking Omeprazole 20 MG 1 capsule 1/2 to 1 h our before morning meal Orally Once a day Not-Taking Meloxicam 7.5 MG 1 tablet Orally Once a day Not-Taking Ibuprofen 800 MG 1 tablet with food o r milk as needed Orally every 8 hrs Not-Taking Propranolol HCl 120mg once a day Active Vitamin E Active Fish Oil Active Physical Therapy . . . 2x/week for 3-4 weeks 08/16/2015 Not-Taking Physical Therapy . . . 2x/week for 3-4 weeks Not-Taking CeleBREX 200 MG 1 capsule Orally Onc e a day for 30 day(s) 07/10/2016 Not-Taking Ibuprofen Not-Taking Nystatin Active Temazepam 15 MG (Schedule IV Drug) O ral for 30 Not-Taking Fluticasone Propionate 50 MCG/ACT Nasal for 30 Not-Taking Co Q 10 Active Ciclopirox Olamine 0.77% external Apply to effected areas twice a day for 30 days 05/20/2015 Not-Taking Sodium Chloride 0.65 % as directed Nasally Active Fluocinolone Acetonide 0.01 % Otic for 30 Not-Taking Clotrimazole-Betamethaso ne 1-0.05 % 1 application to affected area Externally Twice a day to affected areas on feet for 30 days 06/15/2015 Not-Taking Meloxicam 15 MG 1 tablet Orally Once a day for 90 days 03/14/2020 Not-Taking Meloxicam 15 MG 1 tablet Orally Once a day for 90 days 11/22/2020 Not-Taking Social History Tobacco Use: Social History Observation Description Date Details (start date - stop date) Never Smoker NA - NA Tobacco use other than smoking: Question Answer Notes Are you an other tobacco user? No Tobacco Control (Standard) Question Answer Notes Tobacco use: Nonsmoker Additional Findings: Tobacco non-user Current no nsmoker AUDIT-C (Standard) Question Answer Notes Did you have a drink contain ing alcohol in the past year? Yes How often did you have six o r more drinks on one occasion in the past year? 2 to 3 times per week (3 points) How many drinks did you have on a typical day when you were drinking in the past year? 1 or 2 drinks (0 point) How often did you have a dri nk containing alcohol in the past year? 2 to 3 times a week (3 points) Points 6 Interpretation Positive Problems Problem Type SNOMED Code ICD Code Onset Dates Problem Status W/U Status Risk Notes Problem Acquired hammer toe of right foot (1291630482620822) Other hammer toe(s) (acquired), right foot (M20.41) Active confirmed Problem Acquired hammer toe of left foot (4751408967697230) Other hammer toe(s) (acquired), left foot (M20.42) Active confirmed Problem Localized, primary osteoarthritis of the ankle and/or foot () Primary osteoarthriti s, right ankle and foot (M19.071) Active confirmed Problem Localized, primary osteoarthritis of the ankle and/or foot () Primary osteoarthriti s, left ankle and foot (M19.072) Active confirmed Problem [id number] Arthritis (M19.90) Active confirmed Problem Localized, primary osteoarthritis of the ankle and/or foot () Arthritis of joint of lesser toe, left (M19.072) Active confirmed Problem Localized, primary osteoarthritis of the ankle and/or foot () Arthritis of joint of lesser toe, right (M19.071) Active confirmed Problem Plantar fascial fibromatosis (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) Plantar fasciitis, bilateral (M72.2) Active confirmed Vital Signs Blood pressure diastolic 80 mm Hg 12/03/2024 Height 5ft 6in in 12/03/2024 Blood pressure systolic 120 mm Hg 12/03/2024 Weight 200 lbs 12/03/2024 BMI 32.28 kg/m2 12/03/2024 Encounters Encounter Location Date Provider Diagnosis [facility] [address] [address] 04/09/2024 Arianna Black Other hammer toe(s) (acquired), right foot M20.41 ; Pain of toe of right foot M79.674 ; Arthritis of joint of lesser toe, right M19.071 ; Pain of toe of left foot M79.675 ; Other hammer toe(s) (acquired), left foot M20.42 ; Arthritis of joint of lesser toe, left M19.072 ; Arthralgia of right ankle M25.571 ; Arthralgia of left foot M25.572 ; Neuritis M79.2 ; Arthritis M19.90 and Xerosis of skin L85.[address] [facility] [address] 06/16/2024 Arianna Shaw Other hammer toe(s) (acquired), right foot M20.41 ; Plantar fasciitis, bilateral M72.2 ; Pain of toe of right foot M79.674 ; Arthritis of joint of lesser toe, right M19.071 ; Pain of toe of left foot M79.675 ; Other hammer toe(s) (acquired), left foot M20.42 ; Arthritis of joint of lesser toe, left M19.072 ; Arthralgia of right ankle M25.571 ; Arthralgia of left foot M25.572 ; Neuritis M79.2 ; Arthritis M19.90 ; Pain in right foot M79.671 ; Other myositis of right foot M60.871 ; Bursitis of right foot M77.51 ; Pain in left foot M79.672 ; Other myositis of left foot M60.872 and Bursitis of left foot M77.52 [facility] [address] 09/03/2024 Arianna Black Plantar fasciitis, bilateral M72.2 ; Neuritis M79.2 ; Other hammer toe(s) (acquired), right foot M20.41 ; Pain of toe of right foot M79.674 ; Arthritis of joint of lesser toe, right M19.071 ; Pain of toe of left foot M79.675 ; Other hammer toe(s) (acquired), left foot M20.42 ; Arthritis of joint of lesser toe, left M19.072 ; Arthralgia of right ankle M25.571 ; Arthralgia of left foot M25.572 ; Arthritis M19.90 ; Pain in right foot M79.671 ; Other myositis of right foot M60.871 ; Bursitis of right foot M77.51 ; Pain in left foot M79.672 ; Other myositis of left foot M60.872 and Bursitis of left foot M77.[address] [address] 12/03/2024 Arianna Black Plantar fasciitis, bilateral M72.2 ; Neuritis M79.2 ; Other hammer toe(s) (acquired), right foot M20.41 ; Pain of toe of right foot M79.674 ; Arthritis of joint of lesser toe, right M19.071 ; Pain of toe of left foot M79.675 ; Other hammer toe(s) (acquired), left foot M20.42 ; Arthritis of joint of lesser toe, left M19.072 ; Arthralgia of right ankle M25.571 ; Arthralgia of left foot M25.572 ; Arthritis M19.90 ; Pain in right foot M79.671 ; Other myositis of right foot M60.871 ; Bursitis of right foot M77.51 ; Pain in left foot M79.672 ; Other myositis of left foot M60.872 and Bursitis of left foot M77.[address] [address] 05/15/2024 Arianna Shaw [address] [address] 06/16/[address] [address] 09/03/[address] [address] 10/09/2024 Arianna Black Neuritis M79.2 Assessments Encounter Date Diagnosis (ICD Code) Assessment Notes Treatment Notes Treatment Clinical Notes Section Notes 04/09/2024 Other hammer toe(s) (acquired), right foot (ICD-10 - M20.41) 06/16/2024 Other hammer toe(s) (acquired), right foot (ICD-10 - M20.41) 06/16/2024 Plantar fasciitis, bilateral (ICD-10 - M72.2) Patient Educated with: HEEL CORD STRETCHES.pdf (HEEL CORD STRETCHES.pdf) Patient Educated with: RICE THERAPY.pdf (RICE THERAPY.pdf) 09/03/2024 Neuritis (ICD-10 - M79.2) 09/03/2024 Plantar fasciitis, bilateral (ICD-10 - M72.2) 10/09/2024 Neuritis (ICD-10 - M79.2) 12/03/2024 Neuritis (ICD-10 - M79.2) 12/03/2024 Plantar fasciitis, bilateral (ICD-10 - M72.2) 12/03/2024 Other hammer toe(s) (acquired), right foot (ICD-10 - M20.41) 09/03/2024 Other hammer toe(s) (acquired), right foot (ICD-10 - M20.41) 06/16/2024 Pain of toe of right foot (ICD-10 - M79.674) 04/09/2024 Pain of toe of right foot (ICD-10 - M79.674) 04/09/2024 Arthritis of joint of lesser toe, right (ICD-10 - M19.071) 06/16/2024 Arthritis of joint of lesser toe, right (ICD-10 - M19.071) 09/03/2024 Pain of toe of right foot (ICD-10 - M79.674) 12/03/2024 Pain of toe of right foot (ICD-10 - M79.674) 09/03/2024 Arthritis of joint of lesser toe, right (ICD-10 - M19.071) 12/03/2024 Arthritis of joint of lesser toe, right (ICD-10 - M19.071) 06/16/2024 Pain of toe of left foot (ICD-10 - M79.675) 04/09/2024 Pain of toe of left foot (ICD-10 - M79.675) 04/09/2024 Other hammer toe(s) (acquired), left foot (ICD-10 - M20.42) 06/16/2024 Other hammer toe(s) (acquired), left foot (ICD-10 - M20.42) 09/03/2024 Pain of toe of left foot (ICD-10 - M79.675) 12/03/2024 Pain of toe of left foot (ICD-10 - M79.675) 12/03/2024 Other hammer toe(s) (acquired), left foot (ICD-10 - M20.42) 09/03/2024 Other hammer toe(s) (acquired), left foot (ICD-10 - M20.42) 06/16/2024 Arthritis of joint of lesser toe, left (ICD-10 - M19.072) 04/09/2024 Arthritis of joint of lesser toe, left (ICD-10 - M19.072) 04/09/2024 Arthralgia of right ankle (ICD-10 - M25.571) 06/16/2024 Arthralgia of right ankle (ICD-10 - M25.571) 09/03/2024 Arthritis of joint of lesser toe, left (ICD-10 - M19.072) 12/03/2024 Arthritis of joint of lesser toe, left (ICD-10 - M19.072) 12/03/2024 Arthralgia of right ankle (ICD-10 - M25.571) 09/03/2024 Arthralgia of right ankle (ICD-10 - M25.571) 06/16/2024 Arthralgia of left foot (ICD-10 - M25.572) 04/09/2024 Arthralgia of left foot (ICD-10 - M25.572) 04/09/2024 Neuritis (ICD-10 - M79.2) 06/16/2024 Neuritis (ICD-10 - M79.2) 09/03/2024 Arthralgia of left foot (ICD-10 - M25.572) 12/03/2024 Arthralgia of left foot (ICD-10 - M25.572) 12/03/2024 Arthritis (ICD-10 - M19.90) 06/16/2024 Arthritis (ICD-10 - M19.90) 04/09/2024 Arthritis (ICD-10 - M19.90) 09/03/2024 Arthritis (ICD-10 - M19.90) 09/03/2024 Pain in right foot (ICD-10 - M79.671) 04/09/2024 Xerosis of skin (ICD-10 - L85.3) 06/16/2024 Pain in right foot (ICD-10 - M79.671) 12/03/2024 Pain in right foot (ICD-10 - M79.671) 09/03/2024 Other myositis of right foot (ICD-10 - M60.871) 12/03/2024 Other myositis of right foot (ICD-10 - M60.871) 06/16/2024 Other myositis of right foot (ICD-10 - M60.871) 06/16/2024 Bursitis of right foot (ICD-10 - M77.51) 12/03/2024 Bursitis of right foot (ICD-10 - M77.51) 09/03/2024 Bursitis of right foot (ICD-10 - M77.51) 12/03/2024 Pain in left foot (ICD-10 - M79.672) 09/03/2024 Pain in left foot (ICD-10 - M79.672) 06/16/2024 Pain in left foot (ICD-10 - M79.672) 06/16/2024 Other myositis of left foot (ICD-10 - M60.872) 09/03/2024 Other myositis of left foot (ICD-10 - M60.872) 12/03/2024 Other myositis of left foot (ICD-10 - M60.872) 12/03/2024 Bursitis of left foot (ICD-10 - M77.52) 09/03/2024 Bursitis of left foot (ICD-10 - M77.52) 06/16/2024 Bursitis of left foot (ICD-10 - M77.52) Plan Of Treatment Pending Test Test Name Order Date *Sedimentation Rate-Westergren Rheumatoid Arthritis Factor 07/15/2023 C-Reactive Protein, Quant 07/15/2023 Lyme IgG/IgM Ab 07/15/2023 DAVID w/Reflex 07/15/2023 X ray : Foot, left 3V 07/15/2023 *Arthritic Panel 11/22/2020 [id number] TENDON SHEATH/LIGAMENT 1 11/12/2014 [id number] TENDON SHEATH/LIGAMENT 0 11/18/2015 [id number] TENDON SHEATH/LIGAMENT 0 02/14/2016 Next Appt Details Provider Name:Arianna Shaw , 03/18/2025 08:00:00 AM, [address] [place] [address], [phone], Insurance Providers Payer Name Payer Address Payer Phone Subscriber Number Group Number Insured Name Patient Relationship to Insured Coverage Start Date Coverage End Date [employer] [address] [place] [address] [id number] Kinza Lynch Self - patient is the insured Medical (General) History Medical History History ICD Code Chicken pox High Blood Pressure Cholesterol Surgical History Surgery Date(Month/Year) hysterectomy 10/1999 gall bladder 01/31/2016 Hand Surgery - Left 04/2023
--- OUTSIDE RECORDS SUMMARY | 2025-01-20 12:24 | XMS_ITS ---
Author Organization [facility] Address [address] [facility] [place] [address] Care Team Providers Care Machine Joint Cutter Name Role Phone Wilfred iKmbrough Primary Care Provider Unav ailable Black, Arianna Unavailable [phone] Allergies No Known Allergies REASON FOR VISIT Painful Toe(s), Ankle /foot pain, Heel pain Medications Medication SIG (Take, Route, Frequency, Duration) Notes Start Date End Date Status Ammonium Lactate 12 % 1 application Exte rnally Twice a day for 30 days Not-Taki ng Diclofenac Sodium 50 MG 1 tablet as need ed Orally Twice a day for 20 days 06/16/2024 Not-Taking Gabapentin 300 MG 1 capsule Orally thr ee times a day for 30 days Active Celecoxib 200 MG Oral for 30 Days Not-Taking Night Splint AFO - L1930 1 wear at rest for 30 days Not-Taking Dicyclomine HCl 10 MG 2 capsules Orally Three times a day Not-Taking ZyrTEC Not-Taking Physical Therapy . . . 2x/week for 3-4 weeks 08/16/2015 Not-Taking Physical Therapy . . . 2x/week for 3-4 weeks Not-Taking Ibuprofen Not-Taking CeleBREX 200 MG 1 capsule Orally Onc e a day for 30 day(s) 07/10/2016 Not-Taking Temazepam 15 MG (Schedule IV Drug) O ral for 30 Not-Taking Fluticasone Propionate 50 MCG/ACT Nasal for 30 Not-Taking Ciclopirox Olamine 0.77% external Apply to effected areas twice a day for 30 days 05/20/2015 Not-Taking Fluocinolone Acetonide 0.01 % Otic for 30 Not-Taking Clotrimazole-Betamethaso ne 1-0.05 % 1 application to affected area Externally Twice a day to affected areas on feet for 30 days 06/15/2015 Not-Taking Meloxicam 15 MG 1 tablet Orally Once a day for 90 days 03/14/2020 Not-Taking Meloxicam 15 MG 1 tablet Orally Once a day for 90 days 11/22/2020 Not-Taking Prednisone Not-Takin g Ciclopirox Olamine 0.77% external [...] Propranolol HCl 120mg once a day Active Rosuvastatin Calcium 20 MG 1 tablet Orally Once a day Active LORazepam 0.5 MG (Schedule IV Drug) O ral for 30 PRN Active Vitamin C 500 MG as directed Orally Active Zolpidem Tartrate 5 MG 1 tablet at bedti me as needed Orally Once a day PRN Active Wegovy 2.4 MG/0.75ML 0.5 mL Subcutaneous Active Docusate Sodium 100 MG 1 capsule as need ed Orally Once a day PRN Active Ciclopirox Olamine 0.77 % 1 application Externally Twice a day for 30 days Active Clobetasol Propionate 0.05 % 1 application Externally Twice a day Active Vitamin D3 Active Fluocinolone Acetonide 0.01 % 5 drops into affected ear Otic Twice a day Active Fexofenadine-Pseudoephed rine Active Gabapentin 100 MG 1 capsule at bedtime Orally Once a day Active Losartan Potassium 25 MG 1 tablet Orally Once a day Active Multivitamin Active Vitamin B12 Active Nystatin Active Naltrexone-buPROPion HCl ER 8-90 MG 1 tablet in the morning Orally Once a day Active Vitamin E Active Fish Oil Active Co Q 10 Active Sodium Chloride 0.65 % as directed Nasally Active Social History Tobacco Use: Social History Observation [...] week (3 points) Points 6 Interpretation Positive Vital Signs Height 5ft 6in in 12/03/2024 Weight 200 lbs 12/03/2024 BMI 32.28 kg/m2 12/03/2024 Blood pressure systolic 120 mm Hg 12/03/19 25 Blood pressure diastolic 80 mm Hg 025 Encounters Encounter Location Date Provider Diagnosis [facility] [address] [place] [address] 12/03/2024 Arianna Black Plantar fasciitis, bilateral M72.2 [...] M60.872 and Bursitis of left foot M77.52 Assessments Encounter Date Diagnosis (ICD Code) Assessment Notes Treatment Notes Treatment Clinical Notes Section Notes 12/03/2024 Plantar fasciitis, bilateral (ICD-10 - M72.2) 12/03/2024 Neuritis (ICD-10 - M79.2) 12/03/2024 Other hammer toe(s) (acquired), right foot (ICD-10 - M20.41) 12/03/2024 Pain of toe of right foot (ICD-10 - M79.674) 12/03/2024 Arthritis of joint of lesser toe, right (ICD-10 - M19.071) 12/03/2024 Pain of toe of left foot (ICD-10 - M79.675) 12/03/2024 Other hammer toe(s) (acquired), left foot (ICD-10 - M20.42) 12/03/2024 Arthritis of joint of lesser toe, left (ICD-10 - M19.072) 12/03/2024 Arthralgia of right ankle (ICD-10 - M25.571) 12/03/2024 Arthralgia of left foot (ICD-10 - M25.572) 12/03/2024 Arthritis (ICD-10 - M19.90) 12/03/2024 Pain in right foot (ICD-10 - M79.671) 12/03/2024 Other myositis of right foot (ICD-10 - M60.871) 12/03/2024 Bursitis of right foot (ICD-10 - M77.51) 12/03/2024 Pain in left foot (ICD-10 - M79.672) 12/03/2024 Other myositis of left foot (ICD-10 - M60.872) 12/03/2024 Bursitis of left foot (ICD-10 - M77.52) Plan Of Treatment Medication Medication Name Sig Start Date Stop Date Notes Gabapentin 300 MG 1 capsule Orally thr ee times a day for 30 days Next Appt Details Follow Up: 2 Months, Reason: Provider Name:Arianna Shaw , 03/18/2025 08:00:00 AM, [address] [place] [address], [phone], Progress Notes * Kinza LYNCH LDOB:1965 (59 yo F)Acc No.[id number]:12/03/2024 Progress Note Patient:?David LYNCHona L Provider:?Arianna Shaw DPM :1965???Age:59 Y???Sex:Female D ate:12/03/2024 Address:[address] [place], [place] [address] [facility] Pcp:REINALDO Saleh Subjective: * Chief Complaints: * ???Painful Toe(s)Ankle /foot painHeel pain * HPI: ???Ankle Pain:?Nature:?sharp , shooting , burning.?Location:?Front of , B/L ankles.?Duration: ?a year.?Onset/Cause:?gradual, denies trauma.?Course:?, improved 10%.?Aggravated by:?standing , walking , worse toward the end of the day.?Treatments:?Soaks, tens, massage,rest, Motrin, topical pain medication, Meloxicam /celebrex 200mg BID/ diclofenac sodium really helped. Recently Gabapentin 300mg BID helps but not completely.?Toe pain:?Nature:?tenderness.?Location:?Great toe , 2nd toe , B/L feet.?Duration:?several years.?Onset/Cause:?gradual.?Course:?, intermittent.?Aggravated by:?shoes, any pressure , standing/walking.?Treatments:?change in shoes , rest, topical pain medication, tens, motrin,Meloxicam,?.?Misc:?Pt relates multiple joint pain.?Heel pain:?Nature:?tenderness, sharp pain, stiffness.?Location:?Proximal plantar aspect of Heel , B/L.?Duration:?several months.?Course:?, improved, at approximately 80 %.?Aggravated:?standing, walking, walking first thing in the morning/after rest.?Treatments:?rest/alter normal daily activity.? * ROS:?General/Constitutional:?Nausea?denies.?Vomiting?denies.?Hunger Thirst?denies.?Loss appetite?denies.?Chills?denies.?Fatigue?denies.?Fever?denies.?Night Sweats?denies.?Unexplained weight loss?denies.?Ophthalmologic:?Blurred vision?denies.?Red eye?denies.?HEENTM:?Dentures?denies.?Dizziness?denies.?Glasses/contacts?denies.?Retinopathy?de nies.?Blurred/double vision?denies.?TMJ?denies.?Discharge/drainage?denies.?Implants?denies.?Hard of hearing denies.?Difficulty chewing/swallowing/speaking?denies.?Nose bleeds?denies.?Sore mouth?denies.?Swollen glands?denies.?Respiratory:?On Oxygen?denies.?Pneumonia/pleurisy?denies.?Bronchitis?denies.?Emphysema?denies.?C oughing?denies.?Cough blood?denies.?Shortness of breath?denies.?Wheezing?denies.?Cardiovascular:?Pacemaker?denies.?MVP?denies.?WPW?denies.?CHF?denies.?Heart attack?denies.?Septal defect?denies.?Rapid beat?denies.?Chest pain ?denies.?Atrial Fib.?denies.?Murmur/Palpitations?denies.?Gastrointestinal:?Hemorrhoids?denies.?Stomach/Abdominal pain?denies.?Dark blood stool?denies.?Irritable bowel ?denies.?Constipation?denies.?Diarrhea?denies.?Vomiting?denies.?Hematology:?Swelling?denies.?Bruising?denies.?Bleeding problem?denies.?Genitourinary:?Blood urine?denies.?Frequent/Painfu/urination/bladder control?denies.?Kidney stones?denies.?Infection (UTI)?denies.?Nephropathy?denies.?Musculoskeletal:?Hammertoes?denies.?Bunions?denies.?Scoliosis/kyphosis?denies.?Muscle cramps / walking?denies.?Generalized aches and pains?denies.?Weakness?denies.?Integ.:?Gates?denies.?Scars?denies.?Corns/calluses?denies.?Ingrown nails?denies.?Painful nails?denies.?Rashes?denies.?Neurologic:?Difficulty sleeping?denies.?Bipolar?denies.?Brain disorder?denies.?Balance trouble?denies.?Confusion?denies.?Fainting/blackouts?denies.?Headache?denies.?Tr emors?denies.? * Medical History:? * Surgical History:?hysterecto my 10/1999gall bladder 01/31/2016Hand Surgery - Left 04/2023 * Hospitalization/Major Diagno stic Procedure:?Denies Past Hospitalization * Family History:?Mother: dece ased, kidney/liver disease, poor circulation, diagnosed with Other malignant neoplasm of unspecified site, Diabetic - NIDDM, Unspecified essential hypertension, Family history of arthritis.?Father: .?Spouse: alive.? * Social History:?Tobacco Use:?Tobacco use other than smoking?Are you an other tobacco user??No ?Tobacco Control (Standard)?Tobacco use:?Nonsmoker ?Additional Findings: Tobacco non-user?Current nonsmoker ???Drugs/Alcohol:?Drugs?Have you used drugs other than those for medical reasons in the past 12 months??No ???Miscellaneous:?Caffeine: yes, 1 cup per day. ?Children: yes, 2. ?Exercise: yes, 3-4 times per week, walking, gym. ?Marital status: . 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 ???Drug/Alcohol:?AUDIT-C (Standard)?Did you have a drink containing alcohol in the past year??Yes ?How often did you have six or more drinks on one occasion in the past year??2 to 3 times per week (3 points) ?How many drinks did you have on a typical day when you were drinking in the past year??1 or 2 drinks (0 point) ?How often did you have a drink containing alcohol in the past year??2 to 3 times a week (3 points) ?Points?6 ?Interpretation?Positive * Medications:?TakingVitamin E Fish Oil Co Q 10 Sodium Chloride 0.65 % Solution as directed Nasally Nystatin Naltrexone-buPROPion HCl ER 8-90 MG Tablet Extended Release 12 Hour 1 tablet in the morning Orally Once a day Multivitamin Vitamin B12 Losartan Potassium 25 MG Tablet 1 tablet Orally Once a day Gabapentin 100 MG Capsule 1 capsule at bedtime Orally Once a day Fluocinolone Acetonide 0.01 % Oil 5 drops into affected ear Otic Twice a day Fexofenadine-Pseudoephedrine Clobetasol Propionate 0.05 % Cream 1 application Externally Twice a day Vitamin D3 Vitamin C 500 MG Capsule as directed Orally Docusate Sodium 100 MG Capsule 1 capsule as needed Orally Once a day , Notes to Pharmacist: PRNCiclopirox Olamine 0.77 % Cream 1 application Externally Twice a day Zolpidem Tartrate 5 MG Tablet 1 tablet at bedtime as needed Orally Once a day , Notes to Pharmacist: PRNWegovy 2.4 MG/0.75ML Solution Auto-injector 0.5 mL Subcutaneous Rosuvastatin Calcium 20 MG Tablet 1 tablet Orally Once a day LORazepam 0.5 MG Tablet (Schedule IV Drug) Oral , Notes to Pharmacist: PRNPropranolol HCl 120mg Tablet once a day Gabapentin 300 MG Capsule 1 capsule Orally twice a day Taking Vitamin E Taking Fish Oil Taking Co Q 10 Taking Sodium Chloride 0.65 % Solution as directed Nasally Taking Nystatin Taking Naltrexone-buPROPion HCl ER 8-90 MG Tablet Extended Release 12 Hour 1 tablet in the morning Orally Once a day Taking Multivitamin Taking Vitamin B12 Taking Losartan Potassium 25 MG Tablet 1 tablet Orally Once a day Taking Gabapentin 100 MG Capsule 1 capsule at bedtime Orally Once a day Taking Fluocinolone Acetonide 0.01 % Oil 5 drops into affected ear Otic Twice a day Taking Fexofenadine-Pseudoephedrine Taking Clobetasol Propionate 0.05 % Cream 1 application Externally Twice a day Taking Vitamin D3 Taking Vitamin C 500 MG Capsule as directed Orally Taking Docusate Sodium 100 MG Capsule 1 capsule as needed Orally Once a day , Notes to Pharmacist: PRNTaking Ciclopirox Olamine 0.77 % Cream 1 application Externally Twice a day Taking Zolpidem Tartrate 5 MG Tablet 1 tablet at bedtime as needed Orally Once a day , Notes to Pharmacist: PRNTaking Wegovy 2.4 MG/0.75ML Solution Auto-injector 0.5 mL Subcutaneous Taking Rosuvastatin Calcium 20 MG Tablet 1 tablet Orally Once a day Taking LORazepam 0.5 MG Tablet (Schedule IV Drug) Oral , Notes to Pharmacist: PRNTaking Propranolol HCl 120mg Tablet once a day Taking Gabapentin 300 MG Capsule 1 capsule Orally twice a day Not- Taking/PRNMeloxicam 7.5 MG Tablet 1 tablet Orally Once a day Ibuprofen 800 MG Tablet 1 tablet with food or milk as needed Orally every 8 hrs Omeprazole 20 MG Capsule Delayed Release 1 capsule 1/2 to 1 hour before morning meal Orally Once a day Meloxicam 7.5 MG Tablet 1 tablet Orally twice a day Albuterol Sulfate Escitalopram Oxalate 10 MG Tablet 1 tablet Orally Once a day Estradiol 1 MG Tablet Oral Prednisone Ciclopirox Olamine 0.77% Cream external Apply to effected areas twice a day Meloxicam 15 MG Tablet 1 tablet Orally Once a day Meloxicam 15 MG Tablet 1 tablet Orally Once a day Clotrimazole-Betamethasone 1-0.05 % Cream 1 application to affected area Externally Twice a day to affected areas on feet Ciclopirox Olamine 0.77% Cream external Apply to effected areas twice a day Fluocinolone Acetonide 0.01 % Oil Otic Temazepam 15 MG Capsule (Schedule IV Drug) Oral Fluticasone Propionate 50 MCG/ACT Suspension Nasal CeleBREX 200 MG Capsule 1 capsule Orally Once a day Ibuprofen Physical Therapy . . . . 2x/week Physical Therapy . . . . 2x/week Dicyclomine HCl 10 MG Capsule 2 capsules Orally Three times a day ZyrTEC Ammonium Lactate 12 % Cream 1 application Externally Twice a day Celecoxib 200 MG Capsule Oral Night Splint AFO - L1930 1 wear at rest Diclofenac Sodium 50 MG Tablet Delayed Release 1 tablet as needed Orally Twice a day Medication List reviewed and reconciled with the patientNot-Taking/PRN Meloxicam 7.5 MG Tablet 1 tablet Orally Once a day Not-Taking/PRN Ibuprofen 800 MG Tablet 1 tablet with food or milk as needed Orally every 8 hrs Not-Taking/PRN Omeprazole 20 MG Capsule Delayed Release 1 capsule 1/2 to 1 hour before morning meal Orally Once a day Not-Taking/PRN Meloxicam 7.5 MG Tablet 1 tablet Orally twice a day Not- Taking/PRN Albuterol Sulfate Not-Taking/PRN Escitalopram Oxalate 10 MG Tablet 1 tablet Orally Once a day Not-Taking/PRN Estradiol 1 MG Tablet Oral Not-Taking/PRN Prednisone Not-Taking/PRN Ciclopirox Olamine 0.77% Cream external Apply to effected areas twice a day Not-Taking/PRN Meloxicam 15 MG Tablet 1 tablet Orally Once a day Not- Taking/PRN Meloxicam 15 MG Tablet 1 tablet Orally Once a day Not-Taking/PRN Clotrimazole-Betamethasone 1-0.05 % Cream 1 application to affected area Externally Twice a day to affected areas on feet Not-Taking/PRN Ciclopirox Olamine 0.77% Cream external Apply to effected areas twice a day Not-Taking/PRN Fluocinolone Acetonide 0.01 % Oil Otic Not-Taking/PRN Temazepam 15 MG Capsule (Schedule IV Drug) Oral Not-Taking/PRN Fluticasone Propionate 50 MCG/ACT Suspension Nasal Not-Taking/PRN CeleBREX 200 MG Capsule 1 capsule Orally Once a day Not-Taking/PRN Ibuprofen Not-Taking/PRN Physical Therapy . . . . 2x/week Not-Taking/PRN Physical Therapy . . . . 2x/week Not-Taking/PRN Dicyclomine HCl 10 MG Capsule 2 capsules Orally Three times a day Not-Taking/PRN ZyrTEC Not-Taking/PRN Ammonium Lactate 12 % Cream 1 application Externally Twice a day Not-Taking/PRN Celecoxib 200 MG Capsule Oral Not- Taking/PRN Night Splint AFO - L1930 1 wear at rest Not-Taking/PRN Diclofenac Sodium 50 MG Tablet Delayed Release 1 tablet as needed Orally Twice a day Medication List reviewed and reconciled with the patient * Allergies:?N.K.D.A.yes[Aller gies Verified] Objective: * Vitals:?Ht:5ft 6in, Wt:200, BMI:32.28, Shoe size:11W, BP:120/80mm Hg, Ht-cm: 167.64 cm, Wt-k.72 kg. * Examination: ???General Examination: ?GENERAL APPEARANCE:?Reveals a pleasant, alert, well nourished, well- developed, well hydrated individual, who demonstrates proper attention to hygiene/body habitus, and is in no acute distress, Pt serves as own historian for office visit today.?ORIENTED:?person, place, and time.?Orthopedic: ?MUSCLE STRENGTH:?5/5 all groups in a symmetrical fashion, B/L.?GAIT ABNORMALITY:?Pronated , abducted angle and base of gate , B/L , antalgic , antalgic.?FOOT MORPHOLOGY:?Pes Planus structure , Semi-rigid , B/L , Pes Planus structure, Decreased Ankle joint dorsiflexion ROM, knee extended.?BUNION:?Medially prominent 1st MPJ , B/L.?DIGITAL DEFORMITIES:?Digital contracture, PIPJ, 2-5 B/L, reducible with WB, or to push-up test, no over, nor underlapping , Elongated 2nd toe(s) B/L ,.?MPJ PATHOLOGY:?Pain, swelling, and inflammation to plantar MPJ(s) , 2nd , B/L , States approximately 80_% LESS.?FOOTWEAR:?fair condition , shoe gear properties exacerbate patients foot/toe deformity.?Neurological: ?SENSORY:?Neurological exam demonstrates , reduced light touch sensation , reduced sharp/dull pin prick discrimination , reduced vibration sensation , 5.07 monofilament test performed at plantar aspects of 5 varied sites per foot shows sensation , reduced , B/L.?TINEL'S COMPRESSION:?Negative tarsal tunnel, leelee pedis, and medial calcaneal nerves , B/L?.?Heel Pain: ?INSPECTION REVEALS:?Pain on Palpation to Plantar Fascia med. and central bands, intrinsic musc., infra-calcaneal bursa, and med calc tubercle, B/L, No pain: posterior/superior heel, achilles bursa/tendon, sinus tarsi, peroneals, or with lateral heel compression; no limited STJ ROM, calor, or ecchymosis , B/L, Approximately 80? percent LESS.? Assessment: * Assessment: 1.?Neuritis - M79.2 (Primary )???Specify :Acute problem, Stable???2.?Plantar fasciitis, bilateral - M72.2???Specify :Acute problem, Stable???3.?Other hammer toe(s) (acquired), right foot - M20.41???4. Pain of toe of right foot - M79.674???5.?Arthritis of joint of lesser toe, right - M19.071???6.?Pain of toe of left foot - M79.675???7.?Other hammer toe(s) (acquired), left foot - M20.42???8.?Arthritis of joint of lesser toe, left - M19.072???9.?Arthralgia of right ankle - M25.571???10.?Arthralgia of left foot - M25.572???11.?Arthritis - M19.90???12.?Pain in right foot - M79.671???13.?Other myositis of right foot - M60.871???14.?Bursitis of right foot - M77.51???15.?Pain in left foot - M79.672???16.?Other myositis of left foot - M60.872???17.?Bursitis of left foot - M77.52??? Plan: * Treatment: * Procedure Codes:? * Preventive Medicine:? ??Counseling:?Discussion:?-13: Office or other outpatient visit for the evaluation and management of an established patient, which required a medically appropriate history and/or examination and LOW level of DECISION MAKING for: 1 STABLE ACUTE UNCOMPLICATED PROBLEM, 2 OR MORE MINOR PROBLEMS, OR 1 STABLE CHRONIC PROBLEM, THAT POSE(S) A LOW RISK FOR MORBIDITY/MORTALITY. The visit on the day of the encounter encompassed interpreting the data and educating the patient as to the nature of their condition, treatment options available according to their individual PMH, meds, allergies, and overall health/living conditions, as well as any potential risks or complications that may occur from a failure to adhere to, and participate in, the recommended course of therapy. The discussion included a complete verbal, and/or written explanation of the examination results, any x-rays taken, the proposed diagnosis, and outline of the treatment plan. A schedule for future care needs was also explained. The patient verbalized an understanding of the instructions at this time and agreed to be an active participant in their treatment. If the patient should think of any questions or concerns after the visit, I have encouraged the patient to call the office.?Neuritis/Neuropathy:?Discussed other tx options for the patients condition, given recent successful results to treatment, the patient wishes to continue with the gabapetin however increase to TID. pt relates no side effects from present dosage.?Stretching Exercises:?The patient is to continue the strengthening exercises that were recommended, detailed and demonstrated.? * Follow Up:?2 Months * Images: * Sign off status: Completed true * Provider:?Arianna Shaw DPM Date:?2024 Generated for Isamar hidalgo/Thiago/Salinaitting on:?01/20/2025 12:23 PM EDT History and Physical Notes * HPI (History of Present Illness) Category Sub-Category Detail Notes Category Not es Heel pain Duration: several months Nature: tenderness, sharp pa in, stiffness Location: Proximal plantar asp ect of Heel , B/L Aggravated: standing, walking, w alking first thing in the morning/after rest Course: , improved, at appro ximately 80 % Treatments: rest/alter normal da gustavo activity Toe pain Nature: tenderness Location: Great toe , 2nd toe , B/L feet Duration: several years Onset/Cause: gradual Course: , intermittent Aggravated by: shoes, any pressure , standing/walking Treatments: change in shoes , re st, topical pain medication, tens, motrin,Meloxicam, Misc: Pt relates multiple joint pain Ankle Pain Duration: a year Nature: sharp , shooting , b urning Treatments: Soaks, tens, massage ,rest, Motrin, topical pain medication, Meloxicam /celebrex 200mg BID/ diclofenac sodium really helped. Recently Gabapentin 300mg BID helps but not completely Course: , improved 10% Location: Front of , B/L ankle s Onset/Cause: gradual, denies trau ma Aggravated by: standing , walking , worse toward the end of the day Examination Category Sub-Category Detail Notes Category Not es Heel Pain INSPECTION REVEALS: Pain on Palp ation to Plantar Fascia med. and central bands, intrinsic musc., infra-calcaneal bursa, and med calc tubercle, B/L, No pain: posterior/superior heel, achilles bursa/tendon, sinus tarsi, peroneals, or with lateral heel compression; no limited STJ ROM, calor, or ecchymosis , B/L, Approximately 80 percent LESS Neurological SENSORY: Neurological exa m demonstrates , reduced light touch sensation , reduced sharp/dull pin prick discrimination , reduced vibration sensation , 5.07 monofilament test performed at plantar aspects of 5 varied sites per foot shows sensation , reduced , B/L TINEL'S COMPRESSION: Negative tarsal consuelo stephanie, leelee pedis, and medial calcaneal nerves , B/L Orthopedic GAIT ABNORMALITY: Pronated , abd ucted angle and base of gate , B/L , antalgic , antalgic FOOT MORPHOLOGY: Pes Planus structure , Semi-rigid , B/L , Pes Planus structure, Decreased Ankle joint dorsiflexion ROM, knee extended BUNION: Medially prominent 1 st MPJ , B/L FOOTWEAR EVALUATION: fair condition , sh oe gear properties exacerbate patients foot/toe deformity DIGITAL DEFORMITIES: Digital contracture , PIPJ, 2-5 B/L, reducible with WB, or to push-up test, no over, nor underlapping , Elongated 2nd toe(s) B/L , MPJ PATHOLOGY: Pain, swelling, and inflammation to plantar MPJ(s) , 2nd , B/L , States approximately 80_% LESS MUSCLE STRENGTH: 5/5 all groups in a symmetrical fashion, B/L General Examination GENERAL APPEARANCE: Reveals a pleasant, alert, well nourished, well-developed, well hydrated individual, who demonstrates proper attention to hygiene/body habitus, and is in no acute distress, Pt serves as own historian for office visit today ORIENTED: person, place, and t tiff
--- OUTSIDE RECORDS SUMMARY | 2025-01-20 12:24 | XMS_ITS ---
Author Organization [facility] Address [address] [place] [address] Care Team Providers Care Kosher Butcher Name Role Phone Wilfred Kimbrough Primary Care Provider Unav ailable Arianna Shaw [phone] REASON FOR VISIT seen on 09/03 Encounters Encounter Location Date Provider Diagnosis [address] [id number] 10/01/2024 Arianna Shaw Plan Of Treatment Next Appt Details Provider Name:Arianna Shaw , 03/18/2025 08:00:00 AM, [address] [place] [address], [phone], Progress Notes * Kinza LYNCH LDOB:1965 (59 yo F)Acc No.[id number]:10/01/2024 Progress Note Patient:?Kinza LYNCH Provider:?Arianna Shaw DPM :1965???Age:59 Y???Sex:Female D ate:10/01/2024 Address:[address] [place], [place] [id number] Pcp:REINALDO Saleh Subjective: * Chief Complaints: * ???1. Seen on 09/03. * Medical History:? Objective: * Vitals:? Assessment: Plan: * Treatment: * Images: * The named appointment provid er may or may not be the originator of this progress note, and it is not deemed complete until electronically signed by the appointment provider. Sign off status: Pending * Provider:Meliza Shaw DPM Date:?2023 Generated for Isamar hidalgo/Thiago/Yohan on:?01/20/2025 12:24 PM EDT
--- OUTSIDE RECORDS SUMMARY | 2025-01-20 12:24 | XMS_ITS ---
Author Organization [facility] Address [address] [place] [address] Care Team Providers Care Shot Dropper Name Role Phone LIZABETH OLIVO Unavailable [phone] MEDICATIONS Medication SIG (Take, Route, Fr equency, Duration) Notes Start Date End Date Status Wegovy 2.4 MG/0.75ML 2.4mg Subcutaneous weekly for 28 days Active Encounters Encounter Location Date Provider Diagnosis [facility] [address] [address] 10/28/2024 LIZABETH BORJOHANNA PLAN OF TREATMENT Medication Medication Name Sig Start Date Stop Date Notes Wegovy 2.4 MG/0.75ML 2.4mg Subcutaneous weekly for 28 days Next Appt Details Provider Name:LIZABETH OLIVO, 02/08/2025 08:30:00 AM, [address], [address], Progress Notes * Kinza GANDOB:1965 ( 59 yo F)Acc No.[id number]:10/28/2024 Patient:??Kinza GAN :1965?Age:59 Y?Sex:Fe male Address:[address] [place] [address] * Refills?? Refill Wegovy Solution Auto-injector, 2.4 MG/0.75ML, Subcutaneous, 4 Pen Needle, 2.4mg, weekly, 28 days, Refills=1 * true * Date:??
--- OUTSIDE RECORDS SUMMARY | 2025-01-20 12:24 | XMS_ITS ---
Author Organization [facility] Address [address] [place] [address] Care Team Providers Care Health Physicist Name Role Phone LIZABETH OLIVO Unavailable [phone] ALLERGIES No Known Allergies REASON FOR VISIT Pt here for weight management follow up, SECA done. MEDICATIONS Medication SIG (Take, Route, Frequency, Duration) Notes Start Date End Date Status Albuterol Sulfate HFA 108 (90 Base) MCG/ACT 1 puff as needed Inhalation every 4 hrs 03/20/2023 Active Docusate Sodium 100 MG 1 capsule as need ed Orally Once a day for 30 day(s) 03/20/2023 Active Losartan Potassium 25 MG 1 tablet Orally Once a day for 30 day(s) 03/20/2023 Active Escitalopram Oxalate 10 MG TAKE ONE TABL ET BY MOUTH ONCE DAILY Oral for 90 Active Rosuvastatin Calcium 20 MG TAKE ONE TABL ET BY MOUTH EVERY DAY Oral for 90 Active LORazepam 0.5 MG Oral for 30 A ctive Dicyclomine HCl 10 MG TAKE ONE CAPSULE B Y MOUTH FOUR TIMES A DAY Oral for 30 Active D3 Super Strength 50 MCG (1999 UT) TAKE ONE CAPSULE BY MOUTH EVERY DAY Oral for 90 Active Zolpidem Tartrate 5 MG Oral for 30 Active Propranolol HCl ER 120 MG TAKE 1 CAPSULE BY MOUTH DAILY. Oral for 90 Active Zepbound 2.5 MG/0.5ML 2.5 mg weekly Subc utaneous Weekly for 30 days Active Contrave 8-90 MG Week 1, take 1 table t in the morning Week 2 take 1 tablet in the morning, 1 tablet in the evening Week 3 take 2 tablets in the morning, 1 tablet in the evening Week 4 onward 2 tablets in the morning, 2 tablets in the evening Orally twice a day for 30 days Active Contrave 8-90 MG Take 1 tablet by luz th daily for 7 days then 1 twice a day for 7 days, then 2 in the am and 1 in the pm for 7 days then take 2 twice daily thereafter. Active Ondansetron 4 MG 1 tablet on the tong ue and allow to dissolve prn nausea Orally Once a day for 30 days Active Wegovy 2.4 MG/0.75ML 2.4mg Subcutaneous weekly for 28 days Active Ciclopirox 0.77 % 1 application [employer] ally Once a day 03/20/2023 Active SOCIAL HISTORY Tobacco Use: Social History Observation Description Date Details (start date - stop date) Never Smoker NA - NA Sex Assigned At : Social History Observation Description Sex Assigned At Unknown Tobacco Use/Smoking Question Answer Notes Are you a nonsmoker PROBLEMS Problem Type ICD Code Onset Dates Problem Status W/U Status Risk SNOMED Code Notes Problem Daytime somnolence (R40.0) Active confirmed [id number] VITAL SIGNS Blood pressure systolic 120 mm Hg 12/19/19 25 Blood pressure diastolic 84 mm Hg 025 Heart Rate 74 /min 12/18/2024 Height 65 in 12/18/2024 Weight 219 lbs 12/18/2024 BMI 36.44 kg/m2 12/18/2024 Oximetry 99 % 12/18/2024 Encounters Encounter Location Date Provider Diagnosis [place] [address] [address] 12/18/2024 LIZABETH OLIVO BMI 36.0-36.9,adult Z68.36 ; Other obesity due to excess calories E66.09 ; Dietary counseling and surveillance Z71.3 ; Acquired hyperlipoproteinemia E78.5 ; Depression with anxiety F41.8 ; Primary insomnia F51.01 ; Essential (primary) hypertension I10 ; Snoring R06.83 and Daytime somnolence R40.0 ASSESSMENTS Encounter Date Diagnosis Assessment Notes Treatment Notes Treatment Clinical Notes Section Notes 12/18/2024 BMI 36.0-36.9,adult (ICD-10 - Z68.36) #Weight Management 12/18/2024 Patient expresses interest in transitioning to [facility] sleep study cont wegovy 2.4mg Total time [...] software and direct typing Please excuse inadvertent solution design engineer or typing errors, or uncorrected word substitutions Although every attempt has been made by the provider to proofread this document, occasional misspellings and typographical errors may still be present Due to the previous pandemic, and the use of personal protective equipment (PPE) This may decrease voice recognition accuracy Inadvertent solution design engineer errors may occur 12/18/2024 Other obesity due [...] software and direct typing Please excuse inadvertent solution design engineer or typing errors, or uncorrected word substitutions Although every attempt has been made by the provider to proofread this document, occasional misspellings and typographical errors may still be present Due to the previous pandemic, and the use of personal protective equipment (PPE) This may decrease voice recognition accuracy Inadvertent solution design engineer errors may occur 12/18/2024 Dietary counseling a [...] software and direct typing Please excuse inadvertent solution design engineer or typing errors, or uncorrected word substitutions Although every attempt has been made by the provider to proofread this document, occasional misspellings and typographical errors may still be present Due to the previous pandemic, and the use of personal protective equipment (PPE) This may decrease voice recognition accuracy Inadvertent solution design engineer errors may occur 12/18/2024 Acquired hyperlipoproteinemia (ICD-10 [...] software and direct typing Please excuse inadvertent solution design engineer or typing errors, or uncorrected word substitutions Although every attempt has been made by the provider to proofread this document, occasional misspellings and typographical errors may still be present Due to the previous pandemic, and the use of personal protective equipment (PPE) This may decrease voice recognition accuracy Inadvertent solution design engineer errors may occur 12/18/2024 Depression with anxi ety (ICD-10 - F41.8) #Weight Management 12/18/2024 Patient [...] software and direct typing Please excuse inadvertent solution design engineer or typing errors, or uncorrected word substitutions Although every attempt has been made by the provider to proofread this document, occasional misspellings and typographical errors may still be present Due to the previous pandemic, and the use of personal protective equipment (PPE) This may decrease voice recognition accuracy Inadvertent solution design engineer errors may occur 12/18/2024 Primary insomnia (ICD-10 [...] software and direct typing Please excuse inadvertent solution design engineer or typing errors, or uncorrected word substitutions Although every attempt has been made by the provider to proofread this document, occasional misspellings and typographical errors may still be present Due to the previous pandemic, and the use of personal protective equipment (PPE) This may decrease voice recognition accuracy Inadvertent solution design engineer errors may occur 12/18/2024 Essential (primary) hypertension [...] software and direct typing Please excuse inadvertent solution design engineer or typing errors, or uncorrected word substitutions Although every attempt has been made by the provider to proofread this document, occasional misspellings and typographical errors may still be present Due to the previous pandemic, and the use of personal protective equipment (PPE) This may decrease voice recognition accuracy Inadvertent solution design engineer errors may occur 12/18/2024 Snoring (ICD-10 - [...] software and direct typing Please excuse inadvertent solution design engineer or typing errors, or uncorrected word substitutions Although every attempt has been made by the provider to proofread this document, occasional misspellings and typographical errors may still be present Due to the previous pandemic, and the use of personal protective equipment (PPE) This may decrease voice recognition accuracy Inadvertent solution design engineer errors may occur 12/18/2024 Daytime somnolence (ICD-10 [...] software and direct typing Please excuse inadvertent solution design engineer or typing errors, or uncorrected word substitutions Although every attempt has been made by the provider to proofread this document, occasional misspellings and typographical errors may still be present Due to the previous pandemic, and the use of personal protective equipment (PPE) This may decrease voice recognition accuracy Inadvertent solution design engineer errors may occur PLAN OF TREATMENT Medication Medication Name Sig Start Date Stop Date Notes Zepbound 2.5 MG/0.5ML 2.5 mg weekly Subc utaneous Weekly for 30 days Contrave 8-90 MG Week 1, take 1 table t in the morning Week 2 take 1 tablet in the morning, 1 tablet in the evening Week 3 take 2 tablets in the morning, 1 tablet in the evening Week 4 onward 2 tablets in the morning, 2 tablets in the evening Orally twice a day for 30 days Next Appt Details Provider Name:LIZABETH OLIVO, 02/08/2025 08:30:00 AM, [address], [facility], [place], [address], Progress Notes * Ana Rosa LYNCH:1965 ( 59 yo F)Acc No.[id number]:12/18/2024 Patient:??Kinza LYNCH Provider:??LIZABETH OLIVO NP :1965?Age:59 Y?Sex:Fe male Date:12/18/2024 Address:[address] [place] [address], [id number] Subjective: * Chief Complaints: * ?1. Pt here for weight management follow up, SECA done.. * HPI: ?Constitutional:? Patient is here today for a weight management f/u visit ?Patient seen and examined. ? Full past medical history, social history, family history, ?allergies and current medications were reviewed and updated. ?Body composition analysis reviewed today ?#Weight Management ?12/18/2024 ?Expresses interest today in switching to dual incretin Zepbound ?We discussed the new [place] JAMEL trial and indication for tirzepatide ?Still on Wegovy 2.4mg. Feels plateauing ?Injection days are Saturday ?Stop taking Contrave did not feel any different ?Having intermittent nausea, able to manage well. ?Recent work and life stressors, some binge eating ?Discussed making sure she is taking in enough protein in diet. ?feels as if shes plateuing, we did discuss adding Contrave for food noise, etc ?Past med hx- HLD, GERD, HTN, Insomnia, depression/anxiety on SSRIs, ?IBS-Constipation, vit D deficiency, seasonal allergies. ?Sx hx- cholestectomy, hysterectomy, L knee meniscus repair 12/2021 ?Reports she follows with GI for IBS ?States IBS has resolved since beginning new diet x8 weeks ?intermittent nausea, prn zofran works well ?is having dyspepsia ?Diet: Veggies/fruit, overindulges. Eliminated fried food. Stress eater, binges on sugar. ?Has stayed on strict diet of protein shakes and increased fiber diet x6 weeks ?Exercise: Currently does not track steps. Walking 4x weekly 30 min. ?Non-smoker. 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 ?Highest weight: 267 lbs ?Lowest weight: 130 lbs ?Goal weight: 200 lbs ?JAMEL screening- negative ?Comprehensive labs June 2024 [facility] ?CBC stable ?Renal function electrolytes and LFTs are stable ?Uric acid level 3.8 ?Normal complement panel ?Normal lipase of 47 ?2018- echocardiogram- negative; hx of chest pain deemed anxiety based. * ROS:?ROS otherwise negative unless stated in HPI. * Medical History:??Hypertensi on, Hypercholesterolemia, Depression, Weight gain. * Family History:??Father: dec eased.??Mother: .??1 brother(s) , 3 sister(s) . .?? mother-liver father-kidney failure sisters-lung disease, cervicle cancer, diabetes. * Social History:?Tobacco Use:??Tobacco Use/Smoking??Are you a??nonsmoker.?? * Medications:??Taking Ondanse dez 4 MG Tablet Disintegrating 1 tablet on the tongue and allow to dissolve prn nausea Orally Once a day , Taking D3 Super Strength 50 MCG (2000 UT) Capsule TAKE ONE CAPSULE BY MOUTH EVERY DAY Oral , Taking Propranolol HCl ER 120 MG Capsule Extended Release 24 Hour TAKE 1 CAPSULE BY MOUTH DAILY. Oral , Taking Zolpidem Tartrate 5 MG Tablet Oral , Taking Dicyclomine HCl 10 MG Capsule TAKE ONE CAPSULE BY MOUTH FOUR TIMES A DAY Oral , Taking LORazepam 0.5 MG Tablet Oral , Taking Rosuvastatin Calcium 20 MG Tablet TAKE ONE TABLET BY MOUTH EVERY DAY Oral , Taking Escitalopram Oxalate 10 MG Tablet TAKE ONE TABLET BY MOUTH ONCE DAILY Oral , Taking Losartan Potassium 25 MG Tablet 1 tablet Orally Once a day , Taking Docusate Sodium 100 MG Capsule 1 capsule as needed Orally Once a day , Taking Albuterol Sulfate HFA 108 (90 Base) MCG/ACT Aerosol Solution 1 puff as needed Inhalation every 4 hrs , Taking Ciclopirox 0.77 % Gel 1 application Externally Once a day , Taking Wegovy 2.4 MG/0.75ML Solution Auto-injector 2.4mg Subcutaneous weekly , Taking Contrave 8-90 MG Tablet Extended Release 12 Hour Week 1, take 1 tablet in the morning Week 2 take 1 tablet in the morning, 1 tablet in the evening Week 3 take 2 tablets in the morning, 1 tablet in the evening Week 4 onward 2 tablets in the morning, 2 tablets in the evening Orally twice a day , Taking Contrave 8-90 MG Tablet Extended Release 12 Hour Take 1 tablet by mouth daily for 7 days then 1 twice a day for 7 days, then 2 in the am and 1 in the pm for 7 days then take 2 twice daily thereafter. , Discontinued Zepbound 2.5 MG/0.5ML Solution Auto-injector 2.5 mg weekly Subcutaneous Weekly , Discontinued Ibuprofen 800 MG Tablet Oral , Medication List reviewed and reconciled with the patient * Allergies:??N.K.D.A. Objective: * Vitals:??HR:74/min, BP:120/8 4mm Hg, Wt:219lbs, BMI:36.44Index, Ht: 65 in, Oxygen sat %:99%. * Examination: ?General Examination: ?GENERAL APPEARANCE:??in no acute distress, well developed, well nourished.??HEAD:??normocephalic, atraumatic.??EYES:??pupils equal, round, reactive to light and accommodation.??EARS:??normal.??ORAL CAVITY:??mucosa moist.??THROAT:??clear.??NECK/THYROID:??neck supple, full range of motion, no cervical lymphadenopathy.??SKIN:??no suspicious lesions, warm and dry.??HEART:??no murmurs, regular rate and rhythm, S1, S2 normal.??LUNGS:??clear to auscultation bilaterally.??ABDOMEN:??normal, bowel sounds present, soft, nontender, nondistended.??EXTREMITIES:??no clubbing, cyanosis, or edema.??NEUROLOGIC:??nonfocal, motor strength normal upper and lower extremities, sensory exam intact.? Assessment: * Assessment: 1.??Other obesity due to exc ess calories - E66.09 (Primary)??2.??BMI 36.0- 36.9,adult - Z68.36??3.??Dietary counseling and surveillance - Z71.3??4.??Acquired hyperlipoproteinemia - E78.5??5.??Depression with anxiety - F41.8??6.??Primary insomnia - F51.01??7.??Essential (primary) hypertension - I10??8.??Snoring - R06.83??9.??Daytime somnolence - R40.0?? #Weight Management 12/18/2024 Patient expresses interest in [...] software and direct typing Please excuse inadvertent solution design engineer or typing errors, or uncorrected word substitutions Although every attempt has been made by the provider to proofread this document, occasional misspellings and typographical errors may still be present Due to the previous pandemic, and the use of personal protective equipment (PPE) This may decrease voice recognition accuracy Inadvertent solution design engineer errors may occur. Plan: * Treatment: * Procedure Codes:??43412 P/M SENIOR CORPORATE RECRUITER, INDIV 15 MIN * Images: Billing Information: * Visit Code:?? 66285 Office Visit, Est Pt., Level 4. Modifiers: 25, SA * Procedure Codes:?? 03478 P/M SENIOR CORPORATE RECRUITER, INDIV 15 MIN. * Sign off status: Completed true * Provider:??LIZABETH OLIVO NP Date:??04/2025 History and Physical Notes * HPI (History of Present Illness) Category Sub-Category Detail Notes Category Not es Constitutional Patient is here today for a weight management f/u visit Patient seen and examined. Full past medical history, social history, family history, allergies and current medications were reviewed and updated. Body composition analysis reviewed today #Weight Management 12/18/2024 Expresses interest today in switching to dual incretin Zepbound We discussed the new [place] JAMEL trial and indication for tirzepatide Still on Wegovy 2.4mg. Feels plateauing Injection days are Saturday Stop taking Contrave did not feel any different Having intermittent nausea, able to manage well. Recent work and life stressors, some binge eating Discussed making sure she is taking in enough protein in diet. feels as if shes plateuing, we did discuss adding Contrave for food noise, etc Past med hx- HLD, GERD, HTN, Insomnia, depression/anxiety on SSRIs, IBS-Constipation, vit D deficiency, seasonal allergies. Sx hx- cholestectomy, hysterectomy, L knee meniscus repair 12/2021 Reports she follows with GI for IBS [...] 30 min. Non-smoker. 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 Highest weight: 267 lbs Lowest weight: 130 lbs Goal weight: 200 lbs JAMEL screening- negative Comprehensive labs June 2024 [facility] CBC stable Renal function electrolytes and [...]
--- OUTSIDE RECORDS SUMMARY | 2025-01-20 12:25 | XMS_ITS ---
Author Organization [facility] Address [address] [place] [address] Care Team Providers Care Horologist Name Role Phone LIZABETH OLIVO Unavailable [phone] MEDICATIONS Medication SIG (Take, Route, Fr equency, [...] twice a day for 30 days Active Zepbound 2.5 MG/0.5ML 2.5 mg weekly Subc utaneous Weekly for 30 days Active Encounters Encounter Location Date Provider Diagnosis [place] [address] [address] 11/16/2024 LIZABETH OLIVO BMI 35.0-35.9,adult Z68.35 ; Other obesity due to excess calories E66.09 ; Dietary counseling and surveillance Z71.3 ; Acquired hyperlipoproteinemia E78.5 ; Depression with anxiety F41.8 ; Primary insomnia F51.01 and Essential (primary) hypertension I10 ASSESSMENTS Encounter Date Diagnosis Assessment Notes Treatment [...] software and direct typing Please excuse inadvertent developmental training counselor or typing errors, or uncorrected word substitutions Although every attempt has been made by the provider to proofread this document, occasional misspellings and typographical errors may still be present Due to the previous pandemic, and the use of personal protective equipment (PPE) This may decrease voice recognition accuracy Inadvertent developmental training counselor errors may occur 11/16/2024 Other obesity due [...] software and direct typing Please excuse inadvertent developmental training counselor or typing errors, or uncorrected word substitutions Although every attempt has been made by the provider to proofread this document, occasional misspellings and typographical errors may still be present Due to the previous pandemic, and the use of personal protective equipment (PPE) This may decrease voice recognition accuracy Inadvertent developmental training counselor errors may occur 11/16/2024 Dietary counseling a [...] software and direct typing Please excuse inadvertent developmental training counselor or typing errors, or uncorrected word substitutions Although every attempt has been made by the provider to proofread this document, occasional misspellings and typographical errors may still be present Due to the previous pandemic, and the use of personal protective equipment (PPE) This may decrease voice recognition accuracy Inadvertent developmental training counselor errors may occur 11/16/2024 Acquired hyperlipoproteinemia (ICD-10 [...] software and direct typing Please excuse inadvertent developmental training counselor or typing errors, or uncorrected word substitutions Although every attempt has been made by the provider to proofread this document, occasional misspellings and typographical errors may still be present Due to the previous pandemic, and the use of personal protective equipment (PPE) This may decrease voice recognition accuracy Inadvertent developmental training counselor errors may occur 11/16/2024 Depression with anxi [...] software and direct typing Please excuse inadvertent developmental training counselor or typing errors, or uncorrected word substitutions Although every attempt has been made by the provider to proofread this document, occasional misspellings and typographical errors may still be present Due to the previous pandemic, and the use of personal protective equipment (PPE) This may decrease voice recognition accuracy Inadvertent developmental training counselor errors may occur 11/16/2024 Primary insomnia (ICD-10 [...] software and direct typing Please excuse inadvertent developmental training counselor or typing errors, or uncorrected word substitutions Although every attempt has been made by the provider to proofread this document, occasional misspellings and typographical errors may still be present Due to the previous pandemic, and the use of personal protective equipment (PPE) This may decrease voice recognition accuracy Inadvertent developmental training counselor errors may occur 11/16/2024 Essential (primary) hypertension [...] software and direct typing Please excuse inadvertent developmental training counselor or typing errors, or uncorrected word substitutions Although every attempt has been made by the provider to proofread this document, occasional misspellings and typographical errors may still be present Due to the previous pandemic, and the use of personal protective equipment (PPE) This may decrease voice recognition accuracy Inadvertent developmental training counselor errors may occur PLAN OF TREATMENT Medication [...] Orally twice a day for 30 days Zepbound 2.5 MG/0.5ML 2.5 mg weekly Subc utaneous Weekly for 30 days Next Appt Details Provider Name:LIZABETH OLIVO, 02/08/2025 08:30:00 AM, [address] [facility], [facility] [address], [place], [address], Progress Notes * Kinza LYNCHDOB:1965 ( 59 yo F)Acc No.[id number]:11/16/2024 Patient:??Kinza LYNCH Provider:??LIZABETH OLIVO NP :1965?Age:59 Y?Sex:Fe male Date:11/16/2024 Address:[address] [place], [place] [address] Subjective: * Chief Complaints: * ? * HPI: ?Constitutional:? Patient is here today for a weight management f/u visit ?Patient seen and examined. ? Full past medical history, social history, family history, ?allergies and current medications were reviewed and updated. ?Body composition analysis reviewed today ?#Weight Management ?11/16/2024 ?Expresses interest today in switching to dual incretin Zepbound ?Still on Wegovy 2.4mg. ?Injection days are Saturday ?Taking Contrave as well. Was experiencing headaches initially but has resolved. ?Appetite suppressed, She is a stress eater. ?Having intermittent nausea, able to manage well. ?Having foot problems for last 2 months with plantars fascitis & bone sprus, ? so no routine of exercise at this time. ?Discussed making sure she is taking in enough protein in diet. ?feels as if shes plateuing, we did discuss adding Contrave for food noise, etc ?Past med hx- HLD, GERD, HTN, Insomnia, depression/anxiety on SSRIs, ?IBS-Constipation, vit D deficiency, seasonal allergies. ?Sx hx- cholestectomy, hysterectomy, L knee meniscus repair 12/2021 ?Patient is tolerating medication without side effects ?Reports she follows with GI for IBS [...] 30 min. ?Non-smoker. 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 * ROS:?ROS otherwise negative unless stated in HPI. * Medical History:?? Objective: * Examination: ?General Examination: ?GENERAL APPEARANCE:??in no [...] to exc ess calories - E66.09 (Primary)??2.??BMI 35.0- 35.9,adult - Z68.35??3.??Dietary counseling and surveillance - Z71.3??4.??Acquired hyperlipoproteinemia - E78.5??5.??Depression with anxiety - F41.8??6.??Primary insomnia - F51.01??7.??Essential (primary) hypertension - I10?? #Weight Management 11/16/2024 Patient expresses interest in [...] software and direct typing Please excuse inadvertent developmental training counselor or typing errors, or uncorrected word substitutions Although every attempt has been made by the provider to proofread this document, occasional misspellings and typographical errors may still be present Due to the previous pandemic, and the use of personal protective equipment (PPE) This may decrease voice recognition accuracy Inadvertent developmental training counselor errors may occur. Plan: * Treatment: * Images: Billing Information: * Visit Code:?? * Procedure Codes:?? 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
--- OUTSIDE RECORDS SUMMARY | 2025-01-20 12:25 | XMS_ITS ---
Author Organization [facility] Address [address] [place] [address] Care Team Providers Care Central Supply Nurse Name Role Phone Wilfred Kimbrough Primary Care Provider Unav ailable Colin, Arianna Unavailable [phone] REASON FOR VISIT Refill on Rx Medications Medication SIG (Take, Route, Fr equency, Duration) Notes Start Date End Date Status Gabapentin 300 MG 1 capsule Orally twi ce a day for 30 days 09/03/2024 Active Encounters Encounter Location Date Provider Diagnosis [facility] [address] [place] [address] 10/09/2024 Arianna Shaw Neuritis M79.2 Assessments Encounter Date Diagnosis (ICD Code) Assessment Notes Treatment Notes Treatment Clinical Notes Section Notes 10/09/2024 Neuritis (ICD-10 - M79.2) Plan Of Treatment Medication Medication Name Sig Start Date Stop Date Notes Gabapentin 300 MG 1 capsule Orally twice a day for 30 days 09/03/2024 Next Appt Details Provider Name:Arianna Shaw , 03/18/2025 08:00:00 AM, [address] [place], [address], Progress Notes * Kinza LYNCH LDOB:1965 (59 yo F)Acc No.[id number]:10/09/2024 Patient:?Kinza LYNCH :1965???Age:59 Y???Sex:Female Address:[address] [place] [address], [place] [address] * Refills? Refill Gabapentin Capsule, 300 MG, Orally, 60 Capsule, 1 capsule, twice a day, 30 days, Refills=1 * true * Date:? Generated for Isamar hidalgo/Thiago/Salinaitting on:?01/20/2025 12:24 PM EDT
== END 2025-01-20 12:43 | disposition home or self-care (01) ==
LOC: HO.HMCC 10:44
PROVIDERS: PCP Nurse Practitioner Family; Visit Provider Nurse Practitioner Family
DX: R07.89 Other chest pain (principal); Z00.00 Encounter for general adult medical examination without abnormal findings; E55.9 Vitamin D deficiency, unspecified; E53.8 Deficiency of other specified B group vitamins

== ENCOUNTER → 2025-01-20 10:43 | Outpatient (BNVA) | payer OTHER, SELFPAY | PROVIDERS: PCP Nurse Practitioner Family; Visit Provider Nurse Practitioner Family | DX: Z00.00 Encounter for general adult medical examination without abnormal findings (principal); R07.89 Other chest pain; E55.9 Vitamin D deficiency, unspecified; E53.8 Deficiency of other specified B group vitamins | CPT/HCPCS: 96127 ==

== ENCOUNTER 2025-03-10 08:33 | Outpatient (AMB) | payer OTHER, SELFPAY ==
--- NOTE | 2025-03-10 08:42 | A.OFFVIS_ITS ---
Vital Signs 03/10/25 08:45 Height 5 ft 6 in Weight 228 lb BMI 36.8 Intake Visit Reasons: OV-B/L hand pain, LUE mass Intake Note: Kinza 60 yr old right hand dominant female presents today for her a new problem visit. States she has pain in bilateral hands mainly on her thumbs CMC joint, weakness in her wrist and also mentioned she has noticed she has little nodule/bumps that come and go on her left volar MCP between her 5th and 4th digit. This started while ago and has not improved. No injury, numbness, tingling. States she has tightness in her hands and her right index has started to lock. 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 She returns today complaining of pain in both hands. The worst is the pain in the basal joint of the right thumb with occasional pain in the basal joint of the left thumb. She also had been helping move large objects in and out of the convention center multiple times around November or December. Since that time she has also had some pain in the dorsal aspect of her wrists when handling heavier objects. She denies numbness and tingling PFSH Medical History Osteoarthritis Diarrhea GERD (gastroesophageal reflux disease) Elevated liver enzymes Tubular adenoma Increased BMI Impaired fasting glucose Tenosynovitis of both wrists Elevated LFTs Insomnia Depression Chronic otitis externa Menopausal disorder Dyslipidemia HTN (hypertension) Hemicrania Surgical History (Reviewed 03/10/25 @ 08:56 by Alpa Daniel [facility]) History of mammogram History of colonoscopy History of hysterectomy History of laparoscopic cholecystectomy Family History Father Hx of cirrhosis Mental health disorder Mother Hx of diabetes insipidus HX: breast cancer Hx of renal failure Mental health disorder Son No problems noted. Daughter No problems noted. 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 Sensation grossly intact and cap refill brisk to all digits. She had actively extend all of her digits and bring them close to a fist with no locking or catching. She has some mild pain in the radial wrist extensor insertions with resisted right wrist extension. She was most tender to palpation about the basal joint of the right thumb. No tenderness over the 1st dorsal compartment. No tenderness over the right thumb MCP joint or the A1 timothy. Radiographs: 3 views of the right and left hands were previously taken and viewed by me today in clinic. They show no fractures or dislocations. There is bilateral basal joint arthritis with joint space narrowing, subchondral sclerosis and osteophyte formation.. Assessment & Plan Assessment & Plan (1) Arthritis of carpometacarpal (CMC) joint of left thumb: Code(s): M18.12 - Unilateral primary osteoarthritis of first carpometacarpal joint, left hand Category: Medical (2) Osteoarthritis of carpometacarpal joint of right thumb: Code(s): M18.11 - Unilateral primary osteoarthritis of first carpometacarpal joint, right hand Category: Medical (3) Left wrist tendinitis: Code(s): M77.8 - Other enthesopathies, not elsewhere classified Category: Medical (4) Right wrist tendinitis: Code(s): M77.8 - Other enthesopathies, not elsewhere classified Category: Medical Plan Assessment & Plan: 1 Right Basal joint osteoarthritis This is her primary complaint today 2. Left basal joint osteoarthritis This is less symptomatic than the right side 3. Mild tendinitis of the radial wrist extensors Likely from having to move multiple objects at work in November or December I educated her about these conditions I discussed operative and non-operative treatment options for basal joint arthritis. I am not recommending surgery at this time. I discussed steroid injections, but she is not interested in that today. I discussed activity modification, they should limit or avoid any heavy or repetitive pinching or gripping activities She was fitted for comfort cool braces to wear with daily activity I have also ordered OT hand therapy to help with stretching, strengthening and possibly modalities. She may follow up p.r.n. 4. Left De Quervain's tenosynovitis, S/P release & APB tenosynovectomy DOS: 05/06/23 Resolved Orders: Orders OT Evaluation and Treatment Today M18.11 - Unilateral primary osteoarthritis of first carpometacarpal joint, right hand, M18.12 - Unilateral primary osteoarthritis of first carpometacarpal joint, left hand, M77.8 - Other enthesopathies, not elsewhere classified Coding Level of Care Code Est Pt Level 4 (93934) Diagnoses Arthritis of carpometacarpal (CMC) joint of left thumb M18.12 Osteoarthritis of carpometacarpal joint of right thumb M18.11 Left wrist tendinitis M77.8 Right wrist tendinitis M77.8
[2025-03-10 08:45] VITALS: BMI 36.8
--- OUTSIDE RECORDS SUMMARY | 2025-03-10 08:50 | XMS_ITS ---
Author [facility] Address [address] [facility] [place] [address] Care Team Providers Care Hold Worker Name Role Phone Wilfred Kimbrough Primary Care Provider Unav ailable Black, Arianna Unavailable [phone] Allergies No Known Allergies REASON FOR VISIT [...] 025 Encounters Encounter Location Date Provider Diagnosis [facility] [place] [address] [place] [address] 12/03/2024 Arianna Black Plantar fasciitis, bilateral M72.2 [...] Provider Name:Arianna Shaw , 03/18/2025 08:00:00 AM, [address] [place] [address], [address], Progress Notes * Kinza LYNCH LDOB:1965 (59 yo F)Acc No.[id number]:12/03/2024 Progress Note Patient:?David LYNCHona L Provider:?Arianna Shaw DPM :1965???Age:59 Y???Sex:Female D ate:12/03/2024 Address:[address] [place], [place] [address] [facility] Pcp:REINALDO Saleh Subjective: * Chief Complaints: * [...] week, walking, gym. ?Marital status: . 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 ???Drug/Alcohol:?AUDIT-C (Standard)?Did you have a drink containing [...] Shaw DPM Date:?2024 Generated for Isamar hidalgo/Thiago/Salinaitting on:?03/10/2025 08:49 AM EDT History and Physical Notes * [...]
== END 2025-03-10 09:30 | disposition home or self-care (01) ==
LOC: HO.HOS 08:34
PROVIDERS: PCP Nurse Practitioner Family; Visit Provider Orthopaedic Surgery
DX: M18.0 Bilateral primary osteoarthritis of first carpometacarpal joints (principal); M77.8 Other enthesopathies, not elsewhere classified
CPT/HCPCS: 99213

== ENCOUNTER → 2025-03-10 08:33 | Outpatient (BNVA) | payer OTHER, SELFPAY | PROVIDERS: PCP Nurse Practitioner Family; Visit Provider Orthopaedic Surgery ==

== ENCOUNTER → 2025-03-29 07:54 | Outpatient (REF) | payer OTHER, SELFPAY ==
--- NOTE | ~2025-03-29 | NM_ITS ---
EXERCISE MYOCARDIAL PERFUSION STUDY INDICATION: Chest pain to evaluate for myocardial ischemia TECHNIQUE: The patient was brought in for an exercise perfusion study on March 29, 2025. Patient performed exercise as per Anastacio protocol and was injected 30 mCi of sestamibi once target heart rate was achieved. Images were obtained using the SPECT gamma camera interlaced with the gating device. Images were obtained in supine position. Resting perfusion study was performed on March 30, 2025. Patient was administered 30 mCi of sestamibi intravenously at rest. Images were then obtained in supine position. Images obtained without without CT attenuation. Total DLP 125 mGy-cm. Images were processed with the software and compared side to side in short axis, horizontal long axis and vertical long axis views. FINDINGS: Raw images were reviewed The stress perfusion study showed nonattenuated images show normal uptake of radiotracer in all segments of the LV myocardium. Attenuated corrected images show mildly reduced uptake in the apex of the LV myocardium. The gated study shows normal LV systolic function with calculated LVEF of 73%. LV cavity is normal in size. The gated study shows normal systolic wall thickening and contraction of segments. Resting study shows no change in perfusion pattern compared to stress perfusion study. Gating at rest reveals normal systolic wall motion with ejection fraction at 72%. The findings are consistent with normal myocardial perfusion. NM/NM cardiolite stress test IMPRESSION: 1. Myocardial perfusion imaging study shows normal myocardial perfusion. 2. Gated LVEF is 73%. 3. Transient ischemic dilatation not present. EKG revealed negative for ischemia. Electronically signed by: Sreeaknth Hearn MD 03/30/2025 04:19 PM EDT
--- NOTE | 2025-03-29 07:57 | CA_ITS ---
Acquisition Time: 2025-03-29 08:04:06 Total Exercise Time: 00:06:00 Test Indications: CHEST TIGHTNESS Medications: SEE H&P Protocol: KRAIG Max HR: 144 BPM 91% of Pred: 158 BPM Max BP: 158/68 mmHG Max Work Load: 7.0 METS Exercise stress test with exercise 6 mins of Kraig Protocol, achieving 91% MPHR, with reports of mild SOB, no chest pain, with isolated PVCs, with normotensive response to exercise. Without EKG changes meeting criteria for ischemia. In recovery, breathing returned to baseline. Nuclear images pending. Test reviewed with Dr. Mon. Referred By: Wilfred Castle Electronically Signed By: Farshad Nolasco
--- OUTSIDE RECORDS SUMMARY | 2025-03-29 07:58 | XMS_ITS ---
Author Organization [facility] Address [address] [place] [address] Care Team Providers Care Computer Publisher Name Role Phone Wilfred Kimbrough Primary Care Provider Unav ailable Arianna Shaw [phone] Encounters Encounter Location Date Provider Diagnosis [facility] [address] [place] [address] 03/18/2025 Arianna Shaw Plan Of Treatment No Information Progress Notes * Kinza LYNCH LDOB:1965 (60 yo F)Acc No.[id number]:03/18/2025 Progress Note Patient:Kinza WILSON Provider:?Arianna Shaw DPM :1965???Age:60 Y???Sex:Female D ate:03/18/2025 Address:[address] [place], [place] [address] Pcp:REINALDO Saleh Subjective: * Chief Complaints: * ??? * Medical History:? Objective: * Vitals:? Assessment: Plan: * Treatment: * Images: * The named appointment provid er may or may not be the originator of this progress note, and it is not deemed complete until electronically signed by the appointment provider. Sign off status: Pending * Provider:?Arianna Shaw DPM Date:?2024 Generated for Isamar hidalgo/Thiago/eTransmitting on:?03/29/2025 07:58 AM EDT
== END ==
LOC: HO.CARD 07:54
PROVIDERS: PCP Nurse Practitioner Family; Visit Provider Nurse Practitioner Family
DX: R07.89 Other chest pain (principal)
CPT/HCPCS: 78452; 93017; A9500

== ENCOUNTER → 2025-03-29 07:57 | Outpatient (BNV) | payer OTHER, SELFPAY | PROVIDERS: PCP Nurse Practitioner Family | DX: R06.02 Shortness of breath (principal); I49.3 Ventricular premature depolarization | CPT/HCPCS: 78452; 93016; 93018 ==

== ENCOUNTER 2025-05-18 13:31 | Outpatient (AMB) | payer OTHER, SELFPAY ==
--- NOTE | 2025-05-18 13:32 | A.OFFVIS_ITS ---
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 Admits to a lot of stress due to her work and personal history of family losses. Currently sexually active. Denies any vaginal dryness or irritation. Attempting to eat a healthy diet with calcium and vitamin D and stays active with limited exercise due to foot pain, taking gabapentin daily and does stretches, had PT in the past. History of hysterectomy due to endometriosis Last mammogram; 02/2025. Colonoscopy is UTD. Denies any family history of breast, ovarian or colon cancer. [facility] Medical History Osteoarthritis Diarrhea GERD (gastroesophageal reflux disease) Elevated liver enzymes Tubular adenoma Increased BMI Impaired fasting glucose Tenosynovitis of both wrists Elevated LFTs Insomnia Depression Chronic otitis externa Menopausal disorder Dyslipidemia HTN (hypertension) Hemicrania Surgical History History of mammogram History of colonoscopy History of hysterectomy History of laparoscopic cholecystectomy Family History Father Hx of cirrhosis Mental health disorder Mother Hx of diabetes insipidus HX: breast cancer Hx of renal failure Mental health disorder Son No problems noted. Daughter No problems noted. 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 Cognitive needs: No Hearing needs: No Vision needs: No Female Reproductive History Menstrual Age of Menarche: 10 control method: none Total pregnancies: 2 Premature: 2 History of abnormal pap smear: No Review of Systems Const All systems reviewed & are unremarkable except as noted in HPI and below Reports as per HPI Eyes Reports no additional complaints ENT Reports no additional complaints Card Reports no additional complaints Resp Reports no additional complaints GI Reports as per HPI and Reports no additional complaints Reports as per HPI Musc Reports no additional complaints Skin/Breast Reports as per HPI Neuro Reports no additional complaints Psych Reports no additional complaints Endo Reports no additional complaints Malik/Lymph Reports no additional complaints Aller/Immun Reports no additional complaints Physical Exam Vital Signs: Last Vital Signs BP 118/72 05/18/25 13:46 BMI result Body Mass Index 36.0 Const General: cooperative, healthy appearing, no acute distress, well developed and alert Orientation/consciousness: patient oriented x3 HEENT Head: Yes normal to inspection Eyes General: appearance normal, both eyes and all related structures Neck Neck: Yes normal visual inspection Thyroid: Thyroid normal Chest Chest palpation & inspection: normal inspection of the chest and other (no puckering, dimpling, peau de orange, retraction, discharge, masses) Breast/axilla inspection: normal inspection of the breasts Breast/axilla palpation: normal palpation of the breasts Resp Effort & Inspection: normal respiratory effort GI Inspection: Yes normal to inspection and Yes scar Palpation (GI): Soft to palpation Rectal Exam - Female: deferred General: Yes bladder normal to palpation External Female Exam: normal external appearance and normal appearance of the urethra Speculum Exam - Vagina: normal appearance of the vagina, normal palpation and normal vaginal discharge Speculum Exam - Cervix: Cervix absent (Vaginal cuff no lesions or nodules) Bimanual exam- vagina & uterus: normal bimanual exam, normal palpation, uterine size normal, bladder normal to palpation and non-tender Bimanual Exam- Adnexa, other: no masses Skin General skin exam: no rashes or lesions noted Rashes: no rashes Neuro General: patient oriented x3 Cognition (Neuro): normal cognition Extrem General: Yes normal to inspection Psych Attitude: cooperative Thought process: Normal thought process present Assessment & Plan Assessment & Plan (1) Encounter for well woman exam with routine gynecological exam: Code(s): Z01.419 - Encounter for gynecological examination (general) (routine) without abnormal findings Category: Medical Plan: Discussed: Current recommendations for pap smears per ASCCP guidelines. Breast awareness, periodic self breast exams and yearly mammogram. Maintain a healthy lifestyle, well balanced diet including Calcium 1,200 mg and Vitamin D 600 IU daily, and routine exercise. Patient verbalizes understanding and agrees to the plan of care. She was given opportunity to ask questions and all questions were answered to the best of my ability. RTO in 1 year for annual point of care specialist exam. This note is constructed using voice recognition software. While every effort has been made to ensure accuracy, life skills coordinator volunteer errors may have been included. (2) Hot flashes: Code(s): R23.2 - [place] Plan Discussed various causes of hot flashes including menopausal induced, elevated LFTs, blood sugar fluctuations in other. Advised to follow up with PCP for a routine bled work and evaluation to include the TSH which were ordered previously. Focus on a well-balanced healthy diet and exercise when possible. Avoidance of triggers. Information provided on sleep pod cast. Follow up as needed p.r.n. The patient expressed understanding and agreement with the plan of care. Coding Level of Care Code New Pt Prev Care 40-64y(91823) Diagnoses Encounter for well woman exam with routine gynecological exam Z01.419 Hot flashes R23.2
[2025-05-18 13:46] VITALS: BP 118/72; BMI 36.0
--- OUTSIDE RECORDS SUMMARY | 2025-05-18 14:13 | XMS_ITS | Clinical Summary ---
Author Organization [facility] Address [address] [address] Phone Care Team Providers Care Folder Machine Name Role Phone Unknown, Unknown Primary Care Provider Kenyon labroldan Allergies No known active allergies Medications escitalopram oxalate (LEXAPRO) 10 MG tablet Take 10 mg by mouth nightly at bedtime. 5 9 Active lidocaine 5 % ointment as needed. 0 9 Active montelukast (SINGULAIR) 10 mg tablet Take 10 mg by mouth daily. 1 9 Active pravastatin (PRAVACHOL) 10 MG tablet Take 10 mg by mouth daily. 11 9 Active propranolol (INDERAL LA) 120 mg 24 hr capsule TAKE 1 CAPSULE BY MOUTH ONCE A DAY 3 9 Active KHUSHI 0.05 mg/24 hrIndications:Quoco joaquim for monitoring postmenopausal estrogen replacement therapy PLACE 1 PATCH ONTO THE SKIN TWICE A WEEK 24 patch 3 1 Active cyanocobalamin, vitamin B-12, (VITAMIN B-12 ORAL) Take by mouth daily. Active ascorbic acid (VITAMIN C ORAL) Take by mouth daily. Active cholecalciferol, vitamin D3, (VITAMIN D3 ORAL) Take by mouth daily. Active clotrimazole (LOTRIMIN) 1 % creamIndications:S kin rash Apply topically 2 (two) times a day. For 7-14 days as needed for rash in inguinal skin folds. 24 g 1 Active Active Problems Problem Noted Date Diagnosed Date Skin rash 03/30/2021 Assessment & Plan (03/30/2021 10:43 AM EDT): Skin rash patient describes intermittently in inguinal skin fold is likely more consistent with Mirtha given weight and approximation of soft tissue in that area. I suggested she try antifungal cream twice daily with recurrence of rash. May also schedule office follow-up for diagnosis. Chronic vulvitis 08/14/2019 Assessment & Plan (03/30/2021 10:46 AM EDT): No skin changes noted today. Patient states labial skin has been asymptomatic-no skin changes or irritation. Assessment & Plan (08/14/2019 9:59 AM EDT): Patient does not recall having biopsy of the skin in the past. She believes she is utilizing the steroid ointment over this past year. Plan will be to use clobetasol twice daily until itching resolves completely. At that time change to daily use. Follow-up in 2 months with possible need for skin biopsy if symptoms not resolving or lesion not improving. Encounter for monitoring pos tmenopausal estrogen replacement therapy 08/14/2019 Assessment & Plan (08/14/2019 10:01 AM EDT): Use of ERT reviewed with patient. Patient remains symptomatic. I have suggested switch to patch. Abnormality of right breast on screening mammogr am 12/08/2018 Overview (12/08/2018): Likely benign complex right breast cyst. 6 mos f/u diagn mammo/US scheduled at [facility]. Family History Medical History Relation Comments Breast cancer Mother postmeno Diabetes Mother Heart disease Mother Hypertension Mother Kidney disease Mother Ovarian cancer Sister 1 Relation Status Comments Brother Alive Father Maternal Grandfather Maternal Grandmother Mother Paternal Grandfather Paternal Grandmother Sister 1 Alive Sister 2 Alive Sister 3 Alive Social History Tobacco Use Types Packs/Day Years Used Date Smoking Tobacco: Never Smokeless Tobacco: Never Alcohol Use Standard Drinks/Week Comments Yes 0 (1 standard drink = 0.6 oz pur e alcohol) Education Answer Date Recorded Are you interested in more education? Not on melody e 02/08/2023 Are you concerned about learning? Not on file 02/08/2023 No 02/08/2023 No 02/08/2023 Digital Access Answer Date Recorded No 03/09/2023 No 03/09/2023 Reliable internet access at home? Not on file 03/09/2023 Device with a working camera? 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 Not on file Not on file Not on melody e Last Filed Vital Signs Vital Sign Reading Time Taken Comments Blood Pressure 112/74 03/30/2021 9:58 AM EDT Pulse - - Temperature - - Respiratory Rate - - Oxygen Saturation - - Inhaled Oxygen Concentration - - Weight 117 kg (258 lb) 03/30/2021 9:58 AM EDT Height 167.6 cm (5' 6 ) 03/30/2021 9:58 AM EDT Body Mass Index 41.64 03/30/2021 9:58 AM EDT Plan of Treatment Health Maintenance Due Date Last Done Comments Adult Td,Tdap Booster 1963 LIPID PANEL 1963 DEPRESSION SCREENING 1975 HEPATITIS C SCREENING 1981 HIV ONE-TIME SCREENING (18-6 5 YEARS) 1981 COLOGUARD 01/29/2008 COLONOSCOPY 01/29/2008 COLORECTAL CANCER SCREENING 01/29/2008 FIT TEST 01/29/2008 FOBT 01/29/2008 SIGMOIDOSCOPY 01/29/2008 VIRTUAL COLONOSCOPY 01/29/2008 PNEUMOCOCCAL VACCINES (50+ years) (1 of 1 - PCV) 2013 PAP SMEAR 01/14/2017 01/14/2014 MAMMOGRAM 11/21/2022 11/21/2020, 06/17/2019 COVID-19 VACCINE (3 - 2023-2 5 season) 2024 01/03/2021, 12/07/2020 RSV VACCINE (1 - 1-dose 75+ series) 2038 ZOSTER VACCINES Completed 10/05/2020, 06/25/2020 SMOKING STATUS SCREENING (On ce After 26 Yrs) Completed 03/30/2021 HEPATITIS A VACCINES Aged Out No long er eligible based on patient's age to complete this topic HIB VACCINES Aged Out No longer eligi ble based on patient's age to complete this topic MENINGOCOCCAL VACCINES (ACWY) Aged Out No longer eligible based on patient's age to complete this topic MENINGOCOCCAL VACCINES (B) Aged Out N o longer eligible based on patient's age to complete this topic Medical Devices Not on file Procedures Procedure Name Priority Date/Time Associated Diagnosis Comments HM MAMMOGRAPHY Routine 11/21/2020 HM PAP SMEAR FOR RESULT ENTRY ONLY Routine 01/14/2014 from Last 3 Months or Most Recently Relevant to Health Maintenance Results * HM MAMMOGRAPHY FOR RESULT ENTRY ONLY (11/21/2020) Lukasz Provider HEALTH MAINTENANCE Final Result * HM PAP SMEAR FOR RESULT ENTRY ONLY (01/14/2014) Elisha Worrell MD HEALTH MAINTENANCE F inal Result from Last 3 Months or Most Recently Relevant to Health Maintenance Insurance [address] [place] [place] [address] [place] [place] [address] [place], [place] [address] Care Teams Folder Machine Relationship Specialty Start Date End Date Unknown, Unknown, PCP - General 03/30/21 Additional Source Comments The information contained in this document represents components of the legal health record. It is not the complete legal health record.[facility]
--- OUTSIDE RECORDS SUMMARY | 2025-05-18 14:13 | XMS_ITS | Patient Health Record ---
[facility] Address [address] [facility] [place] [address] Care Team Providers Care Conveyor Belt Operator Name Role Phone Wilfred Kimbrough Primary Care Provider Unav ailable Black, Arianna Unavailable [phone] Allergies No Known Allergies Reason For Referral No Information Medications Medication SIG (Take, Route, Frequency, Duration) Notes Start Date End Date Status Ammonium Lactate 12 % 1 application Exte rnally Twice a day; Duration: 30 days Not-Taking Losartan Potassium 25 MG 1 tablet Orally Once a day Active Gabapentin 100 MG 1 capsule at bedtime Orally Once a day Active Multivitamin Active Vitamin B12 Active Diclofenac Sodium 50 MG 1 tablet as need ed Orally Twice a day; Duration: 20 days 06/16/2024 Not-Taking Gabapentin 300 MG 1 capsule Orally thr ee times a day; Duration: 30 days Active Naltrexone-buPROPion HCl ER 8-90 MG 1 tablet in the morning Orally Once a day Active Celecoxib 200 MG Oral; Duration: 30 Days Not-Taking Night Splint AFO - L1930 1 wear at rest; Duration: 30 days Not-Taking Dicyclomine HCl 10 MG 2 capsules Orally Three times a day Not-Taking ZyrTEC Not-Taking Rosuvastatin Calcium 20 MG 1 tablet Orally Once a day Active LORazepam 0.5 MG (Schedule IV Drug) O ral; Duration: 30 PRN Active Zolpidem Tartrate 5 MG 1 tablet at bedti me as needed Orally Once a day PRN Active Wegovy 2.4 MG/0.75ML 0.5 mL Subcutaneous Active Docusate Sodium 100 MG 1 capsule as need ed Orally Once a day PRN Active Ciclopirox Olamine 0.77 % 1 application Externally Twice a day; Duration: 30 days Active Vitamin C 500 MG as directed Orally Active Clobetasol Propionate 0.05 % 1 application Externally Twice a day Active Vitamin D3 Active Fluocinolone Acetonide 0.01 % 5 drops into affected ear Otic Twice a day Active Fexofenadine-Pseudoephed rine Active Prednisone Not-Shar g Ciclopirox Olamine 0.77% external Apply to effected areas twice a day; Duration: 30 days 03/04/2018 Not-Shar g Escitalopram Oxalate 10 MG 1 tablet Orally Once a day Not-Taking Estradiol 1 MG Oral; Duration: 90 Not-Taking Meloxicam 7.5 MG 1 tablet Orally twic e a day; Duration: 30 days NotShar Albuterol Sulfate No t-Taking Omeprazole 20 MG [...] Oil Active Physical Therapy . . . 2x/week; Duratio n: 3-4 weeks 08/16/2015 Not-Taking Physical Therapy . . . 2x/week; Duratio n: 3-4 weeks Not-Taking CeleBREX 200 MG 1 capsule Orally Onc e a day; Duration: 30 day(s) 07/10/2016 Not-Da ing Ibuprofen Not-Taking Nystatin Active Temazepam 15 MG (Schedule IV Drug) O ral; Duration: 30 Not-Taking Fluticasone Propionate 50 MCG/ACT Nasal; Duration: 30 Not- ng Co Q 10 Active Ciclopirox Olamine 0.77% external Apply to effected areas twice a day; Duration: 30 days 05/20/2015 Not-Shar Sodium Chloride 0.65 % as directed Nasally Active Fluocinolone Acetonide 0.01 % Otic; Duration: 30 Shar Clotrimazole-Betamethaso ne 1-0.05 % 1 application to affected area Externally Twice a day to affected areas on feet; Duration: 30 days 06/15/2015 Not-Taking Meloxicam 15 MG 1 tablet Orally Once a day; Duration: 90 days 03/14/2020 Not-Takdemario g Meloxicam 15 MG 1 tablet Orally Once a day; Duration: 90 days 11/22/2020 Not-Shar g Social History Tobacco Use: Social History Observation [...] Problem Acquired hammer toe of right foot ([id number]) Other hammer toe(s) (acquired), right foot (M20.41) Active confirmed Problem Acquired hammer toe of left foot (9410988851760239) Other hammer toe(s) (acquired), left foot (M20.42) Active confirmed Problem Localized, primary osteoarthritis of the ankle and/or foot (478203223) Primary osteoarthriti s, right ankle and foot (M19.071) Active confirmed Problem Localized, primary osteoarthritis of the ankle and/or foot () Primary osteoarthriti s, left ankle and foot (M19.072) Active confirmed Problem Arthritis (2455718) Arthritis (M19.90) Active confirmed Problem Localized, primary osteoarthritis of the ankle and/or foot (565581899) Arthritis of joint of lesser toe, left (M19.072) Active confirmed Problem Localized, primary osteoarthritis of the ankle and/or foot () Arthritis of joint of lesser toe, right (M19.071) Active confirmed Problem Plantar fascial fibromatosis (78415288) Plantar fasciitis, bilateral (M72.2) Active confirmed Vital Signs Blood pressure diastolic 80 mm Hg 12/03/2024 Height 5ft 6in in 12/03/2024 Blood pressure systolic 120 mm Hg 12/03/2024 Weight 200 lbs 12/03/2024 BMI 32.28 kg/m2 12/03/2024 Encounters Encounter Location Date Provider Diagnosis [facility] [address] [place] [address] 06/16/2024 Arianna Black Other hammer toe(s) (acquired), right [...] M60.872 and Bursitis of left foot M77.52 [facility] [address] [place] [address] 09/03/2024 Arianna Black Plantar fasciitis, bilateral M72.2 [...] M60.872 and Bursitis of left foot M77.[address] [address] 12/03/2024 Arianna Black Plantar fasciitis, bilateral M72.2 [...] M60.872 and Bursitis of left foot M77.[address] [address] 06/16/2024 Ariannakandis Shaw [address] [address] 09/03/2024 Arianna Shaw [address] [address] 10/09/2024 Arianna Black Neuritis M79.[address] [address] 03/18/2025 Arianna Black Assessments Encounter Date Diagnosis (ICD Code) Assessment Notes Treatment Notes Treatment Clinical Notes Section Notes 06/16/2024 Other hammer toe(s) (acquired), right foot [...] toe of right foot (ICD-10 - M79.674) 06/16/2024 Arthritis of joint of lesser toe, right (ICD-10 - M19.071) 09/03/2024 Pain of toe of right foot (ICD-10 - M79.674) 12/03/2024 Pain of toe of right foot (ICD-10 - M79.674) 09/03/2024 Arthritis of joint of lesser toe, right (ICD-10 - M19.071) 12/03/2024 Arthritis of joint of lesser toe, right (ICD-10 - M19.071) 06/16/2024 Pain of toe of left foot (ICD-10 - M79.675) 06/16/2024 Other hammer toe(s) (acquired), left foot (ICD-10 - M20.42) 09/03/2024 Pain of toe of left foot (ICD-10 - M79.675) 12/03/2024 Pain of toe of left foot (ICD-10 - M79.675) 12/03/2024 Other hammer toe(s) (acquired), left foot (ICD-10 - M20.42) 09/03/2024 Other hammer toe(s) (acquired), left foot (ICD-10 - M20.42) 06/16/2024 Arthritis of joint of lesser toe, left (ICD-10 - M19.072) 06/16/2024 Arthralgia of right ankle (ICD-10 - M25.571) 09/03/2024 Arthritis of joint of lesser toe, left (ICD-10 - M19.072) 12/03/2024 Arthritis of joint of lesser toe, left (ICD-10 - M19.072) 12/03/2024 Arthralgia of right ankle (ICD-10 - M25.571) 09/03/2024 Arthralgia of right ankle (ICD-10 - M25.571) 06/16/2024 Arthralgia of left foot (ICD-10 - M25.572) 06/16/2024 Neuritis (ICD-10 - M79.2) 09/03/2024 Arthralgia of left foot (ICD-10 - M25.572) 12/03/2024 Arthralgia of left foot (ICD-10 - M25.572) 12/03/2024 Arthritis (ICD-10 - M19.90) 06/16/2024 Arthritis (ICD-10 - M19.90) 09/03/2024 Arthritis (ICD-10 - M19.90) 09/03/2024 Pain in right foot (ICD-10 - M79.671) 06/16/2024 Pain in right foot (ICD-10 - [...] Foot, left 3V 07/15/2023 *Arthritic Panel 11/22/2020 [id number] TENDON SHEATH/LIGAMENT 1 11/12/2014 [id number] TENDON SHEATH/LIGAMENT 0 11/18/2015 [id number] TENDON SHEATH/LIGAMENT 0 02/14/2016 Insurance Providers Payer Name Payer Address Payer Phone Subscriber Number Group Number Insured Name Patient Relationship to Insured Coverage Start Date Coverage End Date [facility] [address] [place] [address] [id number] Kinza Lynch Self - patient is the insured Medical (General) History Medical History History ICD Code Chicken pox High Blood Pressure Cholesterol Surgical History Surgery Date(Month/Year) hysterectomy 10/1999 gall bladder 01/31/2016 Hand Surgery - Left 04/2023
--- OUTSIDE RECORDS SUMMARY | 2025-05-18 14:13 | XMS_ITS | Clinical Summary ---
Author Organization [facility] Address [address] [place] [id number] Phone Care Team Providers Care Surveillance Sensor Officer Name Role Phone Wilfred Castle NP Primary Care Provider Encounters Date Type Department Care Team Description 03/11/2025 8:44 AM EDT - 03/11/2025 11:59 PM EDT [facility] [address] [phone] Encounter for screening mammogram for breast cancer Discharge Disposition: Home or Self Care from Last 3 Months Surgical History Surgery Date Site/Laterality Comments BREAST CYST ASPIRATION Right HYSTERECTOMY 10/14/1993 - 10/13/1994 Family History Medical History Relation Name Comments Breast cancer Mother Breast cancer Mother's Sister Relation Name Status Comments Mother Mother's Sister Alive Social History Tobacco Use Types Packs/Day Years Used Date Smoking Tobacco: Never Assessed Comments No Sex and Gender Information Value Date Recorded Sex Assigned at Not on file Legal Sex Female 4:15 AM EST Gender Identity Not on file Sexual Orientation Not on file Obstetrics History Para Term AB IAB SAB Ectopic Multiple Livin g Live Births 2 Last Filed Vital Signs Vital Sign Reading Time Taken Comments Blood Pressure - - Pulse - - Temperature - - Respiratory Rate - - Oxygen Saturation - - Inhaled Oxygen Concentration - - Weight 98.4 kg (217 lb) 03/11/2025 8:50 AM EDT Height 167.6 cm (5' 6 ) 03/11/2025 8:50 AM EDT Body Mass Index 35.02 03/11/2025 8:50 AM EDT Plan of Treatment Health Maintenance Due Date Last Done Comments DTaP,Tdap,and Td Vaccines (1 - Tdap) 1982 Cervical Cancer Screening: Pap Smear 01/29/1984 Pneumococcal Vaccine: 50+ Years (1 of 1 - PCV) 2013 Cholesterol Screening (Lipid Panel) 09/16/2022 Colorectal Cancer Screening: Colonoscopy 09/16/2022 HIV Screening 09/16/2022 Hepatitis C Screening 09/16/2022 Social Influencers of Health Screening 09/16/2022 COVID-19 Vaccine ( season) 2024 08/01/2022, 08/10/2021, 01/03/2021, Additional history exists Depression Screening 10/14/2024 Hypertension/CHF/CAD Annual BMP Blood Test 03/11/2025 Influenza Vaccine (#1) 2025 3, 08/01/2022, 08/17/2021, Additional history exists Breast Cancer Screening 03/11/2027 03/11/20, 03/04/2024, 02/28/2023, Additional history exists RSV Immunization Adult Patients (1 - 1-dose 75+ series) 2038 Zoster Vaccines Completed 10/05/2020, 06/25/2020 HIB Vaccines Aged Out No longer eligi ble based on patient's age to complete this topic HPV Vaccines Aged Out No longer eligi ble based on patient's age to complete this topic Hepatitis A Vaccines Aged Out No long er eligible based on patient's age to complete this topic Hepatitis B Vaccines Aged Out No long er eligible based on patient's age to complete this topic IPV Vaccines Aged Out No longer eligi ble based on patient's age to complete this topic MMR Vaccines Aged Out No longer eligi ble based on patient's age to complete this topic Meningococcal ACWY Vaccine Aged Out N o longer eligible based on patient's age to complete this topic Meningococcal B Vaccine Aged Out No l onger eligible based on patient's age to complete this topic RSV Immunization Patients Under 20 months Aged Out No longer eligible based on patient's age to complete this topic Varicella Vaccines Aged Out No longer eligible based on patient's age to complete this topic Procedures Procedure Name Priority Date/Time Associated Diagnosis Comments MG MAMMO DIGITAL SCREENING W JAYESH BILAT Routine 03/11/2025 9:00 AM EDT Encounter for screening mammogram for breast cancer from Last 3 Months Results * MG Mammo Digital Screening w Jayesh bilat (03/11/2025 9:00 AM EDT) Anatomical Region Laterality Modality Breast Bilateral Mammography 03/11/2025 9:10 AM EDT Impressions 03/11/2025 9:17 AM EDT No mammographic evidence of malignancy. A negative mammogram in the presence of a clinically suspicious palpable abnormality does not preclude the possibility of malignancy or alter the indications for biopsy. PQRI CPT II 3342F Code 16814, 20441 PQRI 225 CPT II 7025F TISSUE DENSITY: There are scattered areas of fibroglandular density. (BI-RADS category B) IMPRESSION: Benign. BI-RADS CATEGORY: 2 - BENIGN RECOMMENDATION: Screening bilateral mammogram is recommended in 1 year. Mammo Location: [facility], [address] [place] [address] -------- FINAL REPORT -------- Dictated By: Tommy Lemus Dictated Date: 03/11/2025 09:10 ET Assigned Physician: Tommy Lemus Reviewed and Electronically Signed By: Tommy Lemus Signed Date: 03/11/2025 09:17 ET Workstation ID: [id number] Transcribed By: Self Edit Transcribed Date: 03/11/2025 09:10 ET Narrative 03/11/2025 9:17 AM EDT CLINICAL: The patient is a 60 years Female presenting for routine screening mammography. COMPARISON: Most recently 03/04/2024 and most remotely 10/23/2017. TECHNIQUE: Full-field digital mammography of the breasts bilaterally consisting of tomosynthesis in MLO and CC projection is performed in the dotloope 2000-D unit. Computer aided detection utilizing the iCAD system was utilized. FINDINGS: The breasts are seen to be composed of a combination of fatty and fibroglandular elements. A few scattered benign calcifications are noted in the right breast. There is no suspicious cluster of microcalcifications, mass, or area of architectural distortion. There is no skin thickening or nipple retraction. Procedure Note Tommy Lemus MD - 03/11/2025 CLINICAL: The patient is a 60 years Female presenting for routinescreening mammography. COMPARISON: Most recently 03/04/2024 and most remotely 10/23/2017. TECHNIQUE: Full-field digital mammography of the breasts bilaterallyconsisting of tomosynthesis in MLO and CC projection is performed in the[employer] Senographe 2000-D unit. Computer aided detection utilizing the HomeTouchystem was utilized. FINDINGS: The breasts are seen to be composed of a combination of fattyand fibroglandular elements. A few scattered benign calcifications arenoted in the right breast. There is no suspicious cluster ofmicrocalcifications, mass, or area of architectural distortion. There isno skin thickening or nipple retraction. IMPRESSION: No mammographic evidence of malignancy. A negative mammogram in the presence of a clinically suspicious palpableabnormality does not preclude the possibility of malignancy or alter theindications for biopsy. PQRI CPT II 3342F Code 74990, 01961 PQRI 225 CPT II 7025F TISSUE DENSITY: There are scattered areas of fibroglandular density.(BI-RADS category B) IMPRESSION: Benign. BI-RADS CATEGORY: 2 - BENIGN RECOMMENDATION: Screening bilateral mammogram is recommended in 1 year. Mammo Location: [facility], [address] [place] [id number] -------- FINAL REPORT -------- Dictated By: Tommy Lemus Dictated Date: 03/11/2025 09:10 ET Assigned Physician: Tommy Lemus Reviewed and Electronically Signed By: Tommy Lemus Signed Date: 03/11/2025 09:17 ET Workstation ID: [id number] Transcribed By: Self Edit Transcribed Date: 03/11/2025 09:10 ET us Self Referral Sppl IMG BI PROCEDURES Final Resul t from Last 3 Months Insurance [facility] Care Teams Surveillance Sensor Officer Relationship Specialty Start Date End Date Wilfred Castle NP PCP - General Family Medicine 03/05/25
--- OUTSIDE RECORDS SUMMARY | 2025-05-18 14:13 | XMS_ITS | Patient Health Record ---
Author Organization [facility] [address] Address [address] [place] [address] Care Team Providers Care Plate Hanger Name Role Phone IGNACIOJOHANNA LIZABETH Unavailable [phone] DUONGDIONICIO SOTELO Unavailable [phone] Allergies No Known Allergies Reason For Referral Reason Dr pham- AT HOME sleep study Diagnosis 1 Snoring (R06.83) Diagnosis 2 Daytime somnolence ( R40.0) Referral Organization [facility] [address] Referring Provider First Name LIZABETH Referring Provider Last Name PALLAVI Referring Provider Speciality Internal M edicine Referred Provider Young Pham Referred Provider Specialty Sleep Medici ne General Notes ZAIRE NGUYEN 0 12/18/2024 11:18:59 AM >Information sent to dr pham , [address] [place] [address], [address], [facility] [address], 6 [address] from Patient's Address, [phone], [phone] Clinical Notes Rosy Gore 02:44:22 PM > The patient had an appointment scheduled for 01/11, which she canceled and has not yet rescheduled. Referral Priority Routine Medications Medication SIG (Take, Route, Frequency, Duration) Notes Start Date End Date Status Zepbound 2.5 MG/0.5ML 2.5 mg weekly Subc utaneous Weekly; Duration: 30 days Active Albuterol Sulfate HFA 108 (90 Base) MCG/ACT 1 puff as needed Inhalation every 4 hrs 03/20/2023 Active Ondansetron 4 MG 1 tablet on the tong ue and allow to dissolve prn nausea Orally Once a day; Duration: 30 days Active Ciclopirox 0.77 % 1 application Out And Out Cigar Maker Hand ally Once a day 03/20/2023 Active D3 Super Strength 50 MCG (1999 UT) TAKE ONE CAPSULE BY MOUTH EVERY DAY Oral; Duration: 90 Active Contrave 8-90 MG Take 1 tablet by luz th daily for 7 days then 1 twice a day for 7 days, then 2 in the am and 1 in the pm for 7 days then take 2 twice daily thereafter. Active Propranolol HCl ER 120 MG TAKE 1 CAPSULE BY MOUTH DAILY. Oral; Duration: 90 Active Wegovy 2.4 MG/0.75ML 2.4mg Subcutaneous weekly; Duration: 28 days Active Zolpidem Tartrate 5 MG Oral; Duration: 30 Active Dicyclomine HCl 10 MG TAKE ONE CAPSULE B Y MOUTH FOUR TIMES A DAY Oral; Duration: 30 Active LORazepam 0.5 MG Oral; Duration: 30 Active Rosuvastatin Calcium 20 MG TAKE ONE TABL ET BY MOUTH EVERY DAY Oral; Duration: 90 Active Losartan Potassium 25 MG 1 tablet Orally Once a day; Duration: 30 day(s) 03/20/2023 Active Docusate Sodium 100 MG 1 capsule as need ed Orally Once a day; Duration: 30 day(s) 03/20/2023 Active Zepbound 7.5 MG/0.5ML 7.5mg Subcutaneous weekly; Duration: 30 days 05/17/2025 Active Contrave 8-90 MG Week 1, take 1 table t in the morning Week 2 take 1 tablet in the morning, 1 tablet in the evening Week 3 take 2 tablets in the morning, 1 tablet in the evening Week 4 onward 2 tablets in the morning, 2 tablets in the evening Orally twice a day; Duration: 30 days Active Zepbound 5 MG/0.5ML 5mg Subcutaneous wee kly; Duration: 30 days Active Escitalopram Oxalate 10 MG TAKE ONE TABL ET BY MOUTH ONCE DAILY Oral; Duration: 90 Active Social History Tobacco Use: Social History Observation Description Date Details (start date - stop date) Never Smoker NA - NA Tobacco Use/Smoking Question Answer Notes Are you a nonsmoker Alcohol Screen (Audit-C) Question Answer Notes Did you have a drink contain ing alcohol in the past year? Yes How often did you have a dri nk containing alcohol in the past year? 2 to 3 times a week (3 points) Points 3 Interpretation Positive Problems Problem Type SNOMED Code ICD Code Onset Dates Problem Status W/U Status Risk Notes Problem Obesity due to exces s calories (889683158) Other obesity due to excess calories (E66.09) Active confirmed Problem Primary insomnia (9998482) Primary insomnia (F51.01) Active confirmed Problem Essential hypertension (70299264) Essential (primary) hypertension (I10) Active confirmed Problem Adult health examination (544168427) Encounter for general adult medical examination without abnormal findings (Z00.00) Active confirmed Problem Hyperlipoproteinemia (7455183) Acquired hyperlipoproteinemia (E78.5) Active confirmed Problem Body mass index 40+ - morbidly obese (557393321) BMI 40.0-44.9, adult (Z68.41) Active confirmed Problem Body mass index 35.0 0 to 39.99 (416527156557495) Body mass index [BMI] 38.0-38.9, adult (Z68.38) Active confirmed Problem Body mass index 35.0 0 to 39.99 (359117439010469) Body mass index [BMI] 39.0-39.9, adult (Z68.39) Active confirmed Problem Obese class II (158715197464821) BMI 35.0-35.9,adult (Z68.35) Active confirmed Problem Obese class II (375021253667553) BMI 36.0-36.9,adult (Z68.36) Active confirmed Problem Morbid obesity (553051023) Morbid obesity due to excess calories (E66.01) Active confirmed Problem Daytime somnolence (482517457283) Daytime somnolence (R40.0) Active confirmed Problem Mixed anxiety and depressive disorder (122979586) Depression with anxiety (F41.8) Active confirmed Vital Signs Heart Rate 74 /min 05/07/2025 Oximetry 98 % 05/07/2025 Blood pressure diastolic 82 mm Hg 05/07/2025 Height 65 in 05/07/2025 Blood pressure systolic 124 mm Hg 05/07/2025 Weight 220.3 lbs 05/07/2025 BMI 36.66 kg/m2 05/07/2025 Encounters Encounter Location Date Provider Diagnosis [facility] [address] [place] [id number] 06/08/2024 LIZABETH OLIVO BMI 36.0-36.9,adult Z68.36 ; Other obesity due to excess calories E66.09 ; Dietary counseling and surveillance Z71.3 ; Acquired hyperlipoproteinemia E78.5 ; Depression with anxiety F41.8 ; Primary insomnia F51.01 and Essential (primary) hypertension I10 [facility] [address] 09/14/2024 LIZABETH BORHOT BMI 35.0-35.9,adult Z68.35 ; Other obesity due to excess calories E66.09 ; Dietary counseling and surveillance Z71.3 ; Acquired hyperlipoproteinemia E78.5 ; Depression with anxiety F41.8 ; Primary insomnia F51.01 and Essential (primary) hypertension I10 [facility] [address] 12/18/2024 LIZABETH BORHOT BMI 36.0-36.9,adult Z68.36 ; Other obesity due to excess calories E66.09 ; Dietary counseling and surveillance Z71.3 ; Acquired hyperlipoproteinemia E78.5 ; Depression with anxiety F41.8 ; Primary insomnia F51.01 ; Essential (primary) hypertension I10 ; Snoring R06.83 and Daytime somnolence R40.0 [facility] [address] 03/17/2025 LIZABETH BORHOT BMI 36.0-36.9,adult Z68.36 ; Dietary counseling and surveillance Z71.3 ; Other obesity due to excess calories E66.09 ; Acquired hyperlipoproteinemia E78.5 ; Depression with anxiety F41.8 ; Primary insomnia F51.01 ; Essential (primary) hypertension I10 ; Snoring R06.83 ; Daytime somnolence R40.0 and Encounter for examination of blood pressure without abnormal findings Z01.30 [facility] [address] 05/07/2025 LIZABETH BORHOT BMI 36.0-36.9,adult Z68.36 ; Dietary counseling and surveillance Z71.3 ; Acquired hyperlipoproteinemia E78.5 ; Other obesity due to excess calories E66.09 ; Depression with anxiety F41.8 ; Primary insomnia F51.01 ; Essential (primary) hypertension I10 ; Snoring R06.83 ; Daytime somnolence R40.0 and Encounter for examination of blood pressure without abnormal findings Z01.[address] [facility] [address] [place] [address] 06/11/2024 LIZABETH BORHOT [facility] [address] [place] [address] 06/11/2024 LIZABETH BORHOT [facility] [address] [place] [address] 06/12/2024 LIZABETH BORHOT [facility] [address] [place] [address] 09/14/2024 DIONICIO DUONG [facility] [address] [place] [address] 09/21/2024 LIZABETH BORHOT [facility] [address] [place] [address] 10/26/2024 LIZABETH BORHOT [facility] [address] [place] [address] 10/28/2024 LIZABETH BORHOT [facility] [address] [place] [address] 01/20/2025 LIZABETH BORHOT [facility] [address] [place] [address] 05/17/2025 LIZABETH BORHOT Assessments Encounter Date Diagnosis (ICD Code) Assessment Notes Treatment Notes Treatment Clinical Notes Section Notes 06/08/2024 BMI 36.0-36.9,adult (ICD-10 - Z68.36) #Weight Management 06/08/2024 Otherwise well and thriving cont wegovy 2.4mg max dosing cont contrave Follow-up on labs from [facility] Total time spent today was 30 minutes of which greater than 50% was spent on coordinating and counseling Patient has been found to be obese with a BMI of (36). Patient has class (2) obesity. We are a board certified obesity and weight management practice Patient has trialed behavioral modification, dietary restrictions and exercise for a minimum of 6 months The most recent [place] [employer] of clinical endocrinologists and [place] [employer] end[employer]in[employer] guidelines recommend patients who [...] track activity level. Consider using apps like [employer] (P), myfitnesspal, lose it, stick as needed for self-monitoring and weight management. Consider group exercises. Consider hiring a personal loan specialist. Regular exercise is manjarrez to sustainable health [...] counseling and psychiatry and Dr Marin at [facility]. We would like to cover regular topics [...] software and direct typing Please excuse inadvertent qa tech or typing errors, or uncorrected word substitutions Although every attempt has been made by the provider to proofread this document, occasional misspellings and typographical errors may still be present Due to the previous pandemic, and the use of personal protective equipment (PPE) This may decrease voice recognition accuracy Inadvertent qa tech errors may occur 09/14/2024 BMI 35.0-35.9,adult (ICD-10 [...] minimum of 6 months The most recent [place] [employer] of clinical endocrinologists and [place] [employer] end[employer] guidelines recommend patients who [...] software and direct typing Please excuse inadvertent qa tech or typing errors, or uncorrected word substitutions Although every attempt has been made by the provider to proofread this document, occasional misspellings and typographical errors may still be present Due to the previous pandemic, and the use of personal protective equipment (PPE) This may decrease voice recognition accuracy Inadvertent qa tech errors may occur 12/18/2024 BMI 36.0-36.9,adult (ICD-10 [...] software and direct typing Please excuse inadvertent qa tech or typing errors, or uncorrected word substitutions Although every attempt has been made by the provider to proofread this document, occasional misspellings and typographical errors may still be present Due to the previous pandemic, and the use of personal protective equipment (PPE) This may decrease voice recognition accuracy Inadvertent qa tech errors may occur 03/17/2025 BMI 36.0-36.9,adult (ICD-10 - Z68.36) #Weight Management 03/17/2025 Patient expresses interest in transitioning to Zepbound contrave RX cont wegovy 2.4mg Will try sample for 1 month, and try 1 month through [facility] Total time spent today was 30 minutes [...] software and direct typing Please excuse inadvertent qa tech or typing errors, or uncorrected word substitutions Although every attempt has been made by the provider to proofread this document, occasional misspellings and typographical errors may still be present Due to the previous pandemic, and the use of personal protective equipment (PPE) This may decrease voice recognition accuracy Inadvertent qa tech errors may occur 05/07/2025 BMI 36.0-36.9,adult (ICD-10 - Z68.36) #Weight Management 05/07/2025 Patient expresses interest in transitioning to Zepbound contrave RX cont wegovy 2.4mg Will try sample for 1 month, and try 1 month through [facility] Total time spent today was 30 minutes [...] software and direct typing Please excuse inadvertent qa tech or typing errors, or uncorrected word substitutions Although every attempt has been made by the provider to proofread this document, occasional misspellings and typographical errors may still be present Due to the previous pandemic, and the use of personal protective equipment (PPE) This may decrease voice recognition accuracy Inadvertent qa tech errors may occur 05/07/2025 Dietary counseling a nd surveillance (ICD-10 - Z71.3) #Weight Management 05/07/2025 Patient expresses interest in transitioning to Zepbound contrave RX cont wegovy 2.4mg Will try sample for 1 month, and try 1 month through [facility] Total time spent today was 30 minutes [...] software and direct typing Please excuse inadvertent qa tech or typing errors, or uncorrected word substitutions Although every attempt has been made by the provider to proofread this document, occasional misspellings and typographical errors may still be present Due to the previous pandemic, and the use of personal protective equipment (PPE) This may decrease voice recognition accuracy Inadvertent qa tech errors may occur 03/17/2025 Dietary counseling a nd surveillance (ICD-10 - Z71.3) #Weight Management 03/17/2025 Patient expresses interest in transitioning to Zepbound contrave RX cont wegovy 2.4mg Will try sample for 1 month, and try 1 month through [facility] Total time spent today was 30 minutes [...] software and direct typing Please excuse inadvertent qa tech or typing errors, or uncorrected word substitutions Although every attempt has been made by the provider to proofread this document, occasional misspellings and typographical errors may still be present Due to the previous pandemic, and the use of personal protective equipment (PPE) This may decrease voice recognition accuracy Inadvertent qa tech errors may occur 12/18/2024 Dietary counseling a [...] software and direct typing Please excuse inadvertent qa tech or typing errors, or uncorrected word substitutions Although every attempt has been made by the provider to proofread this document, occasional misspellings and typographical errors may still be present Due to the previous pandemic, and the use of personal protective equipment (PPE) This may decrease voice recognition accuracy Inadvertent qa tech errors may occur 09/14/2024 Dietary counseling a [...] minimum of 6 months The most recent [place] [employer] of clinical endocrinologists and [place] [employer] of endocrinology guidelines recommend patients who [...] software and direct typing Please excuse inadvertent qa tech or typing errors, or uncorrected word substitutions Although every attempt has been made by the provider to proofread this document, occasional misspellings and typographical errors may still be present Due to the previous pandemic, and the use of personal protective equipment (PPE) This may decrease voice recognition accuracy Inadvertent qa tech errors may occur 09/14/2024 Other obesity due [...] minimum of 6 months The most recent [place] [employer] of clinical endocrinologists and [place] [employer] of endocrinology guidelines recommend patients who [...] software and direct typing Please excuse inadvertent qa tech or typing errors, or uncorrected word substitutions Although every attempt has been made by the provider to proofread this document, occasional misspellings and typographical errors may still be present Due to the previous pandemic, and the use of personal protective equipment (PPE) This may decrease voice recognition accuracy Inadvertent qa tech errors may occur 12/18/2024 Other obesity due [...] software and direct typing Please excuse inadvertent qa tech or typing errors, or uncorrected word substitutions Although every attempt has been made by the provider to proofread this document, occasional misspellings and typographical errors may still be present Due to the previous pandemic, and the use of personal protective equipment (PPE) This may decrease voice recognition accuracy Inadvertent qa tech errors may occur 06/08/2024 Dietary counseling a nd surveillance (ICD-10 - Z71.3) #Weight Management 06/08/2024 Otherwise well and thriving cont wegovy 2.4mg max dosing cont contrave Follow-up on labs from [facility] Total time spent today was 30 minutes of which greater than 50% was spent on coordinating and counseling Patient has been found to be obese with a BMI of (36). Patient has class (2) obesity. We are a board certified obesity and weight management practice Patient has trialed behavioral modification, dietary restrictions and exercise for a minimum of 6 months The most recent [place] [employer] of clinical endocrinologists and [place] [employer] endocrin[employer] guidelines recommend patients who [...] track activity level. Consider using apps like [employer] (P), [employer], lose it, stick as needed for self-monitoring and weight management. Consider group exercises. Consider hiring a personal loan specialist. Regular exercise is manjarrez to sustainable health [...] counseling and psychiatry and Dr Marin at [facility]. We would like to cover regular topics [...] software and direct typing Please excuse inadvertent qa tech or typing errors, or uncorrected word substitutions Although every attempt has been made by the provider to proofread this document, occasional misspellings and typographical errors may still be present Due to the previous pandemic, and the use of personal protective equipment (PPE) This may decrease voice recognition accuracy Inadvertent qa tech errors may occur 06/08/2024 Other obesity due to excess calories (ICD-10 - E66.09) #Weight Management 06/08/2024 Otherwise well and thriving cont wegovy 2.4mg max dosing cont contrave Follow-up on labs from [facility] Total time spent today was 30 minutes of which greater than 50% was spent on coordinating and counseling Patient has been found to be obese with a BMI of (36). Patient has class (2) obesity. We are a board certified obesity and weight management practice Patient has trialed behavioral modification, dietary restrictions and exercise for a minimum of 6 months The most recent [place] [employer] of clinical endocrinologists and [place] [employer] of endocrinology guidelines recommend patients who [...] track activity level. Consider using apps like [employer] (P), [employer], lose it, stick as needed for self-monitoring and weight management. Consider group exercises. Consider hiring a personal loan specialist. Regular exercise is manjarrez to sustainable health [...] counseling and psychiatry and Dr Marin at [facility]. We would like to cover regular topics [...] software and direct typing Please excuse inadvertent qa tech or typing errors, or uncorrected word substitutions Although every attempt has been made by the provider to proofread this document, occasional misspellings and typographical errors may still be present Due to the previous pandemic, and the use of personal protective equipment (PPE) This may decrease voice recognition accuracy Inadvertent qa tech errors may occur 06/08/2024 Acquired hyperlipoproteinemia (ICD-10 - E78.5) #Weight Management 06/08/2024 Otherwise well and thriving cont wegovy 2.4mg max dosing cont contrave Follow-up on labs from [facility] Total time spent today was 30 minutes of which greater than 50% was spent on coordinating and counseling Patient has been found to be obese with a BMI of (36). Patient has class (2) obesity. We are a board certified obesity and weight management practice Patient has trialed behavioral modification, dietary restrictions and exercise for a minimum of 6 months The most recent [place] [employer] of clinical endocrinologists and [place] [employer] of endocrinology guidelines recommend patients who [...] track activity level. Consider using apps like [employer] (P), [employer], lose it, stick as needed for self-monitoring and weight management. Consider group exercises. Consider hiring a personal loan specialist. Regular exercise is manjarrez to sustainable health [...] counseling and psychiatry and Dr Marin at [facility]. We would like to cover regular topics [...] software and direct typing Please excuse inadvertent qa tech or typing errors, or uncorrected word substitutions Although every attempt has been made by the provider to proofread this document, occasional misspellings and typographical errors may still be present Due to the previous pandemic, and the use of personal protective equipment (PPE) This may decrease voice recognition accuracy Inadvertent qa tech errors may occur 09/14/2024 Acquired hyperlipoproteinemia (ICD-10 [...] minimum of 6 months The most recent [place] [employer] of clinical endocrinologists and [place] [employer] of endocrinology guidelines recommend patients who [...] software and direct typing Please excuse inadvertent qa tech or typing errors, or uncorrected word substitutions Although every attempt has been made by the provider to proofread this document, occasional misspellings and typographical errors may still be present Due to the previous pandemic, and the use of personal protective equipment (PPE) This may decrease voice recognition accuracy Inadvertent qa tech errors may occur 12/18/2024 Acquired hyperlipoproteinemia (ICD-10 [...] software and direct typing Please excuse inadvertent qa tech or typing errors, or uncorrected word substitutions Although every attempt has been made by the provider to proofread this document, occasional misspellings and typographical errors may still be present Due to the previous pandemic, and the use of personal protective equipment (PPE) This may decrease voice recognition accuracy Inadvertent qa tech errors may occur 03/17/2025 Other obesity due to excess calories (ICD-10 - E66.09) #Weight Management 03/17/2025 Patient expresses interest in transitioning to Zepbound contrave RX cont wegovy 2.4mg Will try sample for 1 month, and try 1 month through [facility] Total time spent today was 30 minutes [...] software and direct typing Please excuse inadvertent qa tech or typing errors, or uncorrected word substitutions Although every attempt has been made by the provider to proofread this document, occasional misspellings and typographical errors may still be present Due to the previous pandemic, and the use of personal protective equipment (PPE) This may decrease voice recognition accuracy Inadvertent qa tech errors may occur 03/17/2025 Acquired hyperlipoproteinemia (ICD-10 - E78.5) #Weight Management 03/17/2025 Patient expresses interest in transitioning to Zepbound contrave RX cont wegovy 2.4mg Will try sample for 1 month, and try 1 month through [facility] Total time spent today was 30 minutes [...] software and direct typing Please excuse inadvertent qa tech or typing errors, or uncorrected word substitutions Although every attempt has been made by the provider to proofread this document, occasional misspellings and typographical errors may still be present Due to the previous pandemic, and the use of personal protective equipment (PPE) This may decrease voice recognition accuracy Inadvertent qa tech errors may occur 05/07/2025 Acquired hyperlipoproteinemia (ICD-10 - E78.5) #Weight Management 05/07/2025 Patient expresses interest in transitioning to Zepbound contrave RX cont wegovy 2.4mg Will try sample for 1 month, and try 1 month through [facility] Total time spent today was 30 minutes [...] software and direct typing Please excuse inadvertent qa tech or typing errors, or uncorrected word substitutions Although every attempt has been made by the provider to proofread this document, occasional misspellings and typographical errors may still be present Due to the previous pandemic, and the use of personal protective equipment (PPE) This may decrease voice recognition accuracy Inadvertent qa tech errors may occur 12/18/2024 Depression with anxiety [...] software and direct typing Please excuse inadvertent qa tech or typing errors, or uncorrected word substitutions Although every attempt has been made by the provider to proofread this document, occasional misspellings and typographical errors may still be present Due to the previous pandemic, and the use of personal protective equipment (PPE) This may decrease voice recognition accuracy Inadvertent qa tech errors may occur 03/17/2025 Depression with anxiety (ICD-10 - F41.8) #Weight Management 03/17/2025 Patient expresses interest in transitioning to Zepbound contrave RX cont wegovy 2.4mg Will try sample for 1 month, and try 1 month through [facility] Total time spent today was 30 minutes [...] software and direct typing Please excuse inadvertent qa tech or typing errors, or uncorrected word substitutions Although every attempt has been made by the provider to proofread this document, occasional misspellings and typographical errors may still be present Due to the previous pandemic, and the use of personal protective equipment (PPE) This may decrease voice recognition accuracy Inadvertent qa tech errors may occur 05/07/2025 Other obesity due to excess calories (ICD-10 - E66.09) #Weight Management 05/07/2025 Patient expresses interest in transitioning to Zepbound contrave RX cont wegovy 2.4mg Will try sample for 1 month, and try 1 month through [facility] Total time spent today was 30 minutes [...] software and direct typing Please excuse inadvertent qa tech or typing errors, or uncorrected word substitutions Although every attempt has been made by the provider to proofread this document, occasional misspellings and typographical errors may still be present Due to the previous pandemic, and the use of personal protective equipment (PPE) This may decrease voice recognition accuracy Inadvertent qa tech errors may occur 09/14/2024 Depression with anxiety [...] minimum of 6 months The most recent [place] [employer] clinical endocrinologists and [place] [employer] guidelines recommend patients who [...] software and direct typing Please excuse inadvertent qa tech or typing errors, or uncorrected word substitutions Although every attempt has been made by the provider to proofread this document, occasional misspellings and typographical errors may still be present Due to the previous pandemic, and the use of personal protective equipment (PPE) This may decrease voice recognition accuracy Inadvertent qa tech errors may occur 06/08/2024 Depression with anxiety (ICD-10 - F41.8) #Weight Management 06/08/2024 Otherwise well and thriving cont wegovy 2.4mg max dosing cont contrave Follow-up on labs from [facility] Total time spent today was 30 minutes of which greater than 50% was spent on coordinating and counseling Patient has been found to be obese with a BMI of (36). Patient has class (2) obesity. We are a board certified obesity and weight management practice Patient has trialed behavioral modification, dietary restrictions and exercise for a minimum of 6 months The most recent [place] [employer] clinical endocrinologists and [place] [employer] guidelines recommend patients who [...] track activity level. Consider using apps like [employer]), [employer], lose it, stick as needed for self-monitoring and weight management. Consider group exercises. Consider hiring a personal loan specialist. Regular exercise is manjarrez to sustainable health [...] counseling and psychiatry and Dr Marin at [facility]. We would like to cover regular topics [...] software and direct typing Please excuse inadvertent qa tech or typing errors, or uncorrected word substitutions Although every attempt has been made by the provider to proofread this document, occasional misspellings and typographical errors may still be present Due to the previous pandemic, and the use of personal protective equipment (PPE) This may decrease voice recognition accuracy Inadvertent qa tech errors may occur 06/08/2024 Primary insomnia (ICD-10 - F51.01) #Weight Management 06/08/2024 Otherwise well and thriving cont wegovy 2.4mg max dosing cont contrave Follow-up on labs from [facility] Total time spent today was 30 minutes of which greater than 50% was spent on coordinating and counseling Patient has been found to be obese with a BMI of (36). Patient has class (2) obesity. We are a board certified obesity and weight management practice Patient has trialed behavioral modification, dietary restrictions and exercise for a minimum of 6 months The most recent [place] [employer] clinical endocrinologists and [place] [employer] guidelines recommend patients who [...] track activity level. Consider using apps like [employer]), [employer], lose it, stick as needed for self-monitoring and weight management. Consider group exercises. Consider hiring a personal loan specialist. Regular exercise is manjarrez to sustainable health [...] counseling and psychiatry and Dr Marin at [facility]. We would like to cover regular topics [...] software and direct typing Please excuse inadvertent qa tech or typing errors, or uncorrected word substitutions Although every attempt has been made by the provider to proofread this document, occasional misspellings and typographical errors may still be present Due to the previous pandemic, and the use of personal protective equipment (PPE) This may decrease voice recognition accuracy Inadvertent qa tech errors may occur 12/18/2024 Primary insomnia (ICD-10 [...] software and direct typing Please excuse inadvertent qa tech or typing errors, or uncorrected word substitutions Although every attempt has been made by the provider to proofread this document, occasional misspellings and typographical errors may still be present Due to the previous pandemic, and the use of personal protective equipment (PPE) This may decrease voice recognition accuracy Inadvertent qa tech errors may occur 09/14/2024 Primary insomnia (ICD-10 [...] minimum of 6 months The most recent [place] [employer] of clinical endocrinologists and [place] [employer] end[employer]in[employer] guidelines recommend patients who [...] software and direct typing Please excuse inadvertent qa tech or typing errors, or uncorrected word substitutions Although every attempt has been made by the provider to proofread this document, occasional misspellings and typographical errors may still be present Due to the previous pandemic, and the use of personal protective equipment (PPE) This may decrease voice recognition accuracy Inadvertent qa tech errors may occur 03/17/2025 Primary insomnia (ICD-10 - F51.01) #Weight Management 03/17/2025 Patient expresses interest in transitioning to Zepbound contrave RX cont wegovy 2.4mg Will try sample for 1 month, and try 1 month through [facility] Total time spent today was 30 minutes [...] software and direct typing Please excuse inadvertent qa tech or typing errors, or uncorrected word substitutions Although every attempt has been made by the provider to proofread this document, occasional misspellings and typographical errors may still be present Due to the previous pandemic, and the use of personal protective equipment (PPE) This may decrease voice recognition accuracy Inadvertent qa tech errors may occur 05/07/2025 Depression with anxiety (ICD-10 - F41.8) #Weight Management 05/07/2025 Patient expresses interest in transitioning to Zepbound contrave RX cont wegovy 2.4mg Will try sample for 1 month, and try 1 month through [facility] Total time spent today was 30 minutes [...] software and direct typing Please excuse inadvertent qa tech or typing errors, or uncorrected word substitutions Although every attempt has been made by the provider to proofread this document, occasional misspellings and typographical errors may still be present Due to the previous pandemic, and the use of personal protective equipment (PPE) This may decrease voice recognition accuracy Inadvertent qa tech errors may occur 03/17/2025 Essential (primary) hypertension (ICD-10 - I10) #Weight Management 03/17/2025 Patient expresses interest in transitioning to Zepbound contrave RX cont wegovy 2.4mg Will try sample for 1 month, and try 1 month through [facility] Total time spent today was 30 minutes [...] software and direct typing Please excuse inadvertent qa tech or typing errors, or uncorrected word substitutions Although every attempt has been made by the provider to proofread this document, occasional misspellings and typographical errors may still be present Due to the previous pandemic, and the use of personal protective equipment (PPE) This may decrease voice recognition accuracy Inadvertent qa tech errors may occur 05/07/2025 Primary insomnia (ICD-10 - F51.01) #Weight Management 05/07/2025 Patient expresses interest in transitioning to Zepbound contrave RX cont wegovy 2.4mg Will try sample for 1 month, and try 1 month through [facility] Total time spent today was 30 minutes [...] software and direct typing Please excuse inadvertent qa tech or typing errors, or uncorrected word substitutions Although every attempt has been made by the provider to proofread this document, occasional misspellings and typographical errors may still be present Due to the previous pandemic, and the use of personal protective equipment (PPE) This may decrease voice recognition accuracy Inadvertent qa tech errors may occur 09/14/2024 Essential (primary) hypertension [...] minimum of 6 months The most recent [place] [employer] of clinical endocrinologists and [place] [employer] endocrin[employer] guidelines recommend patients who [...] software and direct typing Please excuse inadvertent qa tech or typing errors, or uncorrected word substitutions Although every attempt has been made by the provider to proofread this document, occasional misspellings and typographical errors may still be present Due to the previous pandemic, and the use of personal protective equipment (PPE) This may decrease voice recognition accuracy Inadvertent qa tech errors may occur 12/18/2024 Essential (primary) hypertension [...] software and direct typing Please excuse inadvertent qa tech or typing errors, or uncorrected word substitutions Although every attempt has been made by the provider to proofread this document, occasional misspellings and typographical errors may still be present Due to the previous pandemic, and the use of personal protective equipment (PPE) This may decrease voice recognition accuracy Inadvertent qa tech errors may occur 06/08/2024 Essential (primary) hypertension (ICD-10 - I10) #Weight Management 06/08/2024 Otherwise well and thriving cont wegovy 2.4mg max dosing cont contrave Follow-up on labs from [facility] Total time spent today was 30 minutes of which greater than 50% was spent on coordinating and counseling Patient has been found to be obese with a BMI of (36). Patient has class (2) obesity. We are a board certified obesity and weight management practice Patient has trialed behavioral modification, dietary restrictions and exercise for a minimum of 6 months The most recent [place] [employer] of clinical endocrinologists and [place] [employer] end[employer]in[employer] guidelines recommend patients who [...] track activity level. Consider using apps like [employer]), [employer], [employer] it, stick as needed for self-monitoring and weight management. Consider group exercises. Consider hiring a personal loan specialist. Regular exercise is manjarrez to sustainable health [...] counseling and psychiatry and Dr Marin at [facility]. We would like to cover regular topics [...] software and direct typing Please excuse inadvertent qa tech or typing errors, or uncorrected word substitutions Although every attempt has been made by the provider to proofread this document, occasional misspellings and typographical errors may still be present Due to the previous pandemic, and the use of personal protective equipment (PPE) This may decrease voice recognition accuracy Inadvertent qa tech errors may occur 12/18/2024 Snoring (ICD-10 - [...] software and direct typing Please excuse inadvertent qa tech or typing errors, or uncorrected word substitutions Although every attempt has been made by the provider to proofread this document, occasional misspellings and typographical errors may still be present Due to the previous pandemic, and the use of personal protective equipment (PPE) This may decrease voice recognition accuracy Inadvertent qa tech errors may occur 05/07/2025 Essential (primary) hypertension (ICD-10 - I10) #Weight Management 05/07/2025 Patient expresses interest in transitioning to Zepbound contrave RX cont wegovy 2.4mg Will try sample for 1 month, and try 1 month through [facility] Total time spent today was 30 minutes [...] software and direct typing Please excuse inadvertent qa tech or typing errors, or uncorrected word substitutions Although every attempt has been made by the provider to proofread this document, occasional misspellings and typographical errors may still be present Due to the previous pandemic, and the use of personal protective equipment (PPE) This may decrease voice recognition accuracy Inadvertent qa tech errors may occur 03/17/2025 Snoring (ICD-10 - R06.83) #Weight Management 03/17/2025 Patient expresses interest in transitioning to Zepbound contrave RX cont wegovy 2.4mg Will try sample for 1 month, and try 1 month through [facility] Total time spent today was 30 minutes [...] software and direct typing Please excuse inadvertent qa tech or typing errors, or uncorrected word substitutions Although every attempt has been made by the provider to proofread this document, occasional misspellings and typographical errors may still be present Due to the previous pandemic, and the use of personal protective equipment (PPE) This may decrease voice recognition accuracy Inadvertent qa tech errors may occur 05/07/2025 Snoring (ICD-10 - R06.83) #Weight Management 05/07/2025 Patient expresses interest in transitioning to Zepbound contrave RX cont wegovy 2.4mg Will try sample for 1 month, and try 1 month through [facility] Total time spent today was 30 minutes [...] software and direct typing Please excuse inadvertent qa tech or typing errors, or uncorrected word substitutions Although every attempt has been made by the provider to proofread this document, occasional misspellings and typographical errors may still be present Due to the previous pandemic, and the use of personal protective equipment (PPE) This may decrease voice recognition accuracy Inadvertent qa tech errors may occur 12/18/2024 Daytime somnolence (ICD-10 [...] software and direct typing Please excuse inadvertent qa tech or typing errors, or uncorrected word substitutions Although every attempt has been made by the provider to proofread this document, occasional misspellings and typographical errors may still be present Due to the previous pandemic, and the use of personal protective equipment (PPE) This may decrease voice recognition accuracy Inadvertent qa tech errors may occur 03/17/2025 Daytime somnolence (ICD-10 - R40.0) #Weight Management 03/17/2025 Patient expresses interest in transitioning to Zepbound contrave RX cont wegovy 2.4mg Will try sample for 1 month, and try 1 month through [facility] Total time spent today was 30 minutes [...] software and direct typing Please excuse inadvertent qa tech or typing errors, or uncorrected word substitutions Although every attempt has been made by the provider to proofread this document, occasional misspellings and typographical errors may still be present Due to the previous pandemic, and the use of personal protective equipment (PPE) This may decrease voice recognition accuracy Inadvertent qa tech errors may occur 05/07/2025 Daytime somnolence (ICD-10 - R40.0) #Weight Management 05/07/2025 Patient expresses interest in transitioning to Zepbound contrave RX cont wegovy 2.4mg Will try sample for 1 month, and try 1 month through [facility] Total time spent today was 30 minutes [...] software and direct typing Please excuse inadvertent qa tech or typing errors, or uncorrected word substitutions Although every attempt has been made by the provider to proofread this document, occasional misspellings and typographical errors may still be present Due to the previous pandemic, and the use of personal protective equipment (PPE) This may decrease voice recognition accuracy Inadvertent qa tech errors may occur 03/17/2025 Encounter for examination of blood pressure without abnormal findings (ICD-10 - Z01.30) #Weight Management 03/17/2025 Patient expresses interest in transitioning to Zepbound contrave RX cont wegovy 2.4mg Will try sample for 1 month, and try 1 month through [facility] Total time spent today was 30 minutes [...] software and direct typing Please excuse inadvertent qa tech or typing errors, or uncorrected word substitutions Although every attempt has been made by the provider to proofread this document, occasional misspellings and typographical errors may still be present Due to the previous pandemic, and the use of personal protective equipment (PPE) This may decrease voice recognition accuracy Inadvertent qa tech errors may occur 05/07/2025 Encounter for examination of blood pressure without abnormal findings (ICD-10 - Z01.30) #Weight Management 05/07/2025 Patient expresses interest in transitioning to Zepbound contrave RX cont wegovy 2.4mg Will try sample for 1 month, and try 1 month through [facility] Total time spent today was 30 minutes [...] software and direct typing Please excuse inadvertent qa tech or typing errors, or uncorrected word substitutions Although every attempt has been made by the provider to proofread this document, occasional misspellings and typographical errors may still be present Due to the previous pandemic, and the use of personal protective equipment (PPE) This may decrease voice recognition accuracy Inadvertent qa tech errors may occur 08/06/2024 #Weight Management 08/06/2024 Otherwise well and thriving cont wegovy 2.4mg max dosing cont contrave Follow-up on labs from [facility] Total time spent today was 30 minutes of which greater than 50% was spent on coordinating and counseling Patient has been found to be obese with a BMI of (36). Patient has class (2) obesity. We are a board certified obesity and weight management practice Patient has trialed behavioral modification, dietary restrictions and exercise for a minimum of 6 months The most recent [place] [employer] of clinical endocrinologists and [place] [employer]in[employer] guidelines recommend patients who [...] software and direct typing Please excuse inadvertent qa tech or typing errors, or uncorrected word substitutions Although every attempt has been made by the provider to proofread this document, occasional misspellings and typographical errors may still be present Due to the previous pandemic, and the use of personal protective equipment (PPE) This may decrease voice recognition accuracy Inadvertent qa tech errors may occur 11/16/2024 #Weight Management 11/16/2024 Patient expresses interest in [...] software and direct typing Please excuse inadvertent qa tech or typing errors, or uncorrected word substitutions Although every attempt has been made by the provider to proofread this document, occasional misspellings and typographical errors may still be present Due to the previous pandemic, and the use of personal protective equipment (PPE) This may decrease voice recognition accuracy Inadvertent qa tech errors may occur Plan Of Treatment Pending Test Test Name Order Date LIPID PANEL, STANDARD 10/22/2023 COMPREHENSIVE METABOLIC PANEL 10/22/2023 CBC (INCLUDES DIFF/PLT) 10/22/2023 URINALYSIS, COMPLETE 10/22/2023 Next Appt Details Provider Name:LIZABETH PALLAVI, 06/25/2025 08:00:00 AM, [address] [facility], [facility] [address], [place], [id number], Insurance Providers Payer Name Payer Address Payer Phone Subscriber Number Group Number Insured Name Patient Relationship to Insured Coverage Start Date Coverage End Date [facility] [address] [place] [address] [id number] Kinza Lynch Self - patient is the insured 3 Medical (General) History Medical History History ICD Code hypertension hypercholesterolemia depression weight gain
== END 2025-05-19 07:18 | disposition home or self-care (01) ==
LOC: HO.HWS 13:31
PROVIDERS: PCP Nurse Practitioner Family; Visit Provider Advanced Practice Midwife
DX: Z01.419 Encounter for gynecological examination (general) (routine) without abnormal findings (principal); R23.2 Flushing
CPT/HCPCS: 99386; 99459

== ENCOUNTER 2025-05-19 06:55 | Outpatient (REF) | payer OTHER, SELFPAY ==
--- OUTSIDE RECORDS SUMMARY | 2025-05-19 06:57 | XMS_ITS | Patient Health Record ---
Author Organization [facility] [address] Address [address] [place] [address] Care Team Providers Care Glue Line Operator Name Role Phone IGNACIOJOHANNA LIZABETH Unavailable [phone] DUONGDIONICIO SOTELO Unavailable [phone] Allergies No Known Allergies Reason For Referral Reason Dr pham- AT HOME sleep study Diagnosis 1 Snoring (R06.83) Diagnosis 2 Daytime somnolence ( R40.0) Referral Organization 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 03/20/2023 Active D3 [...] Problem Obesity due to exces s calories (341652340) Other obesity due to excess calories (E66.09) Active confirmed Problem Primary insomnia (7905424) Primary insomnia (F51.01) Active confirmed Problem Essential hypertension (62106403) Essential (primary) hypertension (I10) Active confirmed Problem Adult health examination (424605604) Encounter for general adult medical examination without abnormal findings (Z00.00) Active confirmed Problem Hyperlipoproteinemia (6188895) Acquired hyperlipoproteinemia (E78.5) Active confirmed Problem Body mass index 40+ - morbidly obese (103719414) BMI 40.0-44.9, adult (Z68.41) Active confirmed Problem Body mass index 35.0 0 to 39.99 (666646828309530) Body mass index [BMI] 38.0-38.9, adult (Z68.38) Active confirmed Problem Body mass index 35.0 0 to 39.99 (015325385545576) Body mass index [BMI] 39.0-39.9, adult (Z68.39) Active confirmed Problem Obese class II (913091863261047) BMI 35.0-35.9,adult (Z68.35) Active confirmed Problem Obese class II (589344479374725) BMI 36.0-36.9,adult (Z68.36) Active confirmed Problem Morbid obesity (272713537) Morbid obesity due to excess calories (E66.01) Active confirmed Problem Daytime somnolence (710157227878) Daytime somnolence (R40.0) Active confirmed Problem Mixed anxiety and depressive disorder (642356817) Depression with anxiety (F41.8) Active confirmed Vital Signs Heart Rate 74 /min 05/07/2025 Oximetry 98 % 05/07/2025 Blood pressure diastolic 82 mm Hg 05/07/2025 Height 65 in 05/07/2025 Blood pressure systolic 124 mm Hg 05/07/2025 Weight 220.3 lbs 05/07/2025 BMI 36.66 kg/m2 05/07/2025 Encounters Encounter Location Date Provider Diagnosis [facility] [address] [place] [id number] 06/08/2024 LIZABETH OLIVO BMI 36.0-36.9,adult Z68.36 ; Other obesity due to excess calories E66.09 ; Dietary counseling and surveillance Z71.3 ; Acquired hyperlipoproteinemia E78.5 ; Depression with anxiety F41.8 ; Primary insomnia F51.01 and Essential (primary) hypertension I10 [facility] [address] 09/14/2024 LIZABETH BORHOT BMI 35.0-35.9,adult Z68.35 ; Other obesity due to excess calories E66.09 ; Dietary counseling and surveillance Z71.3 ; Acquired hyperlipoproteinemia E78.5 ; Depression with anxiety F41.8 ; Primary insomnia F51.01 and Essential (primary) hypertension I10 [facility] [address] 12/18/2024 LIZABETH BORHOT BMI 36.0-36.9,adult Z68.36 ; Other obesity due to excess calories E66.09 ; Dietary counseling and surveillance Z71.3 ; Acquired hyperlipoproteinemia E78.5 ; Depression with anxiety F41.8 ; Primary insomnia F51.01 ; Essential (primary) hypertension I10 ; Snoring R06.83 and Daytime somnolence R40.0 [facility] [address] 03/17/2025 LIZABETH BORHOT BMI 36.0-36.9,adult Z68.36 ; Dietary counseling and surveillance Z71.3 ; Other obesity due to excess calories E66.09 ; Acquired hyperlipoproteinemia E78.5 ; Depression with anxiety F41.8 ; Primary insomnia F51.01 ; Essential (primary) hypertension I10 ; Snoring R06.83 ; Daytime somnolence R40.0 and Encounter for examination of blood pressure without abnormal findings Z01.30 [facility] [address] 05/07/2025 LIZABETH BORHOT BMI 36.0-36.9,adult Z68.36 ; Dietary counseling and surveillance Z71.3 ; Acquired hyperlipoproteinemia E78.5 ; Other obesity due to excess calories E66.09 ; Depression with anxiety F41.8 ; Primary insomnia F51.01 ; Essential (primary) hypertension I10 ; Snoring R06.83 ; Daytime somnolence R40.0 and Encounter for examination of blood pressure without abnormal findings Z01.[address] [facility] [address] [place] [address] 06/11/2024 LIZABETH BORHOT [facility] [address] [place] [address] 06/11/2024 LIZABETH BORHOT [facility] [address] [place] [address] 06/12/2024 LIZABETH BORHOT [facility] [address] [place] [address] 09/14/2024 DIONICIO DUONG [facility] [address] [place] [address] 09/21/2024 LIZABETH BORHOT [facility] [address] [place] [address] 10/26/2024 LIZABETH BORHOT [facility] [address] [place] [address] 10/28/2024 LIZABETH BORHOT [facility] [address] [place] [address] 01/20/2025 LIZABETH BORHOT [facility] [address] [place] [address] 05/17/2025 LIZABETH BORHOT Assessments Encounter Date Diagnosis (ICD Code) Assessment Notes Treatment Notes Treatment Clinical Notes Section Notes 06/08/2024 BMI 36.0-36.9,adult (ICD-10 - Z68.36) #Weight Management 06/08/2024 Otherwise well and thriving cont wegovy 2.4mg max dosing cont contrave Follow-up on labs from [place] Total time spent today was 30 minutes of which greater than 50% was spent on coordinating and counseling Patient has been found to be obese with a BMI of (36). Patient has class (2) obesity. We are a board certified obesity and weight management practice Patient has trialed behavioral modification, dietary restrictions and exercise for a minimum of 6 months The most recent [place] [employer] clinical endocrinologists and [place] [employer] guidelines recommend patients who [...] track activity level. Consider using apps like Eayun, myfitnesspal, lose it, stick as needed for self-monitoring and weight management. Consider group exercises. Consider hiring a personal development coach. Regular exercise is manjarrez to sustainable health [...] counseling and psychiatry and Dr Marin at [facility]. We would like to cover regular topics [...] software and direct typing Please excuse inadvertent car dumper or typing errors, or uncorrected word substitutions Although every attempt has been made by the provider to proofread this document, occasional misspellings and typographical errors may still be present Due to the previous pandemic, and the use of personal protective equipment (PPE) This may decrease voice recognition accuracy Inadvertent car dumper errors may occur 09/14/2024 BMI 35.0-35.9,adult (ICD-10 [...] minimum of 6 months The most recent [place] [employer] endocrinologists and [place] [employer] guidelines recommend patients who [...] software and direct typing Please excuse inadvertent car dumper or typing errors, or uncorrected word substitutions Although every attempt has been made by the provider to proofread this document, occasional misspellings and typographical errors may still be present Due to the previous pandemic, and the use of personal protective equipment (PPE) This may decrease voice recognition accuracy Inadvertent car dumper errors may occur 12/18/2024 BMI 36.0-36.9,adult (ICD-10 [...] software and direct typing Please excuse inadvertent car dumper or typing errors, or uncorrected word substitutions Although every attempt has been made by the provider to proofread this document, occasional misspellings and typographical errors may still be present Due to the previous pandemic, and the use of personal protective equipment (PPE) This may decrease voice recognition accuracy Inadvertent car dumper errors may occur 03/17/2025 BMI 36.0-36.9,adult (ICD-10 [...] software and direct typing Please excuse inadvertent car dumper or typing errors, or uncorrected word substitutions Although every attempt has been made by the provider to proofread this document, occasional misspellings and typographical errors may still be present Due to the previous pandemic, and the use of personal protective equipment (PPE) This may decrease voice recognition accuracy Inadvertent car dumper errors may occur 05/07/2025 BMI 36.0-36.9,adult (ICD-10 [...] software and direct typing Please excuse inadvertent car dumper or typing errors, or uncorrected word substitutions Although every attempt has been made by the provider to proofread this document, occasional misspellings and typographical errors may still be present Due to the previous pandemic, and the use of personal protective equipment (PPE) This may decrease voice recognition accuracy Inadvertent car dumper errors may occur 05/07/2025 Dietary counseling a [...] software and direct typing Please excuse inadvertent car dumper or typing errors, or uncorrected word substitutions Although every attempt has been made by the provider to proofread this document, occasional misspellings and typographical errors may still be present Due to the previous pandemic, and the use of personal protective equipment (PPE) This may decrease voice recognition accuracy Inadvertent car dumper errors may occur 03/17/2025 Dietary counseling a [...] software and direct typing Please excuse inadvertent car dumper or typing errors, or uncorrected word substitutions Although every attempt has been made by the provider to proofread this document, occasional misspellings and typographical errors may still be present Due to the previous pandemic, and the use of personal protective equipment (PPE) This may decrease voice recognition accuracy Inadvertent car dumper errors may occur 12/18/2024 Dietary counseling a [...] software and direct typing Please excuse inadvertent car dumper or typing errors, or uncorrected word substitutions Although every attempt has been made by the provider to proofread this document, occasional misspellings and typographical errors may still be present Due to the previous pandemic, and the use of personal protective equipment (PPE) This may decrease voice recognition accuracy Inadvertent car dumper errors may occur 09/14/2024 Dietary counseling a [...] minimum of 6 months The most recent [place] [employer] clinical endocrinologists and [place] [employer] guidelines recommend patients who [...] software and direct typing Please excuse inadvertent car dumper or typing errors, or uncorrected word substitutions Although every attempt has been made by the provider to proofread this document, occasional misspellings and typographical errors may still be present Due to the previous pandemic, and the use of personal protective equipment (PPE) This may decrease voice recognition accuracy Inadvertent car dumper errors may occur 09/14/2024 Other obesity due [...] minimum of 6 months The most recent [place] [employer] of clinical endocrinologists and [place] [employer] guidelines recommend patients who [...] software and direct typing Please excuse inadvertent car dumper or typing errors, or uncorrected word substitutions Although every attempt has been made by the provider to proofread this document, occasional misspellings and typographical errors may still be present Due to the previous pandemic, and the use of personal protective equipment (PPE) This may decrease voice recognition accuracy Inadvertent car dumper errors may occur 12/18/2024 Other obesity due [...] software and direct typing Please excuse inadvertent car dumper or typing errors, or uncorrected word substitutions Although every attempt has been made by the provider to proofread this document, occasional misspellings and typographical errors may still be present Due to the previous pandemic, and the use of personal protective equipment (PPE) This may decrease voice recognition accuracy Inadvertent car dumper errors may occur 06/08/2024 Dietary counseling a nd surveillance (ICD-10 - Z71.3) #Weight Management 06/08/2024 Otherwise well and thriving cont wegovy 2.4mg max dosing cont contrave Follow-up on labs from [facility] Total time spent today was 30 minutes of which greater than 50% was spent on coordinating and counseling Patient has been found to be obese with a BMI of (36). Patient has class (2) obesity. We are a board certified obesity and weight management practice Patient has trialed behavioral modification, dietary restrictions and exercise for a minimum of 6 months The most recent [place] [employer] clinical endocrinologists and [place] [employer] guidelines recommend patients who [...] track activity level. Consider using apps like Eayun, Step-Inpal, lose it, stick as needed for self-monitoring and weight management. Consider group exercises. Consider hiring a personal development coach. Regular exercise is manjarrez to sustainable health [...] counseling and psychiatry and Dr Marin at [facility]. We would like to cover regular topics [...] software and direct typing Please excuse inadvertent car dumper or typing errors, or uncorrected word substitutions Although every attempt has been made by the provider to proofread this document, occasional misspellings and typographical errors may still be present Due to the previous pandemic, and the use of personal protective equipment (PPE) This may decrease voice recognition accuracy Inadvertent car dumper errors may occur 06/08/2024 Other obesity due to excess calories (ICD-10 - E66.09) #Weight Management 06/08/2024 Otherwise well and thriving cont wegovy 2.4mg max dosing cont contrave Follow-up on labs from [place] Total time spent today was 30 minutes of which greater than 50% was spent on coordinating and counseling Patient has been found to be obese with a BMI of (36). Patient has class (2) obesity. We are a board certified obesity and weight management practice Patient has trialed behavioral modification, dietary restrictions and exercise for a minimum of 6 months The most recent [place] [employer] clinical endocrinologists and [place] [employer] guidelines recommend patients who [...] track activity level. Consider using apps like Eayun, Step-Inpal, lose it, stick as needed for self-monitoring and weight management. Consider group exercises. Consider hiring a personal development coach. Regular exercise is manjarrez to sustainable health [...] counseling and psychiatry and Dr Marin at [facility]. We would like to cover regular topics [...] software and direct typing Please excuse inadvertent car dumper or typing errors, or uncorrected word substitutions Although every attempt has been made by the provider to proofread this document, occasional misspellings and typographical errors may still be present Due to the previous pandemic, and the use of personal protective equipment (PPE) This may decrease voice recognition accuracy Inadvertent car dumper errors may occur 06/08/2024 Acquired hyperlipoproteinemia (ICD-10 - E78.5) #Weight Management 06/08/2024 Otherwise well and thriving cont wegovy 2.4mg max dosing cont contrave Follow-up on labs from [facility] Total time spent today was 30 minutes of which greater than 50% was spent on coordinating and counseling Patient has been found to be obese with a BMI of (36). Patient has class (2) obesity. We are a board certified obesity and weight management practice Patient has trialed behavioral modification, dietary restrictions and exercise for a minimum of 6 months The most recent [place] [employer] clinical endocrinologists and [place] [employer]in[employer] guidelines recommend patients who [...] track activity level. Consider using apps like Eayun, Step-Inpal, lose it, stick as needed for self-monitoring and weight management. Consider group exercises. Consider hiring a personal development coach. Regular exercise is manjarrez to sustainable health [...] counseling and psychiatry and Dr Marin at [facility]. We would like to cover regular topics [...] software and direct typing Please excuse inadvertent car dumper or typing errors, or uncorrected word substitutions Although every attempt has been made by the provider to proofread this document, occasional misspellings and typographical errors may still be present Due to the previous pandemic, and the use of personal protective equipment (PPE) This may decrease voice recognition accuracy Inadvertent car dumper errors may occur 09/14/2024 Acquired hyperlipoproteinemia (ICD-10 [...] minimum of 6 months The most recent [place] [employer] clinical endocrinologists and [place] [employer] guidelines recommend patients who [...] software and direct typing Please excuse inadvertent car dumper or typing errors, or uncorrected word substitutions Although every attempt has been made by the provider to proofread this document, occasional misspellings and typographical errors may still be present Due to the previous pandemic, and the use of personal protective equipment (PPE) This may decrease voice recognition accuracy Inadvertent car dumper errors may occur 12/18/2024 Acquired hyperlipoproteinemia (ICD-10 [...] software and direct typing Please excuse inadvertent car dumper or typing errors, or uncorrected word substitutions Although every attempt has been made by the provider to proofread this document, occasional misspellings and typographical errors may still be present Due to the previous pandemic, and the use of personal protective equipment (PPE) This may decrease voice recognition accuracy Inadvertent car dumper errors may occur 03/17/2025 Other obesity due [...] software and direct typing Please excuse inadvertent car dumper or typing errors, or uncorrected word substitutions Although every attempt has been made by the provider to proofread this document, occasional misspellings and typographical errors may still be present Due to the previous pandemic, and the use of personal protective equipment (PPE) This may decrease voice recognition accuracy Inadvertent car dumper errors may occur 03/17/2025 Acquired hyperlipoproteinemia (ICD-10 [...] software and direct typing Please excuse inadvertent car dumper or typing errors, or uncorrected word substitutions Although every attempt has been made by the provider to proofread this document, occasional misspellings and typographical errors may still be present Due to the previous pandemic, and the use of personal protective equipment (PPE) This may decrease voice recognition accuracy Inadvertent car dumper errors may occur 05/07/2025 Acquired hyperlipoproteinemia (ICD-10 [...] software and direct typing Please excuse inadvertent car dumper or typing errors, or uncorrected word substitutions Although every attempt has been made by the provider to proofread this document, occasional misspellings and typographical errors may still be present Due to the previous pandemic, and the use of personal protective equipment (PPE) This may decrease voice recognition accuracy Inadvertent car dumper errors may occur 12/18/2024 Depression with anxiety [...] software and direct typing Please excuse inadvertent car dumper or typing errors, or uncorrected word substitutions Although every attempt has been made by the provider to proofread this document, occasional misspellings and typographical errors may still be present Due to the previous pandemic, and the use of personal protective equipment (PPE) This may decrease voice recognition accuracy Inadvertent car dumper errors may occur 03/17/2025 Depression with anxiety [...] software and direct typing Please excuse inadvertent car dumper or typing errors, or uncorrected word substitutions Although every attempt has been made by the provider to proofread this document, occasional misspellings and typographical errors may still be present Due to the previous pandemic, and the use of personal protective equipment (PPE) This may decrease voice recognition accuracy Inadvertent car dumper errors may occur 05/07/2025 Other obesity due [...] software and direct typing Please excuse inadvertent car dumper or typing errors, or uncorrected word substitutions Although every attempt has been made by the provider to proofread this document, occasional misspellings and typographical errors may still be present Due to the previous pandemic, and the use of personal protective equipment (PPE) This may decrease voice recognition accuracy Inadvertent car dumper errors may occur 09/14/2024 Depression with anxiety [...] minimum of 6 months The most recent [place] [employer] of clinical endocrinologists and [place] [employer] end[employer]in[employer] guidelines recommend patients who [...] software and direct typing Please excuse inadvertent car dumper or typing errors, or uncorrected word substitutions Although every attempt has been made by the provider to proofread this document, occasional misspellings and typographical errors may still be present Due to the previous pandemic, and the use of personal protective equipment (PPE) This may decrease voice recognition accuracy Inadvertent car dumper errors may occur 06/08/2024 Depression with anxiety (ICD-10 - F41.8) #Weight Management 06/08/2024 Otherwise well and thriving cont wegovy 2.4mg max dosing cont contrave Follow-up on labs from [place] Total time spent today was 30 minutes of which greater than 50% was spent on coordinating and counseling Patient has been found to be obese with a BMI of (36). Patient has class (2) obesity. We are a board certified obesity and weight management practice Patient has trialed behavioral modification, dietary restrictions and exercise for a minimum of 6 months The most recent [place] [employer] of clinical endocrinologists and [place] [employer] guidelines recommend patients who [...] track activity level. Consider using apps like Eayun, Step-Inpal, lose it, stick as needed for self-monitoring and weight management. Consider group exercises. Consider hiring a personal development coach. Regular exercise is manjarrez to sustainable health [...] counseling and psychiatry and Dr Marin at [facility]. We would like to cover regular topics [...] software and direct typing Please excuse inadvertent car dumper or typing errors, or uncorrected word substitutions Although every attempt has been made by the provider to proofread this document, occasional misspellings and typographical errors may still be present Due to the previous pandemic, and the use of personal protective equipment (PPE) This may decrease voice recognition accuracy Inadvertent car dumper errors may occur 06/08/2024 Primary insomnia (ICD-10 - F51.01) #Weight Management 06/08/2024 Otherwise well and thriving cont wegovy 2.4mg max dosing cont contrave Follow-up on labs from [place] Total time spent today was 30 minutes of which greater than 50% was spent on coordinating and counseling Patient has been found to be obese with a BMI of (36). Patient has class (2) obesity. We are a board certified obesity and weight management practice Patient has trialed behavioral modification, dietary restrictions and exercise for a minimum of 6 months The most recent [place] [employer] of clinical endocrinologists and [place] [employer] guidelines recommend patients who [...] track activity level. Consider using apps like Eayun, [employer] Researchpal, lose it, stick as needed for self-monitoring and weight management. Consider group exercises. Consider hiring a personal development coach. Regular exercise is manjarrez to sustainable health [...] counseling and psychiatry and Dr [facility]. We would like to cover regular topics [...] software and direct typing Please excuse inadvertent car dumper or typing errors, or uncorrected word substitutions Although every attempt has been made by the provider to proofread this document, occasional misspellings and typographical errors may still be present Due to the previous pandemic, and the use of personal protective equipment (PPE) This may decrease voice recognition accuracy Inadvertent car dumper errors may occur 12/18/2024 Primary insomnia (ICD-10 [...] software and direct typing Please excuse inadvertent car dumper or typing errors, or uncorrected word substitutions Although every attempt has been made by the provider to proofread this document, occasional misspellings and typographical errors may still be present Due to the previous pandemic, and the use of personal protective equipment (PPE) This may decrease voice recognition accuracy Inadvertent car dumper errors may occur 09/14/2024 Primary insomnia (ICD-10 [...] minimum of 6 months The most recent [place] [employer] of clinical endocrinologists and [place] [employer] of endocrin[employer] guidelines recommend patients who [...] software and direct typing Please excuse inadvertent car dumper or typing errors, or uncorrected word substitutions Although every attempt has been made by the provider to proofread this document, occasional misspellings and typographical errors may still be present Due to the previous pandemic, and the use of personal protective equipment (PPE) This may decrease voice recognition accuracy Inadvertent car dumper errors may occur 03/17/2025 Primary insomnia (ICD-10 [...] software and direct typing Please excuse inadvertent car dumper or typing errors, or uncorrected word substitutions Although every attempt has been made by the provider to proofread this document, occasional misspellings and typographical errors may still be present Due to the previous pandemic, and the use of personal protective equipment (PPE) This may decrease voice recognition accuracy Inadvertent car dumper errors may occur 05/07/2025 Depression with anxiety [...] software and direct typing Please excuse inadvertent car dumper or typing errors, or uncorrected word substitutions Although every attempt has been made by the provider to proofread this document, occasional misspellings and typographical errors may still be present Due to the previous pandemic, and the use of personal protective equipment (PPE) This may decrease voice recognition accuracy Inadvertent car dumper errors may occur 03/17/2025 Essential (primary) hypertension [...] software and direct typing Please excuse inadvertent car dumper or typing errors, or uncorrected word substitutions Although every attempt has been made by the provider to proofread this document, occasional misspellings and typographical errors may still be present Due to the previous pandemic, and the use of personal protective equipment (PPE) This may decrease voice recognition accuracy Inadvertent car dumper errors may occur 05/07/2025 Primary insomnia (ICD-10 [...] software and direct typing Please excuse inadvertent car dumper or typing errors, or uncorrected word substitutions Although every attempt has been made by the provider to proofread this document, occasional misspellings and typographical errors may still be present Due to the previous pandemic, and the use of personal protective equipment (PPE) This may decrease voice recognition accuracy Inadvertent car dumper errors may occur 09/14/2024 Essential (primary) hypertension [...] minimum of 6 months The most recent [place] [employer] of clinical endocrinologists and [place] [employer] endocrin[employer] guidelines recommend patients who [...] software and direct typing Please excuse inadvertent car dumper or typing errors, or uncorrected word substitutions Although every attempt has been made by the provider to proofread this document, occasional misspellings and typographical errors may still be present Due to the previous pandemic, and the use of personal protective equipment (PPE) This may decrease voice recognition accuracy Inadvertent car dumper errors may occur 12/18/2024 Essential (primary) hypertension [...] software and direct typing Please excuse inadvertent car dumper or typing errors, or uncorrected word substitutions Although every attempt has been made by the provider to proofread this document, occasional misspellings and typographical errors may still be present Due to the previous pandemic, and the use of personal protective equipment (PPE) This may decrease voice recognition accuracy Inadvertent car dumper errors may occur 06/08/2024 Essential (primary) hypertension (ICD-10 - I10) #Weight Management 06/08/2024 Otherwise well and thriving cont wegovy 2.4mg max dosing cont contrave Follow-up on labs from [place] Total time spent today was 30 minutes of which greater than 50% was spent on coordinating and counseling Patient has been found to be obese with a BMI of (36). Patient has class (2) obesity. We are a board certified obesity and weight management practice Patient has trialed behavioral modification, dietary restrictions and exercise for a minimum of 6 months The most recent [place] [employer] of clinical endocrinologists and [place] [employer] of endocrinology guidelines recommend patients who [...] track activity level. Consider using apps like Eayun, Step-Inpal, lose it, stick as needed for self-monitoring and weight management. Consider group exercises. Consider hiring a personal development coach. Regular exercise is manjarrez to sustainable health [...] counseling and psychiatry and Dr [facility] at [facility]. We would like to cover regular topics [...] software and direct typing Please excuse inadvertent car dumper or typing errors, or uncorrected word substitutions Although every attempt has been made by the provider to proofread this document, occasional misspellings and typographical errors may still be present Due to the previous pandemic, and the use of personal protective equipment (PPE) This may decrease voice recognition accuracy Inadvertent car dumper errors may occur 12/18/2024 Snoring (ICD-10 - [...] software and direct typing Please excuse inadvertent car dumper or typing errors, or uncorrected word substitutions Although every attempt has been made by the provider to proofread this document, occasional misspellings and typographical errors may still be present Due to the previous pandemic, and the use of personal protective equipment (PPE) This may decrease voice recognition accuracy Inadvertent car dumper errors may occur 05/07/2025 Essential (primary) hypertension [...] software and direct typing Please excuse inadvertent car dumper or typing errors, or uncorrected word substitutions Although every attempt has been made by the provider to proofread this document, occasional misspellings and typographical errors may still be present Due to the previous pandemic, and the use of personal protective equipment (PPE) This may decrease voice recognition accuracy Inadvertent car dumper errors may occur 03/17/2025 Snoring (ICD-10 - [...] software and direct typing Please excuse inadvertent car dumper or typing errors, or uncorrected word substitutions Although every attempt has been made by the provider to proofread this document, occasional misspellings and typographical errors may still be present Due to the previous pandemic, and the use of personal protective equipment (PPE) This may decrease voice recognition accuracy Inadvertent car dumper errors may occur 05/07/2025 Snoring (ICD-10 - [...] software and direct typing Please excuse inadvertent car dumper or typing errors, or uncorrected word substitutions Although every attempt has been made by the provider to proofread this document, occasional misspellings and typographical errors may still be present Due to the previous pandemic, and the use of personal protective equipment (PPE) This may decrease voice recognition accuracy Inadvertent car dumper errors may occur 12/18/2024 Daytime somnolence (ICD-10 [...] software and direct typing Please excuse inadvertent car dumper or typing errors, or uncorrected word substitutions Although every attempt has been made by the provider to proofread this document, occasional misspellings and typographical errors may still be present Due to the previous pandemic, and the use of personal protective equipment (PPE) This may decrease voice recognition accuracy Inadvertent car dumper errors may occur 03/17/2025 Daytime somnolence (ICD-10 [...] software and direct typing Please excuse inadvertent car dumper or typing errors, or uncorrected word substitutions Although every attempt has been made by the provider to proofread this document, occasional misspellings and typographical errors may still be present Due to the previous pandemic, and the use of personal protective equipment (PPE) This may decrease voice recognition accuracy Inadvertent car dumper errors may occur 05/07/2025 Daytime somnolence (ICD-10 [...] software and direct typing Please excuse inadvertent car dumper or typing errors, or uncorrected word substitutions Although every attempt has been made by the provider to proofread this document, occasional misspellings and typographical errors may still be present Due to the previous pandemic, and the use of personal protective equipment (PPE) This may decrease voice recognition accuracy Inadvertent car dumper errors may occur 03/17/2025 Encounter for examination [...] software and direct typing Please excuse inadvertent car dumper or typing errors, or uncorrected word substitutions Although every attempt has been made by the provider to proofread this document, occasional misspellings and typographical errors may still be present Due to the previous pandemic, and the use of personal protective equipment (PPE) This may decrease voice recognition accuracy Inadvertent car dumper errors may occur 05/07/2025 Encounter for examination [...] software and direct typing Please excuse inadvertent car dumper or typing errors, or uncorrected word substitutions Although every attempt has been made by the provider to proofread this document, occasional misspellings and typographical errors may still be present Due to the previous pandemic, and the use of personal protective equipment (PPE) This may decrease voice recognition accuracy Inadvertent car dumper errors may occur 08/06/2024 #Weight Management 08/06/2024 Otherwise well and thriving cont wegovy 2.4mg max dosing cont contrave Follow-up on labs from [place] Total time spent today was 30 minutes of which greater than 50% was spent on coordinating and counseling Patient has been found to be obese with a BMI of (36). Patient has class (2) obesity. We are a board certified obesity and weight management practice Patient has trialed behavioral modification, dietary restrictions and exercise for a minimum of 6 months The most recent [place] [employer] of clinical endocrinologists and [place] [employer] of endocrinology guidelines recommend patients who [...] software and direct typing Please excuse inadvertent car dumper or typing errors, or uncorrected word substitutions Although every attempt has been made by the provider to proofread this document, occasional misspellings and typographical errors may still be present Due to the previous pandemic, and the use of personal protective equipment (PPE) This may decrease voice recognition accuracy Inadvertent car dumper errors may occur 11/16/2024 #Weight Management 11/16/2024 [...] software and direct typing Please excuse inadvertent car dumper or typing errors, or uncorrected word substitutions Although every attempt has been made by the provider to proofread this document, occasional misspellings and typographical errors may still be present Due to the previous pandemic, and the use of personal protective equipment (PPE) This may decrease voice recognition accuracy Inadvertent car dumper errors may occur Plan Of Treatment Pending Test Test Name Order Date LIPID PANEL, STANDARD 10/22/2023 COMPREHENSIVE METABOLIC PANEL 10/22/2023 CBC (INCLUDES DIFF/PLT) 10/22/2023 URINALYSIS, COMPLETE 10/22/2023 Next Appt Details Provider Name:LIZABETH PALLAVI, 06/25/2025 08:00:00 AM, [address] [facility], [facility], [place], [address], Insurance Providers Payer Name Payer Address Payer Phone Subscriber Number Group Number Insured Name Patient Relationship to Insured Coverage Start Date Coverage End Date [facility] [address] [place] [address] [id number] Kinza Lynch Self - patient is the insured 3 Medical (General) History Medical History History ICD Code hypertension hypercholesterolemia depression weight gain
--- OUTSIDE RECORDS SUMMARY | 2025-05-19 06:57 | XMS_ITS | Clinical Summary ---
Author Organization [facility] Address [address] [place] [phone] Phone Care Team Providers Care Police And Fire Dispatcher Name Role Phone Wilfred Castle NP Primary Care Provider Encounters Date Type Department Care Team Description 03/11/2025 8:44 AM EDT - 03/11/2025 11:59 PM EDT Hospital [facility] [address] [address] Encounter for screening mammogram for [...] for biopsy. PQRI CPT II 3342F Code 89622, 17020 PQRI 225 CPT II 7025F TISSUE DENSITY: There are scattered areas of fibroglandular density. (BI-RADS category B) IMPRESSION: Benign. BI-RADS CATEGORY: 2 - BENIGN RECOMMENDATION: Screening bilateral mammogram is recommended in 1 year. Mammo Location: [facility], [address] [place] [address] -------- FINAL REPORT -------- Dictated By: Tommy Lemus Dictated Date: 03/11/2025 09:10 ET Assigned Physician: Tommy Lemus Reviewed and Electronically Signed By: Tomym Lemus Signed Date: 03/11/2025 09:17 ET Workstation ID: [id number] Transcribed By: Self Edit Transcribed Date: 03/11/2025 09:10 ET Narrative 03/11/2025 9:17 AM EDT CLINICAL: The patient is a 60 years Female presenting for routine screening mammography. COMPARISON: Most recently 03/04/2024 and most remotely 10/23/2017. TECHNIQUE: Full-field digital mammography of the breasts bilaterally consisting of tomosynthesis in MLO and CC projection is performed in the [employer]illo[employer]e 2000-D unit. Computer aided detection utilizing the [...] MLO and CC projection is performed in the[employer] Senographe 2000-D unit. Computer aided detection utilizing the 100du.tvystem was utilized. FINDINGS: The breasts are seen [...] for biopsy. PQRI CPT II 3342F Code 63868, 36806 PQRI 225 CPT II 7025F TISSUE DENSITY: There are scattered areas of fibroglandular density.(BI-RADS category B) IMPRESSION: Benign. BI-RADS CATEGORY: 2 - BENIGN RECOMMENDATION: Screening bilateral mammogram is recommended in 1 year. Mammo Location: [facility], [facility], [address] [place] [id number] -------- FINAL REPORT -------- Dictated By: Tommy Lemus Dictated Date: 03/11/2025 09:10 ET Assigned Physician: Tommy Lemus Reviewed and Electronically Signed By: Tommy Lemus Signed Date: 03/11/2025 09:17 ET Workstation ID: [id number] Transcribed By: Self Edit Transcribed Date: 03/11/2025 09:10 ET us Self Referral [facility] IMG BI PROCEDURES Final Resul t from Last 3 Months Insurance [facility] Care Teams Police And Fire Dispatcher Relationship Specialty Start Date End Date Wilfred Castle NP PCP - General Family Medicine 03/05/25
--- OUTSIDE RECORDS SUMMARY | 2025-05-19 06:57 | XMS_ITS | Patient Health Record ---
Author Organization [facility] Address [address] [facility] [place] [address] Care Team Providers Care Bi Data Modeler Name Role Phone Wilfred Kimbrough Primary Care Provider Unav ailable Black, Arianna Unavailable [phone] Allergies No Known Allergies Reason For Referral [...] Problem Acquired hammer toe of right foot (3406882625273494) Other hammer toe(s) (acquired), right foot (M20.41) Active confirmed Problem Acquired hammer toe of left foot (7673572350250886) Other hammer toe(s) (acquired), left foot (M20.42) Active confirmed Problem Localized, primary osteoarthritis of the ankle and/or foot (425257325) Primary osteoarthriti s, right ankle and foot (M19.071) Active confirmed Problem Localized, primary osteoarthritis of the ankle and/or foot () Primary osteoarthriti s, left ankle and foot (M19.072) Active confirmed Problem Arthritis (9708753) Arthritis (M19.90) Active confirmed Problem Localized, primary osteoarthritis of the ankle and/or foot (098498115) Arthritis of joint of lesser toe, left (M19.072) Active confirmed Problem Localized, primary osteoarthritis of the ankle and/or foot () Arthritis of joint of lesser toe, right (M19.071) Active confirmed Problem Plantar fascial fibromatosis (82546356) Plantar fasciitis, bilateral (M72.2) Active confirmed Vital Signs Blood pressure diastolic 80 mm Hg 12/03/2024 Height 5ft 6in in 12/03/2024 Blood pressure systolic 120 mm Hg 12/03/2024 Weight 200 lbs 12/03/2024 BMI 32.28 kg/m2 12/03/2024 Encounters Encounter Location Date Provider Diagnosis [facility] [address] [place] [address] 06/16/2024 Arianna Black Other hammer toe(s) (acquired), [...] M60.872 and Bursitis of left foot M77.52 [facility] [address] [place] [address] 09/03/2024 Arianna Black Plantar fasciitis, bilateral M72.2 [...] M60.872 and Bursitis of left foot M77.[address] [address] 12/03/2024 Arianna Black Plantar fasciitis, bilateral M72.2 [...] M60.872 and Bursitis of left foot M77.[address] [address] 06/16/2024 Ariannakandis Shaw [address] [address] 09/03/2024 Arianna Shaw [address] [address] 10/09/2024 Arianna Black Neuritis M79.[address] [address] 03/18/2025 Arianna Black Assessments Encounter Date Diagnosis [...] Foot, left 3V 07/15/2023 *Arthritic Panel 11/22/2020 [id number] TENDON SHEATH/LIGAMENT 1 11/12/2014 [id number] TENDON SHEATH/LIGAMENT 0 11/18/2015 [id number] TENDON SHEATH/LIGAMENT 0 02/14/2016 Insurance Providers Payer Name Payer Address Payer Phone Subscriber Number Group Number Insured Name Patient Relationship to Insured Coverage Start Date Coverage End Date [facility] [address] [place] [address] [id number] Kinza Lynch Self - patient is the insured Medical (General) History Medical History History ICD Code Chicken pox High Blood Pressure Cholesterol Surgical History Surgery Date(Month/Year) hysterectomy 10/1999 gall bladder 01/31/2016 Hand Surgery - Left 04/2023
--- OUTSIDE RECORDS SUMMARY | 2025-05-19 06:58 | XMS_ITS | Clinical Summary ---
Author Organization [facility] Address [address] [address] Phone Care Team Providers Care Finisher Special Stocks Name Role Phone Unknown, Unknown Primary Care [...] 6 mos f/u diagn mammo/US scheduled at [facility]. 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 It is not the complete legal health record.[facility]
[2025-05-19 07:13] LABS: MANUAL DIFF FLAG NO
[2025-05-19 07:39] LABS: Hematocrit 36.1 % (37.0-47.0); Hemoglobin 12.2 g/dl (12.0-16.0); Imm Gran Abs Auto 0.02 X10*3/uL (0.00-0.03); Imm Gran Pct Auto 0.3 % (0.0-0.4); Lymphocytes Absolute Auto 1.8 X10*3/uL (1.2-4.9); Mean Corpuscular HGB Conc 33.8 g/dl (31.0-35.0); Mean Corpuscular Hemoglobin 29.3 pg (27.0-33.0); Mean Corpuscular Volume 86.6 fL (80.0-98.0); NRBC Abs Auto 0.000 X10*3/uL (0.0-0.012); NRBC Pct Auto 0.0 /100WBC (0.0-0.2); Platelet Count 287 X10*3/uL (160-400); Red Blood Count 4.17 X10*6/uL (4.20-5.50); White Blood Count 6.5 X10*3/uL (4.8-10.8)
[2025-05-19 08:21] LABS: Alanine Aminotransferase 22 U/L (0-31); Albumin Level 4.3 g/dL (3.5-5.0); Alkaline Phosphatase 139 U/L (39-117); Anion Gap 12 (12-20); Aspartate Amino Transferase 29 U/L (5-31); Blood Urea Nitrogen 10 mg/dL (9-16); Calcium 9.1 mg/dL (8.4-10.2); Carbon Dioxide 28 mmol/L (22-29); Chloride 106 mmol/L (96-108); Cholesterol 187 mg/dL (<200); Estimated Glomerular Filt Rate > 60; HDL Cholesterol 72 mg/dL (>40); Potassium 3.9 mmol/L (3.3-5.1); Sodium 142 mmol/L (135-145); Total Protein 6.9 g/dL (6.5-8.0); Triglycerides 138 mg/dL (<150)
[2025-05-19 08:32] LABS: Appearance Urine Clear; Glucose Urine UA Negative (Negative); PH 5.5 (5.0-9.0); Specific Gravity - Urine 1.020 (1.005-1.025)
[2025-05-19 08:41] LABS: Folate 14.4 ng/mL (> or = 4.0); Vitamin B12 591 pg/mL (200-900)
== END 2025-05-19 06:56 | disposition home or self-care (01) ==
LOC: HO.LAB 06:55
PROVIDERS: PCP Nurse Practitioner Family; Visit Provider Nurse Practitioner Family
DX: Z00.00 Encounter for general adult medical examination without abnormal findings (principal); M18.0 Bilateral primary osteoarthritis of first carpometacarpal joints; M25.532 Pain in left wrist; M25.531 Pain in right wrist; M79.642 Pain in left hand; M79.641 Pain in right hand; E55.9 Vitamin D deficiency, unspecified; E53.8 Deficiency of other specified B group vitamins; Z13.29 Encounter for screening for other suspected endocrine disorder; Z13.6 Encounter for screening for cardiovascular disorders
CPT/HCPCS: 20600; 36415; 80053; 80061; 81003; 82306; 82607; 82746; 84443; 85025; J1010; J2003

== ENCOUNTER 2025-05-19 15:03 | Outpatient (AMB) | payer OTHER, SELFPAY ==
[2025-05-19 15:05] VITALS: BMI 36.0
--- NOTE | 2025-05-19 15:05 | MHC.OFFVIS ---
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 Pain. At his last visit she was fitted for a comfort cool brace and was advise to start O.T. Currently states she did not feel O.T would help so she did not scheduled appointments. She continues to have pain even thought she has been wearing her brace as directed. Allergies No Known Allergies Allergy (Verified 05/19/25 15:05) [facility] Medical History Osteoarthritis Diarrhea GERD (gastroesophageal reflux disease) Elevated liver enzymes Tubular adenoma Increased BMI Impaired fasting glucose Tenosynovitis of both wrists Elevated LFTs Insomnia Depression Chronic otitis externa Menopausal disorder Dyslipidemia HTN (hypertension) Hemicrania Surgical History History of mammogram History of colonoscopy History of hysterectomy History of laparoscopic cholecystectomy Family History Father Hx of cirrhosis Mental health disorder Mother Hx of diabetes insipidus HX: breast cancer Hx of renal failure Mental health disorder Son No problems noted. Daughter No problems noted. 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 No locking or catching. Positive CMC grind Positive shoulder sign Most tender to palpation over the basal joint of the right thumb Radiographs three views of both hands were reviewed by me today in clinic. They show bilateral basal joint osteoarthritis Office Procedures AMB Fracture Care Details: No fracture, injection Fracture Billing Code: Fracture Billing Code Assessment & Plan Assessment & Plan (1) Osteoarthritis of carpometacarpal joint of right thumb: Code(s): M18.11 - Unilateral primary osteoarthritis of first carpometacarpal joint, right hand Category: Medical (2) Arthritis of carpometacarpal (CMC) joint of left thumb: Code(s): M18.12 - Unilateral primary osteoarthritis of first carpometacarpal joint, left hand Category: Medical Plan Assessment and plan: 1. Right basal joint osteoarthritis This is her most symptomatic complaint I educated her about this condition We discussed the importance of activity modification We discussed the risks and benefits of a steroid injection. We also discussed operative and non operative treatment options.? I am not recommending surgery at this time. Injection #1 : The risks and benefits of a steroid injection including but not limited to risk of damage to blood vessels, nerve, tendon, infection, skin bleaching, persistent or worsening pain, and failure to improve symptoms were discussed with the patient and they wish to proceed with the steroid injection. Once consent was obtained the skin over the dorsum of the right basal joint was sterilely prepped.? The joint was then injected with a combination of 1 mL of (40 mg/ml} Depo-Medrol and 0.25 % plain Marcaine.? The patient appears to have tolerated the procedure well and with no complications. Please see my note from 03/10/2025 for additional information as necessary She can follow up PRN. Orders: Orders XR hand LT min 3V Today M79.642 - Pain in left hand XR hand RT min 3V Today M79.641 - Pain in right hand Coding Level of Care Code Est Pt Level 4 (38553) Diagnoses Osteoarthritis of carpometacarpal joint of right thumb M18.11 Arthritis of carpometacarpal (CMC) joint of left thumb M18.12 CPT Codes Fracture Care - Fracture Billing Code: Fracture Billing Code ([id number])
--- OUTSIDE RECORDS SUMMARY | 2025-05-19 15:35 | XMS_ITS | Clinical Summary ---
Author Organization [facility] Address [address] [address] Phone Care Team Providers Care Special Education Coordinator Name Role Phone Unknown, Unknown Primary Care [...] 6 mos f/u diagn mammo/US scheduled at [facility]. 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 It is not the complete legal health record.[facility]
--- OUTSIDE RECORDS SUMMARY | 2025-05-19 15:35 | XMS_ITS | Clinical Summary ---
Author Organization [facility] Address [address] [place] [id number] Phone Care Team Providers Care Green Marketing Analyst Name Role Phone Wilfred Castle NP Primary Care Provider [phone] Encounters Date Type Department Care Team Description 03/11/2025 8:44 AM EDT - 03/11/2025 11:59 PM EDT Hospital [facility] at [address] [id number] Encounter for screening mammogram for [...] for biopsy. PQRI CPT II 3342F Code 90308, 88167 PQRI 225 CPT II 7025F TISSUE DENSITY: There are scattered areas of fibroglandular density. (BI-RADS category B) IMPRESSION: Benign. BI-RADS CATEGORY: 2 - BENIGN RECOMMENDATION: Screening bilateral mammogram is recommended in 1 year. Mammo Location: [facility], [address] [place] [address] -------- FINAL REPORT -------- Dictated By: Tommy Lemus Dictated Date: 03/11/2025 09:10 ET Assigned Physician: Tommy Lemus Reviewed and Electronically Signed By: Tommy Lemus Signed Date: 03/11/2025 09:17 ET Workstation ID: [id number] Transcribed By: Self Edit Transcribed Date: 03/11/2025 09:10 ET Narrative 03/11/2025 9:17 AM EDT CLINICAL: The patient is a 60 years Female presenting for routine screening mammography. COMPARISON: Most recently 03/04/2024 and most remotely 10/23/2017. TECHNIQUE: Full-field digital mammography of the breasts bilaterally consisting of tomosynthesis in MLO and CC projection is performed in the [employer] 2000-D unit. Computer aided detection utilizing the [...] MLO and CC projection is performed in the[employer] 2000-D unit. Computer aided detection utilizing the [email or web address] was utilized. FINDINGS: The breasts are seen [...] for biopsy. PQRI CPT II 3342F Code 45923, 72970 PQRI 225 CPT II 7025F TISSUE DENSITY: There are scattered areas of fibroglandular density.(BI-RADS category B) IMPRESSION: Benign. BI-RADS CATEGORY: 2 - BENIGN RECOMMENDATION: Screening bilateral mammogram is recommended in 1 year. Mammo Location: [facility], [address] [place] [id number] -------- FINAL REPORT -------- Dictated By: Tommy Lemus Dictated Date: 03/11/2025 09:10 ET Assigned Physician: Tommy Lemus Reviewed and Electronically Signed By: Tommy Lemus Signed Date: 03/11/2025 09:17 ET Workstation ID: [id number] Transcribed By: Self Edit Transcribed Date: 03/11/2025 09:10 ET us Self Referral [facility] IMG BI PROCEDURES Final Resul t from Last 3 Months Insurance [facility] Care Teams Green Marketing Analyst Relationship Specialty Start Date End Date Wilfred Castle NP PCP - General Family Medicine 03/05/25
== END 2025-05-19 16:17 | disposition home or self-care (01) ==
LOC: HO.HOS 15:04
PROVIDERS: PCP Nurse Practitioner Family; Visit Provider Orthopaedic Surgery
DX: M18.0 Bilateral primary osteoarthritis of first carpometacarpal joints (principal)
CPT/HCPCS: 20600; 99214

== ENCOUNTER 2025-05-19 15:42 | Outpatient (REF) | payer OTHER, SELFPAY ==
--- NOTE | ~2025-05-19 | XR_ITS ---
EXAMINATION: XR HAND 3 OR MORE VIEWS RIGHT HISTORY: M79.641 - Pain in right hand COMPARISON: Comparison is made with the prior examination dated 03/17/2024. FINDINGS: Three views of the right hand are submitted. Osseous mineralization is normal. There is no fracture or dislocation. There is mild osteoarthritis of the DIP joints and mild to moderate osteoarthritis of the 1st carpometacarpal joint. The soft tissues are unremarkable. 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 Electronically signed by: Panda Jacome MD 05/20/2025 07:30 AM EDT
--- NOTE | ~2025-05-19 | XR_ITS ---
EXAMINATION: XR HAND 3 OR MORE VIEWS LEFT HISTORY: M79.642 - Pain in left hand COMPARISON: Comparison is made with the prior examination dated 01/30/2023. FINDINGS: Three views of the left hand are submitted. Again seen is a small cyst in the lunate. Osseous mineralization is otherwise normal. There is no fracture or dislocation. There is mild narrowing of the DIP and PIP joints and moderate degenerative change of the 1st carpometacarpal joint. The soft tissues are unremarkable. 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 Electronically signed by: Panda Jacome MD 05/20/2025 07:26 AM EDT
== END 2025-05-19 15:43 | disposition home or self-care (01) ==
LOC: HO.HOSX 15:42
PROVIDERS: Visit Provider Orthopaedic Surgery
DX: M79.641 Pain in right hand (principal); M79.642 Pain in left hand
CPT/HCPCS: 73130

== ENCOUNTER → 2025-05-19 15:43 | Outpatient (BNV) | payer OTHER, SELFPAY | PROVIDERS: Visit Provider Radiology Diagnostic Radiology | DX: M19.042 Primary osteoarthritis, left hand (principal); M19.041 Primary osteoarthritis, right hand | CPT/HCPCS: 73130 ==

== ENCOUNTER 2025-05-20 11:10 | Outpatient (REF) | payer OTHER, SELFPAY ==
--- OUTSIDE RECORDS SUMMARY | 2025-05-21 11:16 | XMS_ITS | Patient Health Record ---
Author Organization [facility] [address] Address [address] [place] [address] Care Team Providers Care Vp Site Name Role Phone IGNACIOJOHANNA LIZABETH Unavailable [phone] DUONGDIONICIO SOTELO Unavailable [phone] Allergies No Known Allergies Reason For Referral Reason Dr pham- AT HOME sleep study Diagnosis 1 Snoring (R06.83) Diagnosis 2 Daytime somnolence ( R40.0) Referral Organization [facility] [address] Referring Provider First Name LIZABETH Referring Provider Last Name PALLAVI Referring Provider Speciality Internal M edicine Referred Provider Young Pham Referred Provider Specialty Sleep Medici ne General Notes ZAIRE NGUYEN 0 12/18/2024 11:18:59 AM >Information sent to dr pham , [address] [place] [address], [address], [facility] [address], 6 [address] from Patient's Address, [phone], [phone] Clinical Notes Rosy Gore 02:44:22 PM > [...] days Active Ciclopirox 0.77 % 1 application Reprint Sorter ally Once a day 03/20/2023 Active D3 [...] MOUTH EVERY DAY Oral; Duration: 90 Active Zepbound 7.5 MG/0.5ML 7.5mg Subcutaneous weekly; Duration: 30 days 05/17/2025 Active Losartan Potassium 25 MG 1 tablet Orally Once a day; Duration: 30 day(s) 03/20/2023 Active Docusate Sodium 100 MG 1 capsule as need ed Orally Once a day; Duration: 30 day(s) 03/20/2023 Active Contrave 8-90 MG [...] Problem Obesity due to exces s calories (460160829) Other obesity due to excess calories (E66.09) Active confirmed Problem Primary insomnia (5577295) Primary insomnia (F51.01) Active confirmed Problem Essential hypertension (92305459) Essential (primary) hypertension (I10) Active confirmed Problem Adult health examination (147511257) Encounter for general adult medical examination without abnormal findings (Z00.00) Active confirmed Problem Hyperlipoproteinemia (7909395) Acquired hyperlipoproteinemia (E78.5) Active confirmed Problem Body mass index 40+ - morbidly obese (975755316) BMI 40.0-44.9, adult (Z68.41) Active confirmed Problem Body mass index 35.0 0 to 39.99 (553584993062437) Body mass index [BMI] 38.0-38.9, adult (Z68.38) Active confirmed Problem Body mass index 35.0 0 to 39.99 (132450283228619) Body mass index [BMI] 39.0-39.9, adult (Z68.39) Active confirmed Problem Obese class II (360397397193217) BMI 35.0-35.9,adult (Z68.35) Active confirmed Problem Obese class II (624939278625528) BMI 36.0-36.9,adult (Z68.36) Active confirmed Problem Morbid obesity (882697075) Morbid obesity due to excess calories (E66.01) Active confirmed Problem Daytime somnolence (837634828884) Daytime somnolence (R40.0) Active confirmed Problem Mixed anxiety and depressive disorder (598924378) Depression with anxiety (F41.8) Active confirmed Vital Signs Heart Rate 74 /min 05/07/2025 Blood pressure diastolic 82 mm Hg 05/07/2025 Oximetry 98 % 05/07/2025 Height 65 in 05/07/2025 Blood pressure systolic 124 mm Hg 05/07/2025 Weight 220.3 lbs 05/07/2025 BMI 36.66 kg/m2 05/07/2025 Encounters Encounter Location Date Provider Diagnosis [facility] [address] [place] [id number] 06/08/2024 LIZABETH OLIOV BMI 36.0-36.9,adult Z68.36 ; Other obesity due to excess calories E66.09 ; Dietary counseling and surveillance Z71.3 ; Acquired hyperlipoproteinemia E78.5 ; Depression with anxiety F41.8 ; Primary insomnia F51.01 and Essential (primary) hypertension I10 [facility] [address] 09/14/2024 LIZABETH BORHOT BMI 35.0-35.9,adult Z68.35 ; Other obesity due to excess calories E66.09 ; Dietary counseling and surveillance Z71.3 ; Acquired hyperlipoproteinemia E78.5 ; Depression with anxiety F41.8 ; Primary insomnia F51.01 and Essential (primary) hypertension I10 [facility] [address] 12/18/2024 LIZABETH BORHOT BMI 36.0-36.9,adult Z68.36 ; Other obesity due to excess calories E66.09 ; Dietary counseling and surveillance Z71.3 ; Acquired hyperlipoproteinemia E78.5 ; Depression with anxiety F41.8 ; Primary insomnia F51.01 ; Essential (primary) hypertension I10 ; Snoring R06.83 and Daytime somnolence R40.0 [facility] [address] 03/17/2025 LIZABETH BORHOT BMI 36.0-36.9,adult Z68.36 ; Dietary counseling and surveillance Z71.3 ; Other obesity due to excess calories E66.09 ; Acquired hyperlipoproteinemia E78.5 ; Depression with anxiety F41.8 ; Primary insomnia F51.01 ; Essential (primary) hypertension I10 ; Snoring R06.83 ; Daytime somnolence R40.0 and Encounter for examination of blood pressure without abnormal findings Z01.30 [facility] [address] 05/07/2025 LZIABETH BORHOT BMI 36.0-36.9,adult Z68.36 ; Dietary counseling and surveillance Z71.3 ; Acquired hyperlipoproteinemia E78.5 ; Other obesity due to excess calories E66.09 ; Depression with anxiety F41.8 ; Primary insomnia F51.01 ; Essential (primary) hypertension I10 ; Snoring R06.83 ; Daytime somnolence R40.0 and Encounter for examination of blood pressure without abnormal findings Z01.[address] [facility] [address] [place] [address] 06/11/2024 LIZABETH BORHOT [facility] [address] [place] [address] 06/11/2024 LIZABETH BORHOT [facility] [address] [place] [address] 06/12/2024 LIZABETH BORHOT [facility] [address] [place] [address] 09/14/2024 TALBRIANA SANTOSAN [facility] [address] [place] [address] 09/21/2024 LIZABETH BORHOT [facility] [address] [place] [address] 10/26/2024 LIZABETH BORHOT [facility] [address] [place] [address] 10/28/2024 LIZABETH BORHOT [facility] [address] [place] [address] 01/20/2025 LIZABETH BORHOT [facility] [address] [place] [address] 05/17/2025 LIZABETH BORHOT [facility] [address] [place] [address] 05/20/2025 LIZABETH BORHOT Assessments Encounter Date Diagnosis (ICD Code) Assessment Notes Treatment Notes Treatment Clinical Notes Section Notes 06/08/2024 BMI 36.0-36.9,adult (ICD-10 - Z68.36) #Weight Management 06/08/2024 Otherwise well and thriving cont wegovy 2.4mg max dosing cont contrave Follow-up on labs from [facility] Total time spent today was 30 minutes of which greater than 50% was spent on coordinating and counseling Patient has been found to be obese with a BMI of (36). Patient has class (2) obesity. We are a board certified obesity and weight management practice Patient has trialed behavioral modification, dietary restrictions and exercise for a minimum of 6 months The most recent [place] [employer] clinical endocrinologists and [employer]in[employer] guidelines recommend patients who [...] track activity level. Consider using apps like Conferize, myfitnesspal, lose it, stick as needed for self-monitoring and weight management. Consider group exercises. Consider hiring a personalized living assistant. Regular exercise is manjarrez to sustainable health [...] counseling and psychiatry and Dr Marin at [facility]. We would like to cover regular topics [...] software and direct typing Please excuse inadvertent steward/stewardess banquet or typing errors, or uncorrected word substitutions Although every attempt has been made by the provider to proofread this document, occasional misspellings and typographical errors may still be present Due to the previous pandemic, and the use of personal protective equipment (PPE) This may decrease voice recognition accuracy Inadvertent steward/stewardess banquet errors may occur 12/18/2024 BMI 36.0-36.9,adult (ICD-10 [...] software and direct typing Please excuse inadvertent steward/stewardess banquet or typing errors, or uncorrected word substitutions Although every attempt has been made by the provider to proofread this document, occasional misspellings and typographical errors may still be present Due to the previous pandemic, and the use of personal protective equipment (PPE) This may decrease voice recognition accuracy Inadvertent steward/stewardess banquet errors may occur 03/17/2025 BMI 36.0-36.9,adult (ICD-10 [...] software and direct typing Please excuse inadvertent steward/stewardess banquet or typing errors, or uncorrected word substitutions Although every attempt has been made by the provider to proofread this document, occasional misspellings and typographical errors may still be present Due to the previous pandemic, and the use of personal protective equipment (PPE) This may decrease voice recognition accuracy Inadvertent steward/stewardess banquet errors may occur 05/07/2025 BMI 36.0-36.9,adult (ICD-10 [...] software and direct typing Please excuse inadvertent steward/stewardess banquet or typing errors, or uncorrected word substitutions Although every attempt has been made by the provider to proofread this document, occasional misspellings and typographical errors may still be present Due to the previous pandemic, and the use of personal protective equipment (PPE) This may decrease voice recognition accuracy Inadvertent steward/stewardess banquet errors may occur 09/14/2024 BMI 35.0-35.9,adult (ICD-10 [...] minimum of 6 months The most recent [place] [employer] of clinical endocrinologists and [employer] endocrin[employer] guidelines recommend patients who [...] software and direct typing Please excuse inadvertent steward/stewardess banquet or typing errors, or uncorrected word substitutions Although every attempt has been made by the provider to proofread this document, occasional misspellings and typographical errors may still be present Due to the previous pandemic, and the use of personal protective equipment (PPE) This may decrease voice recognition accuracy Inadvertent steward/stewardess banquet errors may occur 09/14/2024 Dietary counseling a [...] minimum of 6 months The most recent [place] [employer] of clinical endocrinologists and [employer] endocrin[employer] guidelines recommend patients who [...] software and direct typing Please excuse inadvertent steward/stewardess banquet or typing errors, or uncorrected word substitutions Although every attempt has been made by the provider to proofread this document, occasional misspellings and typographical errors may still be present Due to the previous pandemic, and the use of personal protective equipment (PPE) This may decrease voice recognition accuracy Inadvertent steward/stewardess banquet errors may occur 09/14/2024 Other obesity due [...] minimum of 6 months The most recent [place] [employer] of clinical endocrinologists and [employer] endocrinology guidelines recommend patients who [...] software and direct typing Please excuse inadvertent steward/stewardess banquet or typing errors, or uncorrected word substitutions Although every attempt has been made by the provider to proofread this document, occasional misspellings and typographical errors may still be present Due to the previous pandemic, and the use of personal protective equipment (PPE) This may decrease voice recognition accuracy Inadvertent steward/stewardess banquet errors may occur 05/07/2025 Dietary counseling a [...] software and direct typing Please excuse inadvertent steward/stewardess banquet or typing errors, or uncorrected word substitutions Although every attempt has been made by the provider to proofread this document, occasional misspellings and typographical errors may still be present Due to the previous pandemic, and the use of personal protective equipment (PPE) This may decrease voice recognition accuracy Inadvertent steward/stewardess banquet errors may occur 03/17/2025 Dietary counseling a [...] software and direct typing Please excuse inadvertent steward/stewardess banquet or typing errors, or uncorrected word substitutions Although every attempt has been made by the provider to proofread this document, occasional misspellings and typographical errors may still be present Due to the previous pandemic, and the use of personal protective equipment (PPE) This may decrease voice recognition accuracy Inadvertent steward/stewardess banquet errors may occur 12/18/2024 Dietary counseling a [...] software and direct typing Please excuse inadvertent steward/stewardess banquet or typing errors, or uncorrected word substitutions Although every attempt has been made by the provider to proofread this document, occasional misspellings and typographical errors may still be present Due to the previous pandemic, and the use of personal protective equipment (PPE) This may decrease voice recognition accuracy Inadvertent steward/stewardess banquet errors may occur 12/18/2024 Other obesity due [...] software and direct typing Please excuse inadvertent steward/stewardess banquet or typing errors, or uncorrected word substitutions Although every attempt has been made by the provider to proofread this document, occasional misspellings and typographical errors may still be present Due to the previous pandemic, and the use of personal protective equipment (PPE) This may decrease voice recognition accuracy Inadvertent steward/stewardess banquet errors may occur 06/08/2024 Dietary counseling a nd surveillance (ICD-10 - Z71.3) #Weight Management 06/08/2024 Otherwise well and thriving cont wegovy 2.4mg max dosing cont contrave Follow-up on labs from [facility] Total time spent today was 30 minutes of which greater than 50% was spent on coordinating and counseling Patient has been found to be obese with a BMI of (36). Patient has class (2) obesity. We are a board certified obesity and weight management practice Patient has trialed behavioral modification, dietary restrictions and exercise for a minimum of 6 months The most recent [place] [employer] of clinical endocrinologists and [employer] endocrin[employer] guidelines recommend patients who [...] track activity level. Consider using apps like [employer] excercise, myfitnesspal, lose it, stick as needed for self-monitoring and weight management. Consider group exercises. Consider hiring a personalized living assistant. Regular exercise is manjarrez to sustainable health [...] counseling and psychiatry and Dr Marin at [facility]. We would like to cover regular topics [...] software and direct typing Please excuse inadvertent steward/stewardess banquet or typing errors, or uncorrected word substitutions Although every attempt has been made by the provider to proofread this document, occasional misspellings and typographical errors may still be present Due to the previous pandemic, and the use of personal protective equipment (PPE) This may decrease voice recognition accuracy Inadvertent steward/stewardess banquet errors may occur 06/08/2024 Other obesity due to excess calories (ICD-10 - E66.09) #Weight Management 06/08/2024 Otherwise well and thriving cont wegovy 2.4mg max dosing cont contrave Follow-up on labs from [facility] Total time spent today was 30 minutes of which greater than 50% was spent on coordinating and counseling Patient has been found to be obese with a BMI of (36). Patient has class (2) obesity. We are a board certified obesity and weight management practice Patient has trialed behavioral modification, dietary restrictions and exercise for a minimum of 6 months The most recent [place] [employer] of clinical endocrinologists and [employer] endocrin[employer] guidelines recommend patients who [...] track activity level. Consider using apps like Conferize, [employer], lose it, stick as needed for self-monitoring and weight management. Consider group exercises. Consider hiring a personalized living assistant. Regular exercise is manjarrez to sustainable health [...] counseling and psychiatry and Dr Marin at [facility]. We would like to cover regular topics [...] software and direct typing Please excuse inadvertent steward/stewardess banquet or typing errors, or uncorrected word substitutions Although every attempt has been made by the provider to proofread this document, occasional misspellings and typographical errors may still be present Due to the previous pandemic, and the use of personal protective equipment (PPE) This may decrease voice recognition accuracy Inadvertent steward/stewardess banquet errors may occur 06/08/2024 Acquired hyperlipoproteinemia (ICD-10 - E78.5) #Weight Management 06/08/2024 Otherwise well and thriving cont wegovy 2.4mg max dosing cont contrave Follow-up on labs from [facility] Total time spent today was 30 minutes of which greater than 50% was spent on coordinating and counseling Patient has been found to be obese with a BMI of (36). Patient has class (2) obesity. We are a board certified obesity and weight management practice Patient has trialed behavioral modification, dietary restrictions and exercise for a minimum of 6 months The most recent [place] [employer] of clinical endocrinologists and [employer] endocrinology guidelines recommend patients who [...] track activity level. Consider using apps like Conferize, [employer], lose it, stick as needed for self-monitoring and weight management. Consider group exercises. Consider hiring a personalized living assistant. Regular exercise is manjarrez to sustainable health [...] counseling and psychiatry and Dr Marin at [facility]. We would like to cover regular topics [...] software and direct typing Please excuse inadvertent steward/stewardess banquet or typing errors, or uncorrected word substitutions Although every attempt has been made by the provider to proofread this document, occasional misspellings and typographical errors may still be present Due to the previous pandemic, and the use of personal protective equipment (PPE) This may decrease voice recognition accuracy Inadvertent steward/stewardess banquet errors may occur 12/18/2024 Acquired hyperlipoproteinemia (ICD-10 [...] software and direct typing Please excuse inadvertent steward/stewardess banquet or typing errors, or uncorrected word substitutions Although every attempt has been made by the provider to proofread this document, occasional misspellings and typographical errors may still be present Due to the previous pandemic, and the use of personal protective equipment (PPE) This may decrease voice recognition accuracy Inadvertent steward/stewardess banquet errors may occur 03/17/2025 Acquired hyperlipoproteinemia (ICD-10 [...] software and direct typing Please excuse inadvertent steward/stewardess banquet or typing errors, or uncorrected word substitutions Although every attempt has been made by the provider to proofread this document, occasional misspellings and typographical errors may still be present Due to the previous pandemic, and the use of personal protective equipment (PPE) This may decrease voice recognition accuracy Inadvertent steward/stewardess banquet errors may occur 03/17/2025 Other obesity due [...] software and direct typing Please excuse inadvertent steward/stewardess banquet or typing errors, or uncorrected word substitutions Although every attempt has been made by the provider to proofread this document, occasional misspellings and typographical errors may still be present Due to the previous pandemic, and the use of personal protective equipment (PPE) This may decrease voice recognition accuracy Inadvertent steward/stewardess banquet errors may occur 05/07/2025 Acquired hyperlipoproteinemia (ICD-10 [...] software and direct typing Please excuse inadvertent steward/stewardess banquet or typing errors, or uncorrected word substitutions Although every attempt has been made by the provider to proofread this document, occasional misspellings and typographical errors may still be present Due to the previous pandemic, and the use of personal protective equipment (PPE) This may decrease voice recognition accuracy Inadvertent steward/stewardess banquet errors may occur 09/14/2024 Acquired hyperlipoproteinemia (ICD-10 [...] minimum of 6 months The most recent [place] [employer] of clinical endocrinologists and [employer] endocrinology guidelines recommend patients who [...] software and direct typing Please excuse inadvertent steward/stewardess banquet or typing errors, or uncorrected word substitutions Although every attempt has been made by the provider to proofread this document, occasional misspellings and typographical errors may still be present Due to the previous pandemic, and the use of personal protective equipment (PPE) This may decrease voice recognition accuracy Inadvertent steward/stewardess banquet errors may occur 09/14/2024 Depression with anxiety [...] minimum of 6 months The most recent [place] [employer] of clinical endocrinologists and [employer] of endocrinology guidelines recommend patients who [...] software and direct typing Please excuse inadvertent steward/stewardess banquet or typing errors, or uncorrected word substitutions Although every attempt has been made by the provider to proofread this document, occasional misspellings and typographical errors may still be present Due to the previous pandemic, and the use of personal protective equipment (PPE) This may decrease voice recognition accuracy Inadvertent steward/stewardess banquet errors may occur 12/18/2024 Depression with anxiety [...] software and direct typing Please excuse inadvertent steward/stewardess banquet or typing errors, or uncorrected word substitutions Although every attempt has been made by the provider to proofread this document, occasional misspellings and typographical errors may still be present Due to the previous pandemic, and the use of personal protective equipment (PPE) This may decrease voice recognition accuracy Inadvertent steward/stewardess banquet errors may occur 03/17/2025 Depression with anxiety [...] software and direct typing Please excuse inadvertent steward/stewardess banquet or typing errors, or uncorrected word substitutions Although every attempt has been made by the provider to proofread this document, occasional misspellings and typographical errors may still be present Due to the previous pandemic, and the use of personal protective equipment (PPE) This may decrease voice recognition accuracy Inadvertent steward/stewardess banquet errors may occur 05/07/2025 Other obesity due [...] software and direct typing Please excuse inadvertent steward/stewardess banquet or typing errors, or uncorrected word substitutions Although every attempt has been made by the provider to proofread this document, occasional misspellings and typographical errors may still be present Due to the previous pandemic, and the use of personal protective equipment (PPE) This may decrease voice recognition accuracy Inadvertent steward/stewardess banquet errors may occur 06/08/2024 Depression with anxiety (ICD-10 - F41.8) #Weight Management 06/08/2024 Otherwise well and thriving cont wegovy 2.4mg max dosing cont contrave Follow-up on labs from [facility] Total time spent today was 30 minutes of which greater than 50% was spent on coordinating and counseling Patient has been found to be obese with a BMI of (36). Patient has class (2) obesity. We are a board certified obesity and weight management practice Patient has trialed behavioral modification, dietary restrictions and exercise for a minimum of 6 months The most recent [place] [employer] of clinical endocrinologists and [employer] endocrinology guidelines recommend patients who [...] track activity level. Consider using apps like [employer]ferize, myfitnesspal, lose it, stick as needed for self-monitoring and weight management. Consider group exercises. Consider hiring a personalized living assistant. Regular exercise is manjarrez to sustainable health [...] counseling and psychiatry and Dr Marin at [facility]. We would like to cover regular topics [...] software and direct typing Please excuse inadvertent steward/stewardess banquet or typing errors, or uncorrected word substitutions Although every attempt has been made by the provider to proofread this document, occasional misspellings and typographical errors may still be present Due to the previous pandemic, and the use of personal protective equipment (PPE) This may decrease voice recognition accuracy Inadvertent steward/stewardess banquet errors may occur 06/08/2024 Primary insomnia (ICD-10 - F51.01) #Weight Management 06/08/2024 Otherwise well and thriving cont wegovy 2.4mg max dosing cont contrave Follow-up on labs from [facility] Total time spent today was 30 minutes of which greater than 50% was spent on coordinating and counseling Patient has been found to be obese with a BMI of (36). Patient has class (2) obesity. We are a board certified obesity and weight management practice Patient has trialed behavioral modification, dietary restrictions and exercise for a minimum of 6 months The most recent [place] [employer] of clinical endocrinologists and [place] [employer] of endocrinology guidelines recommend patients who [...] track activity level. Consider using apps like Conferize, [employer], lose it, stick as needed for self-monitoring and weight management. Consider group exercises. Consider hiring a personalized living assistant. Regular exercise is manjarrez to sustainable health [...] counseling and psychiatry and Dr Marin at [facility]. We would like to cover regular topics [...] software and direct typing Please excuse inadvertent steward/stewardess banquet or typing errors, or uncorrected word substitutions Although every attempt has been made by the provider to proofread this document, occasional misspellings and typographical errors may still be present Due to the previous pandemic, and the use of personal protective equipment (PPE) This may decrease voice recognition accuracy Inadvertent steward/stewardess banquet errors may occur 12/18/2024 Primary insomnia (ICD-10 [...] software and direct typing Please excuse inadvertent steward/stewardess banquet or typing errors, or uncorrected word substitutions Although every attempt has been made by the provider to proofread this document, occasional misspellings and typographical errors may still be present Due to the previous pandemic, and the use of personal protective equipment (PPE) This may decrease voice recognition accuracy Inadvertent steward/stewardess banquet errors may occur 03/17/2025 Primary insomnia (ICD-10 [...] software and direct typing Please excuse inadvertent steward/stewardess banquet or typing errors, or uncorrected word substitutions Although every attempt has been made by the provider to proofread this document, occasional misspellings and typographical errors may still be present Due to the previous pandemic, and the use of personal protective equipment (PPE) This may decrease voice recognition accuracy Inadvertent steward/stewardess banquet errors may occur 05/07/2025 Depression with anxiety [...] software and direct typing Please excuse inadvertent steward/stewardess banquet or typing errors, or uncorrected word substitutions Although every attempt has been made by the provider to proofread this document, occasional misspellings and typographical errors may still be present Due to the previous pandemic, and the use of personal protective equipment (PPE) This may decrease voice recognition accuracy Inadvertent steward/stewardess banquet errors may occur 09/14/2024 Primary insomnia (ICD-10 [...] minimum of 6 months The most recent [place] [employer] of clinical endocrinologists and [place] [employer] of endocrinology guidelines recommend patients who [...] software and direct typing Please excuse inadvertent steward/stewardess banquet or typing errors, or uncorrected word substitutions Although every attempt has been made by the provider to proofread this document, occasional misspellings and typographical errors may still be present Due to the previous pandemic, and the use of personal protective equipment (PPE) This may decrease voice recognition accuracy Inadvertent steward/stewardess banquet errors may occur 09/14/2024 Essential (primary) hypertension [...] minimum of 6 months The most recent [place] [employer] of clinical endocrinologists and [place] [employer] of endocrinology guidelines recommend patients who [...] software and direct typing Please excuse inadvertent steward/stewardess banquet or typing errors, or uncorrected word substitutions Although every attempt has been made by the provider to proofread this document, occasional misspellings and typographical errors may still be present Due to the previous pandemic, and the use of personal protective equipment (PPE) This may decrease voice recognition accuracy Inadvertent steward/stewardess banquet errors may occur 03/17/2025 Essential (primary) hypertension [...] software and direct typing Please excuse inadvertent steward/stewardess banquet or typing errors, or uncorrected word substitutions Although every attempt has been made by the provider to proofread this document, occasional misspellings and typographical errors may still be present Due to the previous pandemic, and the use of personal protective equipment (PPE) This may decrease voice recognition accuracy Inadvertent steward/stewardess banquet errors may occur 05/07/2025 Primary insomnia (ICD-10 [...] software and direct typing Please excuse inadvertent steward/stewardess banquet or typing errors, or uncorrected word substitutions Although every attempt has been made by the provider to proofread this document, occasional misspellings and typographical errors may still be present Due to the previous pandemic, and the use of personal protective equipment (PPE) This may decrease voice recognition accuracy Inadvertent steward/stewardess banquet errors may occur 12/18/2024 Essential (primary) hypertension [...] software and direct typing Please excuse inadvertent steward/stewardess banquet or typing errors, or uncorrected word substitutions Although every attempt has been made by the provider to proofread this document, occasional misspellings and typographical errors may still be present Due to the previous pandemic, and the use of personal protective equipment (PPE) This may decrease voice recognition accuracy Inadvertent steward/stewardess banquet errors may occur 06/08/2024 Essential (primary) hypertension (ICD-10 - I10) #Weight Management 06/08/2024 Otherwise well and thriving cont wegovy 2.4mg max dosing cont contrave Follow-up on labs from [facility] Total time spent today was 30 minutes of which greater than 50% was spent on coordinating and counseling Patient has been found to be obese with a BMI of (36). Patient has class (2) obesity. We are a board certified obesity and weight management practice Patient has trialed behavioral modification, dietary restrictions and exercise for a minimum of 6 months The most recent [place] [employer] of clinical endocrinologists and [place] [employer] of endocrinology guidelines recommend patients who [...] track activity level. Consider using apps like [employer], [employer], lose it, stick as needed for self-monitoring and weight management. Consider group exercises. Consider hiring a personalized living assistant. Regular exercise is manjarrez to sustainable health [...] counseling and psychiatry and Dr Marin at [facility]. We would like to cover regular topics [...] software and direct typing Please excuse inadvertent steward/stewardess banquet or typing errors, or uncorrected word substitutions Although every attempt has been made by the provider to proofread this document, occasional misspellings and typographical errors may still be present Due to the previous pandemic, and the use of personal protective equipment (PPE) This may decrease voice recognition accuracy Inadvertent steward/stewardess banquet errors may occur 12/18/2024 Snoring (ICD-10 - [...] software and direct typing Please excuse inadvertent steward/stewardess banquet or typing errors, or uncorrected word substitutions Although every attempt has been made by the provider to proofread this document, occasional misspellings and typographical errors may still be present Due to the previous pandemic, and the use of personal protective equipment (PPE) This may decrease voice recognition accuracy Inadvertent steward/stewardess banquet errors may occur 05/07/2025 Essential (primary) hypertension [...] software and direct typing Please excuse inadvertent steward/stewardess banquet or typing errors, or uncorrected word substitutions Although every attempt has been made by the provider to proofread this document, occasional misspellings and typographical errors may still be present Due to the previous pandemic, and the use of personal protective equipment (PPE) This may decrease voice recognition accuracy Inadvertent steward/stewardess banquet errors may occur 03/17/2025 Snoring (ICD-10 - [...] software and direct typing Please excuse inadvertent steward/stewardess banquet or typing errors, or uncorrected word substitutions Although every attempt has been made by the provider to proofread this document, occasional misspellings and typographical errors may still be present Due to the previous pandemic, and the use of personal protective equipment (PPE) This may decrease voice recognition accuracy Inadvertent steward/stewardess banquet errors may occur 03/17/2025 Daytime somnolence (ICD-10 [...] software and direct typing Please excuse inadvertent steward/stewardess banquet or typing errors, or uncorrected word substitutions Although every attempt has been made by the provider to proofread this document, occasional misspellings and typographical errors may still be present Due to the previous pandemic, and the use of personal protective equipment (PPE) This may decrease voice recognition accuracy Inadvertent steward/stewardess banquet errors may occur 05/07/2025 Snoring (ICD-10 - [...] software and direct typing Please excuse inadvertent steward/stewardess banquet or typing errors, or uncorrected word substitutions Although every attempt has been made by the provider to proofread this document, occasional misspellings and typographical errors may still be present Due to the previous pandemic, and the use of personal protective equipment (PPE) This may decrease voice recognition accuracy Inadvertent steward/stewardess banquet errors may occur 12/18/2024 Daytime somnolence (ICD-10 [...] software and direct typing Please excuse inadvertent steward/stewardess banquet or typing errors, or uncorrected word substitutions Although every attempt has been made by the provider to proofread this document, occasional misspellings and typographical errors may still be present Due to the previous pandemic, and the use of personal protective equipment (PPE) This may decrease voice recognition accuracy Inadvertent steward/stewardess banquet errors may occur 05/07/2025 Daytime somnolence (ICD-10 [...] software and direct typing Please excuse inadvertent steward/stewardess banquet or typing errors, or uncorrected word substitutions Although every attempt has been made by the provider to proofread this document, occasional misspellings and typographical errors may still be present Due to the previous pandemic, and the use of personal protective equipment (PPE) This may decrease voice recognition accuracy Inadvertent steward/stewardess banquet errors may occur 03/17/2025 Encounter for examination [...] software and direct typing Please excuse inadvertent steward/stewardess banquet or typing errors, or uncorrected word substitutions Although every attempt has been made by the provider to proofread this document, occasional misspellings and typographical errors may still be present Due to the previous pandemic, and the use of personal protective equipment (PPE) This may decrease voice recognition accuracy Inadvertent steward/stewardess banquet errors may occur 05/07/2025 Encounter for examination [...] software and direct typing Please excuse inadvertent steward/stewardess banquet or typing errors, or uncorrected word substitutions Although every attempt has been made by the provider to proofread this document, occasional misspellings and typographical errors may still be present Due to the previous pandemic, and the use of personal protective equipment (PPE) This may decrease voice recognition accuracy Inadvertent steward/stewardess banquet errors may occur 08/06/2024 #Weight Management 08/06/2024 Otherwise well and thriving cont wegovy 2.4mg max dosing cont contrave Follow-up on labs from [facility] Total time spent today was 30 minutes of which greater than 50% was spent on coordinating and counseling Patient has been found to be obese with a BMI of (36). Patient has class (2) obesity. We are a board certified obesity and weight management practice Patient has trialed behavioral modification, dietary restrictions and exercise for a minimum of 6 months The most recent [place] [employer] of clinical endocrinologists and [place] [employer] of endocrinology guidelines recommend patients who [...] software and direct typing Please excuse inadvertent steward/stewardess banquet or typing errors, or uncorrected word substitutions Although every attempt has been made by the provider to proofread this document, occasional misspellings and typographical errors may still be present Due to the previous pandemic, and the use of personal protective equipment (PPE) This may decrease voice recognition accuracy Inadvertent steward/stewardess banquet errors may occur 11/16/2024 #Weight Management 11/16/2024 [...] software and direct typing Please excuse inadvertent steward/stewardess banquet or typing errors, or uncorrected word substitutions Although every attempt has been made by the provider to proofread this document, occasional misspellings and typographical errors may still be present Due to the previous pandemic, and the use of personal protective equipment (PPE) This may decrease voice recognition accuracy Inadvertent steward/stewardess banquet errors may occur Plan Of Treatment Pending Test Test Name Order Date LIPID PANEL, STANDARD 10/22/2023 COMPREHENSIVE METABOLIC PANEL 10/22/2023 CBC (INCLUDES DIFF/PLT) 10/22/2023 URINALYSIS, COMPLETE 10/22/2023 Next Appt Details Provider Name:LIZABETH OLIVO, 06/25/2025 08:00:00 AM, [address] [facility], [facility], [place], [address], Insurance Providers Payer Name Payer Address Payer Phone Subscriber Number Group Number Insured Name Patient Relationship to Insured Coverage Start Date Coverage End Date [facility] [address] [place] [address] [id number] Kinza Lynch Self - patient is the insured 3 Medical (General) History Medical History History ICD Code hypertension hypercholesterolemia depression weight gain
--- OUTSIDE RECORDS SUMMARY | 2025-05-21 11:16 | XMS_ITS | Clinical Summary ---
Author Organization [facility] Address [address] [place] [phone] Phone Care Team Providers Care Director Community Organization Name Role Phone Wilfred Castle NP Primary Care Provider Encounters Date Type Department Care Team Description 03/11/2025 8:44 AM EDT - 03/11/2025 11:59 PM EDT Hospital En[facility] at [address] [address] Encounter for screening mammogram for [...] for biopsy. PQRI CPT II 3342F Code 38879, 37049 PQRI 225 CPT II 7025F TISSUE DENSITY: There are scattered areas of fibroglandular density. (BI-RADS category B) IMPRESSION: Benign. BI-RADS CATEGORY: 2 - BENIGN RECOMMENDATION: Screening bilateral mammogram is recommended in 1 year. Mammo Location: [facility], [facility], [address] [place] [address] -------- FINAL REPORT -------- Dictated By: Tommy Lemus Dictated Date: 03/11/2025 09:10 ET Assigned Physician: Tommy Lemus Reviewed and Electronically Signed By: Tommy Lemus Signed Date: 03/11/2025 09:17 ET Workstation ID: [id number] Transcribed By: Self Edit Transcribed Date: 03/11/2025 09:10 ET Narrative 03/11/2025 9:17 AM EDT CLINICAL: The patient is a 60 years Female presenting for routine screening mammography. COMPARISON: Most recently 03/04/2024 and most remotely 10/23/2017. TECHNIQUE: Full-field digital mammography of the breasts bilaterally consisting of tomosynthesis in MLO and CC projection is performed in the [employer] 2000-D unit. Computer aided detection utilizing the [...] MLO and CC projection is performed in the[employer] 2000-D unit. Computer aided detection utilizing the [employer] was utilized. FINDINGS: The breasts are seen [...] for biopsy. PQRI CPT II 3342F Code 92628, 72171 PQRI 225 CPT II 7025F TISSUE DENSITY: There are scattered areas of fibroglandular density.(BI-RADS category B) IMPRESSION: Benign. BI-RADS CATEGORY: 2 - BENIGN RECOMMENDATION: Screening bilateral mammogram is recommended in 1 year. Mammo Location: [facility], [facility], [address] [place] [id number] -------- FINAL REPORT -------- Dictated By: Tommy Lemus Dictated Date: 03/11/2025 09:10 ET Assigned Physician: Tommy Lemus Reviewed and Electronically Signed By: Tommy Lemus Signed Date: 03/11/2025 09:17 ET Workstation ID: [id number] Transcribed By: Self Edit Transcribed Date: 03/11/2025 09:10 ET us Self Referral [facility] IMG BI PROCEDURES Final Resul t from Last 3 Months Insurance [facility] Care Teams Director Community Organization Relationship Specialty Start Date End Date Wilfred Castle NP PCP - General Family Medicine 03/05/25
--- OUTSIDE RECORDS SUMMARY | 2025-05-21 11:16 | XMS_ITS | Patient Health Record ---
[facility] Address [address] [facility] [place] [address] Care Team Providers Care Property Appraiser Name Role Phone Wilfred Kimbrough Primary Care Provider Unav ailable Black, Arianna Unavailable [phone] Allergies No Known Allergies Reason For Referral [...] Problem Acquired hammer toe of right foot (9211163004395112) Other hammer toe(s) (acquired), right foot (M20.41) Active confirmed Problem Acquired hammer toe of left foot (6130649837198203) Other hammer toe(s) (acquired), left foot (M20.42) Active confirmed Problem Localized, primary osteoarthritis of the ankle and/or foot (071921731) Primary osteoarthriti s, right ankle and foot (M19.071) Active confirmed Problem Localized, primary osteoarthritis of the ankle and/or foot () Primary osteoarthriti s, left ankle and foot (M19.072) Active confirmed Problem Arthritis (5509407) Arthritis (M19.90) Active confirmed Problem Localized, primary osteoarthritis of the ankle and/or foot (854969251) Arthritis of joint of lesser toe, left (M19.072) Active confirmed Problem Localized, primary osteoarthritis of the ankle and/or foot () Arthritis of joint of lesser toe, right (M19.071) Active confirmed Problem 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) Plantar fasciitis, bilateral (M72.2) Active confirmed Vital Signs Blood pressure diastolic 80 mm Hg 12/03/2024 Height 5ft 6in in 12/03/2024 Blood pressure systolic 120 mm Hg 12/03/2024 Weight 200 lbs 12/03/2024 BMI 32.28 kg/m2 12/03/2024 Encounters Encounter Location Date Provider Diagnosis [facility] [address] [place] [address] 06/16/2024 Arianna Black Other hammer toe(s) (acquired), [...] and [facility]ursitis of left foot M77.52 [facility] [address] [place] [address] 09/03/2024 Arianna Black Plantar fasciitis, bilateral M72.2 [...] M60.872 and Bursitis of left foot M77.[address] [address] 12/03/2024 Arianna Black Plantar fasciitis, bilateral M72.2 [...] M60.872 and Bursitis of left foot M77.[address] [address] 06/16/2024 Ariannakandis Shaw [address] [address] 09/03/2024 Arianna Shaw [address] [address] 10/09/2024 Arianna Black Neuritis M79.[address] [address] 03/18/2025 Arianna Black Assessments Encounter Date Diagnosis [...] Foot, left 3V 07/15/2023 *Arthritic Panel 11/22/2020 [id number] TENDON SHEATH/LIGAMENT 1 11/12/2014 [id number] TENDON SHEATH/LIGAMENT 0 11/18/2015 [id number] TENDON SHEATH/LIGAMENT 0 02/14/2016 Insurance Providers Payer Name Payer Address Payer Phone Subscriber Number Group Number Insured Name Patient Relationship to Insured Coverage Start Date Coverage End Date [facility] [address] [place] [address] [id number] Kinza Lynch Self - patient is the insured Medical (General) History Medical History History ICD Code Chicken pox High Blood Pressure Cholesterol Surgical History Surgery Date(Month/Year) hysterectomy 10/1999 gall bladder 01/31/2016 Hand Surgery - Left 04/2023
--- OUTSIDE RECORDS SUMMARY | 2025-05-21 11:16 | XMS_ITS | Clinical Summary ---
Author Organization [facility] Address [address] [address] Phone Care Team Providers Care Vmware Engineer Name Role Phone Unknown, Unknown Primary Care [...] 6 mos f/u diagn mammo/US scheduled at [facility]. 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 It is not the complete legal health record.[facility]
== END 2025-05-20 11:11 | disposition home or self-care (01) ==
LOC: HO.HOSX 11:10
PROVIDERS: Visit Provider Orthopaedic Surgery
DX: Z13.89 Encounter for screening for other disorder (principal)

== ENCOUNTER 2025-07-26 10:22 | Outpatient (AMB) | payer OTHER, SELFPAY ==
--- OUTSIDE RECORDS SUMMARY | 2024-11-16 04:00 | XMS_ITS ---
Author Organization [facility] [address] [address] Address [address] [place] [address] Care Team Providers Care Woodworking Belt Sander Name Role Phone FORTUNATODominick LIZABETH Unavailable [phone] Medications Medication SIG (Take, Route, Fr equency, [...] Active Encounters Encounter Location Date Provider Diagnosis [facility] [address] [place] [id number] 11/16/2024 LIZABETH OLIVO BMI 35.0-35.9,adult Z68.35 ; [...] software and direct typing Please excuse inadvertent matlab developer or typing errors, or uncorrected word substitutions Although every attempt has been made by the provider to proofread this document, occasional misspellings and typographical errors may still be present Due to the previous pandemic, and the use of personal protective equipment (PPE) This may decrease voice recognition accuracy Inadvertent matlab developer errors may occur 11/16/2024 Other obesity due [...] software and direct typing Please excuse inadvertent matlab developer or typing errors, or uncorrected word substitutions Although every attempt has been made by the provider to proofread this document, occasional misspellings and typographical errors may still be present Due to the previous pandemic, and the use of personal protective equipment (PPE) This may decrease voice recognition accuracy Inadvertent matlab developer errors may occur 11/16/2024 Dietary counseling a [...] software and direct typing Please excuse inadvertent matlab developer or typing errors, or uncorrected word substitutions Although every attempt has been made by the provider to proofread this document, occasional misspellings and typographical errors may still be present Due to the previous pandemic, and the use of personal protective equipment (PPE) This may decrease voice recognition accuracy Inadvertent matlab developer errors may occur 11/16/2024 Acquired hyperlipoproteinemia (ICD-10 [...] software and direct typing Please excuse inadvertent matlab developer or typing errors, or uncorrected word substitutions Although every attempt has been made by the provider to proofread this document, occasional misspellings and typographical errors may still be present Due to the previous pandemic, and the use of personal protective equipment (PPE) This may decrease voice recognition accuracy Inadvertent matlab developer errors may occur 11/16/2024 Depression with anxi [...] software and direct typing Please excuse inadvertent matlab developer or typing errors, or uncorrected word substitutions Although every attempt has been made by the provider to proofread this document, occasional misspellings and typographical errors may still be present Due to the previous pandemic, and the use of personal protective equipment (PPE) This may decrease voice recognition accuracy Inadvertent matlab developer errors may occur 11/16/2024 Primary insomnia (ICD-10 [...] software and direct typing Please excuse inadvertent matlab developer or typing errors, or uncorrected word substitutions Although every attempt has been made by the provider to proofread this document, occasional misspellings and typographical errors may still be present Due to the previous pandemic, and the use of personal protective equipment (PPE) This may decrease voice recognition accuracy Inadvertent matlab developer errors may occur 11/16/2024 Essential (primary) hypertension [...] software and direct typing Please excuse inadvertent matlab developer or typing errors, or uncorrected word substitutions Although every attempt has been made by the provider to proofread this document, occasional misspellings and typographical errors may still be present Due to the previous pandemic, and the use of personal protective equipment (PPE) This may decrease voice recognition accuracy Inadvertent matlab developer errors may occur Plan Of Treatment Medication [...] Provider Name:LIZABETH OLIVO, 08/20/2025 08:30:00 AM, [address] [facility], [facility] [address], [place], [address], Progress Notes * Kinza LYNCHDOB:1965 ( 60 yo F)Acc No.[id number]:11/16/2024 Patient: Kinza MEZA Provider: Renetta OLIVO NP :1965 A ge:59 Y S ex:Female Date:11/16/2024 Address:[address] [place], [place] [id number] Subjective: * Chief Complaints: * * HPI: [...] BMI 44.8 Patient referred to us from [facility] 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 B NV 35.0-35.9,adult - Z68.35 3 . D ietary [...] software and direct typing Please excuse inadvertent matlab developer or typing errors, or uncorrected word substitutions Although every attempt has been made by the provider to proofread this document, occasional misspellings and typographical errors may still be present Due to the previous pandemic, and the use of personal protective equipment (PPE) This may decrease voice recognition accuracy Inadvertent matlab developer errors may occur. 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
--- OUTSIDE RECORDS SUMMARY | 2025-07-26 10:27 | XMS_ITS | Clinical Summary ---
Author Organization [facility] Address [address] [place] [phone] Phone Care Team Providers Care Major Case Detective Name Role Phone Wilfred Castle NP Primary Care Provider Surgical History Surgery Date Site/Laterality Comments BREAST [...] Health Maintenance Due Date Last Done Comments Colorectal Cancer Screening: Colonoscopy 1963 DTaP,Tdap,and Td Vaccines (1 - Tdap) 1982 Cervical Cancer Screening: Pap Smear 01/29/1984 Pneumococcal Vaccine: 50+ Years (1 of 1 - PCV) 2013 Cholesterol Screening (Lipid Panel) 09/16/2022 HIV Screening 09/16/2022 Hepatitis C Screening 09/16/2022 Social Influencers of Health Screening 09/16/2022 Depression Screening 10/14/2024 COVID-19 Vaccine ( season) 2025 08/01/2022, 08/10/2021, 01/03/2021, Additional history exists Influenza Vaccine (#1) 2025 3, 08/01/2022, 08/17/2021, Additional history exists Breast Cancer Screening 03/11/2027 03/11/20 25, 03/04/2024, 02/28/2023, Additional history exists RSV Immunization [...] Diagnosis Comments MG MAMMO DIGITAL SCREENING W AJYESH BILAT Routine 03/11/2025 9:00 AM EDT Encounter for screening mammogram for breast cancer from Last 3 Months or Most Recently Relevant to Health Maintenance Results * MG Mammo Digital Screening w [...] for biopsy. PQRI CPT II 3342F Code 41905, 97928 PQRI 225 CPT II 7025F TISSUE DENSITY: There are scattered areas of fibroglandular density. (BI-RADS category B) IMPRESSION: Benign. BI-RADS CATEGORY: 2 - BENIGN RECOMMENDATION: Screening bilateral mammogram is recommended in 1 year. Mammo Location: [facility], [address] [place] [id number] -------- FINAL REPORT -------- Dictated By: Tommy Lemus Dictated Date: 03/11/2025 09:10 ET Assigned Physician: Tommy Lemus Reviewed and Electronically Signed By: Tommy Lemus Signed Date: 03/11/2025 09:17 ET Workstation ID: [id number] Transcribed By: Self Edit Transcribed Date: 03/11/2025 09:10 ET Narrative 03/11/2025 9:17 AM EDT CLINICAL: The patient is a 60 years Female presenting for routine screening mammography. COMPARISON: Most recently 03/04/2024 and most remotely 10/23/2017. TECHNIQUE: Full-field digital mammography of the breasts bilaterally consisting of tomosynthesis in MLO and CC projection is performed in the [employer] 2000-D unit. Computer aided detection utilizing the [...] MLO and CC projection is performed in the[employer] 2000-D unit. Computer aided detection utilizing the iCADsystem was utilized. FINDINGS: The breasts are seen [...] for biopsy. PQRI CPT II 3342F Code 99728, 02024 PQRI 225 CPT II 7025F TISSUE DENSITY: There are scattered areas of fibroglandular density.(BI-RADS category B) IMPRESSION: Benign. BI-RADS CATEGORY: 2 - BENIGN RECOMMENDATION: Screening bilateral mammogram is recommended in 1 year. Mammo Location: [facility], [address] [place] [id number] -------- FINAL REPORT -------- Dictated By: Tommy Lemus Dictated Date: 03/11/2025 09:10 ET Assigned Physician: Tommy Lemus Reviewed and Electronically Signed By: Tommy Lemus Signed Date: 03/11/2025 09:17 ET Workstation ID: [id number] Transcribed By: Self Edit Transcribed Date: 03/11/2025 09:10 ET us Self Referral Sppl IMG BI PROCEDURES Final Resul t from Last 3 Months or Most Recently Relevant to Health Maintenance Insurance [facility] Care Teams Major Case Detective Relationship Specialty Start Date End Date Wilfred Castle NP PCP - General Family Medicine 03/05/25
--- OUTSIDE RECORDS SUMMARY | 2025-07-26 10:27 | XMS_ITS | Patient Health Record ---
Author Organization [facility] Address [address] [facility] [place] [address] Care Team Providers Care Sous Chef Name Role Phone Wilfred Kimbrough Primary Care Provider Unav ailable Black, Arianna Unavailable [phone] Allergies No Known Allergies Reason For Referral [...] Problem Acquired hammer toe of right foot (5506032108009119) Other hammer toe(s) (acquired), right foot (M20.41) Active confirmed Problem Acquired hammer toe of left foot (3564283435619139) Other hammer toe(s) (acquired), left foot (M20.42) Active confirmed Problem Localized, primary osteoarthritis of the ankle and/or foot (733766027) Primary osteoarthriti s, right ankle and foot (M19.071) Active confirmed Problem Localized, primary osteoarthritis of the ankle and/or foot () Primary osteoarthriti s, left ankle and foot (M19.072) Active confirmed Problem Arthritis (3228054) Arthritis (M19.90) Active confirmed Problem Localized, primary osteoarthritis of the ankle and/or foot (208712388) Arthritis of joint of lesser toe, left (M19.072) Active confirmed Problem Localized, primary osteoarthritis of the ankle and/or foot () Arthritis of joint of lesser toe, right (M19.071) Active confirmed Problem Plantar fascial fibromatosis (08281996) Plantar fasciitis, bilateral (M72.2) Active confirmed Vital Signs Blood pressure diastolic 80 mm Hg 12/03/2024 Height 5ft 6in in 12/03/2024 Blood pressure systolic 120 mm Hg 12/03/2024 Weight 200 lbs 12/03/2024 BMI 32.28 kg/m2 12/03/2024 Encounters Encounter Location Date Provider Diagnosis [address] [address] 09/03/2024 Arianna Black Plantar fasciitis, bilateral M72.2 [...] and Bursitis of left foot M77.[address] [address] 12/03/2024 Arianna Black Plantar fasciitis, bilateral M72.2 [...] M60.872 and Bursitis of left foot M77.52 [facility] [address] [place] [address] 09/03/2024 Arianna Black [facility] [address] [address] 10/09/2024 Arianna Shaw Neuritis M79.[address] [address] 03/18/2025 Arianna Shaw Assessments Encounter Date Diagnosis (ICD Code) Assessment Notes Treatment Notes Treatment Clinical Notes Section Notes 09/03/2024 Neuritis (ICD-10 - M79.2) 09/03/2024 Plantar fasciitis, bilateral (ICD-10 - M72.2) 10/09/2024 Neuritis (ICD-10 - M79.2) 12/03/2024 Neuritis (ICD-10 - M79.2) 12/03/2024 Plantar fasciitis, bilateral (ICD-10 - M72.2) 12/03/2024 Other hammer toe(s) (acquired), right foot (ICD-10 - M20.41) 09/03/2024 Other hammer toe(s) (acquired), right foot (ICD-10 - M20.41) 09/03/2024 Pain of toe of right foot (ICD-10 - M79.674) 12/03/2024 Pain of toe of right foot (ICD-10 - M79.674) 09/03/2024 Arthritis of joint of lesser toe, right (ICD-10 - M19.071) 12/03/2024 Arthritis of joint of lesser toe, right (ICD-10 - M19.071) 09/03/2024 Pain of toe of left foot (ICD-10 - M79.675) 12/03/2024 Pain of toe of left foot (ICD-10 - M79.675) 12/03/2024 Other hammer toe(s) (acquired), left foot (ICD-10 - M20.42) 09/03/2024 Other hammer toe(s) (acquired), left foot (ICD-10 - M20.42) 09/03/2024 Arthritis of joint of lesser toe, left (ICD-10 - M19.072) 12/03/2024 Arthritis of joint of lesser toe, left (ICD-10 - M19.072) 12/03/2024 Arthralgia of right ankle (ICD-10 - M25.571) 09/03/2024 Arthralgia of right ankle (ICD-10 - M25.571) 09/03/2024 Arthralgia of left foot (ICD-10 - M25.572) 12/03/2024 Arthralgia of left foot (ICD-10 - M25.572) 12/03/2024 Arthritis (ICD-10 - M19.90) 09/03/2024 Arthritis (ICD-10 [...] in left foot (ICD-10 - M79.672) 09/03/2024 Other myositis of left foot (ICD-10 [...] : Foot, left 3V 07/15/2023 *Arthritic Panel 11/22/202024392,[id number] TENDON SHEATH/LIGAMENT 1 11/12/201441433,[id number] TENDON SHEATH/LIGAMENT 0 11/18/201589726,[id number] TENDON SHEATH/LIGAMENT 0 02/14/2016 Next Appt Details Provider Name:Arianna Shaw , 07/28/2025 10:30:00 AM, 1985 [facility], [place], [address], Insurance Providers Payer Name Payer Address Payer Phone Subscriber Number Group Number Insured Name Patient Relationship to Insured Coverage Start Date Coverage End Date [facility] [address] [place] [address] [id number] Kinza Lynch Self - patient is the insured Medical (General) History Medical History History ICD Code Chicken pox High Blood Pressure Cholesterol Surgical History Surgery Date(Month/Year) hysterectomy 10/1999 gall bladder 01/31/2016 Hand Surgery - Left 04/2023
[2025-07-26 10:28] VITALS: BP 114/74; PULSE 74; RESP 16; O2SAT 97; BMI 35.7
--- NOTE | 2025-07-26 10:28 | A.OFFPC_ITS ---
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 Required: No Accompanied by: Self / Same As Patient Allergies No Known Allergies Allergy (Verified 07/26/25 10:49) Medication List - Last Reconciled 07/26/25 by LESA Singh- ascorbate calcium (vitamin C) 1 g PO Q6H cholecalciferol (vitamin D3) 50 mcg PO DAILY 90 days ciclopirox 0.77% 1 appl topical BID clobetasol 0.05% grams topical BID docusate sodium 200 mg (2 x 100 mg) PO DAILY fexofenadine-pseudoephedrine 180-240 mg ER (Diamond-D 24 Hour) 1 tab PO DAILY ibuprofen (IBU) 800 mg PO Q8H PRN lorazepam 0.5 mg PO DAILY PRN 30 days mecobalamin (vitamin B12) 1,000 mcg PO DAILY multivitamin 1 tab PO DAILY naltrexone-bupropion 8-90 mg (Contrave) 2 tabs PO BID omeprazole 20 mg PO BID propranolol ER 120 mg PO DAILY 90 days rosuvastatin 20 mg PO DAILY 90 days sodium chloride 0.65% (Deep Sea Nasal) 1 spray intranasal DAILY tirzepatide (weight loss) (Zepbound) 2.5 mg subcut QWEEK ubidecarenone-omega 3-vit E 25-150-200 mg-mg-unit (Co V-79-Mglhkdn E-Fish Oil) 1 cap PO DAILY zolpidem 5 mg PO BEDTIME PRN 30 days Tobacco use date assessed: 07/26/25 Dental Screening Dental Screen Date: 07/26/25 Did you have a dental visit in the last 12 months?: Yes Did you have a dental problem in the last 6 months where you did not have access to dental care?: No Was dental information given to patient?: Patient has dentist HPI 6m folllow up HPI Details Chief Complaint The patient reports knee pain, likely due to osteoarthritis, and seeks manageme nt for hypertension. History of Present Illness The patient is a 60-year-old female presenting with knee pain and hypertension management. The knee pain is described as a dull soreness with occasional sharp pain, exacerbated by colder weather, suggesting osteoarthritis. There is no swelling or erythema, but crepitus is noted on examination. Hypertension is currently stable with no reports of headaches, blurred vision, dizziness, chest pain, or shortness of breath. Social History Health Maintenance Review of Systems - Musculoskeletal: Reports knee pain, de nies swelling or erythema - Cardiovascular: Denies chest pain, diz ziness, or shortness of breath - Neurological: Denies headaches or blur red vision Physical Exam General: Cooperative, healthy appearing, comfortable, no acute distress and well developed Orientation: Patient oriented x3 Limitations: No limitations Head: Normal to inspection Ears: Hearing grossly normal bilaterally Nose: Normal external nose present Face and sinus: Normal facial exam Eyes: Appearance normal, both eyes and all related structures Neck: Normal visual inspection and Yes full ROM Respiratory: Normal respiratory effort and able to speak in complete sentences. Clear to auscultation bilaterally Cardiovascular: Regular rate and rhythm. Normal S1 and S2 GI: Normal to inspection. Soft to palpation and nontender Skin: No rashes or lesions noted Neuro: Patient oriented x3 Extremities: Crepitus noted on exam with extension and flexion of the knees. Positive patellar reflexes and positive dorsalis pedis bilaterally. Normal to inspection otherwise. Neg lachmans and mcmurrays Results Plan 1. Osteoarthritis X-rays of the knees will be obtained to assess the extent of osteoarthritis. 2. Hypertension Hypertension is currently stable, and no changes in management are necessary at this time. Discussion Notes We discussed the likelihood of osteoarthritis contributing to the knee pain and the plan to obtain x-rays for further evaluation. The patient's hypertension is stable, and no additional interventions are required at this time. Patient Instructions - Follow up with x-ray results for replaced by [facility] evaluation of knee pain. - Continue current hypertension manageme nt and monitor blood pressure regularly. [facility] Medical History Plantar fasciitis Osteoarthritis Diarrhea GERD (gastroesophageal reflux disease) Elevated liver enzymes Tubular adenoma Increased BMI Impaired fasting glucose Tenosynovitis of both wrists Elevated LFTs Insomnia Depression Chronic otitis externa Menopausal disorder Dyslipidemia HTN (hypertension) Hemicrania Surgical History History of mammogram History of colonoscopy History of hysterectomy History of laparoscopic cholecystectomy Family History Father Hx of cirrhosis Mental health disorder Mother Hx of diabetes insipidus HX: breast cancer Hx of renal failure Mental health disorder Son No problems noted. Daughter No problems noted. 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 1. Little interest or pleasure in doing things: not at all 2. Feeling down, depressed, or hopeless: not at all 3. Trouble falling or staying asleep, or sleeping too much: nearly every day 4. Feeling tired or having little energy: several days 5. Poor appetite or overeating: not at all 6. Feeling bad about yourself - or that you are a failure or have let yourself or your family down: not at all 7. Trouble concentrating on things, such as reading the newspaper or watching television: not at all 8. Moving or speaking so slowly that other people could have noticed. Or the opposite - being so fidgety or restless that you have been moving around a lot more than usual: not at all 9. Thoughts that you would be better off or of hurting yourself in some way: not at all Total score: 4 Depression Screening Interpretation: Negative Depression Screening Done: Yes 67760 - PHQ-9 Billing: Yes Source: Developed by Drs. Panda Fuller, Tessa Bowmna, Mu Fairbanks and colleagues, with an educational unruly from [employer]. Thrive Questionnaire Date Thrive assessed: 01/20/25 I am a: Patient What is your living situation today?: I choose not to answer this question Within the past 12 months, did the food you bought not last and you didn't have the money to get more?: I choose not to answer this question Within the past 12 months, did you worry whether your food would run out before you got money to buy more?: I choose not to answer this question Do you have trouble paying for medicines?: I choose not to answer this question Do you have trouble getting transportation to medical appointments?: I choose not to answer this question Do you have trouble paying your heating and electricity bill?: I choose not to answer this question Do you have trouble taking care of your child, family member or friend?: I choose not to answer this question Do you have trouble with day-to-day activities such as bathing, preparing meals, shopping, managing finances, etc.?: I choose not to answer this question Are you currently unemployed and looking for a job?: I choose not to answer this question Are you interested in more education?: I choose not to answer this question Please select the resources that you would like help with: None Currently or been in a relationship where the following occur: I choose not to answer THRIVE Score: 0 CONNOR-7 AMB Questionnaire CONNOR-7 Date CONNOR - 7 assessed: 07/26/25 Feeling nervous, anxious, or on edge: 1 = Several days Not being able to stop or control worryin = Several days Worrying too much about different things: 1 = Several days Trouble relaxin = Several days Being so restless that it is hard to sit still: 0 = Not at all Becoming easily annoyed or irritable: 0 = Not at all Feeling afraid as if something awful might happen: 0 = Not at all Total CONNOR-7 score (0-4 normal; 5-9 mild; 10-14 moderate; 15-21 severe): 4 Source: Developed by Drs. Panda Fuller, Tessa Bowman, Mu Fairbanks and colleagues, with an educational unruly from [employer]. Physical exam (Primary Care) Vital Signs: Last Vital Signs Pulse 74 07/26/25 10:28 Resp 16 07/26/25 10:28 BP 114/74 07/26/25 10:28 Pulse Ox 97 07/26/25 10:28 Oxygen Delivery Method Room Air 07/26/25 10:28 BMI result Body Mass Index 35.7 Tobacco/Smoking Status: Tobacco use Status Tobacco use date assessed 07/26/25 07/26/25 10:30 Patient Tobacco Use Status Never used Tobacco 07/26/25 10:30 e-Cigarette/Vaping Use Never Used 07/26/25 10:30 PHQ-9: PHQ-9 Score PHQ-9: Total score 4 07/26/25 10:50 Depression Screening Interpretation: Negative Thrive Assessment: Date of Thrive Assessment Date Thrive assessed 01/20/25 07/26/25 10:30 Currently or been in a relationship where the following occur: I choose not to answer Office Procedures Flu Questionnaire Does the patient have a severe egg allergy?: No Does the patient have severe life threatening allergies?: No Does the patient have a fever or illness today?: No Has the patient ever had Guillain-[place] Syndrome?: No Has the patient ever had any past reaction to a flu shot?: No Immunizations Fluarix 7304-3308 (PF) 45 mcg (15 mcg x 3)/0.5 mL IM syringe Performing Provider: HO Singh Performing Location: [facility] Administered by: VIVIANE Phillips on 07/26/25 11:02 Dose Route Admin Location Dispensed Lot Number Expiration Date [facility] Assistant Surveyor 0.5 mL IM Left Deltoid 0.5 mL [id number] 04/12/26 [id number] [employer] VIS Given Date VIS Provided VIS Publication Date 07/26/25 Single Vaccine 24 Eligibility Eligibility Date Funding Source Not [facility] Eligible 07/26/25 Private Coding Level of Care Code Est Pt Level 3 (12963) Diagnoses Bilateral knee pain M25.561; M25.562 HTN (hypertension) I10 Additional Codes PHQ-9 - 54167 - PHQ-9 Billing: Yes ([id number]) Assessment & Plan Assessment & Plan (1) Bilateral knee pain: Code(s): M25.561 - Pain in right knee; M25.562 - Pain in left knee Category: Medical (2) HTN (hypertension): Code(s): I10 - Essential (primary) hypertension Category: Medical Plan: . Plan . Orders: Orders TSH reflex Free T4 Today I10 - Essential (primary) hypertension UA CC w/rflx Micro + Cult Today I10 - Essential (primary) hypertension Lipid Panel Today I10 - Essential (primary) hypertension Influenza [id number] Immunization Today Z23 - Encounter for immunization XR Knee Dereje 3V Today M25.561 - Pain in right knee, M25.562 - Pain in left knee Complete Blood Count Auto Diff Today I10 - Essential (primary) hypertension Comprehensive [place]. Panel Fast Today I10 - Essential (primary) hypertension
--- OUTSIDE RECORDS SUMMARY | 2025-07-26 10:28 | XMS_ITS | Clinical Summary ---
Author Organization [facility] Address [address] [address] Phone Care Team Providers Care Chiropractic Teacher Name Role Phone Unknown, Unknown Primary Care [...] 6 mos f/u diagn mammo/US scheduled at [facility]. 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 Not on file Not on file Not [...] HEPATITIS C SCREENING 1981 HIV ONE-TIME SCREENING (18-65 YEARS) 1981 COLOGUARD 01/29/2008 COLONOSCOPY 01/29/2008 COLORECTAL CANCER SCREENING 01/29/2008 FIT TEST 01/29/2008 FOBT 01/29/2008 SIGMOIDOSCOPY 01/29/2008 VIRTUAL COLONOSCOPY 01/29/2008 PNEUMOCOCCAL VACCINES (50+ years) (1 of 1 - PCV) 2013 PAP SMEAR 01/14/2017 01/14/2014 MAMMOGRAM 11/21/2022 11/21/2020, 06/17/2019 INFLUENZA VACCINE (#1) 2025 , 07/15/2019, 07/14/2018, Additional history exists COVID-19 VACCINE (3 - 2024- season) 2025 01/03/2021, 12/07/2020 RSV VACCINE (1 - 1-dose 75+ series) 2038 ZOSTER VACCINES Completed 10/05/2020, 06/25/2020 SMOKING STATUS SCREENING (Once After 26 Yrs) Completed 03/30/2021 HEPATITIS A [...] Procedure Name Priority Date/Time Associated Diagnosis Comments MAMMOGRAPHY Routine 11/21/2020 PAP SMEAR FOR RESULT ENTRY ONLY Routine 01/14/2014 from Last 3 Months or Most Recently Relevant to Health Maintenance Results * HM MAMMOGRAPHY FOR RESULT ENTRY ONLY (11/21/2020) Lukasz Provider HEALTH MAINTENANCE Final Result * PAP SMEAR FOR RESULT ENTRY ONLY (01/14/2014) us Elisha Worrell MD HEALTH MAINTENANCE F inal Result from Last 3 Months or Most Recently Relevant to Health Maintenance [facility] [address] [place] [address]O Member Subscriber Plan / Payer (Ef fective 2019-Present) Name:Syed Kinza Relation to Subscriber:Self Name:Kinza Lynch Payer ID:Not on file Type:[facility] Address: [place] [phone] Care Teams Chiropractic Teacher Relationship Specialty Start Date End Date Unknown, Unknown, PCP - General 03/30/21 Additional Source Comments The information contained in this document represents components of the legal health record. It is not the complete legal health record.[facility]
== END 2025-07-26 11:05 | disposition home or self-care (01) ==
LOC: HO.HMCC 10:23
PROVIDERS: PCP Nurse Practitioner Family; Visit Provider Nurse Practitioner Family
DX: M25.561 Pain in right knee (principal); M25.562 Pain in left knee; I10 Essential (primary) hypertension; Z23 Encounter for immunization

== ENCOUNTER → 2025-07-26 10:22 | Outpatient (BNVA) | payer OTHER, SELFPAY | PROVIDERS: PCP Nurse Practitioner Family; Visit Provider Nurse Practitioner Family | DX: M25.561 Pain in right knee (principal); M25.562 Pain in left knee; Z23 Encounter for immunization; I10 Essential (primary) hypertension; Z13.31 Encounter for screening for depression; Z13.39 Encounter for screening examination for other mental health and behavioral disorders | CPT/HCPCS: 90471; 90656; 96127 ==

== ENCOUNTER 2025-08-16 07:09 | Outpatient (REF) | payer OTHER, SELFPAY ==
--- OUTSIDE RECORDS SUMMARY | 2024-08-06 09:30 | XMS_ITS ---
Author Organization [facility] [address] Address [address] [place] [address] Care Team Providers Care Infrastructure Engineer Name Role Phone IGNACIOLIZABETH SPENCER Unavailable [phone] Medications Medication SIG (Take, Route, Fr equency, Duration) Notes Start Date End Date Status Contrave 8-90 MG Week 1, take 1 table t in the morning Week 2 take 1 tablet in the morning, 1 tablet in the evening Week 3 take 2 tablets in the morning, 1 tablet in the evening Week 4 onward 2 tablets in the morning, 2 tablets in the evening Orally twice a day; Duration: 30 days Active Encounters Encounter Location Date Provider Diagnosis [facility] [address] [place] [id number] 08/06/2024 LIZABETH PALLAVI BMI 36.0-36.9,adult Z68.36 ; Other obesity due to excess calories E66.09 ; Dietary counseling and surveillance Z71.3 ; Acquired hyperlipoproteinemia E78.5 ; Depression with anxiety F41.8 ; Primary insomnia F51.01 and Essential (primary) hypertension I10 Assessments Encounter Date Diagnosis (ICD Code) Assessment Notes Treatment Notes Treatment Clinical Notes Section Notes 08/06/2024 BMI 36.0-36.9,adult (ICD-10 - Z68.36) #Weight Management 08/06/2024 Otherwise well and thriving cont wegovy 2.4mg max dosing cont contrave Follow-up on labs from [facility] Total time spent today was 30 minutes of which greater than 50% was spent on coordinating and counseling Patient has been found to be obese with a BMI of (36). Patient has class (2) obesity. We are a board certified obesity and weight management practice Patient has trialed behavioral modification, dietary restrictions and exercise for a minimum of 6 months The most recent [employer] Association of clinical endocrinologists and [employer] of endocrinology guidelines recommend patients who have overweight BMI or obesity BMI, who also have metabolic syndrome, prediabetes, HLD, and other comorbidities or at risk of developing type 2 diabetes should aim for a weight loss goal of at least 10% of the baseline body weight Patient counseled regarding effects of GLP/GIP-1 agonists, and other FDA approved wgt loss meds with regards to a multifactorial approach of weight loss as mentioned above and not solely appetite suppression. Of note, some information is being carried forward from prior records for informational purposes only and is being cited so that efficiency, safety and quality of the patient's care is not compromised This note was prepared using voice recognition software and direct typing Please excuse inadvertent cdl bulk driver or typing errors, or uncorrected word substitutions Although every attempt has been made by the provider to proofread this document, occasional misspellings and typographical errors may still be present Due to the previous pandemic, and the use of personal protective equipment (PPE) This may decrease voice recognition accuracy Inadvertent cdl bulk driver errors may occur 08/06/2024 Other obesity due to excess calories (ICD-10 - E66.09) #Weight Management 08/06/2024 Otherwise well and thriving cont wegovy 2.4mg max dosing cont contrave Follow-up on labs from [facility] Total time spent today was 30 minutes of which greater than 50% was spent on coordinating and counseling Patient has been found to be obese with a BMI of (36). Patient has class (2) obesity. We are a board certified obesity and weight management practice Patient has trialed behavioral modification, dietary restrictions and exercise for a minimum of 6 months The most recent [employer] Association of clinical endocrinologists and [employer] of endocrinology guidelines recommend patients who have overweight BMI or obesity BMI, who also have metabolic syndrome, prediabetes, HLD, and other comorbidities or at risk of developing type 2 diabetes should aim for a weight loss goal of at least 10% of the baseline body weight Patient counseled regarding effects of GLP/GIP-1 agonists, and other FDA approved wgt loss meds with regards to a multifactorial approach of weight loss as mentioned above and not solely appetite suppression. Of note, some information is being carried forward from prior records for informational purposes only and is being cited so that efficiency, safety and quality of the patient's care is not compromised This note was prepared using voice recognition software and direct typing Please excuse inadvertent cdl bulk driver or typing errors, or uncorrected word substitutions Although every attempt has been made by the provider to proofread this document, occasional misspellings and typographical errors may still be present Due to the previous pandemic, and the use of personal protective equipment (PPE) This may decrease voice recognition accuracy Inadvertent cdl bulk driver errors may occur 08/06/2024 Dietary counseling a nd surveillance (ICD-10 - Z71.3) #Weight Management 08/06/2024 Otherwise well and thriving cont wegovy 2.4mg max dosing cont contrave Follow-up on labs from [facility] Total time spent today was 30 minutes of which greater than 50% was spent on coordinating and counseling Patient has been found to be obese with a BMI of (36). Patient has class (2) obesity. We are a board certified obesity and weight management practice Patient has trialed behavioral modification, dietary restrictions and exercise for a minimum of 6 months The most recent [employer] Association of clinical endocrinologists and [employer] of endocrinology guidelines recommend patients who have overweight BMI or obesity BMI, who also have metabolic syndrome, prediabetes, HLD, and other comorbidities or at risk of developing type 2 diabetes should aim for a weight loss goal of at least 10% of the baseline body weight Patient counseled regarding effects of GLP/GIP-1 agonists, and other FDA approved wgt loss meds with regards to a multifactorial approach of weight loss as mentioned above and not solely appetite suppression. Of note, some information is being carried forward from prior records for informational purposes only and is being cited so that efficiency, safety and quality of the patient's care is not compromised This note was prepared using voice recognition software and direct typing Please excuse inadvertent cdl bulk driver or typing errors, or uncorrected word substitutions Although every attempt has been made by the provider to proofread this document, occasional misspellings and typographical errors may still be present Due to the previous pandemic, and the use of personal protective equipment (PPE) This may decrease voice recognition accuracy Inadvertent cdl bulk driver errors may occur 08/06/2024 Acquired hyperlipoproteinemia (ICD-10 - E78.5) #Weight Management 08/06/2024 Otherwise well and thriving cont wegovy 2.4mg max dosing cont contrave Follow-up on labs from [facility] Total time spent today was 30 minutes of which greater than 50% was spent on coordinating and counseling Patient has been found to be obese with a BMI of (36). Patient has class (2) obesity. We are a board certified obesity and weight management practice Patient has trialed behavioral modification, dietary restrictions and exercise for a minimum of 6 months The most recent [employer] Association of clinical endocrinologists and [employer] of endocrinology guidelines recommend patients who have overweight BMI or obesity BMI, who also have metabolic syndrome, prediabetes, HLD, and other comorbidities or at risk of developing type 2 diabetes should aim for a weight loss goal of at least 10% of the baseline body weight Patient counseled regarding effects of GLP/GIP-1 agonists, and other FDA approved wgt loss meds with regards to a multifactorial approach of weight loss as mentioned above and not solely appetite suppression. Of note, some information is being carried forward from prior records for informational purposes only and is being cited so that efficiency, safety and quality of the patient's care is not compromised This note was prepared using voice recognition software and direct typing Please excuse inadvertent cdl bulk driver or typing errors, or uncorrected word substitutions Although every attempt has been made by the provider to proofread this document, occasional misspellings and typographical errors may still be present Due to the previous pandemic, and the use of personal protective equipment (PPE) This may decrease voice recognition accuracy Inadvertent cdl bulk driver errors may occur 08/06/2024 Depression with anxiety (ICD-10 - F41.8) #Weight Management 08/06/2024 Otherwise well and thriving cont wegovy 2.4mg max dosing cont contrave Follow-up on labs from [facility] Total time spent today was 30 minutes of which greater than 50% was spent on coordinating and counseling Patient has been found to be obese with a BMI of (36). Patient has class (2) obesity. We are a board certified obesity and weight management practice Patient has trialed behavioral modification, dietary restrictions and exercise for a minimum of 6 months The most recent [employer] Association of clinical endocrinologists and [employer] College of endocrinology guidelines recommend patients who have overweight BMI or obesity BMI, who also have metabolic syndrome, prediabetes, HLD, and other comorbidities or at risk of developing type 2 diabetes should aim for a weight loss goal of at least 10% of the baseline body weight Patient counseled regarding effects of GLP/GIP-1 agonists, and other FDA approved wgt loss meds with regards to a multifactorial approach of weight loss as mentioned above and not solely appetite suppression. Of note, some information is being carried forward from prior records for informational purposes only and is being cited so that efficiency, safety and quality of the patient's care is not compromised This note was prepared using voice recognition software and direct typing Please excuse inadvertent cdl bulk driver or typing errors, or uncorrected word substitutions Although every attempt has been made by the provider to proofread this document, occasional misspellings and typographical errors may still be present Due to the previous pandemic, and the use of personal protective equipment (PPE) This may decrease voice recognition accuracy Inadvertent cdl bulk driver errors may occur 08/06/2024 Primary insomnia (ICD-10 - F51.01) #Weight Management 08/06/2024 Otherwise well and thriving cont wegovy 2.4mg max dosing cont contrave Follow-up on labs from [facility] Total time spent today was 30 minutes of which greater than 50% was spent on coordinating and counseling Patient has been found to be obese with a BMI of (36). Patient has class (2) obesity. We are a board certified obesity and weight management practice Patient has trialed behavioral modification, dietary restrictions and exercise for a minimum of 6 months The most recent [employer] Association of clinical endocrinologists and [employer] College of endocrinology guidelines recommend patients who have overweight BMI or obesity BMI, who also have metabolic syndrome, prediabetes, HLD, and other comorbidities or at risk of developing type 2 diabetes should aim for a weight loss goal of at least 10% of the baseline body weight Patient counseled regarding effects of GLP/GIP-1 agonists, and other FDA approved wgt loss meds with regards to a multifactorial approach of weight loss as mentioned above and not solely appetite suppression. Of note, some information is being carried forward from prior records for informational purposes only and is being cited so that efficiency, safety and quality of the patient's care is not compromised This note was prepared using voice recognition software and direct typing Please excuse inadvertent cdl bulk driver or typing errors, or uncorrected word substitutions Although every attempt has been made by the provider to proofread this document, occasional misspellings and typographical errors may still be present Due to the previous pandemic, and the use of personal protective equipment (PPE) This may decrease voice recognition accuracy Inadvertent cdl bulk driver errors may occur 08/06/2024 Essential (primary) hypertension (ICD-10 - I10) #Weight Management 08/06/2024 Otherwise well and thriving cont wegovy 2.4mg max dosing cont contrave Follow-up on labs from [facility] Total time spent today was 30 minutes of which greater than 50% was spent on coordinating and counseling Patient has been found to be obese with a BMI of (36). Patient has class (2) obesity. We are a board certified obesity and weight management practice Patient has trialed behavioral modification, dietary restrictions and exercise for a minimum of 6 months The most recent [employer] Association of clinical endocrinologists and [employer] College of endocrinology guidelines recommend patients who have overweight BMI or obesity BMI, who also have metabolic syndrome, prediabetes, HLD, and other comorbidities or at risk of developing type 2 diabetes should aim for a weight loss goal of at least 10% of the baseline body weight Patient counseled regarding effects of GLP/GIP-1 agonists, and other FDA approved wgt loss meds with regards to a multifactorial approach of weight loss as mentioned above and not solely appetite suppression. Of note, some information is being carried forward from prior records for informational purposes only and is being cited so that efficiency, safety and quality of the patient's care is not compromised This note was prepared using voice recognition software and direct typing Please excuse inadvertent cdl bulk driver or typing errors, or uncorrected word substitutions Although every attempt has been made by the provider to proofread this document, occasional misspellings and typographical errors may still be present Due to the previous pandemic, and the use of personal protective equipment (PPE) This may decrease voice recognition accuracy Inadvertent cdl bulk driver errors may occur Plan Of Treatment Medication Medication Name Sig Start Date Stop Date Notes Contrave 8-90 MG Week 1, take 1 table t in the morning Week 2 take 1 tablet in the morning, 1 tablet in the evening Week 3 take 2 tablets in the morning, 1 tablet in the evening Week 4 onward 2 tablets in the morning, 2 tablets in the evening Orally twice a day; Duration: 30 days Next Appt Details Provider Name:LIZABETH OLIVO, 08/20/2025 08:30:00 AM, [address] [facility], [facility] [address], [place], [phone], Progress Notes * Ana Rosa LYNCH:1965 ( 60 yo F)Acc No.[id number]:08/06/2024 Patient: Kinza MEZA Provider: Renetta OLIVO NP :1965 A ge:59 Y S ex:Female Date:08/06/2024 Address:[address] [place], [place] [id number] Subjective: * Chief Complaints: * * HPI: C onstitutional: Patient is here today for a weight management f/u visit Patient seen and examined. Full past medical history, social history, family history, allergies and current medications were reviewed and updated. Body composition analysis reviewed today #Weight Management 08/06/2024 need to follow-up on updated labs she had with her primary and [facility]@ Still on Wegovy 2.4mg. Injection days are Saturday. Last dose today, 06/08/24. Taking Contrave as well. Was experiencing headaches initially but has resolved. Appetite suppressed, has had a lot of stress lately with family deaths. She is a stress eater. Having intermittent nausea, able to manage well. Having foot problems for last 2 months with plantars fascitis & bone sprus, so no routine of exercise at this time. Having increase in hot flashes lately, asking if could just be menopause or side effect of Wegovy. Full body sweats, was previously on hormone patch and has hx of hysterectomy. Is following up with [facility] provider. Discussed making sure she is taking in enough protein in diet. Took one month of Mounjaro 2.5mg, paid out of pocket Now on Wegovy 2.4mg feels as if shes plateuing, we did discuss adding Contrave for food noise, etc Past med hx- HLD, GERD, HTN, Insomnia, depression/anxiety on SSRIs, IBS-Constipation, vit D deficiency, seasonal allergies. Sx hx- cholestectomy, hysterectomy, L knee meniscus repair 12/2021 Last physical- 01/2023 PCP- Collin Patient is tolerating medication without side effects Reports she follows with GI for IBS States IBS has resolved since beginning new diet x8 weeks intermittent nausea, prn zofran works well is having dyspepsia Does not present with any other concerns today. 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 Diet: Veggies/fruit, overindulges. Eliminated fried food. Stress eater, binges on sugar. Has stayed on strict diet of protein shakes and increased fiber diet x6 weeks Exercise: Currently does not track steps. Walking 4x weekly 30 min. Non-smoker. ETOH use: weekends socially. * ROS: R OS otherwise negative unless stated in HPI. * Medical History: Objective: * Vitals: * Examination: G eneral Examination: GENERAL APPEARANCE: i n no acute distress, well developed, well nourished. H EAD: n ormocephalic, atraumatic. E YES: p upils equal, round, reactive to light and accommodation. E ARS: n ormal. O RAL CAVITY: m ucosa moist. T HROAT: c lear. N MAC/THYROID: n mac supple, full range of motion, no cervical lymphadenopathy. S KIN: n o suspicious lesions, warm and dry. H EART: n o murmurs, regular rate and rhythm, S1, S2 normal. L UNGS: c lear to auscultation bilaterally. A BDOMEN: n ormal, bowel sounds present, soft, nontender, nondistended. E XTREMITIES: n o clubbing, cyanosis, or edema. N EUROLOGIC: n onfocal, motor strength normal upper and lower extremities, sensory exam intact. Assessment: * Assessment: 1. O ther obesity due to excess calories - E66.09 (Primary) 2 . B [place] 36.0-36.9,adult - Z68.36 3 . D ietary counseling and surveillance - Z71.3 ?4. A cquired hyperlipoproteinemia - E78.5 5 . D epression with anxiety - F41.8 6 . P rimary insomnia - F51.01 7 . E ssential (primary) hypertension - I10 #Weight Management 08/06/2024 Otherwise well and thriving cont wegovy 2.4mg max dosing cont contrave Follow-up on labs from [facility] Total time spent today was 30 minutes of which greater than 50% was spent on coordinating and counseling Patient has been found to be obese with a BMI of (36). Patient has class (2) obesity. We are a board certified obesity and weight management practice Patient has trialed behavioral modification, dietary restrictions and exercise for a minimum of 6 months The most recent [employer] Association of clinical endocrinologists and [employer] College of endocrinology guidelines recommend patients who have overweight BMI or obesity BMI, who also have metabolic syndrome, prediabetes, HLD, and other comorbidities or at risk of developing type 2 diabetes should aim for a weight loss goal of at least 10% of the baseline body weight Patient counseled regarding effects of GLP/GIP-1 agonists, and other FDA approved wgt loss meds with regards to a multifactorial approach of weight loss as mentioned above and not solely appetite suppression. Of note, some information is being carried forward from prior records for informational purposes only and is being cited so that efficiency, safety and quality of the patient's care is not compromised This note was prepared using voice recognition software and direct typing Please excuse inadvertent cdl bulk driver or typing errors, or uncorrected word substitutions Although every attempt has been made by the provider to proofread this document, occasional misspellings and typographical errors may still be present Due to the previous pandemic, and the use of personal protective equipment (PPE) This may decrease voice recognition accuracy Inadvertent cdl bulk driver errors may occur. Plan: * Treatment: * Procedure Codes: 9 9199 NO SHOW OFFICE VISIT * Images: Billing Information: * Visit Code: * Procedure Codes: 22242 NO SHOW OFFICE VISIT. * Electronic signature of ANJEL OLIVO on 08/16/2025 at 07:12 AM EST Sign off status: Pending * Provider: Renetta OLIVO NP Date: Generated for Isamar hidalgo/Thiago/Yohan on: 10/16/2024 07:12 AM EST History and Physical Notes * HPI (History of Present Illness) Category Sub-Category Detail Notes Category Not es Constitutional Patient is here today for a weight management f/u visit Patient seen and examined. Full past medical history, social history, family history, allergies and current medications were reviewed and updated. Body composition analysis reviewed today #Weight Management 08/06/2024 need to follow-up on updated labs she had with her primary and [facility]@ Still on Wegovy 2.4mg. Injection days are Saturday. Last dose today, 06/08/24. Taking Contrave as well. Was experiencing headaches initially but has resolved. Appetite suppressed, has had a lot of stress lately with family deaths. She is a stress eater. Having intermittent nausea, able to manage well. Having foot problems for last 2 months with plantars fascitis & bone sprus, so no routine of exercise at this time. Having increase in hot flashes lately, asking if could just be menopause or side effect of Wegovy. Full body sweats, was previously on hormone patch and has hx of hysterectomy. Is following up with [facility] provider. Discussed making sure she is taking in enough protein in diet. Took one month of Mounjaro 2.5mg, paid out of pocket Now on Wegovy 2.4mg feels as if shes plateuing, we did discuss adding Contrave for food noise, etc Past med hx- HLD, GERD, HTN, Insomnia, depression/anxiety on SSRIs, IBS-Constipation, vit D deficiency, seasonal allergies. Sx hx- cholestectomy, hysterectomy, L knee meniscus repair 12/2021 Last physical- 01/2023 PCP- [facility] Patient is tolerating medication without side effects Reports she follows with GI for IBS States IBS has resolved since beginning new diet x8 weeks intermittent nausea, prn zofran works well is having dyspepsia Does not present with any other concerns today. 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 Diet: Veggies/fruit, overindulges. Eliminated fried food. Stress eater, binges on sugar. Has stayed on strict diet of protein shakes and increased fiber diet x6 weeks Exercise: Currently does not track steps. Walking 4x weekly 30 min. Non-smoker. ETOH use: weekends socially Examination Category Sub-Category Detail Notes Category Not es General Examination GENERAL APPEARANCE: in no ac kasi distress, well developed, well nourished HEAD: normocephalic, atrau matic EYES: pupils equal, round, reactive to light and accommodation EARS: normal THROAT: clear NECK/THYROID: neck supple, full ra nge of motion, no cervical lymphadenopathy HEART: no murmurs, regular rate and rhythm, S1, S2 normal LUNGS: clear to auscultatio n bilaterally ABDOMEN: normal, bowel sounds present, soft, nontender, nondistended NEUROLOGIC: nonfocal, motor stre ngth normal upper and lower extremities, sensory exam intact SKIN: no suspicious lesion s, warm and dry EXTREMITIES: no clubbing, cyanosi s, or edema ORAL CAVITY: mucosa moist
--- OUTSIDE RECORDS SUMMARY | 2024-10-01 03:15 | XMS_ITS ---
Author Organization [facility] Address [address] [place] [address] Care Team Providers Care Blueprint Assembler Name Role Phone Wilfred Kimbrough Primary Care Provider Unav ailable ColinArturArianna Unavailable [phone] REASON FOR VISIT seen on 09/03 Encounters Encounter Location Date Provider Diagnosis [address] [address] 10/01/2024 Arianna Colin Plan Of Treatment Next Appt Details Provider Name:Arianna Shaw , 08/23/2025 03:15:00 PM, [address] [place] [address], [phone], Progress Notes * Kinza LYNCH LDOB:1965 (60 yo F)Acc No.[id number]:10/01/2024 Progress Note Patient: Kinza MEZA Provider: Dominick Shaw DPM :1965 A ge:59 Y S ex:Female Date:10/01/2024 Address:[address] [place] [address] [facility] [phone] Pcp:REINALDO Saleh Subjective: * Chief Complaints: * [...] Shaw DPM Date: 12/02/2023 Generated for Isamar Bacon on: 10/16/2024 07:13 AM EST
--- OUTSIDE RECORDS SUMMARY | 2024-11-16 03:00 | XMS_ITS ---
Author Organization [facility] [address] Address [address] [place] [address] Care Team Providers Care Cv/Cvn Cv Tsc System Operator Name Role Phone FORTUNATODominick LIZABETH Unavailable [phone] Medications Medication SIG (Take, Route, Fr equency, [...] Duration: 30 days Active Zepbound 2.5 MG/0.5ML 2.5 mg weekly Subc utaneous Weekly; Duration: 30 days Active Encounters Encounter Location Date Provider Diagnosis [facility] [address] [place] [id number] 11/16/2024 LIZABETH OLIVO BMI 35.0-35.9,adult Z68.35 ; Other obesity [...] software and direct typing Please excuse inadvertent auctioneer art or typing errors, or uncorrected word substitutions Although every attempt has been made by the provider to proofread this document, occasional misspellings and typographical errors may still be present Due to the previous pandemic, and the use of personal protective equipment (PPE) This may decrease voice recognition accuracy Inadvertent auctioneer art errors may occur 11/16/2024 Other obesity due [...] software and direct typing Please excuse inadvertent auctioneer art or typing errors, or uncorrected word substitutions Although every attempt has been made by the provider to proofread this document, occasional misspellings and typographical errors may still be present Due to the previous pandemic, and the use of personal protective equipment (PPE) This may decrease voice recognition accuracy Inadvertent auctioneer art errors may occur 11/16/2024 Dietary counseling a [...] software and direct typing Please excuse inadvertent auctioneer art or typing errors, or uncorrected word substitutions Although every attempt has been made by the provider to proofread this document, occasional misspellings and typographical errors may still be present Due to the previous pandemic, and the use of personal protective equipment (PPE) This may decrease voice recognition accuracy Inadvertent auctioneer art errors may occur 11/16/2024 Acquired hyperlipoproteinemia (ICD-10 [...] software and direct typing Please excuse inadvertent auctioneer art or typing errors, or uncorrected word substitutions Although every attempt has been made by the provider to proofread this document, occasional misspellings and typographical errors may still be present Due to the previous pandemic, and the use of personal protective equipment (PPE) This may decrease voice recognition accuracy Inadvertent auctioneer art errors may occur 11/16/2024 Depression with anxi [...] software and direct typing Please excuse inadvertent auctioneer art or typing errors, or uncorrected word substitutions Although every attempt has been made by the provider to proofread this document, occasional misspellings and typographical errors may still be present Due to the previous pandemic, and the use of personal protective equipment (PPE) This may decrease voice recognition accuracy Inadvertent auctioneer art errors may occur 11/16/2024 Primary insomnia (ICD-10 [...] software and direct typing Please excuse inadvertent auctioneer art or typing errors, or uncorrected word substitutions Although every attempt has been made by the provider to proofread this document, occasional misspellings and typographical errors may still be present Due to the previous pandemic, and the use of personal protective equipment (PPE) This may decrease voice recognition accuracy Inadvertent auctioneer art errors may occur 11/16/2024 Essential (primary) hypertension [...] software and direct typing Please excuse inadvertent auctioneer art or typing errors, or uncorrected word substitutions Although every attempt has been made by the provider to proofread this document, occasional misspellings and typographical errors may still be present Due to the previous pandemic, and the use of personal protective equipment (PPE) This may decrease voice recognition accuracy Inadvertent auctioneer art errors may occur Plan Of Treatment Medication [...] day; Duration: 30 days Zepbound 2.5 MG/0.5ML 2.5 mg weekly Subc utaneous Weekly; Duration: 30 days Next Appt Details Provider Name:LIZABETH OLIVO, 08/20/2025 08:30:00 AM, [address] [facility], [facility] [address], [place], [address], Progress Notes * Kinza LYNCHDOB:1965 ( 60 yo F)Acc No.[id number]:11/16/2024 Patient: Kinza MEZA Provider: Renetta OLIVO NP :1965 A ge:59 Y S ex:Female Date:11/16/2024 Address:[address] [place], [place] [id number] Subjective: * Chief Complaints: * * HPI: [...] BMI 44.8 Patient referred to us from [facility] 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 B NC 35.0-35.9,adult - Z68.35 3 . D ietary [...] software and direct typing Please excuse inadvertent auctioneer art or typing errors, or uncorrected word substitutions Although every attempt has been made by the provider to proofread this document, occasional misspellings and typographical errors may still be present Due to the previous pandemic, and the use of personal protective equipment (PPE) This may decrease voice recognition accuracy Inadvertent auctioneer art errors may occur. 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
--- OUTSIDE RECORDS SUMMARY | 2025-03-18 03:00 | XMS_ITS ---
Author Organization [facility] Address [address] [place] [address] Care Team Providers Care Railway Traction Line Worker Name Role Phone Tin NAJERA, Wilfred Primary Care Provider Unav ailable Arianna Shaw [phone] Encounters Encounter Location Date Provider Diagnosis [address] [address] 03/18/2025 Arianna Shaw Plan Of Treatment Next Appt Details Provider Name:Arianna Shaw , 08/23/2025 03:15:00 PM, [address] [place] [address], [phone], Progress Notes * Kinza LYNCH LDOB:1965 (60 yo F)Acc No.[id number]:03/18/2025 Progress Note Patient: Kinza MEZA Provider: Dominick Shaw DPM :1965 A ge:60 Y S ex:Female Date:03/18/2025 Address:[address] [place], [place] [id number] Pcp:REINALDO Saleh Subjective: * Chief Complaints: * * Medical History: Objective: * Vitals: Assessment: Plan: * Treatment: * Images: * The named appointment provid er may or may not be the originator of this progress note, and it is not deemed complete until electronically signed by the appointment provider. Sign off status: Pending * Provider: Dominick Shaw DPM Date: 0 03/18/2025 Generated for Isamar hidalgo/Thiago/Yohan on: 1 10/16/2024 07:13 AM EST
--- NOTE | ~2025-08-16 | XR_ITS ---
EXAMINATION: XR KNEE 3 VIEWS BILATERAL HISTORY: bilateral knee pain COMPARISON: Comparison is made with the prior examination of the knees dated 02/22/2022. FINDINGS: Standing AP views of both knees and additional lateral and sunrise patellar views of the bilateral knees are submitted. Osseous mineralization is normal. There is no fracture or dislocation. On the right, there is mild narrowing of the medial and patellofemoral compartments. On the left, there is moderate osteoarthritis of the medial compartment and mild narrowing of the patellofemoral compartment. The soft tissues are unremarkable. There is no joint effusion. XR/XR Knee Dereje 3V IMPRESSION: Osteoarthritis of the bilateral knees as described. Electronically signed by: Panda Jacome MD 08/16/2025 07:37 AM SHANE
--- OUTSIDE RECORDS SUMMARY | 2025-08-16 07:13 | XMS_ITS | Patient Health Record ---
[facility] Address [address] [place] [address] Care Team Providers Care Pleater Hand Name Role Phone Wilfred Kimbrough Primary Care Provider Unav ailable Black, Arianna Unavailable [phone] Allergies No Known Allergies Reason For Referral No Information Medications Medication SIG (Take, Route, Frequency, Duration) Notes Start Date End Date Status Night Splint AFO - L1930 1 wear at rest; Duration: 30 days Not-Taking Ammonium Lactate 12 % 1 application Exte rnally Twice a day; Duration: 30 days Not-Taking Omeprazole 20 MG 1 capsule 1/2 to 1 h our before morning meal Orally Once a day Not-Taking Ibuprofen 800 MG 1 tablet with food o r milk as needed Orally every 8 hrs Not-Taking Fexofenadine-Pseudoephed rine Active Wegovy 2.4 MG/0.75ML 0.5 mL Subcutaneous Not-Taking Fluocinolone Acetonide 0.01 % 5 drops into affected ear Otic Twice a day Active Prednisone Not-Takin g Estradiol 1 MG Oral; Duration: 90 Not-Taking Escitalopram Oxalate 10 MG 1 tablet Orally Once a day Not-Taking Albuterol Sulfate No t-Taking Naltrexone-buPROPion HCl ER 8-90 MG 1 tablet in the morning Orally Once a day Active Nystatin Active Sodium Chloride 0.65 % as directed Nasally Active Co Q 10 Active Gabapentin 100 MG 1 capsule at bedtime Orally Once a day Active Diclofenac Sodium 50 MG 1 tablet as need ed Orally Twice a day; Duration: 20 days 06/16/2024 Not-Taking Losartan Potassium 25 MG 1 tablet Orally Once a day Active Vitamin B12 Active Multivitamin Active Gabapentin 300 MG TAKE ONE CAPSULE BY MOUTH THREE TIMES A DAY; Duration: 30 Active Clobetasol Propionate 0.05 % 1 application Externally Twice a day Active Clotrimazole-Betamethaso ne 1-0.05 % 1 application to affected area Externally Twice a day to affected areas on feet; Duration: 30 days 06/15/2015 Not-Taking Meloxicam 15 MG 1 tablet Orally Once a day; Duration: 90 days 11/22/2020 Not-Takin g Ciclopirox Olamine 0.77% external Apply to effected areas twice a day; Duration: 30 days 03/04/2018 Not-Takin g CeleBREX 200 MG 1 capsule Orally Onc e a day; Duration: 30 day(s) 07/10/2016 Not-Da ing Fish Oil Active Fluticasone Propionate 50 MCG/ACT Nasal; Duration: 30 Not-Taki ng Gabapentin 300mg one orally 3 times a day; Duration: 30 days 08/06/2025 Active Vitamin E Active Temazepam 15 MG (Schedule IV Drug) O ral; Duration: 30 Not-Taking Zepbound 12.5 MG/0.5ML 0.5 mL Subcutaneous Active Fluocinolone Acetonide 0.01 % Otic; Duration: 30 Not-Takin g ZyrTEC Not-Taking Dicyclomine HCl 10 MG 2 capsules Orally Three times a day Not-Taking Physical Therapy . . . 2x/week; Duratio n: 3-4 weeks Not-Taking Ibuprofen Not-Taking Ciclopirox Olamine 0.77 % 1 application Externally Twice a day; Duration: 30 days Active Docusate Sodium 100 MG 1 capsule as need ed Orally Once a day PRN Active Vitamin C 500 MG as directed Orally Active Vitamin D3 Active Propranolol HCl 120mg once a day Active LORazepam 0.5 MG (Schedule IV Drug) O ral; Duration: 30 PRN Active Rosuvastatin Calcium 20 MG 1 tablet Orally Once a day Active Zolpidem Tartrate 5 MG 1 tablet at bedti me as needed Orally Once a day PRN Active Immunizations Vaccine Route Administration Date Status Comme nts Influenza Unknown 07/26/2025 Administered Social History Tobacco Use: Social History Observation [...] Problem Acquired hammer toe of right foot (4043021000252826 ) Other hammer toe(s) (acquired), right foot (M20.41) Active confirmed Problem Acquired hammer toe of left foot (8564241933615245 ) Other hammer toe(s) (acquired), left foot (M20.42) Active confirmed Problem Localized, primary osteoarthritis of the ankle and/or foot () Primary osteoarthritis, right ankle and foot (M19.071) Active confirmed Problem Localized, primary osteoarthritis of the ankle and/or foot () Primary osteoarthritis, left ankle and foot (M19.072) Active confirmed Problem Arthritis (1770819) Arthritis (M19.90) Active confirmed Problem Localized, primary osteoarthritis of the ankle and/or foot () Arthritis of joint of lesser toe, left (M19.072) Active confirmed Problem Localized, primary osteoarthritis of the ankle and/or foot () Arthritis of joint of lesser toe, right (M19.071) Active confirmed Problem Plantar 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) Plantar fasciitis, bilateral (M72.2) Active confirmed Problem Osteoarthritis of midtarsal joint of left foot (5296033833513996 ) Osteoarthritis of midtarsal joint of left foot (M19.072) Active confirmed Problem Osteoarthritis of midtarsal joint of right foot (7523264843657636 ) Osteoarthritis of midtarsal joint of right foot (M19.071) Active confirmed Vital Signs Blood pressure diastolic 80 mm Hg 07/28/2025 Height 5ft 6in in 07/28/2025 Blood pressure systolic 120 mm Hg 07/28/2025 Weight 200 lbs 07/28/2025 BMI 32.28 kg/m2 07/28/2025 Encounters Encounter Location Date Provider Diagnosis [address] [address] 09/03/2024 Arianna Black Plantar fasciitis, bilateral M72.2 [...] M60.872 and Bursitis of left foot M77.[address] [address] 12/03/2024 Arianna Black Plantar fasciitis, bilateral M72.2 [...] M60.872 and Bursitis of left foot M77.[address] [facility] [address] 07/28/2025 Arianna Black Neuritis M79.2 ; Osteoarthritis of midtarsal joint of left foot M19.072 ; Arthralgia of right ankle M25.571 ; Arthralgia of left foot M25.572 ; Pain in left foot M79.672 ; Pain in left ankle and joints of left foot M25.572 ; Pain in right foot M79.671 ; Pain in right ankle and joints of right foot M25.571 and Osteoarthritis of midtarsal joint of right foot M19.071 [facility] [address] [facility]/03/20[facility] [address] 10/09/2024 Arianna Black Neuritis M79.[address] [address] 03/18/2025 [facility] [address] 08/06/2025 Arianna Black Assessments Encounter Date Diagnosis (ICD Code) Assessment Notes Treatment Notes Treatment Clinical Notes Section Notes 09/03/2024 Neuritis (ICD-10 - M79.2) 09/03/2024 Plantar fasciitis, bilateral (ICD-10 - M72.2) 10/09/2024 Neuritis (ICD-10 - M79.2) 12/03/2024 Neuritis (ICD-10 - M79.2) 12/03/2024 Plantar fasciitis, bilateral (ICD-10 - M72.2) 07/28/2025 Neuritis (ICD-10 - M79.2) 07/28/2025 Osteoarthritis of midtarsal joint of left foot (ICD-10 - M19.072) 07/28/2025 Arthralgia of right ankle (ICD-10 - M25.571) 12/03/2024 Other hammer toe(s) (acquired), right foot (ICD-10 - M20.41) 09/03/2024 Other hammer toe(s) (acquired), right foot (ICD-10 - M20.41) 09/03/2024 Pain of toe of right foot (ICD-10 - M79.674) 12/03/2024 Pain of toe of right foot (ICD-10 - M79.674) 07/28/2025 Arthralgia of left foot (ICD-10 - M25.572) 12/03/2024 Arthritis of joint of lesser toe, right (ICD-10 - M19.071) 07/28/2025 Pain in left foot (ICD-10 - M79.672) 09/03/2024 Arthritis of joint of lesser toe, right (ICD-10 - M19.071) 09/03/2024 Pain of toe of left foot (ICD-10 - M79.675) 12/03/2024 Pain of toe of left foot (ICD-10 - M79.675) 07/28/2025 Pain in left ankle and joints of left foot (ICD-10 - M25.572) 07/28/2025 Pain in right foot (ICD-10 - M79.671) 12/03/2024 Other hammer toe(s) (acquired), left foot (ICD-10 - M20.42) 09/03/2024 Other hammer toe(s) (acquired), left foot (ICD-10 - M20.42) 09/03/2024 Arthritis of joint of lesser toe, left (ICD-10 - M19.072) 07/28/2025 Pain in right ankle and joints of right foot (ICD-10 - M25.571) 12/03/2024 Arthritis of joint of lesser toe, left (ICD-10 - M19.072) 12/03/2024 Arthralgia of right ankle (ICD-10 - M25.571) 09/03/2024 Arthralgia of right ankle (ICD-10 - M25.571) 07/28/2025 Osteoarthritis of midtarsal joint of right foot (ICD-10 - M19.071) 09/03/2024 Arthralgia of left foot (ICD-10 - [...] : Foot, left 3V 07/15/2023 *Arthritic Panel 11/22/[id number] TENDON SHEATH/LIGAMENT 1 11/12/201413097,[id number] TENDON SHEATH/LIGAMENT 0 11/18/[id number] TENDON SHEATH/LIGAMENT 0 02/14/2016 Next Appt Details Provider Name:Arianna Shaw , 08/23/2025 03:15:00 PM, [address] [place] [address], [phone], Insurance Providers Payer Name Payer Address Payer Phone Subscriber Number Group Number Insured Name Patient Relationship to Insured Coverage Start Date Coverage End Date [facility] [address] [place] [address] [id number] Kinza Lynch Self - patient is the insured Medical (General) History Medical History History ICD Code Chicken pox High Blood Pressure Cholesterol Surgical History Surgery Date(Month/Year) hysterectomy 10/1999 gall bladder 01/31/2016 Hand Surgery - Left 04/2023
--- OUTSIDE RECORDS SUMMARY | 2025-08-16 07:14 | XMS_ITS | Patient Health Record ---
Author Organization [facility] [address] Address [address] [place] [address] Care Team Providers Care Machine Molder Squeeze Name Role Phone IGNACIOJOHANNA LIZABETH Unavailable [phone] DUONGDIONICIO SOTELO Unavailable [phone] Allergies No Known Allergies Reason For Referral Reason Dr pham- AT HOME sleep study Diagnosis 1 Snoring (R06.83) Diagnosis 2 Daytime somnolence ( R40.0) Referral Organization [facility] [address] Referring Provider First Name LIZABETH Referring Provider Last Name PALLAVI Referring Provider Speciality Internal M edicine Referred Provider Young Pham Referred Provider Specialty Sleep Medici ne General Notes ZAIRE NGUYEN 0 12/18/2024 11:18:59 AM >Information sent to dr pham , [address] [place] [address], [address], [facility] [address], 6 mi from Patient's Address, [phone], [phone] Clinical Notes Rosy Gore 02:44:22 PM > The patient had an appointment scheduled for 01/11, which she canceled and has not yet rescheduled. Referral Priority Routine Medications Medication SIG (Take, Route, Frequency, Duration) Notes Start Date End Date Status Rosuvastatin Calcium 20 MG TAKE ONE TABLET BY MOUTH EVERY DAY Oral; Duration: 90 Active LORazepam 0.5 MG Oral; Duration: 30 Active Losartan Potassium 25 MG 1 tablet Orally Once a day; Duration: 30 day(s) 03/20/2023 Active Escitalopram Oxalate 10 MG TAKE ONE TABLET BY MOUTH ONCE DAILY Oral; Duration: 90 Active Wegovy 2.4 MG/0.75ML 2.4mg Subcutaneous weekly; Duration: 28 days Not-Taking Dicyclomine HCl 10 MG TAKE ONE CAPSULE B Y MOUTH FOUR TIMES A DAY Oral; Duration: 30 Active Zolpidem Tartrate 5 MG Oral; Duration: 30 Active Zepbound 7.5 MG/0.5ML 7.5mg Subcutaneous weekly; Duration: 30 days 05/17/2025 Active Propranolol HCl ER 120 MG TAKE 1 CAPSULE BY MOUTH DAILY. Oral; Duration: 90 Active Contrave 8-90 MG Week 1, take [...] Active Zepbound 2.5 MG/0.5ML 2.5 mg weekly Subcutaneous Weekly; Duration: 30 days Not-Taking Albuterol Sulfate HFA 108 (90 Base) MCG/ACT 1 puff as needed Inhalation every 4 hrs 03/20/2023 Active Docusate Sodium 100 MG 1 capsule as need ed Orally Once a day; Duration: 30 day(s) 03/20/2023 Active D3 Super Strength 50 MCG (2000 UT) TAKE ONE CAPSULE BY MOUTH EVERY [...] days Active Ciclopirox 0.77 % 1 application [facility] [employer] ally Once a day 03/20/2023 Active Zepbound 12.5 MG/0.5ML inject 12.5 Subcu taneous weekly; Duration: 28 days 06/25/2025 Active Social History Tobacco Use: Social History [...] Problem Obesity due to exces s calories (426619100) Other obesity due to excess calories (E66.09) Active confirmed Problem Primary insomnia (2855081) Primary insomnia (F51.01) Active confirmed Problem Essential hypertension (28173919) Essential (primary) hypertension (I10) Active confirmed Problem Adult health examination (411825719) Encounter for general adult medical examination without abnormal findings (Z00.00) Active confirmed Problem Hyperlipoproteinemia (1328895) Acquired hyperlipoproteinemia (E78.5) Active confirmed Problem Body mass index 40+ - morbidly obese (855853786) BMI 40.0-44.9, adult (Z68.41) Active confirmed Problem Body mass index 35.0 0 to 39.99 (427796090786938) Body mass index [BMI] 38.0-38.9, adult (Z68.38) Active confirmed Problem Body mass index 35.0 0 to 39.99 (332544142523992) Body mass index [BMI] 39.0-39.9, adult (Z68.39) Active confirmed Problem Obese class II (941598483199030) BMI 35.0-35.9,adult (Z68.35) Active confirmed Problem Obese class II (008481998847366) BMI 36.0-36.9,adult (Z68.36) Active confirmed Problem Morbid obesity (979904731) Morbid obesity due to excess calories (E66.01) Active confirmed Problem Daytime somnolence (865236668438) Daytime somnolence (R40.0) Active confirmed Problem Mixed anxiety and depressive disorder (191991789) Depression with anxiety (F41.8) Active confirmed Vital Signs Heart Rate 72 /min 06/25/2025 Blood pressure diastolic 80 mm Hg 06/25/2025 Oximetry 98 % 06/25/2025 Height 65 in 06/25/2025 Blood pressure systolic 130 mm Hg 06/25/2025 Weight 222.6 lbs 06/25/2025 BMI 37.04 kg/m2 06/25/2025 Encounters Encounter Location Date Provider Diagnosis [facility] [address] [place] [id number] 09/14/2024 LIZABETH BORHOT BMI 35.0-35.9,adult Z68.35 ; Other obesity due to excess calories E66.09 ; Dietary counseling and surveillance Z71.3 ; Acquired hyperlipoproteinemia E78.5 ; Depression with anxiety F41.8 ; Primary insomnia F51.01 and Essential (primary) hypertension I10 [facility] [address] [address] 12/18/2024 LIZABETH BORHOT BMI 36.0-36.9,adult Z68.36 ; Other obesity due to excess calories E66.09 ; Dietary counseling and surveillance Z71.3 ; Acquired hyperlipoproteinemia E78.5 ; Depression with anxiety F41.8 ; Primary insomnia F51.01 ; Essential (primary) hypertension I10 ; Snoring R06.83 and Daytime somnolence R40.0 [facility] [address] 03/17/2025 LIZABETH BORHOT BMI 36.0-36.9,adult Z68.36 ; Dietary counseling and surveillance Z71.3 ; Other obesity due to excess calories E66.09 ; Acquired hyperlipoproteinemia E78.5 ; Depression with anxiety F41.8 ; Primary insomnia F51.01 ; Essential (primary) hypertension I10 ; Snoring R06.83 ; Daytime somnolence R40.0 and Encounter for examination of blood pressure without abnormal findings Z01.30 [facility] [address] 05/07/2025 LIZABETH BORHOT BMI 36.0-36.9,adult Z68.36 ; Dietary counseling and surveillance Z71.3 ; Acquired hyperlipoproteinemia E78.5 ; Other obesity due to excess calories E66.09 ; Depression with anxiety F41.8 ; Primary insomnia F51.01 ; Essential (primary) hypertension I10 ; Snoring R06.83 ; Daytime somnolence R40.0 and Encounter for examination of blood pressure without abnormal findings Z01.30 [facility] [address] 06/25/2025 LIZABETH BORHOT BMI 36.0-36.9,adult Z68.36 ; Dietary counseling and surveillance Z71.3 ; Acquired hyperlipoproteinemia E78.5 ; Other obesity due to excess calories E66.09 ; Depression with anxiety F41.8 ; Primary insomnia F51.01 ; Essential (primary) hypertension I10 ; Snoring R06.83 ; Daytime somnolence R40.0 and Encounter for examination of blood pressure without abnormal findings Z01.30 [facility] [address] [facility] [address] [address] 09/14/2024 LALOBRIANA DUONG [facility] [address] [address] 09/21/2024 LIZABETH BORHOT [facility] [address] [address] 10/26/2024 LIZABETH BORHOT [facility] [address] 10/28/2024 LIZABETH BORHOT [facility] [address] [place] [address] 01/20/2025 LIZABETH BORHOT [facility] [address] [address] 05/17/2025 LIZABETH BORHOT [facility] [address] [facility] [address] [address] 05/20/2025 LIZABETH BORHOT [facility] [address] 05/26/2025 LIZABETH BORHOT [facility] [address] [address] 05/28/2025 LIZABETH BORHOT Other obesity due to excess calories E66.09 [facility] [address] [address] 08/05/2025 LIZABETH BORHOT Other obesity due to excess calories E66.09 [facility] [address] [address] 08/11/2025 LIZABETH BORHOT Other obesity due to excess calories E66.09 [facility] [address] [facility] [address] [address] 07/28/2025 LIZABETH BORHOT Other obesity due to excess calories E66.09 [facility] [address] [facility] [address] [address] 07/29/2025 LIZABETH OLIVO [facility] [address] [facility] [address] [place] [address] 08/02/2025 LIZABETH OLIVO Assessments Encounter Date Diagnosis (ICD Code) Assessment Notes Treatment Notes Treatment Clinical Notes Section Notes 09/14/2024 BMI 35.0-35.9,adult (ICD-10 - Z68.35) #Weight [...] minimum of 6 months The most recent [employer]ocrinologists and [employer] guidelines recommend patients who [...] software and direct typing Please excuse inadvertent dessert cup machine feeder or typing errors, or uncorrected word substitutions Although every attempt has been made by the provider to proofread this document, occasional misspellings and typographical errors may still be present Due to the previous pandemic, and the use of personal protective equipment (PPE) This may decrease voice recognition accuracy Inadvertent dessert cup machine feeder errors may occur 12/18/2024 BMI 36.0-36.9,adult (ICD-10 [...] software and direct typing Please excuse inadvertent dessert cup machine feeder or typing errors, or uncorrected word substitutions Although every attempt has been made by the provider to proofread this document, occasional misspellings and typographical errors may still be present Due to the previous pandemic, and the use of personal protective equipment (PPE) This may decrease voice recognition accuracy Inadvertent dessert cup machine feeder errors may occur 03/17/2025 BMI 36.0-36.9,adult (ICD-10 [...] software and direct typing Please excuse inadvertent dessert cup machine feeder or typing errors, or uncorrected word substitutions Although every attempt has been made by the provider to proofread this document, occasional misspellings and typographical errors may still be present Due to the previous pandemic, and the use of personal protective equipment (PPE) This may decrease voice recognition accuracy Inadvertent dessert cup machine feeder errors may occur 05/07/2025 BMI 36.0-36.9,adult (ICD-10 [...] software and direct typing Please excuse inadvertent dessert cup machine feeder or typing errors, or uncorrected word substitutions Although every attempt has been made by the provider to proofread this document, occasional misspellings and typographical errors may still be present Due to the previous pandemic, and the use of personal protective equipment (PPE) This may decrease voice recognition accuracy Inadvertent dessert cup machine feeder errors may occur 05/28/2025 Other obesity due to excess calories (ICD-10 - E66.09) 06/25/2025 BMI 36.0-36.9,adult (ICD-10 - Z68.36) #Weight Management 06/25/2025 int increasing zepbound 7.5mg to 10mg via jia direct contrave RX, to continue for addtional benefits of alternate pathways labs reviewed Total time spent today was 30 [...] software and direct typing Please excuse inadvertent dessert cup machine feeder or typing errors, or uncorrected word substitutions Although every attempt has been made by the provider to proofread this document, occasional misspellings and typographical errors may still be present Due to the previous pandemic, and the use of personal protective equipment (PPE) This may decrease voice recognition accuracy Inadvertent dessert cup machine feeder errors may occur 07/28/2025 Other obesity due to excess calories (ICD-10 - E66.09) 08/05/2025 Other obesity due to excess calories (ICD-10 - E66.09) 08/11/2025 Other obesity due to excess calories (ICD-10 - E66.09) 06/25/2025 Dietary counseling a nd surveillance (ICD-10 - Z71.3) #Weight Management 06/25/2025 int increasing zepbound 7.5mg to 10mg via jia direct contrave RX, to continue for addtional benefits of alternate pathways labs reviewed Total time spent today was 30 [...] software and direct typing Please excuse inadvertent dessert cup machine feeder or typing errors, or uncorrected word substitutions Although every attempt has been made by the provider to proofread this document, occasional misspellings and typographical errors may still be present Due to the previous pandemic, and the use of personal protective equipment (PPE) This may decrease voice recognition accuracy Inadvertent dessert cup machine feeder errors may occur 05/07/2025 Dietary counseling a [...] software and direct typing Please excuse inadvertent dessert cup machine feeder or typing errors, or uncorrected word substitutions Although every attempt has been made by the provider to proofread this document, occasional misspellings and typographical errors may still be present Due to the previous pandemic, and the use of personal protective equipment (PPE) This may decrease voice recognition accuracy Inadvertent dessert cup machine feeder errors may occur 03/17/2025 Dietary counseling a [...] software and direct typing Please excuse inadvertent dessert cup machine feeder or typing errors, or uncorrected word substitutions Although every attempt has been made by the provider to proofread this document, occasional misspellings and typographical errors may still be present Due to the previous pandemic, and the use of personal protective equipment (PPE) This may decrease voice recognition accuracy Inadvertent dessert cup machine feeder errors may occur 12/18/2024 Dietary counseling a [...] software and direct typing Please excuse inadvertent dessert cup machine feeder or typing errors, or uncorrected word substitutions Although every attempt has been made by the provider to proofread this document, occasional misspellings and typographical errors may still be present Due to the previous pandemic, and the use of personal protective equipment (PPE) This may decrease voice recognition accuracy Inadvertent dessert cup machine feeder errors may occur 09/14/2024 Dietary counseling a [...] minimum of 6 months The most recent [employer] of clinical endocrinologists and [employer] end[employer]in[employer] guidelines recommend patients who [...] software and direct typing Please excuse inadvertent dessert cup machine feeder or typing errors, or uncorrected word substitutions Although every attempt has been made by the provider to proofread this document, occasional misspellings and typographical errors may still be present Due to the previous pandemic, and the use of personal protective equipment (PPE) This may decrease voice recognition accuracy Inadvertent dessert cup machine feeder errors may occur 09/14/2024 Other obesity due [...] minimum of 6 months The most recent [employer] of [employer] endocrinologists and [employer]in[employer] guidelines recommend patients who [...] software and direct typing Please excuse inadvertent dessert cup machine feeder or typing errors, or uncorrected word substitutions Although every attempt has been made by the provider to proofread this document, occasional misspellings and typographical errors may still be present Due to the previous pandemic, and the use of personal protective equipment (PPE) This may decrease voice recognition accuracy Inadvertent dessert cup machine feeder errors may occur 12/18/2024 Other obesity due [...] software and direct typing Please excuse inadvertent dessert cup machine feeder or typing errors, or uncorrected word substitutions Although every attempt has been made by the provider to proofread this document, occasional misspellings and typographical errors may still be present Due to the previous pandemic, and the use of personal protective equipment (PPE) This may decrease voice recognition accuracy Inadvertent dessert cup machine feeder errors may occur 09/14/2024 Acquired hyperlipoproteinemia (ICD-10 [...] minimum of 6 months The most recent [employer] of clinical endocrinologists and [employer]in[employer] guidelines recommend patients who [...] software and direct typing Please excuse inadvertent dessert cup machine feeder or typing errors, or uncorrected word substitutions Although every attempt has been made by the provider to proofread this document, occasional misspellings and typographical errors may still be present Due to the previous pandemic, and the use of personal protective equipment (PPE) This may decrease voice recognition accuracy Inadvertent dessert cup machine feeder errors may occur 12/18/2024 Acquired hyperlipoproteinemia (ICD-10 [...] software and direct typing Please excuse inadvertent dessert cup machine feeder or typing errors, or uncorrected word substitutions Although every attempt has been made by the provider to proofread this document, occasional misspellings and typographical errors may still be present Due to the previous pandemic, and the use of personal protective equipment (PPE) This may decrease voice recognition accuracy Inadvertent dessert cup machine feeder errors may occur 03/17/2025 Other obesity due [...] software and direct typing Please excuse inadvertent dessert cup machine feeder or typing errors, or uncorrected word substitutions Although every attempt has been made by the provider to proofread this document, occasional misspellings and typographical errors may still be present Due to the previous pandemic, and the use of personal protective equipment (PPE) This may decrease voice recognition accuracy Inadvertent dessert cup machine feeder errors may occur 03/17/2025 Acquired hyperlipoproteinemia (ICD-10 [...] software and direct typing Please excuse inadvertent dessert cup machine feeder or typing errors, or uncorrected word substitutions Although every attempt has been made by the provider to proofread this document, occasional misspellings and typographical errors may still be present Due to the previous pandemic, and the use of personal protective equipment (PPE) This may decrease voice recognition accuracy Inadvertent dessert cup machine feeder errors may occur 05/07/2025 Acquired hyperlipoproteinemia (ICD-10 [...] software and direct typing Please excuse inadvertent dessert cup machine feeder or typing errors, or uncorrected word substitutions Although every attempt has been made by the provider to proofread this document, occasional misspellings and typographical errors may still be present Due to the previous pandemic, and the use of personal protective equipment (PPE) This may decrease voice recognition accuracy Inadvertent dessert cup machine feeder errors may occur 06/25/2025 Acquired hyperlipoproteinemia (ICD-10 - E78.5) #Weight Management 06/25/2025 int increasing zepbound 7.5mg to 10mg via jia direct contrave RX, to continue for addtional benefits of alternate pathways labs reviewed Total time spent today was 30 [...] software and direct typing Please excuse inadvertent dessert cup machine feeder or typing errors, or uncorrected word substitutions Although every attempt has been made by the provider to proofread this document, occasional misspellings and typographical errors may still be present Due to the previous pandemic, and the use of personal protective equipment (PPE) This may decrease voice recognition accuracy Inadvertent dessert cup machine feeder errors may occur 06/25/2025 Other obesity due to excess calories (ICD-10 - E66.09) #Weight Management 06/25/2025 int increasing zepbound 7.5mg to 10mg via jia direct contrave RX, to continue for addtional benefits of alternate pathways labs reviewed Total time spent today was 30 [...] software and direct typing Please excuse inadvertent dessert cup machine feeder or typing errors, or uncorrected word substitutions Although every attempt has been made by the provider to proofread this document, occasional misspellings and typographical errors may still be present Due to the previous pandemic, and the use of personal protective equipment (PPE) This may decrease voice recognition accuracy Inadvertent dessert cup machine feeder errors may occur 12/18/2024 Depression with anxiety [...] software and direct typing Please excuse inadvertent dessert cup machine feeder or typing errors, or uncorrected word substitutions Although every attempt has been made by the provider to proofread this document, occasional misspellings and typographical errors may still be present Due to the previous pandemic, and the use of personal protective equipment (PPE) This may decrease voice recognition accuracy Inadvertent dessert cup machine feeder errors may occur 03/17/2025 Depression with anxiety [...] software and direct typing Please excuse inadvertent dessert cup machine feeder or typing errors, or uncorrected word substitutions Although every attempt has been made by the provider to proofread this document, occasional misspellings and typographical errors may still be present Due to the previous pandemic, and the use of personal protective equipment (PPE) This may decrease voice recognition accuracy Inadvertent dessert cup machine feeder errors may occur 05/07/2025 Other obesity due [...] software and direct typing Please excuse inadvertent dessert cup machine feeder or typing errors, or uncorrected word substitutions Although every attempt has been made by the provider to proofread this document, occasional misspellings and typographical errors may still be present Due to the previous pandemic, and the use of personal protective equipment (PPE) This may decrease voice recognition accuracy Inadvertent dessert cup machine feeder errors may occur 09/14/2024 Depression with anxiety [...] minimum of 6 months The most recent [employer] of clinical endocrinologists and [employer] endocrin[employer] guidelines recommend patients who [...] software and direct typing Please excuse inadvertent dessert cup machine feeder or typing errors, or uncorrected word substitutions Although every attempt has been made by the provider to proofread this document, occasional misspellings and typographical errors may still be present Due to the previous pandemic, and the use of personal protective equipment (PPE) This may decrease voice recognition accuracy Inadvertent dessert cup machine feeder errors may occur 12/18/2024 Primary insomnia (ICD-10 [...] software and direct typing Please excuse inadvertent dessert cup machine feeder or typing errors, or uncorrected word substitutions Although every attempt has been made by the provider to proofread this document, occasional misspellings and typographical errors may still be present Due to the previous pandemic, and the use of personal protective equipment (PPE) This may decrease voice recognition accuracy Inadvertent dessert cup machine feeder errors may occur 09/14/2024 Primary insomnia (ICD-10 [...] minimum of 6 months The most recent [employer] of clinical endocrinologists and [employer] endocrinology guidelines recommend patients who [...] software and direct typing Please excuse inadvertent dessert cup machine feeder or typing errors, or uncorrected word substitutions Although every attempt has been made by the provider to proofread this document, occasional misspellings and typographical errors may still be present Due to the previous pandemic, and the use of personal protective equipment (PPE) This may decrease voice recognition accuracy Inadvertent dessert cup machine feeder errors may occur 03/17/2025 Primary insomnia (ICD-10 [...] software and direct typing Please excuse inadvertent dessert cup machine feeder or typing errors, or uncorrected word substitutions Although every attempt has been made by the provider to proofread this document, occasional misspellings and typographical errors may still be present Due to the previous pandemic, and the use of personal protective equipment (PPE) This may decrease voice recognition accuracy Inadvertent dessert cup machine feeder errors may occur 05/07/2025 Depression with anxiety [...] software and direct typing Please excuse inadvertent dessert cup machine feeder or typing errors, or uncorrected word substitutions Although every attempt has been made by the provider to proofread this document, occasional misspellings and typographical errors may still be present Due to the previous pandemic, and the use of personal protective equipment (PPE) This may decrease voice recognition accuracy Inadvertent dessert cup machine feeder errors may occur 06/25/2025 Depression with anxiety (ICD-10 - F41.8) #Weight Management 06/25/2025 int increasing zepbound 7.5mg to 10mg via jia direct contrave RX, to continue for addtional benefits of alternate pathways labs reviewed Total time spent today was 30 [...] software and direct typing Please excuse inadvertent dessert cup machine feeder or typing errors, or uncorrected word substitutions Although every attempt has been made by the provider to proofread this document, occasional misspellings and typographical errors may still be present Due to the previous pandemic, and the use of personal protective equipment (PPE) This may decrease voice recognition accuracy Inadvertent dessert cup machine feeder errors may occur 06/25/2025 Primary insomnia (ICD-10 - F51.01) #Weight Management 06/25/2025 int increasing zepbound 7.5mg to 10mg via jia direct contrave RX, to continue for addtional benefits of alternate pathways labs reviewed Total time spent today was 30 [...] software and direct typing Please excuse inadvertent dessert cup machine feeder or typing errors, or uncorrected word substitutions Although every attempt has been made by the provider to proofread this document, occasional misspellings and typographical errors may still be present Due to the previous pandemic, and the use of personal protective equipment (PPE) This may decrease voice recognition accuracy Inadvertent dessert cup machine feeder errors may occur 03/17/2025 Essential (primary) hypertension [...] software and direct typing Please excuse inadvertent dessert cup machine feeder or typing errors, or uncorrected word substitutions Although every attempt has been made by the provider to proofread this document, occasional misspellings and typographical errors may still be present Due to the previous pandemic, and the use of personal protective equipment (PPE) This may decrease voice recognition accuracy Inadvertent dessert cup machine feeder errors may occur 05/07/2025 Primary insomnia (ICD-10 [...] software and direct typing Please excuse inadvertent dessert cup machine feeder or typing errors, or uncorrected word substitutions Although every attempt has been made by the provider to proofread this document, occasional misspellings and typographical errors may still be present Due to the previous pandemic, and the use of personal protective equipment (PPE) This may decrease voice recognition accuracy Inadvertent dessert cup machine feeder errors may occur 09/14/2024 Essential (primary) hypertension [...] minimum of 6 months The most recent [place] [employer] of clinical endocrinologists and [employer] endocrinology guidelines recommend patients who [...] software and direct typing Please excuse inadvertent dessert cup machine feeder or typing errors, or uncorrected word substitutions Although every attempt has been made by the provider to proofread this document, occasional misspellings and typographical errors may still be present Due to the previous pandemic, and the use of personal protective equipment (PPE) This may decrease voice recognition accuracy Inadvertent dessert cup machine feeder errors may occur 12/18/2024 Essential (primary) hypertension [...] software and direct typing Please excuse inadvertent dessert cup machine feeder or typing errors, or uncorrected word substitutions Although every attempt has been made by the provider to proofread this document, occasional misspellings and typographical errors may still be present Due to the previous pandemic, and the use of personal protective equipment (PPE) This may decrease voice recognition accuracy Inadvertent dessert cup machine feeder errors may occur 12/18/2024 Snoring (ICD-10 - [...] software and direct typing Please excuse inadvertent dessert cup machine feeder or typing errors, or uncorrected word substitutions Although every attempt has been made by the provider to proofread this document, occasional misspellings and typographical errors may still be present Due to the previous pandemic, and the use of personal protective equipment (PPE) This may decrease voice recognition accuracy Inadvertent dessert cup machine feeder errors may occur 05/07/2025 Essential (primary) hypertension [...] software and direct typing Please excuse inadvertent dessert cup machine feeder or typing errors, or uncorrected word substitutions Although every attempt has been made by the provider to proofread this document, occasional misspellings and typographical errors may still be present Due to the previous pandemic, and the use of personal protective equipment (PPE) This may decrease voice recognition accuracy Inadvertent dessert cup machine feeder errors may occur 03/17/2025 Snoring (ICD-10 - [...] software and direct typing Please excuse inadvertent dessert cup machine feeder or typing errors, or uncorrected word substitutions Although every attempt has been made by the provider to proofread this document, occasional misspellings and typographical errors may still be present Due to the previous pandemic, and the use of personal protective equipment (PPE) This may decrease voice recognition accuracy Inadvertent dessert cup machine feeder errors may occur 06/25/2025 Essential (primary) hypertension (ICD-10 - I10) #Weight Management 06/25/2025 int increasing zepbound 7.5mg to 10mg via jia direct contrave RX, to continue for addtional benefits of alternate pathways labs reviewed Total time spent today was 30 [...] software and direct typing Please excuse inadvertent dessert cup machine feeder or typing errors, or uncorrected word substitutions Although every attempt has been made by the provider to proofread this document, occasional misspellings and typographical errors may still be present Due to the previous pandemic, and the use of personal protective equipment (PPE) This may decrease voice recognition accuracy Inadvertent dessert cup machine feeder errors may occur 06/25/2025 Snoring (ICD-10 - R06.83) #Weight Management 06/25/2025 int increasing zepbound 7.5mg to 10mg via jia direct contrave RX, to continue for addtional benefits of alternate pathways labs reviewed Total time spent today was 30 [...] software and direct typing Please excuse inadvertent dessert cup machine feeder or typing errors, or uncorrected word substitutions Although every attempt has been made by the provider to proofread this document, occasional misspellings and typographical errors may still be present Due to the previous pandemic, and the use of personal protective equipment (PPE) This may decrease voice recognition accuracy Inadvertent dessert cup machine feeder errors may occur 03/17/2025 Daytime somnolence (ICD-10 [...] software and direct typing Please excuse inadvertent dessert cup machine feeder or typing errors, or uncorrected word substitutions Although every attempt has been made by the provider to proofread this document, occasional misspellings and typographical errors may still be present Due to the previous pandemic, and the use of personal protective equipment (PPE) This may decrease voice recognition accuracy Inadvertent dessert cup machine feeder errors may occur 05/07/2025 Snoring (ICD-10 - [...] software and direct typing Please excuse inadvertent dessert cup machine feeder or typing errors, or uncorrected word substitutions Although every attempt has been made by the provider to proofread this document, occasional misspellings and typographical errors may still be present Due to the previous pandemic, and the use of personal protective equipment (PPE) This may decrease voice recognition accuracy Inadvertent dessert cup machine feeder errors may occur 12/18/2024 Daytime somnolence (ICD-10 [...] software and direct typing Please excuse inadvertent dessert cup machine feeder or typing errors, or uncorrected word substitutions Although every attempt has been made by the provider to proofread this document, occasional misspellings and typographical errors may still be present Due to the previous pandemic, and the use of personal protective equipment (PPE) This may decrease voice recognition accuracy Inadvertent dessert cup machine feeder errors may occur 03/17/2025 Encounter for examination [...] software and direct typing Please excuse inadvertent dessert cup machine feeder or typing errors, or uncorrected word substitutions Although every attempt has been made by the provider to proofread this document, occasional misspellings and typographical errors may still be present Due to the previous pandemic, and the use of personal protective equipment (PPE) This may decrease voice recognition accuracy Inadvertent dessert cup machine feeder errors may occur 05/07/2025 Daytime somnolence (ICD-10 [...] software and direct typing Please excuse inadvertent dessert cup machine feeder or typing errors, or uncorrected word substitutions Although every attempt has been made by the provider to proofread this document, occasional misspellings and typographical errors may still be present Due to the previous pandemic, and the use of personal protective equipment (PPE) This may decrease voice recognition accuracy Inadvertent dessert cup machine feeder errors may occur 06/25/2025 Daytime somnolence (ICD-10 - R40.0) #Weight Management 06/25/2025 int increasing zepbound 7.5mg to 10mg via jia direct contrave RX, to continue for addtional benefits of alternate pathways labs reviewed Total time spent today was 30 [...] software and direct typing Please excuse inadvertent dessert cup machine feeder or typing errors, or uncorrected word substitutions Although every attempt has been made by the provider to proofread this document, occasional misspellings and typographical errors may still be present Due to the previous pandemic, and the use of personal protective equipment (PPE) This may decrease voice recognition accuracy Inadvertent dessert cup machine feeder errors may occur 06/25/2025 Encounter for examination of blood pressure without abnormal findings (ICD-10 - Z01.30) #Weight Management 06/25/2025 int increasing zepbound 7.5mg to 10mg via jia direct contrave RX, to continue for addtional benefits of alternate pathways labs reviewed Total time spent today was 30 [...] software and direct typing Please excuse inadvertent dessert cup machine feeder or typing errors, or uncorrected word substitutions Although every attempt has been made by the provider to proofread this document, occasional misspellings and typographical errors may still be present Due to the previous pandemic, and the use of personal protective equipment (PPE) This may decrease voice recognition accuracy Inadvertent dessert cup machine feeder errors may occur 05/07/2025 Encounter for examination [...] software and direct typing Please excuse inadvertent dessert cup machine feeder or typing errors, or uncorrected word substitutions Although every attempt has been made by the provider to proofread this document, occasional misspellings and typographical errors may still be present Due to the previous pandemic, and the use of personal protective equipment (PPE) This may decrease voice recognition accuracy Inadvertent dessert cup machine feeder errors may occur 11/16/2024 #Weight Management 11/16/2024 [...] software and direct typing Please excuse inadvertent dessert cup machine feeder or typing errors, or uncorrected word substitutions Although every attempt has been made by the provider to proofread this document, occasional misspellings and typographical errors may still be present Due to the previous pandemic, and the use of personal protective equipment (PPE) This may decrease voice recognition accuracy Inadvertent dessert cup machine feeder errors may occur Plan Of Treatment Pending Test Test Name Order Date LIPID PANEL, STANDARD 10/22/2023 COMPREHENSIVE METABOLIC PANEL 10/22/2023 CBC (INCLUDES DIFF/PLT) 10/22/2023 URINALYSIS, COMPLETE 10/22/2023 Next Appt Details Provider Name:LIZABETH OLIVO, 08/20/2025 08:30:00 AM, [address] [facility], [facility], [place], [address], Insurance Providers Payer Name Payer Address Payer Phone Subscriber Number Group Number Insured Name Patient Relationship to Insured Coverage Start Date Coverage End Date [facility] [address] [place] [address] [id number] Syed Kinza Self - patient is the insured 3 Medical (General) History Medical History History ICD Code hypertension hypercholesterolemia depression weight gain
--- OUTSIDE RECORDS SUMMARY | 2025-08-16 07:14 | XMS_ITS | Clinical Summary ---
Author Organization [facility] Address [address] [address] Phone Care Team Providers Care Technologist Infectious Disease Name Role Phone Unknown, Unknown Primary Care [...] 6 mos f/u diagn mammo/US scheduled at [facility]. 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 Not on file Not [...] Recently Relevant to Health Maintenance Insurance [facility] [facility] [address] [place] [id number] Member Subscriber Plan / Payer (Ef fective 2019-Present) Name:Syed Kinza Relation to Subscriber:Self Name:Kinza Lynch Payer ID:Not on file Type:[facility] Address: [place] [id number] Care Teams Technologist Infectious Disease Relationship Specialty Start Date End Date Unknown, Unknown, PCP - General 03/30/21 Additional Source Comments The information contained in this document represents components of the legal health record. It is not the complete legal health record.[facility]
== END 2025-08-16 07:10 | disposition home or self-care (01) ==
LOC: HO.XRAY 07:09
PROVIDERS: Visit Provider Nurse Practitioner Family
DX: M25.561 Pain in right knee (principal); M25.562 Pain in left knee
CPT/HCPCS: 73562

== ENCOUNTER → 2025-08-16 07:14 | Outpatient (BNV) | payer OTHER, SELFPAY | PROVIDERS: Visit Provider Radiology Diagnostic Radiology | DX: M17.0 Bilateral primary osteoarthritis of knee (principal) | CPT/HCPCS: 73562 ==

== ENCOUNTER 2025-10-11 13:33 | Outpatient (AMB) | payer OTHER, SELFPAY ==
--- OUTSIDE RECORDS SUMMARY | 2024-10-01 03:15 | XMS_ITS ---
Author Organization [facility] Address [address] [place] [address] Care Team Providers Care Nurses Director Name Role Phone Wilfred Kimbrough Primary Care Provider Unav ailable Colin, Arianna Unavailable [phone] REASON FOR VISIT seen on 09/03 Encounters Encounter Location Date Provider Diagnosis [facility] [address] [place] [address] 10/01/2024 Arianna Shaw Plan Of Treatment No Information Progress Notes * Kinza LYNCH LDOB:1965 (60 yo F)Acc No.[id number]:10/01/2024 Progress Note Patient: Kinza MEZA Provider: Dominick Shaw DPM :1965 A ge:59 Y S ex:Female Date:10/01/2024 Address:[address] [place], [place] [id number] Pcp:REINALDO Saleh Subjective: * Chief Complaints: * 1 . Seen on 09/03. * Medical History: Objective: * Vitals: Assessment: Plan: * Treatment: * Images: * The named appointment provid er may or may not be the originator of this progress note, and it is not deemed complete until electronically signed by the appointment provider. Sign off status: Pending * Provider: Dominick Shaw DPM Date: 12/02/2023 Generated for Isamar hidalgo/Thiago/Hayleyransmitting on: 03:43 PM EST
--- OUTSIDE RECORDS SUMMARY | 2024-11-16 03:00 | XMS_ITS ---
Author Organization [facility] [address] Address [address] [place] [address] Care Team Providers Care Mattress Stuffer Name Role Phone PALLAVI LIZABETH Unavailable [phone] Medications Medication SIG (Take, Route, Frequency, Duration) Notes Start Date End Date Status Contrave 8-90 MG Tablet Extended Release 12 Hour Week 1, take 1 tablet in the morning Week 2 take 1 tablet in the morning, 1 tablet in the evening Week 3 take 2 tablets in the morning, 1 tablet in the evening Week 4 onward 2 tablets in the morning, 2 tablets in the evening Orally twice a day; Duration: 30 days Active Zepbound 2.5 MG/0.5ML Solution Auto-injector 2.5 mg weekly Subcutaneous Weekly; Duration: 30 days Active Encounters Encounter Location Date Provider Diagnosis [facility] [address] [place] [id number] 11/16/2024 LIZABTEH OLIVO BMI 35.0-35.9,adult Z68.35 ; Other obesity due to excess calories E66.09 ; Dietary counseling and surveillance Z71.3 ; Acquired hyperlipoproteinemia E78.5 ; Depression with anxiety F41.8 ; Primary insomnia F51.01 and Essential (primary) hypertension I10 Assessments Encounter Date Diagnosis (ICD Code) Assessment Notes Treatment Notes Treatment Clinical Notes Section Notes 11/16/2024 BMI 35.0-35.9,adult (ICD-10 - Z68.35) #Weight Management 11/16/2024 Patient expresses interest in transitioning to Zepbound We will facilitate this Labs reviewed Total time spent today was 30 minutes of which greater than 50% was spent on coordinating and counseling Patient has been found to be obese with a BMI of (35). Patient has class (2) obesity. Of note, some information is being carried forward from prior records for informational purposes only and is being cited so that efficiency, safety and quality of the patient's care is not compromised This note was prepared using voice recognition software and direct typing Please excuse inadvertent marine biologist or typing errors, or uncorrected word substitutions Although every attempt has been made by the provider to proofread this document, occasional misspellings and typographical errors may still be present Due to the previous pandemic, and the use of personal protective equipment (PPE) This may decrease voice recognition accuracy Inadvertent marine biologist errors may occur 11/16/2024 Other obesity due to excess calories (ICD-10 - E66.09) #Weight Management 11/16/2024 Patient expresses interest in transitioning to Zepbound We will facilitate this Labs reviewed Total time spent today was 30 minutes of which greater than 50% was spent on coordinating and counseling Patient has been found to be obese with a BMI of (35). Patient has class (2) obesity. Of note, some information is being carried forward from prior records for informational purposes only and is being cited so that efficiency, safety and quality of the patient's care is not compromised This note was prepared using voice recognition software and direct typing Please excuse inadvertent marine biologist or typing errors, or uncorrected word substitutions Although every attempt has been made by the provider to proofread this document, occasional misspellings and typographical errors may still be present Due to the previous pandemic, and the use of personal protective equipment (PPE) This may decrease voice recognition accuracy Inadvertent marine biologist errors may occur 11/16/2024 Dietary counseling a nd surveillance (ICD-10 - Z71.3) #Weight Management 11/16/2024 Patient expresses interest in transitioning to Zepbound We will facilitate this Labs reviewed Total time spent today was 30 minutes of which greater than 50% was spent on coordinating and counseling Patient has been found to be obese with a BMI of (35). Patient has class (2) obesity. Of note, some information is being carried forward from prior records for informational purposes only and is being cited so that efficiency, safety and quality of the patient's care is not compromised This note was prepared using voice recognition software and direct typing Please excuse inadvertent marine biologist or typing errors, or uncorrected word substitutions Although every attempt has been made by the provider to proofread this document, occasional misspellings and typographical errors may still be present Due to the previous pandemic, and the use of personal protective equipment (PPE) This may decrease voice recognition accuracy Inadvertent marine biologist errors may occur 11/16/2024 Acquired hyperlipoproteinemia (ICD-10 - E78.5) #Weight Management 11/16/2024 Patient expresses interest in transitioning to Zepbound We will facilitate this Labs reviewed Total time spent today was 30 minutes of which greater than 50% was spent on coordinating and counseling Patient has been found to be obese with a BMI of (35). Patient has class (2) obesity. Of note, some information is being carried forward from prior records for informational purposes only and is being cited so that efficiency, safety and quality of the patient's care is not compromised This note was prepared using voice recognition software and direct typing Please excuse inadvertent marine biologist or typing errors, or uncorrected word substitutions Although every attempt has been made by the provider to proofread this document, occasional misspellings and typographical errors may still be present Due to the previous pandemic, and the use of personal protective equipment (PPE) This may decrease voice recognition accuracy Inadvertent marine biologist errors may occur 11/16/2024 Depression with anxi ety (ICD-10 - F41.8) #Weight Management 11/16/2024 Patient expresses interest in transitioning to Zepbound We will facilitate this Labs reviewed Total time spent today was 30 minutes of which greater than 50% was spent on coordinating and counseling Patient has been found to be obese with a BMI of (35). Patient has class (2) obesity. Of note, some information is being carried forward from prior records for informational purposes only and is being cited so that efficiency, safety and quality of the patient's care is not compromised This note was prepared using voice recognition software and direct typing Please excuse inadvertent marine biologist or typing errors, or uncorrected word substitutions Although every attempt has been made by the provider to proofread this document, occasional misspellings and typographical errors may still be present Due to the previous pandemic, and the use of personal protective equipment (PPE) This may decrease voice recognition accuracy Inadvertent marine biologist errors may occur 11/16/2024 Primary insomnia (ICD-10 - F51.01) #Weight Management 11/16/2024 Patient expresses interest in transitioning to Zepbound We will facilitate this Labs reviewed Total time spent today was 30 minutes of which greater than 50% was spent on coordinating and counseling Patient has been found to be obese with a BMI of (35). Patient has class (2) obesity. Of note, some information is being carried forward from prior records for informational purposes only and is being cited so that efficiency, safety and quality of the patient's care is not compromised This note was prepared using voice recognition software and direct typing Please excuse inadvertent marine biologist or typing errors, or uncorrected word substitutions Although every attempt has been made by the provider to proofread this document, occasional misspellings and typographical errors may still be present Due to the previous pandemic, and the use of personal protective equipment (PPE) This may decrease voice recognition accuracy Inadvertent marine biologist errors may occur 11/16/2024 Essential (primary) hypertension (ICD-10 - I10) #Weight Management 11/16/2024 Patient expresses interest in transitioning to Zepbound We will facilitate this Labs reviewed Total time spent today was 30 minutes of which greater than 50% was spent on coordinating and counseling Patient has been found to be obese with a BMI of (35). Patient has class (2) obesity. Of note, some information is being carried forward from prior records for informational purposes only and is being cited so that efficiency, safety and quality of the patient's care is not compromised This note was prepared using voice recognition software and direct typing Please excuse inadvertent marine biologist or typing errors, or uncorrected word substitutions Although every attempt has been made by the provider to proofread this document, occasional misspellings and typographical errors may still be present Due to the previous pandemic, and the use of personal protective equipment (PPE) This may decrease voice recognition accuracy Inadvertent marine biologist errors may occur Plan Of Treatment Medication Medication Name Sig Start Date Stop Date Notes Contrave 8-90 MG Tablet Extended Release 12 Hour Week 1, take 1 tablet in the morning Week 2 take 1 tablet in the morning, 1 tablet in the evening Week 3 take 2 tablets in the morning, 1 tablet in the evening Week 4 onward 2 tablets in the morning, 2 tablets in the evening Orally twice a day; Duration: 30 days Zepbound 2.5 MG/0.5ML Solution Auto-injector 2.5 mg weekly Subcutaneous Weekly; Duration: 30 days Next Appt Details Provider Name:LIZABETH OLIVO, 11/26/2025 08:00:00 AM, [address], [address], [place], [address], History and Physical Notes * HPI (History of Present Illness) Category Sub-Category Detail Notes Category Not es Constitutional Patient is here today for a weight management f/u visit Patient seen and examined. Full past medical history, social history, family history, allergies and current medications were reviewed and updated. Body composition analysis reviewed today #Weight Management 11/16/2024 Expresses interest today in switching to dual incretin Zepbound Still on Wegovy 2.4mg. Injection days are Saturday Taking Contrave as well. Was experiencing headaches initially but has resolved. Appetite suppressed, She is a stress eater. Having intermittent nausea, able to manage well. Having foot problems for last 2 months with plantars fascitis & bone sprus, so no routine of exercise at this time. Discussed making sure she is taking in enough protein in diet. feels as if shes plateuing, we did discuss adding Contrave for food noise, etc Past med hx- HLD, GERD, HTN, Insomnia, depression/anxiety on SSRIs, IBS-Constipation, vit D deficiency, seasonal allergies. Sx hx- cholestectomy, hysterectomy, L knee meniscus repair 12/2021 Patient is tolerating medication without side effects Reports she follows with GI for IBS States IBS has resolved since beginning new diet x8 weeks intermittent nausea, prn zofran works well is having dyspepsia Diet: Veggies/fruit, overindulges. Eliminated fried food. Stress eater, binges on sugar. Has stayed on strict diet of protein shakes and increased fiber diet x6 weeks Exercise: Currently does not track steps. Walking 4x weekly 30 min. Non-smoker. 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 Examination Category Sub-Category Detail Notes Category Not [...] s, or edema ORAL CAVITY: mucosa moist Progress Notes * Kinza LYNCHDOB:1965 ( 60 yo F)Acc No.[id number]:11/16/2024 Patient: Kinza Lott Provider: Renetta OLIVO NP :1965 A ge:59 Y S ex:Female Date:11/16/2024 Address:[address] [place], [place] [id number] Subjective: * Chief Complaints: * HPI: C onstitutional: Patient is here today for a weight management f/u visit Patient seen and examined. Full past medical history, social history, family history, allergies and current medications were reviewed and updated. Body composition analysis reviewed today #Weight Management 11/16/2024 Expresses interest today in switching to dual incretin Zepbound Still on Wegovy 2.4mg. Injection days are Saturday Taking Contrave as well. Was experiencing headaches initially but has resolved. Appetite suppressed, She is a stress eater. Having intermittent nausea, able to manage well. Having foot problems for last 2 months with plantars fascitis & bone sprus, so no routine of exercise at this time. Discussed making sure she is taking in enough protein in diet. feels as if shes plateuing, we did discuss adding Contrave for food noise, etc Past med hx- HLD, GERD, HTN, Insomnia, depression/anxiety on SSRIs, IBS-Constipation, vit D deficiency, seasonal allergies. Sx hx- cholestectomy, hysterectomy, L knee meniscus repair 12/2021 Patient is tolerating medication without side effects Reports she follows with GI for IBS States IBS has resolved since beginning new diet x8 weeks intermittent nausea, prn zofran works well is having dyspepsia Diet: Veggies/fruit, overindulges. Eliminated fried food. Stress eater, binges on sugar. Has stayed on strict diet of protein shakes and increased fiber diet x6 weeks Exercise: Currently does not track steps. Walking 4x weekly 30 min. Non-smoker. 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 * ROS: R OS otherwise negative unless stated in HPI. Objective: * Examination: G eneral Examination: GENERAL APPEARANCE: i n no acute distress, well developed, well nourished. HEAD: n ormocephalic, atraumatic. EYES: p upils equal, round, reactive to light and accommodation. EARS: n ormal. ORAL CAVITY: m ucosa moist. THROAT: c lear. NECK/THYROID: n mac supple, full range of motion, no cervical lymphadenopathy. SKIN: n o suspicious lesions, warm and dry. HEART: n o murmurs, regular rate and rhythm, S1, S2 normal.? LUNGS: c lear to auscultation bilaterally. ABDOMEN: n ormal, bowel sounds present, soft, nontender, nondistended. EXTREMITIES: n o clubbing, cyanosis, or edema. NEUROLOGIC: n onfocal, motor strength normal upper and lower extremities, sensory exam intact. Assessment: * Assessment: 1. O ther obesity due to excess calories - E66.09 (Primary) 2 . B DC 35.0-35.9,adult - Z68.35 3 . D ietary counseling and surveillance - Z71.3 ?4. A cquired hyperlipoproteinemia - E78.5 5 . D epression with anxiety - F41.8 6 . P rimary insomnia - F51.01 7 . E ssential (primary) hypertension - I10 #Weight Management 11/16/2024 Patient expresses interest in transitioning to Zepbound We will facilitate this Labs reviewed Total time spent today was 30 minutes of which greater than 50% was spent on coordinating and counseling Patient has been found to be obese with a BMI of (35). Patient has class (2) obesity. Of note, some information is being carried forward from prior records for informational purposes only and is being cited so that efficiency, safety and quality of the patient's care is not compromised This note was prepared using voice recognition software and direct typing Please excuse inadvertent marine biologist or typing errors, or uncorrected word substitutions Although every attempt has been made by the provider to proofread this document, occasional misspellings and typographical errors may still be present Due to the previous pandemic, and the use of personal protective equipment (PPE) This may decrease voice recognition accuracy Inadvertent marine biologist errors may occur. Plan: * Treatment: * Electronic signature of ANJEL OLIVO on 10/11/2025 at 03:42 PM EST Sign off status: Pending * Provider: Renetta OLIVO NP Date: 0 11/16/2024 Generated for Isamar hidalgo/Thiago/Yohan on: 1 03:42 PM EST
--- OUTSIDE RECORDS SUMMARY | 2025-03-18 03:00 | XMS_ITS ---
Author Organization [facility] Address [address] [place] [address] Care Team Providers Care Nursing Program Coordinator Name Role Phone Wilfred Kimbrough Primary Care Provider Unav ailable Colin, Arianna Unavailable [phone] Encounters Encounter Location Date Provider Diagnosis [facility] [address] [place] [address] 03/18/2025 Arianna Shaw Plan Of Treatment No Information Progress Notes * Kinza LYNCH LDOB:1965 (60 yo F)Acc No.[id number]:03/18/2025 Progress Note Patient: Kinza MEZA Provider: Dominick Shaw DPM :1965 A ge:60 Y S ex:Female Date:03/18/2025 Address:[address] [place], [place] [address] Pcp:REINALDO Saleh Subjective: * Chief Complaints: * [...] DPM Date: 0 03/18/2025 Generated for Isamar hidalgo/Thiago/eTransmitting on: 1 03:42 PM EST
--- OUTSIDE RECORDS SUMMARY | 2025-10-04 05:15 | XMS_ITS ---
Author Organization [facility] Address [address] [place] [address] Care Team Providers Care Hat Forming Machine Operator Name Role Phone Wilfred Kimbrough Primary Care Provider Unav ailable Colin, Arianna Unavailable [phone] Encounters Encounter Location Date Provider Diagnosis [facility] [address] [place] [address] 10/04/2025 Arainna Shaw Plan Of Treatment No Information Progress Notes * Kinza LYNCH LDOB:1965 (60 yo F)Acc No.[id number]:10/04/2025 Progress Notes Patient: Kinza MEZA Provider: Dominick Shaw DPM :1965 A ge:60 Y S ex:Female Date:10/04/2025 Address:[address] [place], [place] [id number] Pcp:REINALDO Saleh Subjective: * Chief Complaints: * * Medical History: Objective: * Vitals: Assessment: Plan: * Treatment: * Images: * The named appointment provid er may or may not be the originator of this progress note, and it is not deemed complete until electronically signed by the appointment provider. Sign off status: Pending * Provider: Dominick Shaw DPM Date: 12/05/2024 Generated for Isamar hidalgo/Thiago/eTransmitting on: 03:42 PM EST
[2025-10-11 13:35] VITALS: BP 128/78; PULSE 82; O2SAT 98; BMI 34.5
--- NOTE | 2025-10-11 13:35 | A.OFFVIS_ITS ---
Vital Signs 10/11/25 13:35 Height 5 ft 6 in Weight 214 lb BMI 34.5 BP 128/78 Blood Pressure Location Rt brachial Position Sitting Pulse 82 Pulse Source Pulse Oximeter Pulse Oximetry (%) 98 Oxygen Delivery Method Room Air Intake Visit Reasons: 1 yr follow up Intake Note: Est pt for mgmt of GERD + Chronic abd pain, and fatty liver. CC; Pt denies any current GI sx or concerns. No negative changes since last visit per pt. Confirms her current Rx are working as intended. 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 Staying upright for minimum 3 hours after meals discussed with patient. Continue current bowel regimen. Increase fluid intake and activity to promote better bowel motility. Continue with exercise. Patient will follow-up in the office in 1 year, sooner on as needed basis. Patient will be due for colonoscopy in 2025. Patient will call our office if she will have any GI concerning symptoms. She is agreeable to this plan and verbalizes understanding of instructions. She was given the opportunity to ask questions and all questions answered. ? Thank you for allowing me to participate in her care Discontinued sennosides Discontinued Reason: Patient no longer taking 17.2 mg (2 x 8.6 mg) PO BEDTIME 60 tabs 3RF constipation K59.00 TODAY'S VISIT Patient is here today for follow-up and to discuss going for colonoscopy. Patient is due to go for colonoscopy in October of 2025. Patient reports that she has been feeling fairly well. She is occasionally constipated, however she states that she is taking stool softeners and for the most part it works. Patient is on Zepbound for the past few months as Ozempic was not working. Patient was not losing weight after being done it for a year or so. Patient denies dyspepsia, dysphagia or odynophagia. No issues with anesthesia in the past. Denies any cardiac or respiratory symptoms. No history of sleep apnea. Not on any anticoagulation medication. [facility] Medical History Plantar fasciitis Osteoarthritis Diarrhea GERD (gastroesophageal reflux disease) Elevated liver enzymes Tubular adenoma Increased BMI Impaired fasting glucose Tenosynovitis of both wrists Elevated LFTs Insomnia Depression Chronic otitis externa Menopausal disorder Dyslipidemia HTN (hypertension) Hemicrania Surgical History History of mammogram History of colonoscopy History of hysterectomy History of laparoscopic cholecystectomy Family History Father Hx of cirrhosis Mental health disorder Mother Hx of diabetes insipidus HX: breast cancer Hx of renal failure Mental health disorder Son No problems noted. Daughter No problems noted. Sister Substance use disorder Mental health disorder Cervical cancer Uterine cancer Social History Household Members: Spouse Housing: House Are you a primary foster care social worker to a significant other at home: No Do you presently have visiting nurse or other home services: No Alcohol intake: current Alcohol intake frequency: a few times a week Alcohol type: wine Patient Tobacco Use Status: Never used Tobacco e-Cigarette/Vaping Use: Never Used Current occupational status: employed 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/[employer] Cognitive needs: No Hearing needs: No Vision needs: No Female Reproductive History Menstrual Age of Menarche: 10 Review of Systems Const Denies weight gain and Denies weight loss ENT Reports no additional complaints, Denies dysphagia and Denies odynophagia Card Reports no additional complaints Resp Reports no additional complaints GI Denies abdominal pain, Denies belching, Denies melena, Denies bloating, Denies change in bowel habits, Denies dysphagia, Denies excessive flatus, Denies dyspepsia, Denies heartburn, Denies diarrhea, Denies loose stools, Denies nausea, Denies odynophagia and Denies vomiting Reports no additional complaints Musc Reports no additional complaints Neuro Reports no additional complaints Psych Reports no additional complaints Endo Reports no additional complaints Physical Exam Vital Signs: Last Vital Signs Pulse 82 10/11/25 13:35 BP 128/78 10/11/25 13:35 Pulse Ox 98 10/11/25 13:35 Oxygen Delivery Method Room Air 10/11/25 13:35 BMI result Body Mass Index 34.5 Const General: healthy appearing and no acute distress Nutritional Appearance: obese Orientation/consciousness: patient oriented x3 Resp Effort & Inspection: normal respiratory effort, able to speak in complete sentences, no tracheal deviation and symmetric chest movement Auscultation: clear to auscultation bilaterally Cardio Rate: regular rate GI Inspection: Yes normal to inspection, No distended and Yes obesity Palpation (GI): Soft to palpation, not firm, nontender and No hepatosplenomegaly present Auscultation: normal bowel sounds General: Yes no CVA tenderness Back/Spine/Pelvis Back: no CVA tenderness Skin Other: White, patchy, glossy area of skin right breast and across her abdomen below umbilicus General skin exam: elasticity normal and turgor normal Neuro General: patient oriented x3 Psych Appearance: grossly normal Mental Status: mental status grossly normal Assessment & Plan Assessment & Plan (1) GERD (gastroesophageal reflux disease): Code(s): K21.9 - Gastro-esophageal reflux disease without esophagitis Category: Medical Qualifiers: Esophagitis presence: without esophagitis Qualified Code(s): K21.9 - Gastro-esophageal reflux disease without esophagitis (2) Elevated LFTs: Code(s): R79.89 - Other specified abnormal findings of blood chemistry Category: Medical (3) Elevated liver enzymes: Code(s): R74.8 - Abnormal levels of other serum enzymes Category: Medical (4) Screening for colon cancer: Code(s): Z12.11 - Encounter for screening for malignant neoplasm of colon Category: Medical (5) Diarrhea: Code(s): R19.7 - Diarrhea, unspecified Category: Medical Qualifiers: Diarrhea type: unspecified type Qualified Code(s): R19.7 - Diarrhea, unspecified (6) Constipation: Code(s): K59.00 - Constipation, unspecified Qualifiers: Constipation type: drug induced constipation Qualified Code(s): K59.03 - Drug induced constipation Plan Patient will continue take omeprazole. Continue avoiding dietary triggers and late night snacking. Patient is on GLP1 and discussed with her the importance of eating smaller meals. Patient can start taking here last daily. She would like to get Suprep for her colonoscopy as she did fairly well with that last time she had the procedure. Message sent to [facility] to call patient and book the procedure. Discussed with patient what to expect before during and after the procedure. Stressed the importance of good bowel prep and clear liquid diet day before procedure. Patient denies any cardiac or respiratory symptoms. Patient will call us if she will have any GI concerning symptoms otherwise I will see her after the procedure. Patient is agreeable to this plan and verbalizes understanding of instructions. She was given the opportunity to ask questions and all questions answered. Thank you for allowing me to participate in her care Orders: Referrals GI Procedure Notification Z12.11 - Encounter for screening for malignant neoplasm of colon Medications: New sodium,potassium,mag sulfates 17.5-3.13-1.6 gram (Suprep Bowel Prep Kit) DILUTE; drink full amount early evening before AND next morning at least 2 hr before procedure; follow w 960 mL water PO 354 mL 0RF polyethylene glycol 3350 (Miralax) 17 grams PO DAILY 510 grams 2RF sodium,potassium,mag sulfates 17.5-3.13-1.6 gram (Suprep Bowel Prep Kit) DILUTE; drink full amount early evening before AND next morning at least 2 hr before procedure; follow w 960 mL water PO 354 mL 0RF Coding Level of Care Code Est Pt Level 4 (43673) Add On Problem Visit Only Diagnoses Gastroesophageal reflux disease without esophagitis K21.9 Esophagitis presence: without esophagitis Elevated LFTs R79.89 Elevated liver enzymes R74.8 Screening for colon cancer Z12.11 Diarrhea, unspecified type R19.7 Diarrhea type: unspecified type Drug-induced constipation K59.03 Constipation type: drug induced constipation Time Spent (min) 40 Comment 25 minutes spent with patient and additional 15 minutes spent reviewing her records
--- OUTSIDE RECORDS SUMMARY | 2025-10-11 15:42 | XMS_ITS | Patient Health Record ---
[facility] Address [address] [facility] [place] [address] Care Team Providers Care Student Support Advisor Name Role Phone Wilfred Kimbrough Primary Care Provider Unav ailable Black, Arianna Unavailable [phone] Allergies No Known Allergies Reason For Referral No Information Medications Medication SIG (Take, Route, Frequency, Duration) Notes Start Date End Date Status Temazepam 15 MG (Schedule IV Drug) O ral; Duration: 30 Unknown Vitamin D3 Unknown CeleBREX 200 MG 1 capsule Orally Onc e a day; Duration: 30 day(s) 07/10/2016 Unknown Fluticasone Propionate 50 MCG/ACT Nasal; Duration: 30 Unknown Docusate Sodium 100 MG 1 capsule as need ed Orally Once a day PRN Unknown Physical Therapy . . . 2x/week; Duratio n: 3-4 weeks Unknown Vitamin C 500 MG as directed Orally Unknown Ibuprofen Unknown Zolpidem Tartrate 5 MG 1 tablet at bedti me as needed Orally Once a day PRN Unknown ZyrTEC Unknown Ciclopirox Olamine 0.77 % 1 application Externally Twice a day; Duration: 30 days Unknown Dicyclomine HCl 10 MG 2 capsules Orally Three times a day Unknown LORazepam 0.5 MG (Schedule IV Drug) O ral; Duration: 30 PRN Unknown Night Splint AFO - L1930 1 wear at rest; Duration: 30 days Unknown Rosuvastatin Calcium 20 MG 1 tablet Oral ly Once a day Unknown Ammonium Lactate 12 % 1 application Exte rnally Twice a day; Duration: 30 days Unknown Zepbound 12.5 MG/0.5ML 0.5 mL Subcutaneous Unknown Gabapentin 300 MG 1 capsule Orally thr ee times a day; Duration: 30 days Unknown Propranolol HCl 120mg once a day Unknown Diclofenac Sodium 50 MG 1 tablet as need ed Orally Twice a day; Duration: 20 days 06/16/2024 Unknown Fish Oil Unknown Vitamin E Unknown Wegovy 2.4 MG/0.75ML 0.5 mL Subcutaneous Unknown Co Q 10 Unknown Omeprazole 20 MG 1 capsule 1/2 to 1 h our before morning meal Orally Once a day Unknown Ibuprofen 800 MG 1 tablet with food o r milk as needed Orally every 8 hrs Unknown Nystatin Unknown Escitalopram Oxalate 10 MG 1 tablet Oral ly Once a day Unknown Sodium Chloride 0.65 % as directed Nasally Unknown Albuterol Sulfate Un known Multivitamin Unknown Prednisone Unknown Naltrexone-buPROPion HCl ER 8-90 MG 1 tablet in the morning Orally Once a day Unknown Estradiol 1 MG Oral; Duration: 90 Unknown Losartan Potassium 25 MG 1 tablet Orally Once a day Unknown Meloxicam 15 MG 1 tablet Orally Once a day; Duration: 90 days 11/22/2020 Unknown Vitamin B12 Unknown Ciclopirox Olamine 0.77% external Apply to effected areas twice a day; Duration: 30 days 03/04/2018 Unknown Fluocinolone Acetonide 0.01 % 5 drops into affected ear Otic Twice a day Unknown Fluocinolone Acetonide 0.01 % Otic; Duration: 30 Unknown Gabapentin 100 MG 1 capsule at bedtime Orally Once a day Unknown Clotrimazole-Betamethasone 1-0.05 % 1 application to affected area Externally Twice a day to affected areas on feet; Duration: 30 days 06/15/2015 Unknown Clobetasol Propionate 0.05 % 1 application Externally Twice a day Unknown Fexofenadine-Pseudoephedri ne Unknown Immunizations Vaccine Route Administration Date Status Comme [...] Problem Acquired hammer toe of right foot (6459486396655692 ) Other hammer toe(s) (acquired), right foot (M20.41) Active confirmed Problem Acquired hammer toe of left foot (9211319642059062 ) Other hammer toe(s) (acquired), left foot (M20.42) Active confirmed Problem Localized, primary osteoarthritis of the ankle and/or foot () Primary osteoarthritis, right ankle and foot (M19.071) Active confirmed Problem Localized, primary osteoarthritis of the ankle and/or foot () Primary osteoarthritis, left ankle and foot (M19.072) Active confirmed Problem Arthritis (9956037) Arthritis (M19.90) Active confirmed Problem Localized, primary osteoarthritis of the ankle and/or foot () Arthritis of joint of lesser toe, left (M19.072) Active confirmed Problem Localized, primary osteoarthritis of the ankle and/or foot () Arthritis of joint of lesser toe, right (M19.071) Active confirmed Problem Plantar fascial fibromatosis (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) Plantar fasciitis, bilateral (M72.2) Active confirmed Problem Osteoarthritis of midtarsal joint of left foot (3718576923190242 ) Osteoarthritis of midtarsal joint of left foot (M19.072) Active confirmed Problem Osteoarthritis of midtarsal joint of right foot (2488334966101997 ) Osteoarthritis of midtarsal joint of right foot (M19.071) Active confirmed Vital Signs Blood pressure diastolic 65 mm Hg 08/23/2025 Height 5ft 6in in 08/23/2025 Blood pressure systolic 126 mm Hg 08/23/2025 Weight 200 lbs 08/23/2025 BMI 32.28 kg/m2 08/23/2025 Procedures Procedure Date Ordered Date Performed Result Body Sit e , Y2096-[id number]/INJECT, JOINT/BURSA 08/23/2025 N/A Encounters Encounter Location Date Provider Diagnosis [address] [address] 12/03/2024 Arianna Black Plantar fasciitis, bilateral M72.2 [...] M60.872 and Bursitis of left foot M77.[address] [address] 07/28/2025 Arianna Black Neuritis M79.2 ; Osteoarthritis [...] of midtarsal joint of right foot M19.071 [facility] [address] 08/23/2025 Arianna Black Neuritis M79.2 ; Osteoarthritis of [...] of midtarsal joint of right foot M19.071 [facility] [address] [place] [address] 03/18/2025 Arianna Shaw [facility] [address] 08/06/2025 Ariannakandis Shaw [facility] [address] 09/30/2025 Arianna Shaw Assessments Encounter Date Diagnosis (ICD Code) Assessment Notes Treatment Notes Treatment Clinical Notes Section Notes 12/03/2024 Neuritis (ICD-10 - M79.2) 12/03/2024 Plantar fasciitis, bilateral (ICD-10 - M72.2) 07/28/2025 Neuritis (ICD-10 - M79.2) 07/28/2025 Osteoarthritis of midtarsal joint of left foot (ICD-10 - M19.072) 08/23/2025 Neuritis (ICD-10 - M79.2) 07/28/2025 Arthralgia of right ankle (ICD-10 - M25.571) 08/23/2025 Arthralgia of right ankle (ICD-10 - M25.571) 08/23/2025 Osteoarthritis of midtarsal joint of left foot (ICD-10 - M19.072) 12/03/2024 Other hammer toe(s) (acquired), right foot (ICD-10 - M20.41) 12/03/2024 Pain of toe of right foot (ICD-10 - M79.674) 07/28/2025 Arthralgia of left foot (ICD-10 - M25.572) 08/23/2025 Arthralgia of left foot (ICD-10 - M25.572) 08/23/2025 Pain in left foot (ICD-10 - M79.672) 12/03/2024 Arthritis of joint of lesser toe, right (ICD-10 - M19.071) 07/28/2025 Pain in left foot (ICD-10 - M79.672) 12/03/2024 Pain of toe of left foot (ICD-10 - M79.675) 07/28/2025 Pain in left ankle and joints of left foot (ICD-10 - M25.572) 08/23/2025 Pain in left ankle and joints of left foot (ICD-10 - M25.572) 08/23/2025 Pain in right foot (ICD-10 - M79.671) 07/28/2025 Pain in right foot (ICD-10 - M79.671) 12/03/2024 Other hammer toe(s) (acquired), left foot (ICD-10 - M20.42) 07/28/2025 Pain in right ankle and joints of right foot (ICD-10 - M25.571) 12/03/2024 Arthritis of joint of lesser toe, left (ICD-10 - M19.072) 08/23/2025 Pain in right ankle and joints of right foot (ICD-10 - M25.571) 07/28/2025 Osteoarthritis of midtarsal joint of right foot (ICD-10 - M19.071) 08/23/2025 Osteoarthritis of midtarsal joint of right foot (ICD-10 - M19.071) 12/03/2024 Arthralgia of right ankle (ICD-10 - [...] Foot, left 3V 07/15/2023 *Arthritic Panel 11/22/2020 [id number], B4596-PJISC/INJECT, JOINT/BURSA 1 10/23/2024 [id number] TENDON SHEATH/LIGAMENT 1 11/12/2014 [id number] TENDON SHEATH/LIGAMENT 0 11/18/201572127,[id number] TENDON SHEATH/LIGAMENT 0 02/14/2016 Insurance Providers Payer Name Payer Address Payer Phone Subscriber Number Group Number Insured Name Patient Relationship to Insured Coverage Start Date Coverage End Date [facility] [address] [place] [address] [id number] Kinza Lynch Self - patient is the insured Medical (General) History Medical History History ICD Code Chicken pox High Blood Pressure Cholesterol Surgical History Surgery Date(Month/Year) hysterectomy 10/1999 gall bladder 01/31/2016 Hand Surgery - Left 04/2023
--- OUTSIDE RECORDS SUMMARY | 2025-10-11 15:43 | XMS_ITS | Patient Health Record ---
Author Organization [facility] [address] Address [address] [place] [address] Care Team Providers Care Laboratory Helper Name Role Phone PALLAVI ILZABETH Unavailable [phone] Allergies No Known Allergies Reason For Referral Reason Dr pham- AT HOME sleep study Diagnosis 1 Snoring (R06.83) Diagnosis 2 Daytime somnolence ( R40.0) Referral Organization [facility] [address] Referring Provider First Name LIZABETH Referring Provider Last Name PALLAVI Referring Provider Speciality Internal M edicine Referred Provider Young Pham Referred Provider Specialty Sleep Medici ne General Notes ZAIRE NGUYEN 0 12/18/2024 11:18:59 AM >Information sent to dr pham , [address] [place] [address], [address] [address], 6 mi from Patient's Address, [phone], [phone] Clinical Notes Rosy Gore 02:44:22 PM > The patient had an appointment scheduled for 01/11, which she canceled and has not yet rescheduled. Referral Priority Routine Medications Medication SIG (Take, Route, Frequency, Duration) Notes Start Date End Date Status Dicyclomine HCl 10 MG Capsule TAKE ONE CAPSULE BY MOUTH FOUR TIMES A DAY Oral; Duration: 30 Active Wegovy 2.4 MG/0.75ML Solution Auto-injector 2.4mg Subcutaneous weekly; Duration: 28 days Not-Taking LORazepam 0.5 MG Tablet Oral; Duration: 30 Active Rosuvastatin Calcium 20 MG Tablet TAKE ONE TABLET BY MOUTH EVERY DAY Oral; Duration: 90 Active Zepbound 12.5 MG/0.5ML Solution 12.5mg Subcutaneous weekly; Duration: 28 days 09/24/2025 Active Escitalopram Oxalate 10 MG Tablet TAKE ONE TABLET BY MOUTH ONCE DAILY Oral; Duration: 90 Active Zepbound 12.5 MG/0.5ML Solution inject 12.5 Subcutaneous Weekly; Duration: 30 days Not-Taking D3 Super Strength 50 MCG (2000 UT) Capsule TAKE ONE CAPSULE BY MOUTH EVERY DAY Oral; Duration: 90 Active Zepbound 7.5 MG/0.5ML Solution Auto-injector 7.5mg Subcutaneous weekly; Duration: 30 days 05/17/2025 Not-Taking Propranolol HCl ER 120 MG Capsule Extended Release 24 Hour TAKE 1 CAPSULE BY MOUTH DAILY. Oral; Duration: 90 Active Contrave 8-90 MG Tablet Extended Release 12 Hour Week 1, take 1 tablet in the morning Week 2 take 1 tablet in the morning, 1 tablet in the evening Week 3 take 2 tablets in the morning, 1 tablet in the evening Week 4 onward 2 tablets in the morning, 2 tablets in the evening Orally twice a day; Duration: 30 days Not-Taking Zolpidem Tartrate 5 MG Tablet Oral; Duration: 30 Active Losartan Potassium 25 MG Tablet 1 tablet Orally Once a day; Duration: 30 day(s) 03/20/2023 Active Docusate Sodium 100 MG Capsule 1 capsule as needed Orally Once a day; Duration: 30 day(s) 03/20/2023 Active Albuterol Sulfate HFA 108 (90 Base) MCG/ACT Aerosol Solution 1 puff as needed Inhalation every 4 hrs 03/20/2023 Active Ondansetron 4 MG Tablet Disintegrating 1 tablet on the tongue and allow to dissolve prn nausea Orally Once a day; Duration: 30 days Active Ciclopirox 0.77 % Gel 1 application Externally Once a day 03/20/2023 Active Social History Tobacco Use: Social History Observation Description Date Details (start date - stop date) Never Smoker NA - NA Social History Drugs/Alcohol: Social Info Question Answer Notes Alcohol Screen (Audit-C) Did you have a drink containing alcohol in the past year? Yes How often did you have a drink containing alcohol in the past year? 2 to 3 times a week (3 points) Points 3 Interpretation Positive Drugs Have you used drugs other than those for medical reasons in the past 12 months? No Tobacco Use: Social Info Question Answer Notes Tobacco Use/Smoking Are you a nonsmoker Problems Problem Type SNOMED Code ICD Code Onset Dates Problem Status W/U Status Risk Notes Problem Obesity due to exces s calories (072745009) Other obesity due to excess calories (E66.09) Active confirmed Problem Primary insomnia (7434153) Primary insomnia (F51.01) Active confirmed Problem Essential hypertension (95114685) Essential (primary) hypertension (I10) Active confirmed Problem Adult health examination (118119113) Encounter for general adult medical examination without abnormal findings (Z00.00) Active confirmed Problem Hyperlipoproteinemia (4133459) Acquired hyperlipoproteinemia (E78.5) Active confirmed Problem Body mass index 40+ - morbidly obese (473141319) BMI 40.0-44.9, adult (Z68.41) Active confirmed Problem Body mass index 35.0 0 to 39.99 (132365798305989) Body mass index [BMI] 38.0-38.9, adult (Z68.38) Active confirmed Problem Body mass index 35.0 0 to 39.99 (715747458857182) Body mass index [BMI] 39.0-39.9, adult (Z68.39) Active confirmed Problem Obese class II (186594169217297) BMI 35.0-35.9,adult (Z68.35) Active confirmed Problem Obese class II (089765206643786) BMI 36.0-36.9,adult (Z68.36) Active confirmed Problem Morbid obesity (684970202) Morbid obesity due to excess calories (E66.01) Active confirmed Problem Daytime somnolence (524646467385) Daytime somnolence (R40.0) Active confirmed Problem Mixed anxiety and depressive disorder (171411349) Depression with anxiety (F41.8) Active confirmed Vital Signs Heart Rate 75 /min 09/24/2025 Oximetry 94 % 09/24/2025 Blood pressure diastolic 80 mm Hg 09/24/2025 Height 65 in 09/24/2025 Blood pressure systolic 122 mm Hg 09/24/2025 Weight 219 lbs 09/24/2025 BMI 36.44 kg/m2 09/24/2025 Encounters Encounter Location Date Provider Diagnosis [facility] [address] [place] [address] 12/18/2024 LIZABETH BORHOT BMI 36.0-36.9,adult Z68.36 ; Other obesity due to excess calories E66.09 ; Dietary counseling and surveillance Z71.3 ; Acquired hyperlipoproteinemia E78.5 ; Depression with anxiety F41.8 ; Primary insomnia F51.01 ; Essential (primary) hypertension I10 ; Snoring R06.83 and Daytime somnolence R40.0 [facility] [address] [address] 03/17/2025 LIZABETH BORHOT BMI 36.0-36.9,adult Z68.36 ; Dietary counseling and surveillance Z71.3 ; Other obesity due to excess calories E66.09 ; Acquired hyperlipoproteinemia E78.5 ; Depression with anxiety F41.8 ; Primary insomnia F51.01 ; Essential (primary) hypertension I10 ; Snoring R06.83 ; Daytime somnolence R40.0 and Encounter for examination of blood pressure without abnormal findings Z01.30 [facility] [address] 05/07/2025 LIZABETH BORHOT BMI 36.0-36.9,adult Z68.36 ; Dietary counseling and surveillance Z71.3 ; Acquired hyperlipoproteinemia E78.5 ; Other obesity due to excess calories E66.09 ; Depression with anxiety F41.8 ; Primary insomnia F51.01 ; Essential (primary) hypertension I10 ; Snoring R06.83 ; Daytime somnolence R40.0 and Encounter for examination of blood pressure without abnormal findings Z01.30 [facility] [address] 06/25/2025 LIZABETH BORHOT BMI 36.0-36.9,adult Z68.36 ; Dietary counseling and surveillance Z71.3 ; Acquired hyperlipoproteinemia E78.5 ; Other obesity due to excess calories E66.09 ; Depression with anxiety F41.8 ; Primary insomnia F51.01 ; Essential (primary) hypertension I10 ; Snoring R06.83 ; Daytime somnolence R40.0 and Encounter for examination of blood pressure without abnormal findings Z01.30 [facility] [address] 09/24/2025 LIZABETH BORHOT BMI 36.0-36.9,adult Z68.36 ; Dietary counseling and surveillance Z71.3 ; Acquired hyperlipoproteinemia E78.5 ; Other obesity due to excess calories E66.09 ; Depression with anxiety F41.8 ; Primary insomnia F51.01 ; Essential (primary) hypertension I10 ; Snoring R06.83 ; Daytime somnolence R40.0 and Encounter for examination of blood pressure without abnormal findings Z01.30 [facility] [address] [facility] [address] [address] 10/26/2024 LIZABETH BORHOT [facility] [address] [address] 10/28/2024 LIZABETH BORHOT [facility] [address] [place] [address] 01/20/2025 LIZABETH BORHOT [facility] [address] [address] 05/17/2025 LIZABETH BORHOT [facility] [address] [facility] [address] [address] 05/20/2025 LIZABETH BORHOT [facility] [address] [address] 05/26/2025 LIZABETH BORHOT [facility] [address] [facility] [address] [address] 05/28/2025 LIZABETH BORHOT Other obesity due to excess calories E66.09 [facility] [address] [address] 08/05/2025 LIZABETH BORHOT Other obesity due to excess calories E66.09 [facility] [address] [facility] [address] [address] 08/11/2025 LIZABETH BORHOT Other obesity due to excess calories E66.09 [facility] [address] [facility] [address] [address] 09/06/2025 LIZABETH BORHOT Other obesity due to excess calories E66.[address] [facility] [address] [place] [address] 09/06/2025 LIZABETH BORHOT [facility] [address] [address] 07/28/2025 LIZABETH OLIVO Other obesity due to excess calories E66.09 [facility] [address] [facility] [address] [place] [address] 07/29/2025 LIZABETH OLIVO [facility] [address] [facility] [address] [place] [address] 08/02/2025 LIZABETH OLIVO Assessments Encounter Date Diagnosis [...] software and direct typing Please excuse inadvertent senior backup administrator or typing errors, or uncorrected word substitutions Although every attempt has been made by the provider to proofread this document, occasional misspellings and typographical errors may still be present Due to the previous pandemic, and the use of personal protective equipment (PPE) This may decrease voice recognition accuracy Inadvertent senior backup administrator errors may occur 03/17/2025 BMI 36.0-36.9,adult (ICD-10 [...] software and direct typing Please excuse inadvertent senior backup administrator or typing errors, or uncorrected word substitutions Although every attempt has been made by the provider to proofread this document, occasional misspellings and typographical errors may still be present Due to the previous pandemic, and the use of personal protective equipment (PPE) This may decrease voice recognition accuracy Inadvertent senior backup administrator errors may occur 05/07/2025 BMI 36.0-36.9,adult (ICD-10 [...] software and direct typing Please excuse inadvertent senior backup administrator or typing errors, or uncorrected word substitutions Although every attempt has been made by the provider to proofread this document, occasional misspellings and typographical errors may still be present Due to the previous pandemic, and the use of personal protective equipment (PPE) This may decrease voice recognition accuracy Inadvertent senior backup administrator errors may occur 05/28/2025 Other obesity due to excess calories (ICD-10 - E66.09) 07/28/2025 Other obesity due to excess calories [...] software and direct typing Please excuse inadvertent senior backup administrator or typing errors, or uncorrected word substitutions Although every attempt has been made by the provider to proofread this document, occasional misspellings and typographical errors may still be present Due to the previous pandemic, and the use of personal protective equipment (PPE) This may decrease voice recognition accuracy Inadvertent senior backup administrator errors may occur 09/06/2025 Other obesity due to excess calories (ICD-10 - E66.09) 09/24/2025 BMI 36.0-36.9,adult (ICD-10 - Z68.36) #Weight Management 09/24/2025 Increase Zepbound to 12.5 mg via Jia direct Prescription sent in the office with her present labs reviewed Total time spent today was [...] software and direct typing Please excuse inadvertent senior backup administrator or typing errors, or uncorrected word substitutions Although every attempt has been made by the provider to proofread this document, occasional misspellings and typographical errors may still be present Due to the previous pandemic, and the use of personal protective equipment (PPE) This may decrease voice recognition accuracy Inadvertent senior backup administrator errors may occur 09/24/2025 Dietary counseling a nd surveillance (ICD-10 - Z71.3) #Weight Management 09/24/2025 Increase Zepbound to 12.5 mg via Jia direct Prescription sent in the office with her present labs reviewed Total time spent today was [...] software and direct typing Please excuse inadvertent senior backup administrator or typing errors, or uncorrected word substitutions Although every attempt has been made by the provider to proofread this document, occasional misspellings and typographical errors may still be present Due to the previous pandemic, and the use of personal protective equipment (PPE) This may decrease voice recognition accuracy Inadvertent senior backup administrator errors may occur 06/25/2025 Dietary counseling a nd surveillance (ICD-10 - Z71.3) #Weight Management 06/25/2025 int increasing zepbound 7.5mg to 10mg via jai direct contrave RX, to continue for addtional [...] software and direct typing Please excuse inadvertent senior backup administrator or typing errors, or uncorrected word substitutions Although every attempt has been made by the provider to proofread this document, occasional misspellings and typographical errors may still be present Due to the previous pandemic, and the use of personal protective equipment (PPE) This may decrease voice recognition accuracy Inadvertent senior backup administrator errors may occur 05/07/2025 Dietary counseling a [...] software and direct typing Please excuse inadvertent senior backup administrator or typing errors, or uncorrected word substitutions Although every attempt has been made by the provider to proofread this document, occasional misspellings and typographical errors may still be present Due to the previous pandemic, and the use of personal protective equipment (PPE) This may decrease voice recognition accuracy Inadvertent senior backup administrator errors may occur 03/17/2025 Dietary counseling a [...] software and direct typing Please excuse inadvertent senior backup administrator or typing errors, or uncorrected word substitutions Although every attempt has been made by the provider to proofread this document, occasional misspellings and typographical errors may still be present Due to the previous pandemic, and the use of personal protective equipment (PPE) This may decrease voice recognition accuracy Inadvertent senior backup administrator errors may occur 12/18/2024 Dietary counseling a [...] software and direct typing Please excuse inadvertent senior backup administrator or typing errors, or uncorrected word substitutions Although every attempt has been made by the provider to proofread this document, occasional misspellings and typographical errors may still be present Due to the previous pandemic, and the use of personal protective equipment (PPE) This may decrease voice recognition accuracy Inadvertent senior backup administrator errors may occur 12/18/2024 Other obesity due [...] software and direct typing Please excuse inadvertent senior backup administrator or typing errors, or uncorrected word substitutions Although every attempt has been made by the provider to proofread this document, occasional misspellings and typographical errors may still be present Due to the previous pandemic, and the use of personal protective equipment (PPE) This may decrease voice recognition accuracy Inadvertent senior backup administrator errors may occur 12/18/2024 Acquired hyperlipoproteinemia (ICD-10 [...] software and direct typing Please excuse inadvertent senior backup administrator or typing errors, or uncorrected word substitutions Although every attempt has been made by the provider to proofread this document, occasional misspellings and typographical errors may still be present Due to the previous pandemic, and the use of personal protective equipment (PPE) This may decrease voice recognition accuracy Inadvertent senior backup administrator errors may occur 03/17/2025 Other obesity due [...] software and direct typing Please excuse inadvertent senior backup administrator or typing errors, or uncorrected word substitutions Although every attempt has been made by the provider to proofread this document, occasional misspellings and typographical errors may still be present Due to the previous pandemic, and the use of personal protective equipment (PPE) This may decrease voice recognition accuracy Inadvertent senior backup administrator errors may occur 03/17/2025 Acquired hyperlipoproteinemia (ICD-10 [...] software and direct typing Please excuse inadvertent senior backup administrator or typing errors, or uncorrected word substitutions Although every attempt has been made by the provider to proofread this document, occasional misspellings and typographical errors may still be present Due to the previous pandemic, and the use of personal protective equipment (PPE) This may decrease voice recognition accuracy Inadvertent senior backup administrator errors may occur 05/07/2025 Acquired hyperlipoproteinemia (ICD-10 [...] software and direct typing Please excuse inadvertent senior backup administrator or typing errors, or uncorrected word substitutions Although every attempt has been made by the provider to proofread this document, occasional misspellings and typographical errors may still be present Due to the previous pandemic, and the use of personal protective equipment (PPE) This may decrease voice recognition accuracy Inadvertent senior backup administrator errors may occur 06/25/2025 Acquired hyperlipoproteinemia (ICD-10 [...] software and direct typing Please excuse inadvertent senior backup administrator or typing errors, or uncorrected word substitutions Although every attempt has been made by the provider to proofread this document, occasional misspellings and typographical errors may still be present Due to the previous pandemic, and the use of personal protective equipment (PPE) This may decrease voice recognition accuracy Inadvertent senior backup administrator errors may occur 09/24/2025 Acquired hyperlipoproteinemia (ICD-10 - E78.5) #Weight Management 09/24/2025 Increase Zepbound to 12.5 mg via Jia direct Prescription sent in the office with her present labs reviewed Total time spent today was [...] software and direct typing Please excuse inadvertent senior backup administrator or typing errors, or uncorrected word substitutions Although every attempt has been made by the provider to proofread this document, occasional misspellings and typographical errors may still be present Due to the previous pandemic, and the use of personal protective equipment (PPE) This may decrease voice recognition accuracy Inadvertent senior backup administrator errors may occur 09/24/2025 Depression with anxi ety (ICD-10 - F41.8) #Weight Management 09/24/2025 Increase Zepbound to 12.5 mg via Jia direct Prescription sent in the office with her present labs reviewed Total time spent today was [...] software and direct typing Please excuse inadvertent senior backup administrator or typing errors, or uncorrected word substitutions Although every attempt has been made by the provider to proofread this document, occasional misspellings and typographical errors may still be present Due to the previous pandemic, and the use of personal protective equipment (PPE) This may decrease voice recognition accuracy Inadvertent senior backup administrator errors may occur 09/24/2025 Other obesity due to excess calories (ICD-10 - E66.09) #Weight Management 09/24/2025 Increase Zepbound to 12.5 mg via Jia direct Prescription sent in the office with her present labs reviewed Total time spent today was [...] software and direct typing Please excuse inadvertent senior backup administrator or typing errors, or uncorrected word substitutions Although every attempt has been made by the provider to proofread this document, occasional misspellings and typographical errors may still be present Due to the previous pandemic, and the use of personal protective equipment (PPE) This may decrease voice recognition accuracy Inadvertent senior backup administrator errors may occur 12/18/2024 Depression with anxi [...] software and direct typing Please excuse inadvertent senior backup administrator or typing errors, or uncorrected word substitutions Although every attempt has been made by the provider to proofread this document, occasional misspellings and typographical errors may still be present Due to the previous pandemic, and the use of personal protective equipment (PPE) This may decrease voice recognition accuracy Inadvertent senior backup administrator errors may occur 06/25/2025 Other obesity due [...] software and direct typing Please excuse inadvertent senior backup administrator or typing errors, or uncorrected word substitutions Although every attempt has been made by the provider to proofread this document, occasional misspellings and typographical errors may still be present Due to the previous pandemic, and the use of personal protective equipment (PPE) This may decrease voice recognition accuracy Inadvertent senior backup administrator errors may occur 03/17/2025 Depression with anxi ety (ICD-10 - F41.8) #Weight Management 03/17/2025 Patient [...] software and direct typing Please excuse inadvertent senior backup administrator or typing errors, or uncorrected word substitutions Although every attempt has been made by the provider to proofread this document, occasional misspellings and typographical errors may still be present Due to the previous pandemic, and the use of personal protective equipment (PPE) This may decrease voice recognition accuracy Inadvertent senior backup administrator errors may occur 05/07/2025 Other obesity due [...] software and direct typing Please excuse inadvertent senior backup administrator or typing errors, or uncorrected word substitutions Although every attempt has been made by the provider to proofread this document, occasional misspellings and typographical errors may still be present Due to the previous pandemic, and the use of personal protective equipment (PPE) This may decrease voice recognition accuracy Inadvertent senior backup administrator errors may occur 12/18/2024 Primary insomnia (ICD-10 [...] software and direct typing Please excuse inadvertent senior backup administrator or typing errors, or uncorrected word substitutions Although every attempt has been made by the provider to proofread this document, occasional misspellings and typographical errors may still be present Due to the previous pandemic, and the use of personal protective equipment (PPE) This may decrease voice recognition accuracy Inadvertent senior backup administrator errors may occur 03/17/2025 Primary insomnia (ICD-10 [...] software and direct typing Please excuse inadvertent senior backup administrator or typing errors, or uncorrected word substitutions Although every attempt has been made by the provider to proofread this document, occasional misspellings and typographical errors may still be present Due to the previous pandemic, and the use of personal protective equipment (PPE) This may decrease voice recognition accuracy Inadvertent senior backup administrator errors may occur 05/07/2025 Depression with anxi ety (ICD-10 - F41.8) #Weight Management 05/07/2025 Patient [...] software and direct typing Please excuse inadvertent senior backup administrator or typing errors, or uncorrected word substitutions Although every attempt has been made by the provider to proofread this document, occasional misspellings and typographical errors may still be present Due to the previous pandemic, and the use of personal protective equipment (PPE) This may decrease voice recognition accuracy Inadvertent senior backup administrator errors may occur 09/24/2025 Primary insomnia (ICD-10 - F51.01) #Weight Management 09/24/2025 Increase Zepbound to 12.5 mg via Jia direct Prescription sent in the office with her present labs reviewed Total time spent today was [...] software and direct typing Please excuse inadvertent senior backup administrator or typing errors, or uncorrected word substitutions Although every attempt has been made by the provider to proofread this document, occasional misspellings and typographical errors may still be present Due to the previous pandemic, and the use of personal protective equipment (PPE) This may decrease voice recognition accuracy Inadvertent senior backup administrator errors may occur 06/25/2025 Depression with anxi ety (ICD-10 - F41.8) #Weight Management 06/25/2025 int [...] software and direct typing Please excuse inadvertent senior backup administrator or typing errors, or uncorrected word substitutions Although every attempt has been made by the provider to proofread this document, occasional misspellings and typographical errors may still be present Due to the previous pandemic, and the use of personal protective equipment (PPE) This may decrease voice recognition accuracy Inadvertent senior backup administrator errors may occur 09/24/2025 Essential (primary) hypertension (ICD-10 - I10) #Weight Management 09/24/2025 Increase Zepbound to 12.5 mg via Jia direct Prescription sent in the office with her present labs reviewed Total time spent today was [...] software and direct typing Please excuse inadvertent senior backup administrator or typing errors, or uncorrected word substitutions Although every attempt has been made by the provider to proofread this document, occasional misspellings and typographical errors may still be present Due to the previous pandemic, and the use of personal protective equipment (PPE) This may decrease voice recognition accuracy Inadvertent senior backup administrator errors may occur 05/07/2025 Primary insomnia (ICD-10 [...] software and direct typing Please excuse inadvertent senior backup administrator or typing errors, or uncorrected word substitutions Although every attempt has been made by the provider to proofread this document, occasional misspellings and typographical errors may still be present Due to the previous pandemic, and the use of personal protective equipment (PPE) This may decrease voice recognition accuracy Inadvertent senior backup administrator errors may occur 06/25/2025 Primary insomnia (ICD-10 [...] software and direct typing Please excuse inadvertent senior backup administrator or typing errors, or uncorrected word substitutions Although every attempt has been made by the provider to proofread this document, occasional misspellings and typographical errors may still be present Due to the previous pandemic, and the use of personal protective equipment (PPE) This may decrease voice recognition accuracy Inadvertent senior backup administrator errors may occur 03/17/2025 Essential (primary) hypertension [...] software and direct typing Please excuse inadvertent senior backup administrator or typing errors, or uncorrected word substitutions Although every attempt has been made by the provider to proofread this document, occasional misspellings and typographical errors may still be present Due to the previous pandemic, and the use of personal protective equipment (PPE) This may decrease voice recognition accuracy Inadvertent senior backup administrator errors may occur 12/18/2024 Essential (primary) hypertension [...] software and direct typing Please excuse inadvertent senior backup administrator or typing errors, or uncorrected word substitutions Although every attempt has been made by the provider to proofread this document, occasional misspellings and typographical errors may still be present Due to the previous pandemic, and the use of personal protective equipment (PPE) This may decrease voice recognition accuracy Inadvertent senior backup administrator errors may occur 12/18/2024 Snoring (ICD-10 - [...] software and direct typing Please excuse inadvertent senior backup administrator or typing errors, or uncorrected word substitutions Although every attempt has been made by the provider to proofread this document, occasional misspellings and typographical errors may still be present Due to the previous pandemic, and the use of personal protective equipment (PPE) This may decrease voice recognition accuracy Inadvertent senior backup administrator errors may occur 03/17/2025 Snoring (ICD-10 - [...] software and direct typing Please excuse inadvertent senior backup administrator or typing errors, or uncorrected word substitutions Although every attempt has been made by the provider to proofread this document, occasional misspellings and typographical errors may still be present Due to the previous pandemic, and the use of personal protective equipment (PPE) This may decrease voice recognition accuracy Inadvertent senior backup administrator errors may occur 06/25/2025 Essential (primary) hypertension [...] software and direct typing Please excuse inadvertent senior backup administrator or typing errors, or uncorrected word substitutions Although every attempt has been made by the provider to proofread this document, occasional misspellings and typographical errors may still be present Due to the previous pandemic, and the use of personal protective equipment (PPE) This may decrease voice recognition accuracy Inadvertent senior backup administrator errors may occur 05/07/2025 Essential (primary) hypertension [...] software and direct typing Please excuse inadvertent senior backup administrator or typing errors, or uncorrected word substitutions Although every attempt has been made by the provider to proofread this document, occasional misspellings and typographical errors may still be present Due to the previous pandemic, and the use of personal protective equipment (PPE) This may decrease voice recognition accuracy Inadvertent senior backup administrator errors may occur 09/24/2025 Snoring (ICD-10 - R06.83) #Weight Management 09/24/2025 Increase Zepbound to 12.5 mg via Jia direct Prescription sent in the office with her present labs reviewed Total time spent today was [...] software and direct typing Please excuse inadvertent senior backup administrator or typing errors, or uncorrected word substitutions Although every attempt has been made by the provider to proofread this document, occasional misspellings and typographical errors may still be present Due to the previous pandemic, and the use of personal protective equipment (PPE) This may decrease voice recognition accuracy Inadvertent senior backup administrator errors may occur 09/24/2025 Daytime somnolence (ICD-10 - R40.0) #Weight Management 09/24/2025 Increase Zepbound to 12.5 mg via Jia direct Prescription sent in the office with her present labs reviewed Total time spent today was [...] software and direct typing Please excuse inadvertent senior backup administrator or typing errors, or uncorrected word substitutions Although every attempt has been made by the provider to proofread this document, occasional misspellings and typographical errors may still be present Due to the previous pandemic, and the use of personal protective equipment (PPE) This may decrease voice recognition accuracy Inadvertent senior backup administrator errors may occur 05/07/2025 Snoring (ICD-10 - [...] software and direct typing Please excuse inadvertent senior backup administrator or typing errors, or uncorrected word substitutions Although every attempt has been made by the provider to proofread this document, occasional misspellings and typographical errors may still be present Due to the previous pandemic, and the use of personal protective equipment (PPE) This may decrease voice recognition accuracy Inadvertent senior backup administrator errors may occur 03/17/2025 Daytime somnolence (ICD-10 [...] software and direct typing Please excuse inadvertent senior backup administrator or typing errors, or uncorrected word substitutions Although every attempt has been made by the provider to proofread this document, occasional misspellings and typographical errors may still be present Due to the previous pandemic, and the use of personal protective equipment (PPE) This may decrease voice recognition accuracy Inadvertent senior backup administrator errors may occur 06/25/2025 Snoring (ICD-10 - [...] software and direct typing Please excuse inadvertent senior backup administrator or typing errors, or uncorrected word substitutions Although every attempt has been made by the provider to proofread this document, occasional misspellings and typographical errors may still be present Due to the previous pandemic, and the use of personal protective equipment (PPE) This may decrease voice recognition accuracy Inadvertent senior backup administrator errors may occur 12/18/2024 Daytime somnolence (ICD-10 [...] software and direct typing Please excuse inadvertent senior backup administrator or typing errors, or uncorrected word substitutions Although every attempt has been made by the provider to proofread this document, occasional misspellings and typographical errors may still be present Due to the previous pandemic, and the use of personal protective equipment (PPE) This may decrease voice recognition accuracy Inadvertent senior backup administrator errors may occur 03/17/2025 Encounter for examination [...] software and direct typing Please excuse inadvertent senior backup administrator or typing errors, or uncorrected word substitutions Although every attempt has been made by the provider to proofread this document, occasional misspellings and typographical errors may still be present Due to the previous pandemic, and the use of personal protective equipment (PPE) This may decrease voice recognition accuracy Inadvertent senior backup administrator errors may occur 05/07/2025 Daytime somnolence (ICD-10 [...] software and direct typing Please excuse inadvertent senior backup administrator or typing errors, or uncorrected word substitutions Although every attempt has been made by the provider to proofread this document, occasional misspellings and typographical errors may still be present Due to the previous pandemic, and the use of personal protective equipment (PPE) This may decrease voice recognition accuracy Inadvertent senior backup administrator errors may occur 06/25/2025 Daytime somnolence (ICD-10 [...] software and direct typing Please excuse inadvertent senior backup administrator or typing errors, or uncorrected word substitutions Although every attempt has been made by the provider to proofread this document, occasional misspellings and typographical errors may still be present Due to the previous pandemic, and the use of personal protective equipment (PPE) This may decrease voice recognition accuracy Inadvertent senior backup administrator errors may occur 09/24/2025 Encounter for examination of blood pressure without abnormal findings (ICD-10 - Z01.30) #Weight Management 09/24/2025 Increase Zepbound to 12.5 mg via Jia direct Prescription sent in the office with her present labs reviewed Total time spent today was [...] software and direct typing Please excuse inadvertent senior backup administrator or typing errors, or uncorrected word substitutions Although every attempt has been made by the provider to proofread this document, occasional misspellings and typographical errors may still be present Due to the previous pandemic, and the use of personal protective equipment (PPE) This may decrease voice recognition accuracy Inadvertent senior backup administrator errors may occur 06/25/2025 Encounter for examination [...] software and direct typing Please excuse inadvertent senior backup administrator or typing errors, or uncorrected word substitutions Although every attempt has been made by the provider to proofread this document, occasional misspellings and typographical errors may still be present Due to the previous pandemic, and the use of personal protective equipment (PPE) This may decrease voice recognition accuracy Inadvertent senior backup administrator errors may occur 05/07/2025 Encounter for examination [...] software and direct typing Please excuse inadvertent senior backup administrator or typing errors, or uncorrected word substitutions Although every attempt has been made by the provider to proofread this document, occasional misspellings and typographical errors may still be present Due to the previous pandemic, and the use of personal protective equipment (PPE) This may decrease voice recognition accuracy Inadvertent senior backup administrator errors may occur Plan Of Treatment Pending Test Test Name Order Date LIPID PANEL, STANDARD 10/22/2023 COMPREHENSIVE METABOLIC PANEL 10/22/2023 CBC (INCLUDES DIFF/PLT) 10/22/2023 URINALYSIS, COMPLETE 10/22/2023 Next Appt Details Provider Name:LIZABETH OLIVO, 11/26/2025 08:00:00 AM, [address] [facility], [facility], [place], [address], Insurance Providers Payer Name Payer Address Payer Phone Subscriber Number Group Number Insured Name Patient Relationship to Insured Coverage Start Date Coverage End Date [facility] [address] [place] [address] [id number] Kinza Lynch Self - patient is the insured 3 Medical (General) History Medical History History ICD Code hypertension hypercholesterolemia depression weight gain
--- OUTSIDE RECORDS SUMMARY | 2025-10-11 15:43 | XMS_ITS | Clinical Summary ---
Author Organization [facility] Address [address] [place] [phone] Phone Care Team Providers Care Hardware Technician Name Role Phone Wilfred Castle NP Primary [...] for biopsy. PQRI CPT II 3342F Code 10281, 63245 PQRI 225 CPT II 7025F TISSUE DENSITY: There are scattered areas of fibroglandular density. (BI-RADS category B) IMPRESSION: Benign. BI-RADS CATEGORY: 2 - BENIGN RECOMMENDATION: Screening bilateral mammogram is recommended in 1 year. Mammo Location: [facility], [address] [place] [id number] -------- FINAL REPORT -------- Dictated By: Tommy Lemus Dictated Date: 03/11/2025 09:10 ET Assigned Physician: Tommy Lemus Reviewed and Electronically Signed By: Tommy Lemus Signed Date: 03/11/2025 09:17 ET Workstation ID: [id number] Transcribed By: Self Edit Transcribed Date: 03/11/2025 09:10 ET Narrative 03/11/2025 9:17 AM EDT CLINICAL: The patient is a 60 years Female presenting for routine screening mammography. COMPARISON: Most recently 03/04/2024 and most remotely 10/23/2017. TECHNIQUE: Full-field digital mammography of the breasts bilaterally consisting of tomosynthesis in MLO and CC projection is performed in the Lumavita 2000-D unit. Computer aided detection utilizing the [...] MLO and CC projection is performed in theLumavita 2000-D unit. Computer aided detection utilizing the [...] for biopsy. PQRI CPT II 3342F Code 78292, 50551 PQRI 225 CPT II 7025F TISSUE DENSITY: There are scattered areas of fibroglandular density.(BI-RADS category B) IMPRESSION: Benign. BI-RADS CATEGORY: 2 - BENIGN RECOMMENDATION: Screening bilateral mammogram is recommended in 1 year. Mammo Location: [facility], [address] [place] [id number] -------- FINAL REPORT -------- Dictated By: Tommy Lemus Dictated Date: 03/11/2025 09:10 ET Assigned Physician: Tommy Lemus Reviewed and Electronically Signed By: Tommy Lemus Signed Date: 03/11/2025 09:17 ET Workstation ID: [id number] Transcribed By: Self Edit Transcribed Date: 03/11/2025 09:10 ET us Self Referral Sppl IMG BI PROCEDURES Final Resul t from Last 3 Months or Most Recently Relevant to Health Maintenance Insurance [facility] Care Teams Hardware Technician Relationship Specialty Start Date End Date Wilfred Castle NP PCP - General Family Medicine 03/05/25
--- OUTSIDE RECORDS SUMMARY | 2025-10-11 15:43 | XMS_ITS | Clinical Summary ---
Author Organization [facility] Address [address] [address] Phone Care Team Providers Care Valve Repairer Reclamation Name Role Phone Unknown, Unknown Primary Care [...] 6 mos f/u diagn mammo/US scheduled at [facility]. 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 Not on file [...] Recently Relevant to Health Maintenance Insurance O * Guarantor: [employer] Account Type Relation to Patient Date of Phone Billing Address Personal/Family Self 1965 [address] [facility] * Guarantor: Kinza Lynch Account Type Relation to Patient Date of Phone Billing Address Personal/Family Self 1965 [address] * Guarantor: Kinza Lynch Account Type Relation to Patient Date of Phone Billing Address Personal/Family Self [address] [place], [place] [address] Address: [place] [phone] Care Teams Valve Repairer Reclamation Relationship Specialty Start Date End Date Unknown, Unknown, PCP - General 03/30/21 Additional Source Comments The information contained in this document represents components of the legal health record. It is not the complete legal health record.[facility]
== END 2025-10-11 14:02 | disposition home or self-care (01) ==
PROVIDERS: PCP Nurse Practitioner Family; Visit Provider Nurse Practitioner Family
DX: K21.9 Gastro-esophageal reflux disease without esophagitis (principal); R74.01 Elevation of levels of liver transaminase levels; R74.8 Abnormal levels of other serum enzymes; R19.7 Diarrhea, unspecified; K59.03 Drug induced constipation
CPT/HCPCS: 99214; G2211